=== PATIENT | female | born 1980 | race Caucasian/White ===

== ENCOUNTER 2019-03-01 15:22 | Emergency (ER) | payer MEDICAID, SELFPAY ==
[2019-03-01 15:23] VITALS: BP 130/92; PULSE 92; RESP 16; TEMP 36.7; O2SAT 100; BMI 25.5
--- NOTE | 2019-03-01 15:51 | ED.DCSUM_ITS ---
History of Present Illness Chief Complaint: Lower Extremity Injury Informant: Patient Onset: Month(s) - 1 Narrative: Presents for evaluation of pain in the right medial thigh is nontraumatic for the past month. Reports seen [place] emergency department for these symptoms along with abdominal discomfort reports had lab work and abdominal scan she states she never had an ultrasound of the leg. Currently living down in this area. Looking for a new physician. Denies chest pains or shortness of breath. Denies any recent travel, surgeries, or immobilizations. No history of PE or DVT. Tobacco history, denies any oral contraceptives or hormone therapy. No paresthesias. History of gastric ulcers. History of migraines and seizures on Topamax. Reports has tolerated Percocet in the past. Prior similar symptoms: No Past Medical History - Allergies and Home Meds Allergies/Adverse Reactions: Allergies acetaminophen [From Vicodin] Allergy (Verified 08/22/16 16:46) Hives hydrocodone [From Vicodin] Allergy (Verified 08/22/16 16:46) Hives hydromorphone [From Dilaudid] Allergy (Verified 08/22/16 16:49) Hives latex Allergy (Verified 08/22/16 16:49) Hives Primary Care Physician: Care Physician,No Primary [Primary Care Provider] - Smoking Status: Current every day smoker Review of Systems General: Denies: Chills, Fever, Sweats Eyes: Denies: Visual changes - bilaterally, Diplopia ENT: Denies: Rhinorrhea, Sore throat Cardiovascular: Denies: Chest pain, Palpitations Respiratory: Denies: Dyspnea, Cough, Dyspnea on exertion Gastrointestinal: Denies: Abdominal pain, Nausea, Vomiting, Diarrhea, Melena, Hematochezia Genitourinary: Denies: Dysuria, Hematuria, Frequency Musculoskeletal: Reports: Myalgias. Denies: Back pain, Extremity Pain Skin: Denies: Rash, Wounds Neurological: Denies: Headache, Weakness, Numbness Physical Exam Vital Signs/Narrative: Vital Signs Temp Pulse Resp BP Pulse Ox 03/01/19 15:23 98.0 F 92 16 130/92 H 100 Inital Vital Signs reviewed: Yes General: Well nourished, Well developed, No Acute Distress Head: Normocephalic, Atraumatic Eyes: Perrl, EOMI ENT: Moist mucous membranes, No rhinorrhea Neck: Supple, Nontender Cardiovascular: Regular rate, Regular rhythm, No murmurs Respiratory: No distress, CTA bilaterally, Chest nontender Abdomen: Soft, Nontender, Nondistended, Normal bowel sounds Back: Nontender, Normal Inspection Extremities: No edema, - - Right lower extremity: No swelling, there is tender palpation along the medial thigh. There is no calf tenderness. Neurovascular intact distally.. Negative for: Calf Tenderness Skin: Normal color, No rash Neurological: Alert, Oriented x3, Cranial nerves II-XII grossly intact, Normal Strength, Normal Sensation Psychological: Normal affect, Normal Mood Diagnostic/Tx/Re-eval - Medical Decision Making Patient medial thigh pain nontraumatic. She has no DVT risk factors however is pain along the femoral vein. Pulses are intact distally. There is no current ultrasound available at this time and day therefore will bring the patient back for an outpatient ultrasound in the morning. I do not feel empiric treatment is required with no risk factors. With her gastric ulcers and seizure history, she will be given 1 dose of Percocet along 4 tabs to use as needed. She wishes to see a physician in the area therefore on-call physician was given. ED Disposition - Plan for ED Patient: Disposition: Home or Assisted Living Diagnosis: Right thigh pain Prescriptions: Oxycodone HCl/Acetaminophen [Percocet 5/325] 1 tablet PO Q6H PRN PRN 1 Days #12 tablet PRN Reason: Pain Transmission Status: Sent to [facility] Referrals: Evi Park MD [STAFF PHYSICIAN] - 5-7 Days Additional Instructions: Pain in right medial thigh, return for DVT ultrasound study tomorrow.
--- NOTE | 2019-03-01 16:06 | ED.RN ---
pt left prior to receiving medication and d/c papers.
== END 2019-03-01 16:16 | disposition home or self-care (01) ==
LOC: ED 16:11
PROVIDERS: Emergency Provider Emergency Medicine
DX: M79.651 Pain in right thigh (principal); G40.909 Epilepsy, unspecified, not intractable, without status epilepticus; G43.909 Migraine, unspecified, not intractable, without status migrainosus; Z87.19 Personal history of other diseases of the digestive system; Z79.899 Other long term (current) drug therapy; F17.200 Nicotine dependence, unspecified, uncomplicated
CPT/HCPCS: 99281; 99282

== ENCOUNTER 2019-03-14 19:47 | Emergency (ER) | payer MEDICAID, SELFPAY ==
[2019-03-14 19:48] VITALS: BP 117/101; PULSE 101; RESP 18; TEMP 36.8; O2SAT 100; BMI 24.3
--- NOTE | 2019-03-14 20:14 | RAD_ITS ---
STUDY: X-RAY - PELVIS AND RIGHT HIP REASON FOR EXAM: Female, 38 years old. C/O FALLING MULTIPLE TIME ROLLER SKATING TONIGHT. C/O RIGHT SIDE ESPECIALLY RIGHT HIP PAIN. NUMBNESS IN TINGLING NOTED. TECHNIQUE: 3 views of the pelvis and hip. COMPARISON: None. FINDINGS: There is a non-specific bowel gas pattern. Normal visualized soft tissue structures. Normal bilateral iliac wings, sacroiliac joints and visualized sacrum. Normal bilateral superior and inferior pubic rami. Normal pubic symphysis. Normal bilateral ischial tuberosities. Normal visualized femoral head. Normal acetabulum. Normal hip joint. RAD/Hip Min 2 Views (Portable) IMPRESSION: Normal x-ray examination of the pelvis and hip. Electronically Signed: Get Cabrera MD at 21:02 EST , Service support ,
--- NOTE | 2019-03-14 20:28 | ED.VIS.GEN ---
History of Present Illness Chief Complaint: Fall Informant: Patient, Family Onset: Today Maximum Severity: Mild Narrative: Indicates she was rollerskating today drinking alcohol without activity and fell multiple times on her right hip presents for complaints of pain to the right hip no head back neck chest abdominal pain no numbness weakness paresthesias Past Medical History - Allergies and Home Meds Allergies/Adverse Reactions: Allergies acetaminophen [From Vicodin] Allergy (Verified 03/14/19 19:48) Hives hydrocodone [From Vicodin] Allergy (Verified 03/14/19 19:48) Hives hydromorphone [From Dilaudid] Allergy (Verified 03/14/19 19:48) Hives latex Allergy (Verified 03/14/19 19:48) Hives Primary Care Physician: Care Physician,No Primary [Primary Care Provider] - Past Medical History: - Smoking Status: Current every day smoker Review of Systems ROS: - As above General: Denies: Chills, Fever, Sweats Eyes: Denies: Visual changes - bilaterally, Diplopia ENT: Denies: Rhinorrhea, Sore throat Cardiovascular: Denies: Chest pain, Palpitations Respiratory: Denies: Dyspnea, Cough, Dyspnea on exertion Gastrointestinal: Denies: Abdominal pain, Nausea, Vomiting, Diarrhea, Melena, Hematochezia Genitourinary: Denies: Dysuria, Hematuria, Frequency Musculoskeletal: Reports: Extremity Pain, - - Planes of pain to the right hip only no back pain she was able to walk into the emergency department. Denies: Back pain Skin: Denies: Rash, Wounds Neurological: Denies: Headache, Weakness, Numbness Physical Exam Vital Signs/Narrative: Vital Signs Temp Pulse Resp BP Pulse Ox 03/14/19 19:48 98.2 F 101 H 18 117/101 H 100 General: Well nourished, Well developed, No Acute Distress Head: Normocephalic, Atraumatic Eyes: Perrl, EOMI ENT: Moist mucous membranes, No rhinorrhea Neck: Supple, Nontender Cardiovascular: Regular rate, Regular rhythm, No murmurs Respiratory: No distress, CTA bilaterally, Chest nontender Abdomen: Soft, Nontender, Nondistended, Normal bowel sounds Back: Nontender, Normal Inspection Extremities: No edema, - - Very mild pain to the right hip she has full range of motion of the hip the thigh knee tib-fib and foot are unremarkable the pelvis is stable to back is nontender the rest of her exam is unremarkable she is awake alert answering questions appropriately Skin: Normal color, No rash Neurological: Alert, Oriented x3, Cranial nerves II-XII grossly intact, Normal Strength, Normal Sensation Psychological: Normal affect, Normal Mood Diagnostic/Tx/Re-eval - Medical Decision Making sHe indicates she is stubborn she continued to drink alcohol and roller skate despite the multiple falls she does have a contusion to the left elbow that is not bothering her At this time hip x-rays obtained that shows nothing acute I explained the concept of occult injury as well as her she is not to drink alcohol she is to avoid falling ice to the hip she has multiple allergy profile she indicates she is allowed to take Vicodin I told her Vicodin is not a medication usually prescribed with alcohol abuse and for this type of injury and she should take whatever pain medication her physicians allow her to take she was instructed on potential use of walking aids such as crutch or walker or cane she will discuss that with nurses and to follow-up with the clinic in the next few days and return for change in symptoms Home stable Impression final right hip pain after fall alcohol abuse ED Disposition - Plan for ED Patient: Diagnosis: Hip injury Instructions: FALL, Mechanical, Hip Contusion Referrals: Care Physician,No Primary [Primary Care Provider] - Kaity Cates [NON-STAFF] -
[2019-03-14 21:28] VITALS: BP 104/69; PULSE 78; RESP 16; O2SAT 98
== END 2019-03-14 21:29 | disposition home or self-care (01) ==
LOC: ED 20:30
PROVIDERS: Emergency Provider Emergency Medicine
DX: S79.911A Unspecified injury of right hip, initial encounter (principal); W19.XXXA Unspecified fall, initial encounter; Y93.51 Activity, roller skating (inline) and skateboarding; Y92.9 Unspecified place or not applicable; F10.10 Alcohol abuse, uncomplicated; F17.200 Nicotine dependence, unspecified, uncomplicated
CPT/HCPCS: 73502; 99282

== ENCOUNTER 2019-03-21 14:19 | Emergency (ER) | payer MEDICAID, SELFPAY ==
[2019-03-21 14:20] VITALS: BP 125/83; PULSE 77; RESP 20; TEMP 35.9; O2SAT 100; BMI 25.6
--- NOTE | 2019-03-21 14:51 | ED.VIS.GEN ---
History of Present Illness <Maylin Farias - Last Filed: 03/21/19 15:27> Informant: Patient, Family Onset: Today Context: Sudden Onset Timing: Intermittent Quality: tonic clonic seizure Location: diffuse Current Severity: Mild Maximum Severity: Severe Worsened by: nothing Relieved by: nothing Associated Symptoms: denies Narrative: 38 year old female with a history of a seizure disorder [facility] she is apparently staying after having a seizure. She had a full body tonic-clonic seizure. She did not take her Topamax that she takes for seizures last night. She denies any injuries from the seizure. There is no tongue biting. She was postictal. She was not incontinent. She otherwise has no complaints and has been feeling well recently. Prior similar symptoms: Yes Recent Illness/Hospitalization: No <Erasto Dey - Last Filed: 03/21/19 15:28> Chief Complaint: Seizure Past Medical History <Maylin Farias - Last Filed: 03/21/19 15:27> Prior records reviewed: Yes Past Medical History: - - seziures Surgical History: - - tubal ligation Lives: Homeless Smoking Status: Current every day smoker <LeonardadeborahErasto - Last Filed: 03/21/19 15:28> - Allergies and Home Meds Allergies/Adverse Reactions: Allergies acetaminophen [From Vicodin] Allergy (Verified 03/14/19 19:48) Hives hydrocodone [From Vicodin] Allergy (Verified 03/14/19 19:48) Hives hydromorphone [From Dilaudid] Allergy (Verified 03/14/19 19:48) Hives latex Allergy (Verified 03/14/19 19:48) Hives Primary Care Physician: [facility] Doctor,Out of [NON-STAFF] - Review of Systems All systems negative except as indicated General: Denies: Chills, Fever Eyes: Denies: Visual changes - bilaterally, Blurred Vision - bilaterally, Diplopia ENT: Denies: Bilateral ear pain, Rhinorrhea Cardiovascular: Denies: Chest pain, Palpitations, Heart racing Respiratory: Denies: Dyspnea, Cough, Sputum, Dyspnea on exertion, Orthopnea Gastrointestinal: Denies: Abdominal pain, Nausea, Vomiting, Diarrhea Genitourinary: Denies: Dysuria, Hematuria, Frequency Musculoskeletal: Denies: Neck pain, Back pain, Swelling, Extremity Pain Skin: Denies: Rash, Abscess, Abrasions, Wounds Neurological: Denies: Headache, Weakness, Parasthesia, Numbness Psych: Denies: Depression, Anxiety <Erasto Dey - Last Filed: 03/21/19 15:28> Physical Exam Vital Signs/Narrative: Vital Signs Temp Pulse Resp BP Pulse Ox 03/21/19 14:20 96.7 F L 77 20 H 125/83 H 100 <Maylin Farias - Last Filed: 03/21/19 15:27> Vital Signs/Narrative: Vital Signs Temp Pulse Resp BP Pulse Ox 03/21/19 14:20 96.7 F L 77 20 H 125/83 H 100 Inital Vital Signs reviewed: Yes General: Well nourished, Well developed, No Acute Distress Head: Normocephalic, Atraumatic Eyes: Perrl, EOMI ENT: Moist mucous membranes Neck: Supple, Nontender, No lymphadenopathy Cardiovascular: Regular rate, Regular rhythm, No murmurs Respiratory: No distress, CTA bilaterally, Chest nontender Abdomen: Soft, Nontender, Nondistended, Normal bowel sounds, No masses Back: Nontender, Normal Inspection. Negative for: CVA tenderness Extremities: Nontender, No edema Skin: Normal color, No rash Neurological: Alert, Oriented x3, Cranial nerves II-XII grossly intact, Normal Strength, Normal Sensation, Normal Gait Psychological: Normal affect <Erasto Dey - Last Filed: 03/21/19 15:28> Diagnostic/Tx/Re-eval - Medical Decision Making The patient presents with seizure she was seen with Jessica agree with history and physical as above she apparently not take her meds but that subsequently she did take them after having seizure she is not been ill in any way per her and her on exam she is resting comfortably bed head neck chest unremarkable confirms history as above at this time we will provide her additional medications, she assures that she has medications at home she wants to be discharged home to make sure she has follow-up arrangements see the chart for full details <Maylin Farias - Last Filed: 03/21/19 15:27> ED Disposition <Maylin Farias - Last Filed: 02/01/20 15:27> <Erasto Dey - Last Filed: 03/21/19 15:28> - Plan for ED Patient: Disposition: Home or Assisted Living Diagnosis: Seizure, Seizure disorder Instructions: SEIZURE, Recurrent [Adult] Referrals: Evi Park MD [STAFF PHYSICIAN] - As soon as possible
[2019-03-21 15:33] VITALS: BP 103/72; PULSE 78; RESP 16; O2SAT 100
[2019-03-21] MEDS: Topiramate 50 MG Tablet PO (15:42)
== END 2019-03-21 15:43 | disposition home or self-care (01) ==
PROVIDERS: Emergency Provider Physician Assistant Medical
DX: G40.909 Epilepsy, unspecified, not intractable, without status epilepticus (principal); Z91.14 Patient's other noncompliance with medication regimen; Z59.0 Homelessness; Z79.899 Other long term (current) drug therapy; F17.200 Nicotine dependence, unspecified, uncomplicated
CPT/HCPCS: 99284

== ENCOUNTER 2019-04-03 12:51 | Emergency (ER) | payer MEDICAID, SELFPAY ==
[2019-04-03 12:52] VITALS: BP 123/66; PULSE 96; RESP 16; TEMP 36.6; O2SAT 98; BMI 24.8
--- NOTE | 2019-04-03 13:07 | RAD_ITS ---
STUDY: X-RAY - LEFT HAND, ATTENTION FOURTH FINGER REASON FOR EXAM: Female, 38 years old. PT SMASHED TIP OF RING FINGER, LACERATION, PAIN TECHNIQUE: 3 view(s) of the finger were obtained. COMPARISON: None. FINDINGS: Normal metacarpal head. Normal metacarpophalangeal joint. Normal proximal phalanx. Normal middle phalanx. Nondisplaced fracture of the tuft of the distal phalanx of the fourth digit. Overlying soft tissue laceration. Normal proximal interphalangeal joint. Normal distal interphalangeal joint. RAD/Finger(s) Min 2 Views IMPRESSION: Nondisplaced fracture of the tuft of the distal phalanx of the fourth digit with overlying soft tissue swelling and laceration. Electronically Signed: Mikael Huang, at 14:08 EST , Service support ,
--- NOTE | 2019-04-03 13:08 | ED.VIS.GEN ---
History of Present Illness Chief Complaint: Upper Extremity Injury Informant: Patient Narrative: Hannah sustained a crush injury to her left fourth digit she tells me she had some sort of fracture on x-ray at an outside ED, this happened a few weeks ago and she still has pain in that region. She has no redness, she has no fever or chills she has no swelling her pain is worse only when she straightens her finger, but she is able to do it, she is able to flex and extend and have normal range of motion, she sustained a volar abrasion which is also healing. Past Medical History - Allergies and Home Meds Allergies/Adverse Reactions: Allergies acetaminophen [From Vicodin] Allergy (Verified 04/03/19 12:59) Hives hydrocodone [From Vicodin] Allergy (Verified 04/03/19 12:59) Hives hydromorphone [From Dilaudid] Allergy (Verified 04/03/19 12:59) Hives latex Allergy (Verified 04/03/19 12:59) Hives Primary Care Physician: Care Physician,No Primary [Primary Care Provider] - Past Medical History: - - Noncontributory Surgical History: - - tubal ligation Smoking Status: Current every day smoker Review of Systems General: Denies: Fever Musculoskeletal: Reports: Extremity Pain Skin: Reports: Wounds Neurological: Denies: Weakness, Parasthesia Hematologic: Denies: Easy bruising, Easy bleeding Physical Exam Vital Signs/Narrative: Vital Signs Temp Pulse Resp BP Pulse Ox 04/03/19 12:52 97.9 F 96 16 123/66 H 98 General: Well nourished, Well developed Cardiovascular: Regular rate Extremities: - - This tenderness and a healing volar wound. There is no nailbed injury, the fourth digit does not appear swollen, she only has distal tuft tenderness. She is able to flex and extend without any difficulty she has some distal paresthesias and decreased sensation of the distal tip of the finger. Skin: Normal color, - - There is no erythema or calor or any signs of infection of the finger. Diagnostic/Tx/Re-eval Left fourth digit x-ray interpreted by me shows a nondisplaced distal phalanx fracture. - Medical Decision Making Patient's fracture is seen on x-ray, it is nondisplaced, I will treat her with analgesia, she is told to continue wearing her aluminum splint. Otherwise she will be discharged in stable condition she is a smoker I told her healing will take longer ED Disposition - Plan for ED Patient: Disposition: Home or Assisted Living Diagnosis: Finger fracture, left Instructions: FRACTURE, Finger (Closed) Prescriptions: Naproxen [Naprosyn] 500 mg PO BID PRN #20 tab Prescription Printed Referrals: Care Physician,No Primary [Primary Care Provider] - 3-5 Days
[2019-04-03] MEDS: traMADol 50 MG Tablet PO (14:36)
== END 2019-04-03 14:39 | disposition home or self-care (01) ==
PROVIDERS: Emergency Provider Emergency Medicine
DX: S62.665A Nondisplaced fracture of distal phalanx of left ring finger, initial encounter for closed fracture (principal); X58.XXXA Exposure to other specified factors, initial encounter; Y93.9 Activity, unspecified; Y92.9 Unspecified place or not applicable; F17.200 Nicotine dependence, unspecified, uncomplicated
CPT/HCPCS: 73140; 99283

== ENCOUNTER 2023-09-18 23:09 | Emergency (ER) | payer MEDICAID, SELFPAY ==
[2023-09-18 23:11] VITALS: PULSE 82; RESP 16; TEMP 36.6; O2SAT 97; BMI 25.0
--- NOTE | 2023-09-18 23:15 | ED.RN ---
Patient got upset when this RN was asking the required questions for triage and initial assessment. The patient yelled well you are not helping my pain, I need pain meds and you are not helping me. This RN explained to the patient that these questions were necessary for her care while in the ED and that the doctor needed to come see her before I could give her any medication.
--- NOTE | 2023-09-18 23:35 | EKG12_ITS ---
Test Reason : DYSRYTHMIA Blood Pressure : / mmHG Vent. Rate : 069 BPM Atrial Rate : 069 BPM P-R Int : 158 ms QRS Dur : 070 ms QT Int : 398 ms P-R-T Axes : 052 057 038 degrees QTc Int : 426 ms Normal sinus rhythm Possible Anteroseptal infarct , age undetermined Abnormal ECG Confirmed by ROBERTO BUCK, QUITA ([id number]), editor managing director VINCE STOREY ([id number]) on 09/20/2023 10:26:03 AM Referred By: Confirmed By:CHANEL MEJIA MD
--- NOTE | 2023-09-18 23:36 | EDS_ITS ---
HPI History of Present Illness Chief Complaint: Chest Pain Detail of Chief Complaint: Chest pain Informant: patient Narrative Narrative: Patient presents with chest pain that she has had ongoing for for 5 months. Patient presents via EMS. Patient states that her fianc? who is significantly older than her recently had a heart attack and stents and had strokes and she became concerned. Patient describes a sharp stabbing pain in the left side of her chest that sometimes goes into her fingertips and toes. She denies nausea or vomiting. She denies recent travel or surgery. No history of PE or DVT. No significant medical history otherwise. PFSH PFSH Home Medications ?Medication ?Instructions ?Recorded ?Last Taken ?Type naproxen 500 mg tablet 500 mg PO BID PRN #20 tabs 04/03/19 Unknown Rx oxycodone-acetaminophen 5 mg-325 1 tab PO Q8H PRN pain 3 days #10 09/19/23 Unknown Rx mg tablet (Percocet) tabs Allergy/AdvReac Type Severity Reaction Status Date / Time acetaminophen (From Vicodin) Allergy Hives Verified 09/18/23 23:10 hydrocodone (From Vicodin) Allergy Hives Verified 09/18/23 23:10 hydromorphone (From Dilaudid) Allergy Hives Verified 09/18/23 23:10 latex Allergy Hives Verified 09/18/23 23:10 Surgical History (Updated 09/18/23 @ 23:17 by Shonna Clark) Hx of knee surgery Hx of removal of cyst Hx of section Social History Smoking Status: Current every day smoker tobacco type: cigarettes ROS ROS ED Review of Systems ROS Unobtainable: other Constitutional Constitutional ED: Reports lethargy; Denies chills, fever(s), sweats or weight loss Eyes Eyes: Denies blurry vision, change in vision or diplopia ENT ENT ED: Denies rhinorrhea or sore throat Cardiovascular Cardiovascular: Reports chest pain; Denies orthopnea or racing heartbeat Respiratory/Chest Respiratory/Chest: Denies cough, dyspnea, dyspnea on exertion, orthopnea or sputum Gastrointestinal Gastrointestinal: Denies abdominal pain, diarrhea, nausea or vomiting Genitourinary Genitourinary ED: Denies dysuria, hematuria or urinary frequency Musculoskeletal Musculoskeletal: Denies arthralgias, back pain, myalgias or neck pain Integumentary Denies abscess, Abrasions or rash Neurologic Neurologic: Denies headache(s) or weakness Psychiatric Psychiatric: Denies anxiety, depression or suicidal thoughts Endocrine Endocrinology: Denies polydipsia, polyphagia or polyuria Hematologic/Lymphatic Hematologic/Lymphatic: Denies easy bleeding, easy bruising or lymphadenopathy Allergic/Immunologic Allergic/Immunologic ED: Denies mouth swelling, tongue swelling or urticaria EXAM Physical Exam Const Vital Signs: 09/18/23 23:11 09/18/23 23:15 09/18/23 23:47 Temperature 97.9 F Temperature Source Oral Pulse Rate 82 Respiratory Rate 16 Respiratory Effort Normal Non-Labored Pulse Ox 97 99 Oxygen Delivery Method Room Air Room Air Positive well nourished and well developed General Appearance ED: well developed and NAD HEENT Reports TM's clear and moist mucous membranes normocephalic and atraumatic; Negative for trauma or tenderness Tympanic Membrane ED: Yes TM's clear Eyes PERRL and EOMs intact bilaterally General Eye ED: Negative for pale conjunctiva or scleral icterus Neck no lymphadenopathy, supple and no JVD General: Negative for tenderness Chest Wall inspection of chest normal Chest Narrative: Tenderness over the left chest wall that seems to reproduce her pain. No crepitus or subcu for Alejandrina noted. Chest: Negative for tenderness Resp normal respiratory effort and clear to auscultation bilaterally Effort and Inspection: Negative for respiratory distress or pain with movement Auscultation: Negative for rhonchi, wheezes or diminished lung sounds Cardio regular rate, regular rhythm, S1 normal heart sound, S2 normal heart sound and no murmurs Peripheral Pulses: pulses 2+ throughout GI normal to inspection, nondistended, normoactive bowel sounds, soft to palpation, non-tender, non-distended and no masses Back/Spine no CVA tenderness and no thoracic nor lumbar tenderness Extremity normal to inspection General Extremety ED: Negative for edema General Extremity: Negative for edema Neuro oriented x3, CN's II-XII intact bilaterally, no sensory deficits noted and gait normal Sensorium / Orientation: awake, alert, oriented to person, oriented to place and oriented to time Motor Exam: strength 5/5 throughout and strength abnormal Psych mental status grossly normal Skin no rashes or lesions noted and no wounds Heart Score History: Slightly/Non-Suspicious ECG: Normal Age: </= 45 years Risk Factors: 1 or 2 Risk Factors Troponin: </= Normal Limit Score: 1 MDM MDM MDM Narrative Medical decision making narrative: Patient presents with chest pain sounds atypical and ongoing for 4 to 5 months. Clinically she looks well. In the differential would be chest wall pain versus PE versus pneumothorax or acute coronary syndrome which I feel is less likely. EKG obtained showed sinus rhythm with rate of 69 bpm with no acute ST segment changes. CBC with differential showed a WBC count of 8.3 with hemoglobin 12 and platelet count of 187. Chemistries unremarkable. Troponin was less than 3. D- dimer normal at 0.33. 1 view chest x-ray unremarkable. Initially she received Toradol and did not get much pain relief with that. I will give her Oxy IR. I will order a prescription for Percocet for a few days. Will refer to primary care physician on-call for no doc. I do not feel patient is having acute coronary syndrome. She has a heart score of 1. Suspect likely musculoskeletal etiology. Lab Data Attestation: I reviewed the patient's lab results. Labs: Laboratory Results - last 24 hr 09/18/23 23:43 WBC 8.3 RBC 3.66 L Hgb 12.1 Hct 35.3 L MCV 96.4 MCH 33.1 H MCHC 34.3 RDW Std Deviation 50.5 H RDW Coeff of Myriam 14.6 Plt Count 187 MPV 10.9 Immature Gran % (Auto) 0.400 Neut % (Auto) 28.0 L Lymph % (Auto) 61.4 H [place] % (Auto) 8.1 Eos % (Auto) 1.3 Baso % (Auto) 0.8 Absolute Neuts (auto) 2.3 Absolute Lymphs (auto) 5.11 H Nucleated RBC % 0 Differential Comment SCANNED D-Dimer Quant (PE/DVT) 0.33 Sodium 143 Potassium 3.6 Chloride 113 H Carbon Dioxide 25.0 Anion Gap 5 BUN 8 Creatinine 0.67 Estim Creat Clear Calc 86.87 Est GFR (MDRD) Af Amer 124 Est GFR (MDRD) Non-Af 103 BUN/Creatinine Ratio 11.9 Glucose 94 Calcium 8.2 L Troponin I High Sens < 3 L Radiography Diagnostic Testing: Clinical Impression(s) from Imaging Studies Chest X-Ray 09/18/23 23:42 IMPRESSION: No acute pulmonary finding. Electronically Signed: Papo Gordon MD at 23:53 EDT Reading Location ID and State: [facility] / [place] Tel , Service support , 1 view chest x-ray obtained interpreted by myself as no infiltrate or pneumothorax or acute disease process. Radiology in agreement. EKG Initial EKG: Attestation: I personally reviewed and interpreted this EKG as follows: Comments: Sinus rhythm with ventricular rate of 69 bpm with no acute ST segment changes Discharge Plan Triage Chief Complaint: Chest Pain ED Provider: Evelin Oscar Dx/Rx/DC Orders Clinical Impression: Chest pain Instructions: ED Chest Pain, Uncertain Cause Prescriptions: New oxycodone-acetaminophen [Percocet] 5-325 mg tablet 1 tab PO Q8H PRN (Reason: pain) 3 Days Qty: 10 0RF No Action naproxen 500 MG tablet 500 mg PO BID PRN Qty: 20 0RF Primary Care Provider: Care Physician,No Primary Referrals: Odalys Brown MD [Med Staff - [facility]] - 3-5 Days Care Physician,No Primary [Primary Care Provider] - Print Language: [place] Disposition Disposition: Home, Self Care
--- NOTE | 2023-09-18 23:42 | RAD_ITS ---
INDICATION: chest pain EXAMINATION/TECHNIQUE: X-RAY - XR Chest 1 View COMPARISON: No relevant prior comparison study available FINDINGS: LINES/DEVICES: None. LUNGS: The lungs are well expanded. No consolidation, edema or effusion. No pneumothorax. MEDIASTINUM AND CARDIOVASCULAR STRUCTURES: Cardiac silhouette not enlarged. Central airways and mediastinal contour are unremarkable. BONES AND SOFT TISSUES: No acute abnormality. RAD/Chest 1 View (Portable) IMPRESSION: No acute pulmonary finding. Electronically Signed: Papo Gordon MD at 23:53 EDT ,
[2023-09-18 23:47] VITALS: O2SAT 99
[2023-09-18 23:49] LABS: Absolute Lymphocyte Count 5.11 X10^3/uL (0.83-4.51); Absolute Neutrophil Count 2.3 X10^3/uL (2.0-7.7); Basophil# 0.07 X10^3/uL; Basophil% 0.8 % (0-1); Eosinophil# 0.11 X10^3/uL; Eosinophils% 1.3 % (0-5); Hematocrit 35.3 % (37-47); Hemoglobin 12.1 g/dL (12.0-15.0); Lymphocyte # 5.11 X10^3/ul (0.83-4.51); Lymphocyte % 61.4 % (19-41); Mean Corp Hgb Conc 34.3 g/dL (32-36); Mean Corpuscular Hgb 33.1 pg (27.0-32.0); Mean Corpuscular Volume 96.4 fL (81-99); Mean Platelet Vol. 10.9 fl (6.2-12.0); Monocyte# 0.67 X10^3/uL; Monocyte% 8.1 % (0-10); NRBC Flagged by Analyzer 0 % (0-5); Neutrophil # 2.33 X10^3/uL (2.7-7.7); POSITIVE DIFFERENTIAL YES; POSITIVE MORPHOLOGY YES; Platelet Count 187 K/mm3 (150-450); RBC Distribution Width CV 14.6 % (11.6-14.6); RBC Distribution Width SD 50.5 fl (35.1-43.9); Red Blood Count 3.66 M/mm3 (4.2-5.4); White Blood Count 8.3 K/mm3 (4.4-11.0)
[2023-09-18] MEDS: Ketorolac 30 MG/ML Syringe IV (23:51)
[2023-09-18] MEDS: LORazepam 2 MG/ML Syringe 0.5 MG IV (23:52)
[2023-09-18] MEDS: 0.9% Normal Saline (1000mL) 1,000 ML 150 ML IV (23:53)
[2023-09-19] LABS: D-Dimer Quantitative (DVT/PE) 0.33 FEU/ug/m (0.27-0.49)
[2023-09-19 00:07] LABS: Anion Gap 5 (5-15); BUN 8 mg/dL (7-18); BUN/Creat Ratio 11.9 RATIO (10-20); Calcium,Total 8.2 mg/dL (8.5-10.1); Chloride 113 mmol/L (98-107); Creatinine, Serum 0.67 mg/dL (0.55-1.02); EST Glomerular Filtration Rate 103 mL/min (>60); Est Glom Filt Rate - Afr Amer 124 mL/min (>60); Estimated Creatinine Clearance 86.87 ml/min; Glucose 94 mg/dL (74-106); Potassium 3.6 mmol/L (3.5-5.1); Sodium Level 143 mmol/L (136-145); Troponin-I HS (w/2H Reflex) < 3 pg/mL (3.0-54.0)
[2023-09-19 00:08] LABS: Differential Indicated SCAN CRITERIA MET
[2023-09-19 00:21] LABS: Differential Comment SCANNED
--- NOTE | 2023-09-19 00:59 | ED.RN ---
I went into the room to evaluate the patient's pain level and reconnect her threat monitoring analyst leads because she is a chest pain patient and the monitor is ordered. I asked the patient to sit on the bed in order for me to untangle her cords, the patient got upset and yelled at me for being rude. I reconnected her leads to her threat monitoring analyst stickers and she yelled at me for hurting her. The patient told me that she did not need the monitor and stated I don't need the damn cords and I don't want to be here because you cannot keep me here because I am 42 years old and you cannot make me stay here, I want my doctor in here right now. I left her room in order to get her ordered pain medication. I explained the situation to Brianne LÓPEZ, who reentered the room with me. When we entered the room, the patient demanded that I leave the room because I was, as the patient stated, being rude and yelling at her. When Brianne asked the patient what was happening, the patient stated, well I do not want her as my nurse because she was being rude to me. Brianne asked how I was rude to the patient and the patient could not give an answer and requested to leave. Brianne took out her IV and I filled out her dispo, grabbed her discharge paperwork, and returned the pain medication to the [facility]. The patient waited in the waiting room for meds to beds.
[2023-09-19 01:46] LABS: Reflex Troponin-HS? (from REC) Y
== END 2023-09-19 01:29 | disposition home or self-care (01) ==
PROVIDERS: Emergency Provider Emergency Medicine; Visit Provider Emergency Medicine
DX: R07.9 Chest pain, unspecified (principal); F17.210 Nicotine dependence, cigarettes, uncomplicated
CPT/HCPCS: 71045; 80048; 82077; 84484; 85025; 85379; 93005; 96361; 96374; 96375; 99284; J7030; A4216

== ENCOUNTER 2024-02-19 01:22 | Emergency (ER) | payer MEDICAID, SELFPAY ==
[2024-02-19 01:22] VITALS: BP 121/85; PULSE 74; RESP 16; TEMP 36.6; O2SAT 100; BMI 26.3
--- NOTE | 2024-02-19 02:15 | RAD_ITS ---
EXAM: XR LEFT FOOT COMPLETE, 3 OR MORE VIEWS CLINICAL INDICATION: trauma TECHNIQUE: Frontal, lateral and oblique views of the left foot. COMPARISON: No relevant prior studies available. FINDINGS: BONES/JOINTS: Unremarkable. No acute fracture. No subluxation. Normal alignment. Preservation of the joint space. No sclerotic or destructive changes observed. SOFT TISSUES: Unremarkable. No soft tissue swelling or gas. No radiopaque foreign body. RAD/Foot min 3 Views IMPRESSION: Negative left foot x-rays. Electronically Signed: Valdez Mckeon MD at 4:26 EST ,
--- NOTE | 2024-02-19 02:15 | RAD_ITS ---
EXAM: XR LEFT ANKLE COMPLETE, 3 OR MORE VIEWS CLINICAL INDICATION: trauma TECHNIQUE: Frontal, lateral and oblique views of the left ankle. COMPARISON: No relevant prior studies available. FINDINGS: BONES/JOINTS: Small ossicle adjacent to the lateral malleolus appears chronic and probably represents an os subfibulare. No acute fracture. No subluxation. Normal alignment. Preservation of the joint space. No sclerotic or destructive changes observed. SOFT TISSUES: Mild soft tissue swelling bilaterally likely due to sprain. No radiopaque foreign body. RAD/Ankle min 3 Views IMPRESSION: 1. Mild soft tissue swelling bilaterally likely due to sprain. 2. Small ossicle adjacent to the lateral malleolus appears chronic and probably represents an os subfibulare. Electronically Signed: Valdez Mckeon MD at 4:25 EST ,
--- NOTE | 2024-02-19 03:17 | EDS_ITS ---
HPI History of Present Illness Chief Complaint: Lower Extremity Injury Informant: patient and EMS Narrative Narrative: Patient is a 43-year-old female with past medical history of migraine headache as well as epilepsy. She states 1 to 2 hours ago she was taking her dogs outside when she tripped on the steps and fell injuring her left foot/ankle. She denies striking her head or any loss of consciousness. She denies any history of bleeding disorder or blood thinner use. She states that she cannot bear weight on the foot/ankle and has concerned that it may be fractured and therefore called EMS to bring her in for evaluation [facility] Medical History Liver disease Alcohol abuse Smoker Seizures Chronic bronchiolitis Epilepsy Migraine Home Medications ?Medication ?Instructions ?Recorded ?Last Taken ?Type naproxen 500 mg tablet 500 mg PO BID PRN #20 tabs 04/03/19 Unknown Rx Unobtainable 06/02/23 Unknown History oxycodone-acetaminophen 5 mg-325 1 tab PO Q8H PRN pain 3 days #10 09/19/23 Unknown Rx mg tablet (Percocet) tabs Allergy/AdvReac Type Severity Reaction Status Date / Time acetaminophen (From Vicodin) Allergy Hives Verified 02/19/24 01:23 hydrocodone (From Vicodin) Allergy Hives Verified 02/19/24 01:23 hydromorphone (From Dilaudid) Allergy Hives Verified 02/19/24 01:23 latex Allergy Hives Verified 02/19/24 01:23 Latex, Natural Rubber Allergy Rash Verified 02/19/24 01:23 Surgical History (System 09/23/23 @ 11:52 by Federica Rhodes) Hx of knee surgery Hx of removal of cyst Hx of section Social History (System 09/23/23 @ 11:52 by Federica Rhodes) Smoking Status: Current every day smoker tobacco type: cigarettes ROS ROS ED Constitutional Constitutional ED: Denies chills or fever(s) Eyes Eyes: Denies blurry vision or change in vision ENT ENT ED: Denies sore throat Cardiovascular Cardiovascular: Reports other Details: Negative syncope ; Denies chest pain Respiratory/Chest Respiratory/Chest: Denies cough or dyspnea Gastrointestinal Gastrointestinal: Denies abdominal pain, diarrhea, nausea or vomiting Musculoskeletal Musculoskeletal: Reports other Details: Positive left foot/ankle pain ; Denies back pain or neck pain Integumentary Denies Abrasions Neurologic Neurologic: Denies headache(s) or paresthesias Hematologic/Lymphatic Hematologic/Lymphatic: Denies easy bleeding or easy bruising EXAM Physical Exam Const Vital Signs: 02/19/24 01:22 Temperature 97.9 F Temperature Source Oral Pulse Rate 74 Respiratory Rate 16 Blood Pressure 121/85 H Blood Pressure Mean 97 Pulse Ox 100 Oxygen Delivery Method Room Air Positive well nourished and well developed General Appearance ED: well developed HEENT HEENT Narrative: Normocephalic atraumatic No signs of depressed or basilar skull fracture Eyes PERRL and EOMs intact bilaterally Neck supple Neck Narrative: No bony deformity or step-off of the cervical spine no midline tenderness to palpation Resp normal respiratory effort and clear to auscultation bilaterally Cardio regular rate and regular rhythm Back/Spine Back/Spine Narrative: No bony deformity or step-off of the thoracic and lumbar spine no midline tenderness to palpation Extremity Extremity Narrative: Left lower extremity is neurovascularly intact Patient has soft tissue swelling along the lateral aspect of the left ankle with faint ecchymosis. No obvious bony deformity or joint effusion. There is also pain on palpation over top the calcaneus. Active and passive range of motion is decreased secondary to pain. There does appear to be increased laxity with stressing of the left ATFL compared to the right concerning for grade 2 ankle sprain. No proximal pain on palpation of the left tibia Compartments are soft and compressible going against compartment syndrome Neuro oriented x3, CN's II-XII intact bilaterally and no sensory deficits noted Sensorium / Orientation: alert Psych mental status grossly normal Skin Skin Narrative: Mild soft tissue swelling with faint ecchymosis to the lateral aspect of the left foot/ankle as documented above MDM MDM MDM Narrative Medical decision making narrative: Patient arrived to the ER with stable vitals. She reported mechanical fall and therefore there is no need for cardiac or syncope workup. She did not strike her head have loss of conscious nor take blood thinners so there is low concern for traumatic skull fracture versus traumatic subdural or subarachnoid hemorrhage. In order to rule out ankle fracture versus foot fracture versus contusion versus sprain I did perform x-rays. X-rays revealed no acute findings. The patient was informed she would receive oxycodone for pain. However critical patient came in just as I was leaving the room and did not have time to enter the pain medication order. While I was dealing with the other patient she became upset she was not receiving her pain medication and was able to ambulate out of the ER without any assistive devices. As I was able to review her x-rays and did not note any fracture or dislocation she was going to be discharged anyway and therefore patient was discharged but did not receive crutches walking boot or pain medication as she did not want to wait around any longer in the ER History & Record Review Discussion w/independent historian: Patient Radiography Diagnostic Testing: Clinical Impression(s) from Imaging Studies Ankle X-Ray 02/19/24 02:15 IMPRESSION: 1. Mild soft tissue swelling bilaterally likely due to sprain. 2. Small ossicle adjacent to the lateral malleolus appears chronic and probably represents an os subfibulare. Electronically Signed: Valdez Mckeon MD at 4:25 EST , Foot X-Ray 02/19/24 02:15 IMPRESSION: Negative left foot x-rays. Electronically Signed: Valdez Mckeon MD at 4:26 EST , Left foot x-ray as interpreted by the emergency medicine physician reveals no acute fracture or dislocation Left ankle x-ray as interpreted by the emergency medicine this reveals mild soft tissue swelling without joint effusion fracture or dislocation Discharge Plan Triage Chief Complaint: Lower Extremity Injury ED Provider: Willian Brice Dx/Rx/DC Orders Clinical Impression: Grade 2 ankle sprain, Contusion of left heel, Accidental fall, History of epilepsy Instructions: Treating Ankle Sprains, ED Foot Contusion Prescriptions: No Action naproxen 500 MG tablet 500 mg PO BID PRN Qty: 20 0RF Unobtainable oxycodone-acetaminophen [Percocet] 5-325 mg tablet 1 tab PO Q8H PRN (Reason: pain) 3 Days Qty: 10 0RF Primary Care Provider: CARIN MORRISON Referrals: CARIN MORRISON MD [Primary Care Provider] - Print Language: Sinhala Disposition Disposition: Home, Self Care Discharge Date/Time: 02/19/24 03:43
--- NOTE | 2024-02-19 03:17 | ED.RN ---
Pt rang light, this nurse answered, unable to understand. This nurse to room to assess. Pt states I am cold and I want pain medicine. Advised pt that she has two blankets on her bed and she is not using them. This nurse explained that doctor would be asked about pain medicine. Pt states you people should be in here taking care of me not other people. Explained to pt that pts are seen and treated based on who is most critical. Pt yells at this nurse I am fucking critical I came in a fucking squad. Explained to pt that coming by squad does not determine level of severity. Pt states to nurse just get me the fucking pain medicine. This nurse to [facility] to get medication. While walking back to room, pt ambulates out of room and states she is leaving and walks out.
== END 2024-02-19 03:43 | disposition home or self-care (01) ==
PROVIDERS: Emergency Provider Emergency Medicine; PCP Internal Medicine; Visit Provider Emergency Medicine
DX: S93.402A Sprain of unspecified ligament of left ankle, initial encounter (principal); G40.909 Epilepsy, unspecified, not intractable, without status epilepticus; F17.210 Nicotine dependence, cigarettes, uncomplicated; W01.0XXA Fall on same level from slipping, tripping and stumbling without subsequent striking against object, initial encounter; Y92.008 Other place in unspecified non-institutional (private) residence as the place of occurrence of the external cause; S90.32XA Contusion of left foot, initial encounter
CPT/HCPCS: 73610; 73630; 99284

== ENCOUNTER 2024-10-13 01:53 | Emergency (ER) | payer MEDICAID, SELFPAY ==
[2024-10-13 01:54] VITALS: BP 150/94; PULSE 88; RESP 18; TEMP 36.7; O2SAT 100; BMI 28.6
--- NOTE | 2024-10-13 02:08 | ED.VIS.FEGU ---
HPI HPI - Female History of Present Illness Chief Complaint: Vag Bleeding Informant: patient Narrative Narrative: 43-year-old female presenting for vaginal bleeding. States this has been going on for about a week, it was appropriate timing for her cycle. However it has been going on for longer than usual, and she has been bleeding more than usual especially in the past 24 hours, many hours she has been going through an entire pad. She denies any syncope. No fevers or chills. She is having some right sided pelvic pain that started 4 days ago. This same pain started before this cycle and then ended when the bleeding started, which is how it has gone in the last couple cycles but now she is having the pain again and it feels like it is getting worse. Denies any other acute symptoms. She presents at 2 AM after drinking some beer earlier. States she does not have an [employer]. [facility] Medical History Liver disease Alcohol abuse Smoker Seizures Chronic bronchiolitis Epilepsy Migraine Home Medications ?Medication ?Instructions ?Recorded ?Last Taken ?Type duloxetine 30 mg capsule,delayed 30 mg PO DAILY 10/13/24 Unknown History release ibuprofen 600 mg tablet 600 mg PO Q8H PRN PRN pain #20 10/13/24 Unknown Rx TABLETS quetiapine 200 mg tablet 200 mg PO QHS 10/13/24 Unknown History topiramate 100 mg tablet 100 mg PO DAILY 10/13/24 Unknown History trazodone 100 mg tablet 100 mg PO QHS PRN PRN insomnia 10/13/24 Unknown History Allergy/AdvReac Type Severity Reaction Status Date / Time acetaminophen (From Vicodin) Allergy Hives Verified 10/13/24 01:54 hydrocodone (From Vicodin) Allergy Hives Verified 10/13/24 01:54 hydromorphone (From Dilaudid) Allergy Hives Verified 10/13/24 01:54 latex Allergy Hives Verified 10/13/24 01:54 Latex, Natural Rubber Allergy Rash Verified 10/13/24 01:54 Surgical History (Updated 10/13/24 @ 01:59 by Alicia Collins) H/O tubal ligation Hx of knee surgery Hx of removal of cyst Hx of section Social History Smoking Status: Current every day smoker tobacco type: cigarettes ROS ROS ED Constitutional Constitutional ED: Denies chills or fever(s) Eyes Eyes: Denies change in vision or diplopia ENT ENT ED: Denies rhinorrhea or sore throat Cardiovascular Cardiovascular: Denies chest pain or palpitations Respiratory/Chest Respiratory/Chest: Denies cough or dyspnea Gastrointestinal Gastrointestinal: Reports abdominal pain; Denies diarrhea, nausea or vomiting Genitourinary Genitourinary ED: Reports vaginal bleeding; Denies dysuria, hematuria, low back pain or vaginal discharge Musculoskeletal Musculoskeletal: Denies back pain or neck pain Integumentary Denies abscess or rash Neurologic Neurologic: Denies headache(s), paresthesias or weakness Psychiatric Psychiatric: Denies suicidal thoughts EXAM Physical Exam Const Vital Signs: 10/13/24 01:54 Temperature 98.1 F Temperature Source Axillary Pulse Rate 88 Respiratory Rate 18 Blood Pressure 150/94 H Blood Pressure Mean 112 Pulse Ox 100 Oxygen Delivery Method Room Air Positive well nourished and well developed General Appearance ED: well developed and NAD HEENT Reports moist mucous membranes normocephalic and atraumatic Eyes PERRL and EOMs intact bilaterally Neck full ROM and supple Resp normal respiratory effort and clear to auscultation bilaterally Cardio regular rate, regular rhythm and no murmurs Rate: Negative for tachycardic GI non-distended GI Narrative: Tender suprapubic and right pelvis. No guarding or rebound. No other areas of tenderness. Auscultation: normoactive bowel sounds Palpation: soft Speculum Exam - Vagina: vaginal bleeding; Negative for vaginal discharge Back/Spine no CVA tenderness General Back: other FROM Extremity normal to inspection General Extremety ED: Negative for edema, pulses abnormal or tenderness General Extremity: Negative for edema or pulses abnormal Neuro oriented x3, CN's II-XII intact bilaterally and no sensory deficits noted Sensorium / Orientation: awake and alert Motor Exam: strength 5/5 throughout Psych Mood & Affect: anxious Skin no rashes or lesions noted and no wounds MDM MDM MDM Narrative Medical decision making narrative: Labs were obtained as well as a serum qualitative which is negative, ruling out ectopic as cause for her pelvic pain. Her labs are very reassuring, showing hemoglobin 14.1, no leukocytosis, actually a predilection for lymphocytes on the differential for her total white blood count of 10.2. Her urine is negative except for some occult blood likely due to contamination from her vaginal bleeding. No signs of infection. Patient is doing well her vital signs are stable she is a little hypertensive but she is very anxious and wants to make sure she is okay. She was given Toradol and she feels a lot better with regards to her pain. I do not have ultrasound here right now, I could call them in for true emergencies such as rule out ectopic, but as above that is not necessary or indicated for her at this time. I am not suspicious for TOA given her focal pain and lack of leukocytosis or discharge recently. This could be an ovarian cyst, if hemorrhagic she is in no danger with her blood pressure and stable hemoglobin. I recommend close outpatient gynecologic follow-up, we can give her a prescription for some NSAID and she is comfortable with that plan at this time. Lab Data Attestation: I reviewed the patient's lab results. Labs: Laboratory Results - last 24 hr 10/13/24 10/13/24 02:04 02:12 WBC 10.2 RBC 4.48 Hgb 14.1 Hct 39.7 MCV 88.6 MCH 31.5 MCHC 35.5 RDW Std Deviation 49.6 H RDW Coeff of Myriam 15.3 H Plt Count 191 MPV 10.8 Immature Gran % (Auto) 0.300 Neut % (Auto) 38.7 L Lymph % (Auto) 52.3 H [place] % (Auto) 6.1 Eos % (Auto) 1.9 Baso % (Auto) 0.7 Absolute Neuts (auto) 4.0 Absolute Lymphs (auto) 5.35 H Nucleated RBC % 0 Differential Comment SCANNED Sodium 138 Potassium 3.5 Chloride 105 Carbon Dioxide 19.8 L Anion Gap 14 BUN 10 Creatinine 0.76 Estim Creat Clear Calc 80.77 Est GFR (MDRD) Non-Af 100 BUN/Creatinine Ratio 12.5 Glucose 99 Calcium 8.8 Serum , Qual NEGATIVE Urine Color Yellow Urine Clarity Clear Urine pH 6.5 Ur Specific [place] 1.010 Urine Protein Negative Urine Glucose (UA) Normal Urine Ketones Negative Urine Occult Blood 25 H Urine Nitrite Negative Urine Bilirubin Negative Urine Urobilinogen Normal Ur Leukocyte Esterase Negative Urine RBC 0 SEEN Urine WBC 0 SEEN Ur Squamous Epith Cells 0 SEEN Urine Bacteria 0 SEEN Urine Mucus 0 SEEN Discharge Plan Triage Chief Complaint: Vag Bleeding ED Provider: Angelito Santiago Dx/Rx/DC Orders Clinical Impression: Bleeding, uterine, dysfunctional, Acute pelvic pain, female Instructions: ED Dysfunctional Uterine Bleeding Prescriptions: New ibuprofen 600 mg tablet 600 mg PO Q8H PRN PRN (Reason: pain) Qty: 20 0RF Continued quetiapine 200 mg tablet 200 mg PO QHS trazodone 100 mg tablet 100 mg PO QHS PRN PRN (Reason: insomnia) topiramate 100 mg tablet 100 mg PO DAILY duloxetine 30 mg capsule,delayed release(DR/EC) 30 mg PO DAILY Discontinued ibuprofen 800 mg tablet 800 mg PO TID PRN PRN (Reason: pain) Primary Care Provider: Care Physician,No Primary Referrals: Eri Sun DO [Med Staff - Active Staff] - 3-5 Days if not improving Print Language: Faroese Disposition Disposition: Home, Self Care
[2024-10-13 02:19] LABS: Mucous, Urine 0 SEEN /hpf (<or=2+); Red Blood Cells-Urine 0 SEEN /hpf (0-5); Squamous Epithelial Cells - UA 0 SEEN /hpf (5-10)
--- OUTSIDE RECORDS SUMMARY | 2024-10-13 02:21 | XMS RPT_ITS | CCD ---
Author Organization [facility] Care Team Providers Care Weaving Professor Name Role Phone LAUREN MORGAN Unavailable Unavailable CRISTHIAN SMAS Unavailable Unavailable Flaquita, [facility] Primary Care Provider [phone] LE GOINS, MARC Admitting Unavailab le LE GOINS, MARC Attending Unavailab le AA NO PCP, NO PCP Primary Care Unavailable BEDDELLESTHER Admitting Unavailable BEDDELLESTHER Attending Unavailable AA NO PCP, NO PCP Primary Care Unavailable AA NO PCP, NO PCP Primary Care Unavailable BEDDELLESTHER Admitting Unavailable BEDDELLESTHER Attending Unavailable JESSICA PERALES Consulting UnavailFRANCISCO Penny Consulting Unavailable AA NO PCP, NO PCP Primary Care Unavailable BEDDELLESTHER Admitting Unavailable BEDDELLESTHER Attending Unavailable Flaquita, [facility] Primary Care Provider Unavailabl e Flaquita, [facility] Primary Care Provider FLAQUITA BUCK, [facility] Primary Care Physician Unavailable Primary Care Provider Unavailabl e FLAQUITA, [facility] Primary Care Physician Unavailab CORRIE Weber DO Attending Unavailable JAN BUCK, DR DIAZ Attending Unavailsanket MONTOYA MD, BRAD Montero Attending Unavailable NAKUL CM MD Attending Unavailable JAN BUCK, DR DIAZ Attending UnavailCORRIE Milan DO Attending Unavailable Willian Brice Attending Unavailable FLAQUITA, [facility] Primary Care Unavailable Care Physician, No Primary Primary Care Unava ilable Trinidad Oscarus Attending Unavailable Kenyon Hernandez Attending Unavailable CRISTHIAN SAMS Primary Care Unavailable Allergies Allergy Classification Reported Allergen(s) Allergy Type Date of Onset Reaction(s) Facility (6 sources) Acetaminophen / HYDROcodone Drug Allergy 9 It[place] (5 sources) HYDROmorphone Drug Allergy 7 [place] (7 sources) Latex; Translations: [Latex] Propensity to adverse reactions to drug 7 [place] (1 source) Acetaminophen / HYDROcodone Drug Allergy [facility] Repository (1 source) HYDROmorphone Drug Allergy [facility] Repository (6 sources) Acetaminophen / HYDROcodone; Translations: [acetaminophen-hy drocodone] Drug Allergy [facility] (1 source) HYDROmorphone Drug Allergy 9 Itching [facility] (1 source) Latex Drug Allergy 2 Unknown [facility] (1 source) Acetaminophen Drug Allergy 5 [facility] Repository (1 source) HYDROcodone Drug Allergy 5 [facility] (1 source) HYDROmorphone Drug Allergy 5 [facility] (1 source) Latex Drug allergy (disorder) 5 [facility] Rep[facility] (1 source) natural latex rubber Drug allergy (disorder) 5 [facility] Repository Medications Current Medications Medication Drug Class(es) Dates Sig (Normalized) Sig (Original) acetaminophen 325 mg / oxyCODONE hydrochloride 5 mg oral tablet (4 sources) Opioid Agonist Start: 06-10-2023 End: 06-12-2023 Percocet 5 mg-325 mg oral tablet Dose = 1 tab(s), Oral, q6h, PRN Pain, scale 7-10, X 2 day(s), # 6 tab(s), 0 Refill(s), Pharmacy: [facility]/pharmacy #[id number], Odontalgia, 149.9, cm, 03/30/22 19:34:00 EST, Height, 47, kg, 11/21/22 10:53:00 EDT, Dosing Weight Start Date: 06/10/23 Stop Date: 06/12/23 Status: Ordered Start: 02-14-2019 End: 02-17-2019 take 1 tablet by mouth every six hours as needed for pain oxyCODONE-acetaminophen (PERCOCET) 5-325 MG per tablet Indications: Generalized abdominal pain Take 1 tablet by mouth every 6 hours as needed for Pain for up to 3 days. 10 tablet 0 02/14/2019 02/17/2019 Active Start: 01-03-2019 End: 01-03-2019 oxyCODONE-acetaminophen (PER COCET) 5-325 MG per tablet 1 tablet Start: 01-03-2019 End: 01-06-2019 take 1 tablet by mouth every eight hours as needed for pain oxyCODONE-acetaminophen (PERCOCET) 5-325 MG per tablet Indications: Contusion of right index finger without damage to nail, initial encounter Take 1 tablet by mouth every 8 hours as needed for Pain for up to 3 days. 6 tablet 0 01/03/2019 01/06/2019 Active amoxicillin 875 mg / clavulanate 125 mg oral tablet (1 source) Penicillin-class Antibacterial Start: 06-10-2023 End: 06-17-2023 take 1 tablet by mouth every twelve hours amoxicillin-clavulanate 875 mg-125 mg oral tablet 1 tab(s), Oral, q12h, X 7 day(s), # 14 tab(s), 0 Refill(s), 06/17/23 1:48:00 AM EDT, Pharmacy: [facility]/pharmacy #[id number], 149.9, cm, 03/30/22 19:34:00 EST, Height, 47, kg, 11/21/22 10:53:00 EDT, Dosing Weight Start Date: 06/10/23 Stop Date: 06/17/23 Status: Ordered cephalexin 500 mg oral capsule (1 source) Cephalosporin Antibacterial Start: 03-30-2022 End: 04-06-2022 cephalexin 500 mg oral capsule Dose : 500 mg = 1 cap(s), Oral, QID, X 7 day(s), # 28 cap(s), 0 Refill(s), 04/06/22 20:30:00 EST, 56.8 Start Date: 03/30/22 Stop Date: 04/06/22 Status: Ordered dicyclomine hydrochloride 10 mg oral capsule (3 sources) Anticholinergic Start: 02-14-2019 End: 02-14-2020 take 2 capsules by mouth four times daily before mealtime dicyclomine (BENTYL) 10 MG capsule Take 2 capsules by mouth 4 times daily (before meals and nightly) 15 capsule 0 02/14/2019 Active famotidine 20 mg oral tablet (7 sources) Histamine-2 Receptor Antagonist Start: 10-18-2020 take 1 tablet by mouth twice daily famotidine (PEPCID) 20 MG tablet Take 1 tablet by mouth 2 times daily 60 tablet 0 10/18/2020 Active Start: 12-30-2017 take 1 tablet by simi th once daily famotidine (PEPCID) 40 mg tablet Take 1 tablet by mouth once daily. 20 tablet 0 12/30/2017 Active famotidine (PEPC ID) 20 MG tablet famotidine 20 mg tablet 0 Active Comment on above: Take 1 tablet by simi th once daily. ibuprofen 600 mg oral tablet (3 sources) Nonsteroidal Anti-inflammatory Drug Start: 06-10-2023 End: 06-17-2023 ibuprofen 600 mg oral tablet Dose : 600 mg = 1 tab(s), Oral, q6h, PRN Pain, scale 1-6, Take with food or milk., X 7 day(s), # 28 tab(s), 0 Refill(s), 06/17/23 1:49:00 AM EDT, Pharmacy: [facility]/pharmacy #[id number], 149.9, cm, 03/30/22 19:34:00 EST, Height, kg, 11/21/22 10:53:00 EDT, Dosing Weight Start Date: 06/10/23 Stop Date: 06/17/23 Status: Ordered Start: 03-24-2019 take 1 tablet by simi th every eight hours as needed for pain ibuprofen (ADVIL;MOTRIN) 800 MG tablet Take 1 tablet by mouth every 8 hours as needed for Pain or Fever 21 tablet 0 03/24/2019 Active levothyroxine sodium 0.05 mg oral tablet (5 sources) l-Thyroxine Start: 09-23-2018 levothyroxine (SYNTHROID) 50 MCG tablet Take by mouth 0 09/23/2018 Active take 1 tablet by simi th once daily before breakfast levothyroxine (SYNTHROID) 100 mcg tablet Take 100 mcg by mouth daily before breakfast. unsure of strength 0 Active Comment on above: Take 100 mcg by mout h daily before breakfast. unsure of strength oxyCODONE hydrochloride 5 mg oral tablet (1 source) Opioid Agonist Start: 4 End: 4 oxyCODONE 5 mg oral tablet ( IMMEDIATE release ) Dose : 5 mg = 1 tab(s), Oral, q6h, X 2 day(s), # 7 tab(s), 0 Refill(s), 06/26/23 8:41:00 PM EDT, Pain due to dental caries, 54 Start Date: 06/24/23 Stop Date: 06/26/23 Status: Ordered sodium chloride flush 0.9 % injection 3 mL (1 source) Start: 9 sodium chloride flush 0.9 % injection 3 mL sucralfate 100 mg/ml oral suspension (1 source) Aluminum Complex Start: 1 take 10 mL by mouth four times daily sucralfate (CARAFATE) 1 GM/10ML suspension Take 10 mLs by mouth 4 times daily 1200 mL 3 10/18/2020 Active Start: 10-18-2020 take 10 mL by mouth four times daily sucralfate (CARAFATE) 1 GM/10ML suspension Take 10 mLs by mouth 4 times daily 1200 mL 3 10/18/2020 Active sulfamethoxazole 800 mg / trimethoprim 160 mg oral tablet (1 source) Dihydrofolate Reductase Inhibitor Antibacterial, Sulfonamide Antimicrobial Start: 03-30-2022 End: 04-06-2022 take 1 tablet by mouth twice daily Bactrim DS 800 mg-160 mg oral tablet Dose = 1 tab(s), Oral, BID, X 7 day(s), # 14 tab(s), 0 Refill(s), 56.8 Start Date: 03/30/22 Stop Date: 04/06/22 Status: Ordered traZODone hydrochloride 100 mg oral tablet (6 sources) Serotonin Reuptake Inhibitor Start: 09-15-2018 take 1 tablet by mouth once daily as needed for sleep traZODone (DESYREL) 100 MG tablet Take 1 tablet by mouth nightly as needed for Sleep 10 tablet 0 09/15/2018 Active Comment on above: Take 100 mg by mouth daily at bedtime. Completed/Discontinued Medications Medication Drug Class(es) Dates Sig (Normalized) Sig (Original) acetaminophen 500 mg oral tablet (1 source) Start: 10-28-2018 End: 10-28-2018 acetaminophen (TYLENOL) tablet 1,000 mg [id number] 200 actuat albuterol 0.09 mg/actuat metered dose inhaler (6 sources) beta2-Adrenergic Agonist Start: 06-24-2017 take 2 puff(s) by inhalation every four hours as needed for wheezing albuterol HFA (PROVENTIL HFA, VENTOLIN HFA) 90 mcg/actuation inhaler Inhale 2 Puffs as instructed every 4 hours as needed for Wheezing/Shortness of Breath. 1 Inhaler 0 06/24/2017 Active albuterol sulfat e HFA (VENTOLIN HFA) 108 (90 Base) MCG/ACT inhaler Ventolin HFA 90 mcg/actuation aerosol inhaler 0 Active albuterol sulfat e HFA (VENTOLIN HFA) 108 (90 Base) MCG/ACT inhaler Ventolin HFA 90 mcg/actuation aerosol inhaler 0 Active Comment on above: Inhale 2 Puffs as in structed every 4 hours as needed for Wheezing/Shortness of Breath. aluminum & magnesium hydroxide-simethicone (MAALOX) 30 mL, lidocaine viscous hcl (XYLOCAINE) 5 mL (GI COCKTAIL) (1 source) Start: 10-18-2020 End: 10-18-2020 aluminum & magnesium hydroxide-simethicone (MAALOX) 30 mL, lidocaine viscous hcl (XYLOCAINE) 5 mL (GI COCKTAIL) bacitracin 0.5 unt/mg topical ointment (2 sources) Start: 03-24-2019 End: 03-24-2019 bacitracin zinc ointment Start: 10-28-2018 End: 10-28-2018 bacitracin zinc ointment 5 ml bupivacaine hydrochloride 5 mg/ml injection (1 source) Amide Local Anesthetic Start: 06-02-2021 End: 06-02-2021 bupivacaine (PF) 0.5 % (5 mg/mL) 8 mL injection Start: 06-02-2021 End: 06-02-2021 bupivacaine (PF) 0.5 % (5 mg /mL) 8 mL injection cetirizine hydrochloride 10 mg oral tablet (4 sources) Histamine-1 Receptor Antagonist Start: 11-21-2022 End: 12-01-2022 Zyrtec 10 mg oral tablet Dose : 10 mg = 1 tab(s), Oral, qDay, # 10 tab(s), 0 Refill(s) Start Date: 11/21/22 Stop Date: 12/01/22 Status: Ordered cyclobenzaprine hydrochloride 10 mg oral tablet (1 source) Muscle Relaxant Start: 06-07-2018 take 1 tablet by mouth every eight hours as needed cyclobenzaprine (FLEXERIL) 10 mg tablet Take 1 tablet by mouth every 8 hours as needed. 10 tablet 0 06/07/2018 Active Comment on above: Take 1 tablet by simi every 8 hours as needed. fluticasone propionate 0.05 mg/actuat metered dose nasal spray (4 sources) Corticosteroid Start: 11-21-2022 End: 11-28-2022 take 1 dose nasal route twice daily Flonase 50 mcg/inh nasal spray Dose = 1 spray(s), Nostril, each, BID, # 15.8 mL, 0 Refill(s) Start Date: 11/21/22 Stop Date: 11/28/22 Status: Ordered gabapentin 300 mg oral capsule (2 sources) Anti-epileptic Agent End: 02-14-2019 gabapentin (NEURONTIN) 300 MG capsule gabapentin 300 mg capsule 0 02/14/2019 Discontinued (LIST CLEANUP) iopamidol (ISOVUE-370) 76 % injection 75 mL (1 source) Start: 10-18-2020 End: 10-18-2020 iopamidol (ISOVUE-370) 76 % injection 75 mL 1 ml ketorolac tromethamine 30 mg/ml cartridge (3 sources) Nonsteroidal Anti-inflammatory Drug, Cyclooxygenase Inhibitor Start: 10-18-2020 End: 10-18-2020 ketorolac (TORADOL) injection 30 mg Start: 02-14-2019 End: 02-14-2019 ketorolac (TORADOL) injectio n 30 mg Start: 10-28-2018 End: 10-28-2018 ketorolac (TORADOL) injectio n 60 mg magnesium oxide 400 mg oral tablet (1 source) Start: 11-01-2016 take 1 tablet by mouth twice daily magnesium oxide (MAG-OX) 400 mg tablet Take 1 tablet by mouth twice daily. 60 tablet 2 11/01/2016 Active Comment on above: Take 1 tablet by simi th twice daily. meloxicam 15 mg oral tablet (4 sources) Nonsteroidal Anti-inflammatory Drug End: 02-14-2019 take 1 tablet by mouth once daily meloxicam (MOBIC) 15 mg tablet Take 15 mg by mouth once daily. 0 Active Comment on above: Take 15 mg by mouth once daily. methylPREDNISolone 4 mg oral tablet (1 source) Corticosteroid Start: 06-07-2018 methylPREDNISolone (MEDROL, ZOILA,) 4 mg Dose-Pack Take by mouth. As directed on package 1 Package 0 06/07/2018 Active Comment on above: Take by mouth. As di rected on package naproxen 500 mg oral tablet (1 source) Nonsteroidal Anti-inflammatory Drug Start: 06-07-2018 take 1 tablet by mouth every twelve hours as needed naproxen (NAPROSYN) 500 mg tablet Take 1 tablet by mouth twice daily as needed. TAKE WITH FOOD 15 tablet 0 06/07/2018 Active Comment on above: Take 1 tablet by simi th twice daily as needed. TAKE WITH FOOD 2 ml orphenadrine citrate 30 mg/ml injection (1 source) Muscle Relaxant Start: 10-28-2018 End: 10-28-2018 orphenadrine (NORFLEX) injection 60 mg 50 ml sodium chloride 9 mg/ml injection (2 sources) Start: 10-18-2020 End: 10-18-2020 0.9 % sodium chloride bolus Start: 02-14-2019 End: 02-14-2019 0.9 % sodium chloride bolus sprinkle 24 hr topiramate 50 mg extended release oral capsule (6 sources) topiramate XR (Q UDEXY XR) 50 mg cap(s) Take by mouth. unsure of strength 0 Active take 2 tablets by mouth once iliana ly topiramate (TOPAMAX) 25 MG tablet Take 50 mg by mouth nightly 0 Active Comment on above: Take by mouth. unsur e of strength traMADol hydrochloride 50 mg oral tablet (1 source) Opioid Agonist Start: 03-24-2019 End: 03-24-2019 traMADol (ULTRAM) tablet 50 mg 1 ml triamcinolone acetonide 40 mg/ml injection (1 source) Corticosteroid Start: 06-02-2021 End: 06-02-2021 triamcinolone acetonide 80 mg injection (KeNALog 40) Start: 06-02-2021 End: 06-02-2021 triamcinolone acetonide 80 m g injection (KeNALog 40) Problems Active Problems Problem Classification Problem Date Documented Date Episodic/Chronic Abdominal pain (2 sources) Upper abdominal pain; Translations: [Upper abdominal pain, unspecified] Episodic Alcohol-related disorders (12 sources) Alcohol withdrawal syndrome; Translations: [Alcohol abuse] Onset: 05-10-2009 09-09-2018 Chronic Allergic reactions (2 sources) Allergy status to narcotic agent status; Translations: [Latex allergy status] Onset: 03-09-2020 Episodic Anxiety disorders (1 source) Post-traumatic stress disorder, unspecified; Translations: [POST-TRAUMATIC STRESS DISORDER UNS] Onset: 03-09-2020 Chronic Chronic obstructive pulmonary disease and bronchiectasis (1 source) Chronic obstructive pulmonary disease, unspecified; Translations: [COPD UNSPECIFIED] Onset: 03-09-2020 Chronic Disorders of teeth and jaw (2 sources) Disorder of teeth AND/OR supporting structures; Translations: [Other specified disorders of teeth and supporting structures] Onset: 06-10-2023 Episodic Epilepsy; convulsions (1 source) Tonic-clonic seizure; Translations: [Other generalized epilepsy and epileptic syndromes, not intractable, without status epilepticus] Onset: 05-10-2009 05-10-2009 Chronic Epilepsy; convulsions (1 source) Unspecified convulsions; Translations: [UNSPECIFIED CONVULSIONS] Onset: 03-09-2020 Episodic Esophageal disorders (1 source) Gastro-esophageal reflux disease without esophagitis; Translations: [GERD WITHOUT ESOPHAGITIS] Onset: 03-09-2020 Chronic Fracture of upper limb (1 source) Closed fracture of distal phalanx of ring finger Episodic Headache; including migraine (1 source) Migraine, unspecified, not intractable, without status migrainosus; Translations: [MIGRAINE UNS NOT INTRACT W/O SM] Onset: 03-09-2020 Chronic Hepatitis (1 source) Chronic hepatitis C; Translations: [Chronic viral hepatitis C] 01-07-2020 Chronic Mood disorders (1 source) Bipolar disorder, unspecified; Translations: [BIPOLAR DISORDER UNSPECIFIED] Onset: 03-09-2020 Chronic Nonspecific chest pain (3 sources) Chest pain; Translations: [Chest pain, unspecified] Onset: 05-05-2023 Episodic Other aftercare (1 source) Other terminal clerk (current) drug therapy; Translations: [OTH ENERGY ASSISTANT CURRENT DRUG THERAPY] Onset: 03-09-2020 Episodic Other and unspecified benign neoplasm (1 source) Benign lipomatous neoplasm of skin and subcutaneous tissue of head, face and neck; Translations: [PIERCE LIPOMAT RENATO SKIN SUBQ HEAD NECK] Onset: 03-09-2020 Episodic Other connective tissue disease (1 source) Impingement syndrome of right shoulder region; Translations: [Impingement syndrome of right shoulder] Episodic Other connective tissue disease (1 source) Bursitis of right shoulder; Translations: [Bursitis of right shoulder] Episodic Other connective tissue disease (1 source) Tendonitis of right shoulder; Translations: [Other enthesopathies, not elsewhere classified] Episodic Other non-traumatic joint disorders (1 source) Chronic pain of right upper limb; Translations: [Pain in right shoulder] Episodic Other skin disorders (1 source) Epidermal cyst; Translations: [EPIDERMAL CYST] Onset: 03-09-2020 Episodic Other upper respiratory infections (1 source) Acute upper respiratory infection; Translations: [Acute upper respiratory infection, unspecified] Onset: 11-21-2022 Episodic Otitis media and related conditions (1 source) Eustachian tube disorder; Translations: [Unspecified Eustachian tube disorder, unspecified ear] Onset: 11-21-2022 Episodic Skin and subcutaneous tissue infections (2 sources) Cellulitis; Translations: [Cellulitis, unspecified] Onset: 08-28-2016 08-28-2016 Episodic Spondylosis; intervertebral disc disorders; other back problems (1 source) Degeneration of lumbar intervertebral disc; Translations: [Other intervertebral disc degeneration, lumbar region] Onset: 07-08-2012 07-08-2012 Chronic Sprains and strains (2 sources) Neck sprain; Translations: [Sprain of unspecified ligament of left ankle, initial encounter] Onset: 03-16-2024 Episodic Substance-related disorders (7 sources) Polysubstance abuse ; Translations: [Nicotine dependence, cigarettes, uncomplicated] Onset: 09-14-2017 09-10-2018 Chronic Thyroid disorders (1 source) Hypothyroidism, unspecified; Translations: [HYPOTHYROIDISM UNSPECIFIED] Onset: 03-09-2020 Chronic Unclassified (1 source) HEPATIC FIBROSIS UNSPECIFIED; Translations: [HEPATIC FIBROSIS UNSPECIFIED] Onset: 03-09-2020 Unclassified (1 source) Injury of left knee; Translations: [Injury of left knee, initial encounter] Unclassified (1 source) Contusion of left knee; Translations: [Contusion of left knee, initial encounter] Unclassified (1 source) Spells; Translations: [Spells] Onset: 11-22-2011 11-22-2011 Unclassified (1 source) NO SHOW Onset: 02-22-2012 02-22-2012 Past or Other Problems Problem Classification Problem Date Documented Da te Episodic/Chronic Fluid and electrolyte disorders (1 source) Disorder of electrolytes; Translations: [Other disorders of electrolyte and fluid balance, not elsewhere classified] Onset: 10-31-2016 10-31-2016 Episodic Headache; including migraine (1 source) Chronic daily headache; Translations: [Chronic daily headache] Onset: 11-22-2011 11-22-2011 Episodic Immunizations and screening for infectious disease (7 sources) Hepatitis C antibody test positive; Translations: [Contact with and (suspected) exposure to other viral communicable diseases] Onset: 09-11-2018 09-11-2018 Episodic Open wounds of extremities (1 source) Laceration of great toe; Translations: [Laceration of left great toe without foreign body present or damage to nail, initial encounter] Episodic Other connective tissue disease (1 source) Myofascial pain; Translations: [Myalgia, other site] Onset: 04-02-2012 04-02-2012 Episodic Other skin disorders (5 sources) Inflammatory dermatosis; Translations: [Follicular disorder, unspecified] Onset: 01-06-2018 01-06-2018 Episodic Pancreatic disorders (not diabetes) (1 source) Acute pancreatitis; Translations: [Acute pancreatitis without necrosis or infection, unspecified] Onset: 09-10-2017 09-10-2017 Episodic Spondylosis; intervertebral disc disorders; other back problems (1 source) Chronic low back pain; Translations: [Lumbago with sciatica, right side] Onset: 02-13-2018 02-13-2018 Episodic Superficial injury; contusion (6 sources) Contusion of finger; Translations: [Hematoma of scalp] Onset: 01-06-2018 01-06-2018 Episodic Results Test Name Value Interpretation Reference Range Facility Ankle min 3 Viewson 02-18-19 25 Ankle min [address] [facility] Imaging Services [address] [place] [address] Ankle min 3 Views MR#: [id number] Acct: [id number] Name: VERONA AVALOS Rep #: [id number] : 1980 F 43 From: Valdez Harmon PCP: CRISTHIAN SAMS MD Status: DEP ER Study: Ankle min 3 Views Date of Exam: 02/19/24 Exam# [id number] Ordering Dr: Willian Brice DO [id number] EXAM: XR LEFT ANKLE COMPLETE, 3 OR MORE VIEWS CLINICAL INDICATION: trauma TECHNIQUE: Frontal, lateral and oblique views of the left ankle. COMPARISON: No relevant prior studies available. FINDINGS: BONES/JOINTS: Small ossicle adjacent to the lateral malleolus appears chronic and probably represents an os subfibulare. No acute fracture. No subluxation. Normal alignment. Preservation of the joint space. No sclerotic or destructive changes observed. SOFT TISSUES: Mild soft tissue swelling bilaterally likely due to sprain. No radiopaque foreign body. RAD/Ankle min 3 Views IMPRESSION: 1. Mild soft tissue swelling bilaterally likely due to sprain. 2. Small ossicle adjacent to the lateral malleolus appears chronic and probably represents an os subfibulare. Electronically Signed: Valdez Mckeon MD at 4:25 EST Reading Location ID and State: [id number] [facility] Tel , Service support , CC: Willian Brice DO; CRISTHIAN SAMS MD Logistics Coordinator: Signed Normal [facility] Emergency Department Summary on 02-19-2024 Emergency Department Summary [facility] Medical Records Department [address] [place] [address] Emergency Department Summary 02/19/24 MR#: [id number] Acct: [id number] Name: VERONA AVALOS Rep #: [id number] : 1980 43 From: Willian Brice DO PCP: CRISTHIAN SAMS MD Status:DEP ER Location: ED HPI History of Present Illness Chief Complaint: Lower Extremity Injury Informant: patient and EMS Narrative Narrative: Patient is a 43-year-old female with past medical history of migraine headache as well as epilepsy. She states 1 to 2 hours ago she was taking her dogs outside when she tripped on the steps and fell injuring her left foot/ankle. She denies striking her head or any loss of consciousness. She denies any history of bleeding disorder or blood thinner use. She states that she cannot bear weight on the foot/ankle and has concerned that it may be fractured and therefore called EMS to bring her in for evaluation [facility] Medical History Liver disease Alcohol abuse Smoker Seizures Chronic bronchiolitis Epilepsy Migraine Home Medications ???Medication ???Instructions ???Recorded ???Last Taken ???Type naproxen 500 mg tablet 500 mg PO BID PRN #20 tabs 04/03/19 Unknown Rx Unobtainable 06/02/23 Unknown History oxycodone-acetaminophen 5 mg-325 1 tab PO Q8H PRN pain 3 days #10 09/19/23 Unknown Rx mg tablet (Percocet) tabs Allergy/AdvReac Type Severity Reaction Status Date / Time acetaminophen (From Vicodin) Allergy Hives Verified 02/19/24 01:23 hydrocodone (From Vicodin) Allergy Hives Verified 02/19/24 01:23 hydromorphone (From Dilaudid) Allergy Hives Verified 02/19/24 01:23 latex Allergy Hives Verified 02/19/24 01:23 Latex, Natural Rubber Allergy Rash Verified 02/19/24 01:23 Surgical History (System 09/23/23 @ 11:52 by Federica Rhodes) Hx of knee surgery Hx of removal of cyst Hx of section Social History (System 09/23/23 @ 11:52 by Federica Rhodes) Smoking Status: Current every day smoker tobacco type: cigarettes ROS ROS ED Constitutional Constitutional ED: Denies chills or fever(s) Eyes Eyes: Denies blurry vision or change in vision ENT ENT ED: Denies sore throat Cardiovascular Cardiovascular: Reports other Details: Negative syncope ; Denies chest pain Respiratory/Chest Respiratory/Chest: Denies cough or dyspnea Gastrointestinal Gastrointestinal: Denies abdominal pain, diarrhea, nausea or vomiting Musculoskeletal Musculoskeletal: Reports other Details: Positive left foot/ankle pain ; Denies back pain or neck pain Integumentary Denies Abrasions Neurologic Neurologic: Denies headache(s) or paresthesias Hematologic/Lymphatic Hematologic/Lymphatic: Denies easy bleeding or easy bruising EXAM Physical Exam Const Vital Signs: 02/19/24 01:22 Temperature 97.9 F Temperature Source Oral Pulse Rate 74 Respiratory Rate 16 Blood Pressure 121/85 H Blood Pressure Mean 97 Pulse Ox 100 Oxygen Delivery Method Room Air Positive well nourished and well developed General Appearance ED: well developed HEENT HEENT Narrative: Normocephalic atraumatic No signs of depressed or basilar skull fracture Eyes PERRL and EOMs intact bilaterally Neck supple Neck Narrative: No bony deformity or step-off of the cervical spine no midline tenderness to palpation Resp normal respiratory effort and clear to auscultation bilaterally Cardio regular rate and regular rhythm Back/Spine Back/Spine Narrative: No bony deformity or step-off of the thoracic and lumbar spine no midline tenderness to palpation Extremity Extremity Narrative: Left lower extremity is neurovascularly intact Patient has soft tissue swelling along the lateral aspect of the left ankle with faint ecchymosis. No obvious bony deformity or joint effusion. There is also pain on palpation over top the calcaneus. Active and passive range of motion is decreased secondary to pain. There does appear to be increased laxity with stressing of the left ATFL compared to the right concerning for grade 2 ankle sprain. No proximal pain on palpation of the left tibia Compartments are soft and compressible going against compartment syndrome Neuro oriented x3, CN's II-XII intact bilaterally and no sensory deficits noted Sensorium / Orientation: alert Psych mental status grossly normal Skin Skin Narrative: Mild soft tissue swelling with faint ecchymosis to the lateral aspect of the left foot/ankle as documented above MDM MDM MDM Narrative Medical decision making narrative: Patient arrived to the ER with stable vitals. She reported mechanical fall and therefore there is no need for cardiac or syncope workup. She did not strike her head have loss of conscious nor (more content not included)... Normal [facility] Foot min 3 Viewson 5 Foot min 3 Views [facility] Imaging Services [address] [place], [place] [address] Foot min 3 Views MR#: [id number] Acct: [id number] Name: VERONA AVALOS Rep #: [id number] : 1980 F 43 From: Valdez Harmon PCP: CRISTHIAN SAMS MD Status: DEP ER Study: Foot min 3 Views Date of Exam: 02/19/24 Exam# [id number] Ordering Dr: Willian Brice DO [id number] EXAM: XR LEFT FOOT COMPLETE, 3 OR MORE VIEWS CLINICAL INDICATION: trauma TECHNIQUE: Frontal, lateral and oblique views of the left foot. COMPARISON: No relevant prior studies available. FINDINGS: BONES/JOINTS: Unremarkable. No acute fracture. No subluxation. Normal alignment. Preservation of the joint space. No sclerotic or destructive changes observed. SOFT TISSUES: Unremarkable. No soft tissue swelling or gas. No radiopaque foreign body. RAD/Foot min 3 Views IMPRESSION: Negative left foot x-rays. Electronically Signed: Valdez Mckeon MD at 4:26 EST , CC: Willian Brice DO; CRISTHIAN SAMS MD Logistics Coordinator: Signed Normal [facility] Alcohol, Blood (Medical)-Ser umon 09-19-2023 SERUM ETOH 342.0 mg/dL Invalid Interpretation Code [facility] Comment on above: Result Comment: Crit ical Result(s) Called at: 00:58:17 09/19/2023 by: Verona Costa [facility]. Results read back by same. The serum:whole blood ethanol ratio is approximately 1.14 and varies slightly with hematocrit. Medical Alcohol reference interval and critical value in non-tolerant individuals; 50 - 100 Impairment 100 Intoxication 100 - 250 Severe Poisoning 250 - 400 Deep/possible fatal coma Performed By: #### L 501.9100 ####[facility] [address] [place], [address] Basic Metabolic Profile (BMP )on 09-19-2023 BUN/CRE 11.9 RATIO Normal 10-20 [facility] Comment on above: Order Comment: 1 Y Performed By: #### L 300.8000, L501.5425, L500.2500, L100.0100 #### [facility] [address] [place], [address] CA,Total 8.2 mg/dL Low 8.5-10.1 [facility] Comment on above: Order Comment: 1 Y Performed By: #### L 300.8000, L501.5425, L500.2500, L100.0100 #### [facility] [address] [place], [address] Chloride [Moles/Vol] 113 mmol/L High 98-107 [facility] Comment on above: Order Comment: 1 Y Performed By: #### L 300.8000, L501.5425, L500.2500, L100.0100 #### [facility] [address] [place], [address] CO2 [Moles/Vol] 25.0 mmol/L Normal 21.0-32.0 [facility] Comment on above: Order Comment: 1 Y Performed By: #### L 300.8000, L501.5425, L500.2500, L100.0100 #### [facility] [address] [place], [address] Creatinine [Mass/Vol] 0.67 mg/dL Normal 0.55-1.02 [facility] Comment on above: Order Comment: 1 Y Result Comment: The validity of the calculated GFR GFRAA in patients over 70 years has not been determined. Clinical correlation is essential. Performed By: #### L 300.8000, L501.5425, L500.2500, L100.0100 #### [facility] [address] [place], [address] ECRCL 86.87 ml/min Normal [facility] Comment on above: Order Comment: 1 Y Performed By: #### L 300.8000, L501.5425, L500.2500, L100.0100 #### [facility] [address] [place], [address] EST GFR - AA 124 mL/min Normal >60 [facility] Comment on above: Order Comment: 1 Y Result Comment: Afri can Sammar[place] GFR Calc Performed By: #### L 300.8000, L501.5425, L500.2500, L100.0100 #### [facility] [address] [place], [address] GAP 5 Normal 5-15 [facility] Comment on above: Order Comment: 1 Y Performed By: #### L 300.8000, L501.5425, L500.2500, L100.0100 #### [facility] [address] [place], [address] GFR/1.73 sq M.predicted among non-blacks MDRD (S/P/Bld) [Vol rate/Area] 103 mL/min/{1.73_m2} Normal >60 [facility] Comment on above: Order Comment: 1 Y Result Comment: Non- GFR Calc Performed By: #### L 300.8000, L501.5425, L500.2500, L100.0100 #### [facility] [address] [place], [address] Glucose [Mass/Vol] 94 mg/dL Normal 74-106 [facility] Comment on above: Order Comment: 1 Y Performed By: #### L 300.8000, L501.5425, L500.2500, L100.0100 #### [facility] [address] [place], [address] Potassium [Moles/Vol] 3.6 mmol/L Normal 3.5-5.1 [facility] Comment on above: Order Comment: 1 Y Result Comment: Slig ht Hemolysis, Result may be falsely increased. Performed By: #### L 300.8000, L501.5425, L500.2500, L100.0100 #### [facility] [address] [place], [address] Sodium [Moles/Vol] 143 mmol/L Normal 136-145 [facility] Comment on above: Order Comment: 1 Y Performed By: #### L 300.8000, L501.5425, L500.2500, L100.0100 #### [facility] [address] [place], [address] Urea nitrogen [Mass/Vol] 8 mg/dL Normal 7-18 [facility] Comment on above: Order Comment: 1 Y Performed By: #### L 300.8000, L501.5425, L500.2500, L100.0100 #### [facility] [address] [place], [address] CBC W/Diff, Automatedon 08-0 SMEAR COMMENT SCANNED Normal [facility] Comment on above: Performed By: #### L 300.8000, L501.5425, L500.2500, L100.0100 ####[facility] [address] [place], [address] D-Dimer Quantitative (DVT/PE )on 09-19-2023 D-DIMER QUANT 0.33 FEU/ug/m Normal 0.27-0.49 [facility] Comment on above: Result Comment: NORM AL D-Dimer level (<0.50) indicates no DVT or PE. Performed By: #### L 300.8000, L501.5425, L500.2500, L100.0100 #### [facility] [address] [place], [address] L501.5425on 09-19-2023 TROPONIN-I HS < 3 Low 3.0-54.0 [facility] Comment on above: Order Comment: 1Y Result Comment: Plea se Note: New Test Units and Gender Specific Reference Ranges. For more information see Policy Stat Procedure [place] High Sensitivity Troponin (TNIH) and attachments. Performed By: #### L 300.8000, L501.5425, L500.2500, L100.0100 ####[facility] [address] [place], [address] 12 Lead EKGon 09-18-20[address] [facility] Cardiovascular Services [address] [place] [address] 12 Lead EKG 09/19/23 0037 MR#: [id number] Acct: [id number] Name: VERONA AVALOS Rep #: [id number] : 1980 42 From: Washington Farooq MD Attending Dr: Status: DEP ER Ordering Dr: Evelin Oscar DO Date: 09/18/23 Location: ED Sex: F C Admitted: Test Reason : DYSRYTHMIA Blood Pressure : / mmHG Vent. Rate : 069 BPM Atrial Rate : 069 BPM P-R Int : 158 ms QRS Dur : 070 ms QT Int : 398 ms P-R-T Axes : 052 057 038 degrees QTc Int : 426 ms Normal sinus rhythm Possible Anteroseptal infarct , age undetermined Abnormal ECG Confirmed by ROBERTO BUCK, QUITA ([id number]), rewrite editor VINCE STOREY ([id number]) on 09/20/2023 10:26:03 AM Referred By: Confirmed By:CHANEL FAROOQ MD 09/20/23 1026 Date Washington Farooq MD CC: Dr. Evelin Oscar DO; No Primary Care Physician Signed Normal [facility] Chest 1 View (Portable)on Chest 1 View (Portable) [facility] Imaging Services [address] [place] [address] Chest 1 View (Portable) MR#: [id number] Acct: [id number] Name: VERONA AVALOS Rep #: [id number] : 1980 F 42 From: Corrie alonzo MD PCP: Care Physician,No Primary Status: [facility] ER Study: Chest 1 View (Portable) Date of Exam: 09/18/23 Exam# [id number] Ordering Dr: Evelin Oscar DO [id number] INDICATION: chest pain EXAMINATION/TECHNIQUE: X-RAY - XR Chest 1 View COMPARISON: No relevant prior comparison study available FINDINGS: LINES/DEVICES: None. LUNGS: The lungs are well expanded. No consolidation, edema or effusion. No pneumothorax. MEDIASTINUM AND CARDIOVASCULAR STRUCTURES: Cardiac silhouette not enlarged. Central airways and mediastinal contour are unremarkable. BONES AND SOFT TISSUES: No acute abnormality. RAD/Chest 1 View (Portable) IMPRESSION: No acute pulmonary finding. Electronically Signed: Corrie Gordon MD at 23:53 EDT , CC: Dr. Evelin Oscar DO; No Primary Care Physician Logistics Coordinator: Signed Normal [facility] Emergency Department Summary on 09-18-2023 Emergency Department Summary [facility] Medical Records Department [address] [place] [id number] Emergency Department Summary 09/18/23 MR#: [id number] Acct: [id number] Name: VERONA AVALOS Rep #: [id number] : 1980 42 From: Evelin Oscar DO PCP: Care Physician,No Primary Status:[facility] ER Location: ED HPI History of Present Illness Chief Complaint: Chest Pain Detail of Chief Complaint: Chest pain Informant: patient Narrative Narrative: Patient presents with chest pain that she has had ongoing for for 5 months. Patient presents via EMS. Patient states that her fianc??? who is significantly older than her recently had a heart attack and stents and had strokes and she became concerned. Patient describes a sharp stabbing pain in the left side of her chest that sometimes goes into her fingertips and toes. She denies nausea or vomiting. She denies recent travel or surgery. No history of PE or DVT. No significant medical history otherwise. PFSH PFSH Home Medications ???Medication ???Instructions ???Recorded ???Last Taken ???Type naproxen 500 mg tablet 500 mg PO BID PRN #20 tabs 04/03/19 Unknown Rx oxycodone-acetaminophen 5 mg-325 1 tab PO Q8H PRN pain 3 days #10 09/19/23 Unknown Rx mg tablet (Percocet) tabs Allergy/AdvReac Type Severity Reaction Status Date / Time acetaminophen (From Vicodin) Allergy Hives Verified 09/18/23 23:10 hydrocodone (From Vicodin) Allergy Hives Verified 09/18/23 23:10 hydromorphone (From Dilaudid) Allergy Hives Verified 09/18/23 23:10 latex Allergy Hives Verified 09/18/23 23:10 Surgical History (Updated 09/18/23 @ 23:17 by Shonna Clark) Hx of knee surgery Hx of removal of cyst Hx of section Social History Smoking Status: Current every day smoker tobacco type: cigarettes ROS ROS ED Review of Systems ROS Unobtainable: other Constitutional Constitutional ED: Reports lethargy; Denies chills, fever(s), sweats or weight loss Eyes Eyes: Denies blurry vision, change in vision or diplopia ENT ENT ED: Denies rhinorrhea or sore throat Cardiovascular Cardiovascular: Reports chest pain; Denies orthopnea or racing heartbeat Respiratory/Chest Respiratory/Chest: Denies cough, dyspnea, dyspnea on exertion, orthopnea or sputum Gastrointestinal Gastrointestinal: Denies abdominal pain, diarrhea, nausea or vomiting Genitourinary Genitourinary ED: Denies dysuria, hematuria or urinary frequency Musculoskeletal Musculoskeletal: Denies arthralgias, back pain, myalgias or neck pain Integumentary Denies abscess, Abrasions or rash Neurologic Neurologic: Denies headache(s) or weakness Psychiatric Psychiatric: Denies anxiety, depression or suicidal thoughts Endocrine Endocrinology: Denies polydipsia, polyphagia or polyuria Hematologic/Lymphatic Hematologic/Lymphatic: Denies easy bleeding, easy bruising or lymphadenopathy Allergic/Immunologic Allergic/Immunologic ED: Denies mouth swelling, tongue swelling or urticaria EXAM Physical Exam Const Vital Signs: 09/18/23 23:11 09/18/23 23:15 09/18/23 23:47 Temperature 97.9 F Temperature Source Oral Pulse Rate 82 Respiratory Rate 16 Respiratory Effort Normal Non-Labored Pulse Ox 97 99 Oxygen Delivery Method Room Air Room Air Positive well nourished and well developed General Appearance ED: well developed and NAD HEENT Reports TM's clear and moist mucous membranes normocephalic and atraumatic; Negative for trauma or tenderness Tympanic Membrane ED: Yes TM's clear Eyes PERRL and EOMs intact bilaterally General Eye ED: Negative for pale conjunctiva or scleral icterus Neck no lymphadenopathy, supple and no JVD General: Negative for tenderness Chest Wall inspection of chest normal Chest Narrative: Tenderness over the left chest wall that seems to reproduce her pain. No crepitus or subcu for Alejandrina noted. Chest: Negative for tenderness Resp normal respiratory effort and clear to auscultation bilaterally Effort and Inspection: Negative for respiratory distress or pain with movement Auscultation: Negative for rhonchi, wheezes or diminished lung sounds Cardio regular rate, regular rhythm, S1 normal heart sound, S2 normal heart sound and no murmurs Peripheral Pulses: pulses 2+ throughout GI normal to inspection, nondistended, normoactive bowel sounds, soft to palpation, non-tender, non- distended and no masses Back/Spine no CVA tenderness and no thoracic nor lumbar tenderness Extremity normal to inspection General Extremety ED: Negative for edema General Extremity: Negative for edema Neuro oriented x3, CN's II-XII intact bilaterally, no sensory deficits noted and gait normal Sensorium / Orientation: awake, alert, oriented to person, oriented to place and oriented to time Motor Exam: strength 5/5 throughout an (more content not included)... Normal [facility] 12 Lead EKGon 06-02-2023 [address] [facility] Cardiovascular Services [address] [place] [address] 12 Lead EKG 06/02/23 1910 MR#: [id number] Acct: [id number] Name: VERONA AVALOS Rep #: [id number] : 1980 42 From: Froylan Perez MD Attending Dr: Dr. Kenyon Hernandez, DO Status: DE P ER Ordering Dr: Kenyon Hernandez DO Date: 06/02/23 Location: ED Sex: F C Admitted: Test Reason : SEIZURE Blood Pressure : / mmHG Vent. Rate : 088 BPM Atrial Rate : 088 BPM P-R Int : 152 ms QRS Dur : 068 ms QT Int : 328 ms P-R-T Axes : 063 073 065 degrees QTc Int : 396 ms Normal sinus rhythm Low voltage QRS Borderline ECG Confirmed by JAVED BUCK, FROYLAN ([id number]), rewrite editor VINCE STOREY ([id number]) on 06/04/2023 8:14:55 AM Referred By: Confirmed By:FROYLAN PEREZ MD 06/04/23 0815 Date Froylan Perez MD CC: Dr. Kenyon Hernandez DO; CRISTHIAN SAMS MD Signed Normal [facility] Alcohol, Blood (Medical)-Ser umon 06-02-2023 SERUM ETOH 265.0 mg/dL Normal [facility] Comment on above: Result Comment: The serum:whole blood ethanol ratio is approximately 1.14 and varies slightly with hematocrit. Medical Alcohol reference interval and critical value in non-tolerant individuals; 50 - 100 Impairment 100 Intoxication 100 - 250 Severe Poisoning 250 - 400 Deep/possible fatal coma Performed By: #### L 501.9100 ####[facility] [address] [place], [place], [id number] Basic Metabolic Profile (BMP )on 06-02-2023 BUN/CRE 9.9 RATIO Low 10-20 [facility] Comment on above: Order Comment: 'TROP ' Serial specimen #1, #2 or #3: 1 Performed By: #### L 500.2500, L501.4020, L100.0100 ####[facility] [address] [place], [place], [id number] CA,Total 8.9 mg/dL Normal 8.5-10.1 [facility] Comment on above: Order Comment: 'TROP ' Serial specimen #1, #2 or #3: 1 Performed By: #### L 500.2500, L501.4020, L100.0100 ####[facility] [address] [place], [address] Chloride [Moles/Vol] 108 mmol/L High 98-107 [facility] Comment on above: Order Comment: 'TROP ' Serial specimen #1, #2 or #3: 1 Performed By: #### L 500.2500, L501.4020, L100.0100 ####[facility] [address] [place], [address] CO2 [Moles/Vol] 24.0 mmol/L Normal 21.0-32.0 [facility] Comment on above: Order Comment: 'TROP ' Serial specimen #1, #2 or #3: 1 Performed By: #### L 500.2500, L501.4020, L100.0100 ####[facility] [address] [place], [address] Creatinine [Mass/Vol] 0.91 mg/dL Normal 0.55-1.02 [facility] Comment on above: Order Comment: 'TROP ' Serial specimen #1, #2 or #3: 1 Result Comment: The validity of the calculated GFR GFRAA in patients over 70 years has not been determined. Clinical correlation is essential. Performed By: #### L 500.2500, L501.4020, L100.0100 ####[facility] [address] [place], [address] ECRCL 58.44 ml/min Normal [facility] Comment on above: Order Comment: 'TROP ' Serial specimen #1, #2 or #3: 1 Performed By: #### L 500.2500, L501.4020, L100.0100 ####[facility] [address] [place], [address] EST GFR - AA 87 mL/min Normal >60 [facility] Comment on above: Order Comment: 'TROP ' Serial specimen #1, #2 or #3: 1 Result Comment: Afri can [place] GFR Calc Performed By: #### L 500.2500, L501.4020, L100.0100 ####[facility] [address] [place], [address] GAP 9 Normal 5-15 [facility] Comment on above: Order Comment: 'TROP ' Serial specimen #1, #2 or #3: 1 Performed By: #### L 500.2500, L501.4020, L100.0100 ####[facility] [address] [place], [address] GFR/1.73 sq M.predicted among non-blacks MDRD (S/P/Bld) [Vol rate/Area] 72 mL/min/{1.73_m2} Normal >60 [facility] Comment on above: Order Comment: 'TROP ' Serial specimen #1, #2 or #3: 1 Result Comment: Non- GFR Calc Performed By: #### L 500.2500, L501.4020, L100.0100 ####[facility] [address] [place], [address] Glucose [Mass/Vol] 106 mg/dL Normal 74-106 [facility] Comment on above: Order Comment: 'TROP ' Serial specimen #1, #2 or #3: 1 Result Comment: Fast ing Glucose result from 100 to 125 mg/dL suggests IMPAIRED HOMEOSTASIS per A.D.A. criteria. Performed By: #### L 500.2500, L501.4020, L100.0100 ####[facility] [address] [place], [address] Potassium [Moles/Vol] 3.4 mmol/L Low 3.5-5.1 [facility] Comment on above: Order Comment: 'TROP ' Serial specimen #1, #2 or #3: 1 Performed By: #### L 500.2500, L501.4020, L100.0100 ####[facility] [address] [place], [address] Sodium [Moles/Vol] 141 mmol/L Normal 136-145 [facility] Comment on above: Order Comment: 'TROP ' Serial specimen #1, #2 or #3: 1 Performed By: #### L 500.2500, L501.4020, L100.0100 ####[facility] [address] [place], [address] Urea nitrogen [Mass/Vol] 9 mg/dL Normal 7-18 [facility] Comment on above: Order Comment: 'TROP ' Serial specimen #1, #2 or #3: 1 Performed By: #### L 500.2500, L501.4020, L100.0100 ####[facility] [address] [place], [address] Brain/Head without Contrasto n 06-02-2023 Brain/Head without Contrast [facility] Imaging Services [address] [place] [address] Brain/Head without Contrast MR#: [id number] Acct: [id number] Name: VERONA AVALOS Rep #: [id number] : 1980 F 42 From: Alex Harmon PCP: CRISTHIAN SAMS MD Status: DEP Study: Brain/Head without Contrast Date of Exam: 05/19 06/11 Exam# [id number] Ordering Dr: Kenyon Hernandez DO [id number] STUDY: CT BRAIN WITHOUT CONTRAST REASON FOR EXAM: Female, 42 years old. seizure TECHNIQUE: Transaxial CT imaging of the brain was performed without administration of intravenous contrast material. Individualized dose optimization techniques were used for this CT. COMPARISON: None FINDINGS: Normal calvarium. Normal soft tissues. Normal size ventricles and extra-axial spaces for the patient''s age. Normal white matter tracts of the cerebral hemispheres. Normal basal ganglia and thalami. Normal brainstem. Normal cerebellum. There is no intracranial hemorrhage. There are no findings of an acute ischemic infarction. Normal visualized paranasal sinuses. ASPECTS 10 CT/Brain/Head without Contrast IMPRESSION: There are no acute intracranial findings. Electronically Signed: Alex Zimmerman MD at 20:07 EDT , CC: Dr. Kenyon Hernandez, DO; CRISTHIAN SAMS MD Logistics Coordinator: Signed Normal [facility] CBC W/Diff, Automatedon 05-19 Absolute Lymph 4.51 X10 3/uL Normal 0.83-4.51 [facility] Comment on above: Performed By: #### L 500.2500, L501.4020, L100.0100 ####[facility] [address] [place], [address] Absolute Neut 3.1 X10 3/uL Normal 2.0-7.7 [facility] Comment on above: Performed By: #### L 500.2500, L501.4020, L100.0100 ####[facility] [address] [place], [address] Basophils/100 WBC (Bld) 0.6 % Normal 0-1 [facility] Comment on above: Performed By: #### L 500.2500, L501.4020, L100.0100 ####[facility] [address] [place], [address] Eosinophils/100 WBC (Bld) 1.0 % Normal 0-5 [facility] Comment on above: Performed By: #### L 500.2500, L501.4020, L100.0100 ####[facility] [address] [place], [address] Erythrocyte distribution width (RBC) [Ratio] 12.8 % Normal 11.6-14.6 [facility] Comment on above: Performed By: #### L 500.2500, L501.4020, L100.0100 ####[facility] [address] [place], [address] Hematocrit (Bld) [Volume fraction] 39.4 % Normal 37-47 [facility] Comment on above: Performed By: #### L 500.2500, L501.4020, L100.0100 ####[facility] [address] [place], [address] Hemoglobin (Bld) [Mass/Vol] 13.3 g/dL Normal 12.0-15.0 [facility] Comment on above: Performed By: #### L 500.2500, L501.4020, L100.0100 ####[facility] [address] [place], [address] IG% 0.900 Normal 0.0-0.9 [facility] Comment on above: Result Comment: IG% - Immature Granulocytes (promyelocytes, myelocytes and metamyelocytes) > 1% indicates that a LEFT SHIFT is Present. Performed By: #### L 500.2500, L501.4020, L100.0100 ####[facility] [address] [place], [address] Lymphocytes/100 WBC (Bld) 52.1 % High 19-41 [facility] Comment on above: Performed By: #### L 500.2500, L501.4020, L100.0100 ####[facility] [address] [place], [address] MCH (RBC) [Entitic mass] 33.3 pg High 27.0-32.0 [facility] Comment on above: Performed By: #### L 500.2500, L501.4020, L100.0100 ####[facility] [address] [place], [address] MCHC (RBC) [Mass/Vol] 33.8 g/dL Normal 32-36 [facility] Comment on above: Performed By: #### L 500.2500, L501.4020, L100.0100 ####[facility] [address] [place], [address] MCV (RBC) [Entitic vol] 98.7 fL Normal 81-99 [facility] Comment on above: Performed By: #### L 500.2500, L501.4020, L100.0100 ####[facility] [address] [place], [address] Monocytes/100 WBC (Bld) 9.4 % Normal 0-10 [facility] Comment on above: Performed By: #### L 500.2500, L501.4020, L100.0100 ####[facility] [address] [place], [address] Neutrophils/100 WBC (Bld) 36.0 % Low 47-70 [facility] Comment on above: Performed By: #### L 500.2500, L501.4020, L100.0100 ####[facility] [address] [place], [address] Nucleated RBC (Bld) [#/Vol] 0 10*3/uL Normal 0-5 [facility] Comment on above: Performed By: #### L 500.2500, L501.4020, L100.0100 ####[facility] [address] [place], [address] Platelet mean volume (Bld) [Entitic vol] 11.2 fL Normal 6.2-12.0 [facility] Comment on above: Performed By: #### L 500.2500, L501.4020, L100.0100 ####[facility] [address] [place], [address] Platelets (Bld) [#/Vol] 182 10*3/uL Normal 150-450 [facility] Comment on above: Performed By: #### L 500.2500, L501.4020, L100.0100 ####[facility] [address] [place], [address] RBC (Bld) [#/Vol] 3.99 10*6/uL Low 4.2-5.4 [facility] Comment on above: Performed By: #### L 500.2500, L501.4020, L100.0100 ####[facility] [address] [place], [address] RDW SD 45.7 fl High 35.1-43.9 [facility] Comment on above: Performed By: #### L 500.2500, L501.4020, L100.0100 ####[facility] [address] [place], [address] WBC (Bld) [#/Vol] 8.7 10*3/uL Normal 4.4-11.0 [facility] Comment on above: Performed By: #### L 500.2500, L501.4020, L100.0100 ####[facility] [address] [place], [address] Chest 1 View (Portable)on Chest 1 View (Portable) [facility] Imaging Services [address] [place] [address] Chest 1 View (Portable) MR#: [id number] Acct: [id number] Name: VERONA AVALOS Rep #: [id number] : 1980 F 42 From: Alex Harmon PCP: CRISTHIAN SAMS MD Status: DEP ER Study: Chest 1 View (Portable) Date of Exam: 06/02/23 Exam# [id number] Ordering Dr: Kenyon Hernandez DO [id number] EXAM: XR CHEST, 1 VIEW CLINICAL INDICATION: chest pain TECHNIQUE: Frontal view of the chest. COMPARISON: No relevant prior studies available. FINDINGS: LUNGS AND PLEURAL SPACES: Unremarkable. No consolidation or edema. No pneumothorax. No effusion. HEART: Unremarkable. Cardiac silhouette not enlarged. MEDIASTINUM: Central airways and mediastinal contour are unremarkable. BONES/JOINTS: Unremarkable. No acute fracture. SOFT TISSUES: Unremarkable. RAD/Chest 1 View (Portable) IMPRESSION: No radiographic evidence of acute cardiopulmonary disease. Electronically Signed: Alex Zimmerman MD at 19:51 EDT , CC: Dr. Kenyon Hernandez DO; CRISTHIAN SAMS MD Logistics Coordinator: Signed Normal [facility] Emergency Department Summary on 06-02-2023 Emergency Department Summary [facility] Medical Records Department [address] [place] [id number] Emergency Department Summary 06/02/23 MR#: [id number] Acct: [id number] Name: VERONA AVALOS Rep #: [id number] : 1980 42 From: Kenyon Hernandez DO PCP: CRISTHIAN SAMS MD Status:DEP ER Location: ED HPI History of Present Illness Chief Complaint: Seizure Narrative Narrative: 42-year-old female presenting with chest pain. She states that she lives in [place] but told EMS she did not want to go normal because she does not like the ER doctors there. She has had chest pain on and off for the last year and a half. She describes it as sharp and stabbing in the left upper side of her chest. She states that she had chills and a cough which is chronic. No fevers at home. She states that she was at [place] a couple of weeks ago and worked up for her chest pain and told to follow-up with cardiology however she has not made this appointment because she is waiting for insurance to email her back about whether she is covered to see cardiology or not patient denies any cardiac history. She states her last stress test was 16 years ago when she was . apparently per EMS patient had a 15-second seizure in the squad. Patient states she does not recall this. Patient states she has known epilepsy and is prescribed a antiepileptic by Dr. Sams from [place]. The patient states that she has been using this as needed when she feels like she is going to have a seizure for the last year because she does not like to take it all the time. Patient states she hit her head a couple of weeks ago on the back but has not been seen since then. Not on any blood thinners. Patient admits to drinking today. She states she had1 natty Daddy and 2 other drugs. PFSH PFSH Medical History Alcohol abuse Chronic bronchiolitis Epilepsy Liver disease Migraine Seizures Smoker Home Medications Unobtainable 06/02/23 [History Last Taken Unknown] Allergy/AdvReac Type Severity Reaction Status Date / Time acetaminophen [From Vicodin] Allergy Itching Verified 06/02/23 19:16 hydrocodone [From Vicodin] Allergy Itching Verified 06/02/23 19:16 Latex, Natural Rubber Allergy Rash Verified 06/02/23 19:16 Social History Smoking Status: Current every day smoker tobacco type: cigarettes ROS ROS ED Constitutional Constitutional ED: Denies chills, fever(s) or sweats Eyes Eyes: Denies blurry vision or change in vision ENT ENT ED: Denies ear pain or sore throat Cardiovascular Cardiovascular: Reports chest pain; Denies palpitations or racing heartbeat Respiratory/Chest Respiratory/Chest: Reports dyspnea; Denies cough or sputum Gastrointestinal Gastrointestinal: Reports nausea and vomiting; Denies abdominal pain, constipation or diarrhea Genitourinary Genitourinary ED: Denies dysuria, hematuria or urinary frequency Musculoskeletal Musculoskeletal: Denies arthralgias, myalgias or neck pain Integumentary Denies abscess, Abrasions or rash Neurologic Neurologic: Denies headache(s), paresthesias or weakness Psychiatric Psychiatric: Denies anxiety, depression, suicidal ideation or suicidal thoughts Endocrine Endocrinology: Denies polydipsia or polyuria EXAM Physical Exam Const Vital Signs: 06/02/23 19:04 06/02/23 19:21 06/02/23 19:58 Temperature 98 F Temperature Source Oral Pulse Rate 109 H 101 H Respiratory Rate 22 H 19 H Blood Pressure 119/86 H 127/87 H Blood Pressure Mean 97 100 Pulse Ox 98 98 98 Oxygen Delivery Method Room Air Room Air Room Air 06/02/23 21:11 Temperature Temperature Source Pulse Rate 90 Respiratory Rate 16 Blood Pressure 116/81 H Blood Pressure Mean 92 Pulse Ox 99 Oxygen Delivery Method Room Air Positive well nourished Constitutional Narrative: Smells of alcohol and cigarettes General Appearance ED: NAD; Negative for pallor HEENT Reports moist mucous membranes Eyes PERRL and EOMs intact bilaterally Chest Wall inspection of chest normal Resp normal respiratory effort and clear to auscultation bilaterally Auscultation: Negative for rales, rhonchi or wheezes Neuro oriented x3 and CN's II-XII intact bilaterally Sensorium / Orientation: alert Psych mental status grossly normal Attitude: agitated Mood Affect: anxious Skin no rashes or lesions noted General Skin Exam: Negative for jaundice or pallor MDM MDM MDM Narrative Medical decision making narrative: Patient presenting with chest pain. While I was interviewing her she became very anxious and was screaming and yelling. She states that her had no she feels stupid because she does not remember h er medications. After redirecting her she is able to tell me that she is on something (more content not included)... Normal [facility] L501.4020on 06-02-2023 TROPONIN-I HS < 3 Low 3.0-54.0 [facility] Comment on above: Order Comment: 'TROP ' Serial specimen #1, #2 or #3: 1 Result Comment: Plea se Note: New Test Units and Gender Specific Reference Ranges. For more information see Policy Stat Procedure [place] High Sensitivity Troponin (TNIH) and attachments. Performed By: #### L 500.2500, L501.4020, L100.0100 ####[facility] [address] [place], [place], [id number] [facility] 05-06-2023 High Sensitivity Troponin I <4 Normal 0-51 [facility] [place] Comment on above: Result Comment: High Sensitive Troponin I Reference Ranges: Female: 0-51 ng/L Male: 0-76 ng/L Testing performed on [employer]) using a homogeneous sandwich chemiluminescent immunoassay based on [employer] technology. Performed By: #### [facility] #### [address] [address] .Auto DiffOrdered By: SYSTEM SYSTEM on 05-05-2023 Basophil, Absolute 0.1 103/mcL Normal 0.0-0.2 AO Wo rkflow SS Comment on above: Performed By: #### A DIFF, PBNP, CBC, GFR, MDW, TROPHS, DIMER, BMP, ANEU #### [address] [address] Basophils/100 WBC (Bld) 1.2 % Normal 0.0-2.5 AO Workflow SS Comment on above: Performed By: #### A DIFF, PBNP, CBC, GFR, MDW, TROPHS, DIMER, BMP, ANEU #### [address] [address] Eosinophil, Absolute 0.1 103/mcL Normal 0.0-0.4 AO Workflow SS Comment on above: Performed By: #### A DIFF, PBNP, CBC, GFR, MDW, TROPHS, DIMER, BMP, ANEU #### [address] [address] Eosinophils/100 WBC (Bld) 1.0 % Normal 0.0-7.0 AO Workflow SS Comment on above: Performed By: #### A DIFF, PBNP, CBC, GFR, MDW, TROPHS, DIMER, BMP, ANEU #### [address] [address] Lymphocyte, Absolute 4.4 103/mcL High 0.8-3.9 AO Workflow SS Comment on above: Performed By: #### A DIFF, PBNP, CBC, GFR, MDW, TROPHS, DIMER, BMP, ANEU #### [address] [address] Lymphocytes/100 WBC (Bld) 48.7 % Normal 10.0-50.0 AO Workflow SS Comment on above: Performed By: #### A DIFF, PBNP, CBC, GFR, MDW, TROPHS, DIMER, BMP, ANEU #### [address] [address] Monocyte, Absolute 0.7 103/mcL Normal 0.2-1.0 AO Wo rkflow SS Comment on above: Performed By: #### A DIFF, PBNP, CBC, GFR, MDW, TROPHS, DIMER, BMP, ANEU #### [address] [address] Monocytes/100 WBC (Bld) 8.1 % Normal 1.7-13.0 AO Workflow SS Comment on above: Performed By: #### A DIFF, PBNP, CBC, GFR, MDW, TROPHS, DIMER, BMP, ANEU #### [address] [address] Neutrophils/100 WBC (Bld) 41.0 % Normal 37.0-80.0 AO Workflow SS Comment on above: Performed By: #### A DIFF, PBNP, CBC, GFR, MDW, TROPHS, DIMER, BMP, ANEU #### [address] [address] .GFRon 05-05-2023 GFR Non- 110 ml/min/1.73sqm Normal [facility] ([place] Comment on above: Result Comment: GFR Population mean for , Non- Americans Ages 20-29 = 116 mL/min/1.73 sq.m. Ages 30-39 = 107 mL/min/1.73 sq.m. Ages 40-49 = 99 mL/min/1.73 sq.m. Ages 50-59 = 93 mL/min/1.73 sq.m. Ages 60-69 = 85 mL/min/1.73 sq.m. Ages 70+ = 75 mL/min/1.73 sq.m. Chronic Kidney Disease: Less than 60 mL/min/1.73 square meters End Stage Renal Disease: Less than 15 mL/min/1.73 square meters Performed By: #### A DIFF, PBNP, CBC, GFR, MDW, TROPHS, DIMER, BMP, ANEU #### [address] [address] GFR 134 ml/min/1.73sqm Normal [facility] ([place]) Comment on above: Result Comment: GFR Population mean for , Non- Americans Ages 20-29 = 116 mL/min/1.73 sq.m. Ages 30-39 = 107 mL/min/1.73 sq.m. Ages 40-49 = 99 mL/min/1.73 sq.m. Ages 50-59 = 93 mL/min/1.73 sq.m. Ages 60-69 = 85 mL/min/1.73 sq.m. Ages 70+ = 75 mL/min/1.73 sq.m. Chronic Kidney Disease: Less than 60 mL/min/1.73 square meters End Stage Renal Disease: Less than 15 mL/min/1.73 square meters Performed By: #### A DIFF, PBNP, CBC, GFR, MDW, TROPHS, DIMER, BMP, ANEU #### [address] [address] .MDWon 05-05-2023 Monocyte Distribution Width 19.26 Normal 0.00-20.00 [facility] [place] Comment on above: Result Comment: For ED adult patients suspected of sepsis, MDW<=20.0 does not rule out sepsis or risk of sepsis Performed By: #### A DIFF, PBNP, CBC, GFR, MDW, TROPHS, DIMER, BMP, ANEU #### [address] [address] .NEUABSOrdered By: SYSTEM SY STEM on 05-05-2023 Neutrophil, Absolute 3.7 103/mcL Normal 2.9-6.2 AO Workflow SS Comment on above: Performed By: #### A DIFF, PBNP, CBC, GFR, MDW, TROPHS, DIMER, BMP, ANEU #### [place] [id number] BMPon 05-05-2023 BUN/Creatinine Ratio 18 ratio Normal 7-27 [facility] ([place]) Comment on above: Performed By: #### A DIFF, PBNP, CBC, GFR, MDW, TROPHS, DIMER, BMP, ANEU #### [place] [address] BMPOrdered By: SYSTEM SYSTEM on 05-05-2023 Calcium [Mass/Vol] 8.9 mg/dL Normal 8.4-10.2 AO ADM SS Comment on above: Performed By: #### A DIFF, PBNP, CBC, GFR, MDW, TROPHS, DIMER, BMP, ANEU #### [address] [address] Chloride [Moles/Vol] 106 mmol/L Normal 98-107 AO A DM SS Comment on above: Performed By: #### A DIFF, PBNP, CBC, GFR, MDW, TROPHS, DIMER, BMP, ANEU #### [place] [id number] CO2 [Moles/Vol] 21 mmol/L Low 22-29 AO ADM SS Comment on above: Performed By: #### A DIFF, PBNP, CBC, GFR, MDW, TROPHS, DIMER, BMP, ANEU #### [place] [id number] Creatinine [Mass/Vol] 0.60 mg/dL Normal 0.55-1.02 AO ADM SS Comment on above: Performed By: #### A DIFF, PBNP, CBC, GFR, MDW, TROPHS, DIMER, BMP, ANEU #### [place] [id number] Electrolyte Balance 13.0 mEq/L Normal 4.0-15.0 AO AD M SS Comment on above: Performed By: #### A DIFF, PBNP, CBC, GFR, MDW, TROPHS, DIMER, BMP, ANEU #### [place] [id number] Glucose [Mass/Vol] 118 mg/dL High 70-105 AO ADM SS Comment on above: Performed By: #### A DIFF, PBNP, CBC, GFR, MDW, TROPHS, DIMER, BMP, ANEU #### [address] [address] Potassium [Moles/Vol] 3.7 mmol/L Normal 3.5-5.1 AO ADM SS Comment on above: Performed By: #### A DIFF, PBNP, CBC, GFR, MDW, TROPHS, DIMER, BMP, ANEU #### [place] [id number] Sodium [Moles/Vol] 140 mmol/L Normal 136-145 AO ADM SS Comment on above: Performed By: #### A DIFF, PBNP, CBC, GFR, MDW, TROPHS, DIMER, BMP, ANEU #### [place] [id number] Urea nitrogen [Mass/Vol] 11 mg/dL Normal 7-18 AO ADM SS Comment on above: Performed By: #### A DIFF, PBNP, CBC, GFR, MDW, TROPHS, DIMER, BMP, ANEU #### [place] [id number] CBCOrdered By: SYSTEM SYSTEM on 05-05-2023 Erythrocyte distribution width (RBC) [Ratio] 15.0 % High 11.5-14.5 AO Workflow SS Comment on above: Performed By: #### A DIFF, PBNP, CBC, GFR, MDW, TROPHS, DIMER, BMP, ANEU #### [place] [address] Hematocrit (Bld) [Volume fraction] 42.3 % Normal 37.0-47.0 AO Workflow SS Comment on above: Performed By: #### A DIFF, PBNP, CBC, GFR, MDW, TROPHS, DIMER, BMP, ANEU #### [place] [id number] MCH (RBC) [Entitic mass] 35.4 pg High 27.0-31.2 AO Workflow SS Comment on above: Performed By: #### A DIFF, PBNP, CBC, GFR, MDW, TROPHS, DIMER, BMP, ANEU #### [place] [address] MCHC 34.1 G/dL Normal 33.0-37.0 AO Workflow SS Comment on above: Performed By: #### A DIFF, PBNP, CBC, GFR, MDW, TROPHS, DIMER, BMP, ANEU #### [place] [id number] MCV (RBC) [Entitic vol] 103.7 fL High 80.0-94.0 AO Workflow SS Comment on above: Performed By: #### A DIFF, PBNP, CBC, GFR, MDW, TROPHS, DIMER, BMP, ANEU #### [address] [address] Platelet mean volume (Bld) [Entitic vol] 8.5 fL Normal 7.4-10.4 AO Workflow SS Comment on above: Performed By: #### A DIFF, PBNP, CBC, GFR, MDW, TROPHS, DIMER, BMP, ANEU #### [address] [address] CBCon 05-05-2023 Hgb 14.4 G/dL Normal 12.0-16.0 [facility] ([place] Comment on above: Performed By: #### A DIFF, PBNP, CBC, GFR, MDW, TROPHS, DIMER, BMP, ANEU #### [address] [address] Platelet 211 10 3/mcL Normal 130-400 [facility] ([place] Comment on above: Performed By: #### A DIFF, PBNP, CBC, GFR, MDW, TROPHS, DIMER, BMP, ANEU #### [address] [address] RBC 4.08 10 6/mcL Low 4.20-5.40 [facility] ([place] Comment on above: Performed By: #### A DIFF, PBNP, CBC, GFR, MDW, TROPHS, DIMER, BMP, ANEU #### [address] [address] WBC 9.0 10 3/mcL Normal 4.6-10.8 [facility] ([place] Comment on above: Performed By: #### A DIFF, PBNP, CBC, GFR, MDW, TROPHS, DIMER, BMP, ANEU #### [address] [address] DIMERon 05-05-2023 D-Dimer <200 Normal 0-230 [facility] ([place] Comment on above: Result Comment: DDN: Results reported in D-DU ng/mL. Negative for D-dimer. DVT/PE is highly unlikely. Note: False negative results may be seen in patients on anticoagulant therapy. The result of the D-Dimer test should be evaluated in the context of all the clinical and laboratory data available. In those instances where the laboratory result does not agree with the clinical evaluation, additional tests should be performed accordingly. If the D-Dimer result is used to exclude DVT or PE, the recommended cutoff value is less than 230 ng/mL. The D-Dimer result should not be used alone to rule in DVT/PE, but should be used in conjunction with a clinical pretest probability (PTP)assessment model to exclude venous thromboembolism (VTE) in outpatients suspected of deep venous thrombosis (DVT) and pulmonary embolism (PE). Performed By: #### A DIFF, PBNP, CBC, GFR, MDW, TROPHS, DIMER, BMP, ANEU #### [place] [address] LABORATORYOrdered By: Tushar Mills on 05-05-2023 Fibrin D-dimer DDU (PPP) [Mass/Vol] ng/mL D-DU Normal 0 - 230 ng/mL D-DU AO [facility] SS Comment on above: Result Comment: DDN: Results reported in D-DU ng/mL. Negative for D-dimer. DVT/PE is highly unlikely. Note: False negative results may be seen in patients on anticoagulant therapy. Interpretive Data: T he result of the D-Dimer test should be evaluated in the context of all the clinical and laboratory data available. In those instances where the laboratory result does not agree with the clinical evaluation, additional tests should be performed accordingly. If the D-Dimer result is used to exclude DVT or PE, the recommended cutoff value is less than 230 ng/mL. The D-Dimer result should not be used alone to rule in DVT/PE, but should be used in conjunction with a clinical pretest probability (PTP)assessment model to exclude venous thromboembolism (VTE) in outpatients suspected of deep venous thrombosis (DVT) and pulmonary embolism (PE). LABORATORYOrdered By: SYSTEM SYSTEM on 05-05-2023 GFR/1.73 sq M.predicted among blacks MDRD (S/P/Bld) [Vol rate/Area] 134 ml/min/1.73sqm Invalid Interpretation Code AO Chemistry S Comment on above: Interpretive Data: GFR Population mean for , Non- Americans Ages 20-29 = 116 mL/min/1.73 sq.m. Ages 30-39 = 107 mL/min/1.73 sq.m. Ages 40-49 = 99 mL/min/1.73 sq.m. Ages 50-59 = 93 mL/min/1.73 sq.m. Ages 60-69 = 85 mL/min/1.73 sq.m. Ages 70+ = 75 mL/min/1.73 sq.m. Chronic Kidney Disease: Less than 60 mL/min/1.73 square meters End Stage Renal Disease: Less than 15 mL/min/1.73 square meters GFR/1.73 sq M.predicted among non-blacks MDRD (S/P/Bld) [Vol rate/Area] 110 ml/min/1.73sqm Invalid Interpretation Code AO Chemistry S Comment on above: Interpretive Data: GFR Population mean for , Non- Americans Ages 20-29 = 116 mL/min/1.73 sq.m. Ages 30-39 = 107 mL/min/1.73 sq.m. Ages 40-49 = 99 mL/min/1.73 sq.m. Ages 50-59 = 93 mL/min/1.73 sq.m. Ages 60-69 = 85 mL/min/1.73 sq.m. Ages 70+ = 75 mL/min/1.73 sq.m. Chronic Kidney Disease: Less than 60 mL/min/1.73 square meters End Stage Renal Disease: Less than 15 mL/min/1.73 square meters Hemoglobin (Bld) [Mass/Vol] 14.4 G/dL Normal 12.0 - 16.0 G/dL AO Workflow SS Monocyte distribution width Auto (Bld) [Entitic vol] 19.26 1 Normal 0.00 - 20.00 AO Workflow SS Comment on above: Result Comment: For ED adult patients suspected of sepsis, MDW<=20.0 does not rule out sepsis or risk of sepsis Natriuretic peptide.B prohormone N-Terminal [Mass/Vol] 33 pg/mL Normal 0 - 125 pg/mL AO ADM SS Comment on above: Interpretive Data: N T-proBNP results of less than 300 pg/mL effectively rules out acute congestive heart failure with 99% negative predictive value. Platelets (Bld) [#/Vol] 211 103/mcL Normal 130 - 400 10^3/mcL AO Workflow SS RBC (Bld) [#/Vol] 4.08 106/mcL Low 4.20 - 5.4 0 10^6/mcL AO Workflow SS Urea nitrogen/Creatinine [Mass ratio] 18 ratio Normal 7 - 27 ratio AO ADM SS WBC (Bld) [#/Vol] 9.0 103/mcL Normal 4.6 - 10.8 10^3/mcL AO Workflow SS Laboratory - Chemistry and C hemistry - challengeOrdered By: SYSTEM SYSTEM on 05-05-2023 Troponin I.cardiac DL <= 0.01 ng/mL [Mass/Vol] ng/L Normal 0 - 51 ng/L AO ADM SS Comment on above: Interpretive Data: H igh Sensitive Troponin I Reference Ranges: Female: 0-51 ng/L Male: 0-76 ng/L Testing performed on [employer] using a homogeneous sandwich chemiluminescent immunoassay based on [employer] technology. PBNPon 05-05-2023 Natriuretic peptide B (Bld) [Mass/Vol] 33 pg/mL Normal 0-125 [facility] ([place] Comment on above: Result Comment: NT-p roBNP results of less than 300 pg/mL effectively rules out acute congestive heart failure with 99% negative predictive value. Performed By: #### A DIFF, PBNP, CBC, GFR, MDW, TROPHS, DIMER, BMP, ANEU #### [address] [address] TROPHSon 05-05-2023 High Sensitivity Troponin I <4 Normal 0-51 [facility] ([place] Comment on above: Result Comment: High Sensitive Troponin I Reference Ranges: Female: 0-51 ng/L Male: 0-76 ng/L Testing performed on [employer] using a homogeneous sandwich chemiluminescent immunoassay based on [employer] technology. Performed By: #### [facility] #### [address] [address] XR CHEST 1 VIEWon 05-05-2023 XR CHEST 1 VIEW ORIGINAL EXAMINATION: ONE XRAY VIEW OF THE CHEST 05/05/2023 8:35 pm COMPARISON: 06/07/2021 HISTORY: ORDERING SYSTEM PROVIDED HISTORY: Reason for Exam: sob FINDINGS: There is hypoinflation with accentuation of the cardiomediastinal silhouette and increased bronchovascular markings. There is no consolidation or pleural effusion. There is no pulmonary vascular congestion. There is no pneumothorax. Osseous structures demonstrate mild dextro scoliosis. IMPRESSION: 1. There is no consolidation or effusion. Interpreted by: Manoj Portillo Preliminary Report By: Manoj Portillo Electronically signed By Manoj Portillo Dictated Date: 05/05/2023 8:43:48 PM Prelim Date: 05/05/2023 8:53:00 PM Sign Date: 05/05/2023 8:53:00 PM Ordering Provider: CORRIE ROJO [facility] ([place]) LABORATORYOrdered By: Shelley Dozier on 06-07-2021 HCG ( test) Ql Negative (06/07/21 8:54 PM) Invalid Interpretation Code AO Manual Urine SS test (u) int Not detected Invalid Interpretation Code AO Manual Urine SS Albumin BCP dye [Mass/Vol] 4.3 G/dL Invalid Interpretation Code 3.5 - 5.0 G/dL AO ADM SS Albumin/Globulin [Mass ratio] 1.1 {ratio} Invalid Interpretation Code 1.1 - 2.5 ratio AO ADM SS ALP [Catalytic activity/Vol] 58 U/L Invalid Interpretation Code 40 - 135 U/L AO ADM SS ALT With P-5'-P [Catalytic activity/Vol] 26 U/L Invalid Interpretation Code 14 - 59 U/L AO ADM SS AST With P-5'-P [Catalytic activity/Vol] 18 U/L Invalid Interpretation Code 10 - 40 U/L AO ADM SS Bilirubin [Mass/Vol] 0.2 mg/dL Invalid Interpretation Code 0.2 - 1.0 mg/dL AO ADM SS Calcium [Mass/Vol] 8.9 mg/dL Invalid Interpretation Code 8.4 - 10.2 mg/dL AO ADM SS Chloride [Moles/Vol] 105 mmol/L Invalid Interpretation Code 98 - 107 mmol/L AO ADM SS CO2 [Moles/Vol] 21 mmol/L Invalid Interpretation Code 22 - 29 mmol/L AO ADM SS Creatinine [Mass/Vol] 0.99 mg/dL Invalid Interpretation Code 0.55 - 1.02 mg/dL AO ADM SS Electrolyte Balance 15.0 mEq/L Invalid Interpretation Code 4.0 - 15.0 mEq/L AO ADM SS Globulin 3.9 G/dL Invalid Interpretation Code AO ADM SS Glucose [Mass/Vol] 110 mg/dL Invalid Interpretation Code 70 - 105 mg/dL AO ADM SS Lipase [Catalytic activity/Vol] 89 U/L Invalid Interpretation Code 73 - 393 U/L AO ADM SS Potassium [Moles/Vol] 5.1 mmol/L Invalid Interpretation Code 3.5 - 5.1 mmol/L AO ADM SS Protein [Mass/Vol] 8.2 G/dL Invalid Interpretation Code 6.4 - 8.2 G/dL AO ADM SS Sodium [Moles/Vol] 141 mmol/L Invalid Interpretation Code 136 - 145 mmol/L AO ADM SS Urea nitrogen [Mass/Vol] 12 mg/dL Invalid Interpretation Code 7 - 18 mg/dL AO ADM SS Urea nitrogen/Creatinine [Mass ratio] 12 ratio Invalid Interpretation Code 7 - 27 ratio AO ADM SS LABORATORYOrdered By: Yennifer Norman on 06-07-2021 Anisocytosis Ql (Bld) Slight (06/07/21 8:20 PM) Invalid Interpretation Code AO Auto Heme SS Band form neutrophils (Bld) [#/Vol] 4.0 10*3/uL Invalid Interpretation Code 0.0 - 5.0 % AO Auto Heme SS Basophil %, Manual 0.0 1 Invalid Interpretation Code 0.0 - 2.5 % AO Auto Heme SS Basophil, Abs Manual 0.00 103/mcL Invalid Interpretation Code 0.00 - 0.19 10^3/mcL AO Auto Heme SS Eosinophil %, Manual 0.0 1 Invalid Interpretation Code 0.0 - 7.0 % AO Auto Heme SS Eosinophil, Abs Manual 0.00 103/mcL Invalid Interpretation Code 0.00 - 0.40 10^3/mcL AO Auto Heme SS Erythrocyte distribution width (RBC) [Ratio] 14.6 % Invalid Interpretation Code 11.5 - 14.5 % AO Auto Heme SS Hematocrit (Bld) [Volume fraction] 41.6 % Invalid Interpretation Code 37.0 - 47.0 % AO Auto Heme SS Hemoglobin (Bld) [Mass/Vol] 14.2 G/dL Invalid Interpretation Code 12.0 - 16.0 G/dL AO Auto Heme SS Lymphocyte %, Manual 19.0 1 Invalid Interpretation Code 10.0 - 50.0 % AO Auto Heme SS Lymphocyte, Abs Manual 2.10 103/mcL Invalid Interpretation Code 0.77 - 3.85 10^3/mcL AO Auto Heme SS MCH (RBC) [Entitic mass] 32.5 pg Invalid Interpretation Code 27.0 - 31.2 pg AO Auto Heme SS MCHC (RBC) [Mass/Vol] 34.3 G/dL Invalid Interpretation Code 33.0 - 37.0 G/dL AO Auto Heme SS MCV (RBC) [Entitic vol] 95.0 fL Invalid Interpretation Code 80.0 - 94.0 fL AO Auto Heme SS Monocyte %, Manual 8.0 1 Invalid Interpretation Code 1.7 - 13.0 % AO Auto Heme SS Monocyte, Abs Manual 0.90 103/mcL Invalid Interpretation Code 0.15 - 1.00 10^3/mcL AO Auto Heme SS Neutrophil %, Manual 69.0 1 Invalid Interpretation Code 37.0 - 80.0 % AO Auto Heme SS Neutrophil, Abs Manual 8.20 103/mcL Invalid Interpretation Code 2.85 - 6.16 10^3/mcL AO Auto Heme SS Platelet Estimate Normal (06/07/21 8:20 PM) Invalid Interpretation Code AO Auto Heme SS Platelet mean volume (Bld) [Entitic vol] 8.7 fL Invalid Interpretation Code 7.4 - 10.4 fL AO Auto Heme SS Platelets (Bld) [#/Vol] 245 103/mcL Invalid Interpretation Code 130 - 400 10^3/mcL AO Auto Heme SS RBC (Bld) [#/Vol] 4.38 106/mcL Invalid Interpretation Code 4.20 - 5.40 10^6/mcL AO Auto Heme SS Stomatocytes LM Ql (Bld) Few (06/07/21 8:20 PM) Invalid Interpretation Code AO Auto Heme SS WBC (Bld) [#/Vol] 11.30 103/mcL Invalid Interpretation Code 4.60 - 10.80 10^3/mcL AO Auto Heme SS LABORATORYOrdered By: SYSTEM SYSTEM on 06-07-2021 GFR 76 ml/min/1.73sqm Invalid Interpretation Code AO Chemistry S GFR Non- 62 ml/min/1.73sqm Invalid Interpretation Code AO Chemistry S CNOVon 06-02-2021 CNOV Office Visit (ORMDNA ) VERONA AVALOS ([id number]) 1980 F [facility] Date Time Provider Department 06/02/21 11:45 AM CARMEN COTTON During your visit today, we recorded the following information about you: Carmen Cotton DO 06/09/2021 6:24 AM Signed Reason for Visit/Chief Complaint Verona Avalos is a 40 year old female who presents today for a new evaluation of following complaint: Patient presents with: Right Shoulder - Pain, New, Swelling History of Present Illness: PAIN EVALUATION 06/02/2021 1150 Pain Level: 8 Pain Location: Shoulder-Right Description: Shooting;Sharp;Throbbing Duration Amount of Time: ? ongoing Frequency: Continuous Intervention/Comfort measure: Reposition;Relaxation;Medic ation;Cold;Heat HPI: Verona Avalos is a 40 year old female presenting today with right shoulder pain. Patient has had pain for over a year now. Pain history is noted as above. Denies calf pain, numbness, tingling, fever, chills or other constitutional symptoms. No known inciting event, significant past med hx- see chart. Has not had injections, etc and is here for treatment options discussion. Previous Treatments: Ice: Yes Heat: Yes Brace: No NSAIDs: Yes, aleve/tylenol/ibuprofen Injections: No Surgeries: No Physical Therapy: No Review of Systems: Patient did not have, and does not currently have, any weight loss, malaise, fever, chills, headache, chest pain, chest pressure, palpitations, cough, shortness of breath, orthopnea, paroxsymal nocturnal dyspnea, nausea, vomiting, diarrhea, constipation, melena, hematochezia, urinary difficulties, prolonged bleeding, easily bruising, heat or cold intolerance, new onset joint pain or swelling, new onset extremity weakness or numbness, new onset auditory or visual disturbances, lightheadedness, dizziness, partial loss of consciousness or full loss of consciousness. Current Outpatient Medications on File Prior to Visit Medication Sig - traZODone (DESYREL) 100 mg tablet Take 100 mg by mouth daily at bedtime. - levothyroxine (SYNTHROID) 100 mcg tablet Take 100 mcg by mouth daily before breakfast. unsure of strength - topiramate XR (QUDEXY XR) 50 mg cap(s) Take by mouth. unsure of strength - famotidine (PEPCID) 40 mg tablet Take 1 tablet by mouth once daily. - albuterol HFA (PROVENTIL HFA, VENTOLIN HFA) 90 mcg/actuation inhaler Inhale 2 Puffs as instructed every 4 hours as needed for Wheezing/Shortness of Breath. - cyclobenzaprine (FLEXERIL) 10 mg tablet Take 1 tablet by mouth every 8 hours as needed. (Patient not taking: Reported on 09/24/2018 ) - naproxen (NAPROSYN) 500 mg tablet Take 1 tablet by mouth twice daily as needed. TAKE WITH FOOD (Patient not taking: Reported on 09/24/2018 ) - methylPREDNISolone (MEDROL, ZOILA,) 4 mg Dose-Pack Take by mouth. As directed on package (Patient not taking: Reported on 09/24/2018 ) - meloxicam (MOBIC) 15 mg tablet Take 15 mg by mouth once daily. - magnesium oxide (MAG-OX) 400 mg tablet Take 1 tablet by mouth twice daily. (Patient not taking: Reported on 09/24/2018 ) No current facility-administered medications on file prior to visit. ALLERGIES Allergen Reactions - Dilaudid [Hydromorp* Itching - Latex, Natural Rubb* Unknown - Vicodin [Hydrocodon* Itching Physical Exam: Vitals: [facility] 12/19/2017 Psych: Pleasant, good affect and mood General Appearance: Well appearing, alert, in no acute distress, well-hydrated, well nourished.. Skin: Skin color, texture, turgor normal, no suspicious rashes or lesions. Peripheral Pulses: Normal. Neurologic: Gait normal. Reflexes normal and symmetric. Sensation grossly intact.. Lymph Nodes: No cervical lymphadenopathy, No supraclavicular lymphadenopathy, No axillary lymphadenopathy. and No inguinal lymphadenopathy.. Respiratory: No recent pulmonary infection, hemoptysis, chronic cough, or shortness of breath at rest Rheumatologic: Joint deformities: Right shoulder pain Right Shoulder Exam Right shoulder exam is normal. Tenderness The patient is experiencing tenderness in the biceps tendon. Range of Motion Active abduction: normal Passive abduction: normal Extension: normal External rotation: normal Forward flexion: normal Internal rotation 0 degrees: normal Internal rotation 90 degrees: normal Muscle Strength Abduction: 5/5 Internal rotation: 5/5 External rotation: 5/5 Supraspinatus: 5/5 Subscapularis: 5/5 Biceps: 5/5 Tests Apprehension: negative Rao test: positive Cross arm: negative Impingement: positive Other Erythema: absent Sensation: normal Pulse: present Comments: Med,uln,rad nerves intact Left Shoulder Exam Left shoulder exam is normal. Tenderness The patient is experiencing no tenderness. Range of Motion Active abduction: normal Passive abduction: normal Extension: grace (more content not included)... Normal [facility] CBC Auto DifferentialOrdered By: Esther Rhodes on 10-18-2020 Absolute Baso # 0.1 10*3/uL 0.0 - 0.2 10*3/uL [facility] Work Phone: [phone] Absolute Neut # 3.1 10*3/uL 1.8 - 7.0 10*3/uL [facility] Work Phone: [phone] Basophils/100 WBC (Bld) 0.9 % 0.0 - 2.0 % [facility] Work Phone: [phone] Eosinophils (Bld) [#/Vol] 0.2 10*3/uL 0.0 - 0.5 10*3/uL [facility] Work Phone: [phone] Eosinophils/100 WBC (Bld) 2.2 % 1.0 - 6.0 % [facility] Work Phone: [phone] Granulocytes/100 WBC (Bld) 39.2 % Low 40.0 - 80.0 % [facility] Work Phone: [phone] Hematocrit (Bld) [Volume fraction] 39.9 % 35.0 - 47.0 % [facility] Work Phone: [phone] Hemoglobin.gastroint estinal spec 1 Ql (Stl) 13.8 g/dL 11.7 - 16.0 g/dL [facility] Work Phone: [phone] Interpretation and review of laboratory results Abnormal [facility] Work Phone: [phone] Lymphocytes (Bld) [#/Vol] 3.6 10*3/uL 1.0 - 4.3 10*3/uL [facility] Work Phone: [phone] Lymphocytes/100 WBC (Bld) 45.6 % High 20.0 - 40.0 % [facility] Work Phone: [phone] MCH (RBC) [Entitic mass] 34.0 pg 26.0 - 34.0 pg [facility] Work Phone: [phone] MCHC (RBC) [Mass/Vol] 34.7 % 32.0 - 36.0 % [facility] Work Phone: [phone] MCV (RBC) [Entitic vol] 98.1 fL High 79.0 - 98.0 fL [facility] Work Phone: [phone] Monocytes (Bld) [#/Vol] 1.0 10*3/uL High 0.0 - 0.8 10*3/uL [facility] Work Phone: [phone] Monocytes/100 WBC (Bld) 12.1 % High 2.0 - 10.0 % [facility] Work Phone: [phone] Platelet distribution width (Bld) [Ratio] 15.6 % High 11.5 - 14.5 % [facility] Work Phone: [phone] Platelet mean volume (Bld) [Entitic vol] 8.7 fL 7.4 - 10.4 fL [facility] Work Phone: [phone] Platelets (Bld) [#/Vol] 195 10*3/uL 140 - 440 10*3/uL [facility] Work Phone: [phone] RBC (Bld) [#/Vol] 4.07 10*6/uL 3.80 - 5.2 0 10*6/uL [facility] Work Phone: [phone] WBC (Bld) [#/Vol] 8.0 10*3/uL 3.6 - 10.7 10*3/uL [facility] Work Phone: [phone] Test Performed by [address] [address] [facility] Work Phone: [phone] [facility] Work Phone: [phone] Abdomen and Pelvis W cont rast IVOrdered By: Esther Rhodes on 10-18-2020 Patient Name: VERONA DRAPER Computed Tomography ACCESSION EXAM DATE/TIME PROCEDURE ORDERING PROVIDER [id number] 10/18/2020 12:[address] Abdomen/Pelvis w/ IV MD ERUM, ESTHER Montero Contrast (IV Onl CPT code 10454 Q9967 Reason For Exam (CT Abdomen/Pelvis w/ IV Contrast (IV Onl) Epigastric abdominal pain history of pancreatitis Report CT ABDOMEN AND PELVIS WITH CONTRAST CLINICAL INDICATION: Abdominal pain. TECHNIQUE: Multi-axial 3mm sections through the abdomen and pelvis following 75 mL of Isoview contrast media. No oral contrast was administered. Coronal and sagittal reconstructions were reviewed. COMPARISON: February 14, 2019. FINDINGS: Lower thorax: Normal. Stomach: Unremarkable. Liver: Normal size and contours. No focal lesion. Biliary tree: Unremarkable gallbladder by CT. No biliary dilatation. Spleen: Normal. Adrenals: Normal. Pancreas: Normal. Kidneys: Symmetric contrast enhancement without evidence of hydronephrosis. No focal renal lesion is identified. Free air or fluid: None. Mesenteric/retroperitoneal: No adenopathy or inflammation. Aorta: Normal caliber of aorta and bilateral common iliac arteries. Bowel: Normal appendix without inflammatory change in the right lower quadrant. No inflammatory change or bowel dilatation is noted. Urinary bladder: Unremarkable. Abdominal wall/soft tissues: A fat containing umbilical hernia is present. Computed Tomography Report Pelvic organs/viscera: A foreign body/material is present within the cervix. The uterus is present. Inguinal: No lymphadenopathy. Osseous structures: Unremarkable osseous structures. No suspicious osseous lesion. IMPRESSION: 1. No evidence of acute infectious or inflammatory process in the abdomen or pelvis. 2. A foreign body/material is present within the cervix Report Dictated on --- Final --- Dictating Physician: MD ARTIS JASON Signed Date and Time: 10/18/2020 1:00 pm Signed by: MD ARTIS JASON Transcribed Date and Time: 10/18/2020 1:01 [facility] Work Phone: Julio César, [facility] Incoming [facility] - 10/18/2020 1:01 PM EDT Patient Name: VERONA AVALOS Computed Tomography ACCESSION EXAM DATE/TIME PROCEDURE ORDERING PROVIDER [id number] 10/18/2020 12:[address] Abdomen/Pelvis w/ IV MD ERUM, ESTHER Montero Contrast (IV Onl CPT code 64092 Q9967 Reason For Exam (CT Abdomen/Pelvis w/ IV Contrast (IV Onl) Epigastric abdominal pain history of pancreatitis Report CT ABDOMEN AND PELVIS WITH CONTRAST CLINICAL INDICATION: Abdominal pain. TECHNIQUE: Multi-axial 3mm sections through the abdomen and pelvis following 75 mL of Isoview contrast media. No oral contrast was administered. Coronal and sagittal reconstructions were reviewed. COMPARISON: February 14, 2019. FINDINGS: Lower thorax: Normal. Stomach: Unremarkable. Liver: Normal size and contours. No focal lesion. Biliary tree: Unremarkable gallbladder by CT. No biliary dilatation. Spleen: Normal. Adrenals: Normal. Pancreas: Normal. Kidneys: Symmetric contrast enhancement without evidence of hydronephrosis. No focal renal lesion is identified. Free air or fluid: None. Mesenteric/retroperitoneal: No adenopathy or inflammation. Aorta: Normal caliber of aorta and bilateral common iliac arteries. Bowel: Normal appendix without inflammatory change in the right lower quadrant. No inflammatory change or bowel dilatation is noted. Urinary bladder: Unremarkable. Abdominal wall/soft tissues: A fat containing umbilical hernia is present. Computed Tomography Report Pelvic organs/viscera: A foreign body/material is present within the cervix. The uterus is present. Inguinal: No lymphadenopathy. Osseous structures: Unremarkable osseous structures. No suspicious osseous lesion. IMPRESSION: 1. No evidence of acute infectious or inflammatory process in the abdomen or pelvis. 2. A foreign body/material is present within the cervix Report Dictated on --- Final --- Dictating Physician: MD ARTIS JASON Signed Date and Time: 10/18/2020 1:00 pm Signed by: MD ARTIS JASON Transcribed Date and Time: 10/18/2020 1:[address] [facility] Work Phone: [facility] Work Phone: CT Abdomen/Pelvis w/ Contras ton 10-18-2020 CT Abdomen/Pelvis w/ Contrast Patient Name: VERONA AVALOS Computed Tomography ACCESSION EXAM DATE/TIME PROCEDURE ORDERING PROVIDER [id number] 10/18/2020 12:[address] Abdomen/Pelvis w/ IV MD RHODES GREGORY M Contrast (IV Onl CPT code 92609 Q9967 Reason For Exam (CT Abdomen/Pelvis w/ IV Contrast (IV Onl) Epigastric abdominal pain history of pancreatitis Report CT ABDOMEN AND PELVIS WITH CONTRAST CLINICAL INDICATION: Abdominal pain. TECHNIQUE: Multi-axial 3mm sections through the abdomen and pelvis following 75 mL of Isoview contrast media. No oral contrast was administered. Coronal and sagittal reconstructions were reviewed. COMPARISON: February 14, 2019. FINDINGS: Lower thorax: Normal. Stomach: Unremarkable. Liver: Normal size and contours. No focal lesion. Biliary tree: Unremarkable gallbladder by CT. No biliary dilatation. Spleen: Normal. Adrenals: Normal. Pancreas: Normal. Kidneys: Symmetric contrast enhancement without evidence of hydronephrosis. No focal renal lesion is identified. Free air or fluid: None. Mesenteric/retroperitoneal: No adenopathy or inflammation. Aorta: Normal caliber of aorta and bilateral common iliac arteries. Bowel: Normal appendix without inflammatory change in the right lower quadrant. No inflammatory change or bowel dilatation is noted. Urinary bladder: Unremarkable. Abdominal wall/soft tissues: A fat containing umbilical hernia is present. Computed Tomography Report Pelvic organs/viscera: A foreign body/material is present within the cervix. The uterus is present. Inguinal: No lymphadenopathy. Osseous structures: Unremarkable osseous structures. No suspicious osseous lesion. IMPRESSION: 1. No evidence of acute infectious or inflammatory process in the abdomen or pelvis. 2. A foreign body/material is present within the cervix Report Dictated on Final Dictating Physician: MD ARTIS JASON Signed Date and Time: 10/18/2020 1:00 pm Signed by: MD ARTIS JASON Transcribed Date and Time: 10/18/2020 1:01 Normal [facility] Comp Metabolic Panelon 10-18 ALP [Catalytic activity/Vol] 71 U/L Normal 38-126 [facility] Comment on above: Performed By: #### C MP3, TSH5, HEMDF, LIPA4, TROPN #### [facility] [employer] [facility] [address] [place] [address] ALT [Catalytic activity/Vol] 10 U/L Normal 0-34 [facility] Comment on above: Result Comment: The ALT test is performed by an updated assay method. Please note that the reference intervals have been changed and are now sex specific. Performed By: #### C MP3, TSH5, HEMDF, LIPA4, TROPN #### [facility] [address] [place] [address] Anion gap [Moles/Vol] 9 mmol/L Normal 3-13 [facility] Comment on above: Performed By: #### C MP3, TSH5, HEMDF, LIPA4, TROPN #### [facility] [address] [place] [address] AST [Catalytic activity/Vol] 29 U/L Normal 15-46 [facility] Comment on above: Performed By: #### C MP3, TSH5, HEMDF, LIPA4, TROPN #### [facility] [address] [place] [address] Bilirubin [Mass/Vol] 0.5 mg/dL Normal 0.2-1.3 [facility] Comment on above: Performed By: #### C MP3, TSH5, HEMDF, LIPA4, TROPN #### [facility] [address] [place] [address] Calcium [Mass/Vol] 8.9 mg/dL Normal 8.4-10.4 [facility] Comment on above: Performed By: #### C MP3, TSH5, HEMDF, LIPA4, TROPN #### [facility] [address] [place] [address] CO2 [Moles/Vol] 27 mmol/L Normal 22-30 [facility] Comment on above: Performed By: #### C MP3, TSH5, HEMDF, LIPA4, TROPN #### [facility] [address] [place] [address] Glucose [Mass/Vol] 102 mg/dL High 70-100 [facility] Comment on above: Performed By: #### C MP3, TSH5, HEMDF, LIPA4, TROPN #### [facility] [address] [place] [address] Protein [Mass/Vol] 7.7 g/dL Normal 6.3-8.2 [facility] Comment on above: Performed By: #### C MP3, TSH5, HEMDF, LIPA4, TROPN #### [facility] [address] [place] [address] Urea nitrogen [Mass/Vol] 3 mg/dL Low 7-20 [facility] Comment on above: Performed By: #### C MP3, TSH5, HEMDF, LIPA4, TROPN #### [facility] [employer] [facility] [address] [place] [address] Creatinine [Mass/Vol] 0.68 mg/dL Normal 0.52-1.25 [facility] Comment on above: Performed By: #### C MP3, TSH5, HEMDF, LIPA4, TROPN #### [facility] [employer] [facility] [address] [place] [address] eGFR OTHER > 90.0 Normal >60 [facility] Comment on above: Result Comment: KDIG O guidelines provide the following GFR categories: Stage GFR(ml/min/1.73 m2) Terms G1 >=90 Normal or high G2 60-89 Mildly decreased* G3a 45-59 Mildly to moderately decreased G3b 30-44 Moderately to severely decreased G4 15-29 Severely decreased G5 <15 Kidney failure *Relative to young adult level. In the absence of evidence of kidney damage, neither GFR category G1 nor G2 fulfill the criteria for CKD. The CKD-EPI equation is validated in individuals 18 years of age and older. Currently the best equation for estimating glomerular filtration rate (GFR) from serum creatinine in children is the Bedside Stokes equation. It is less accurate in patients with extremes of muscle mass, restriction of dietary protein, ingestion of creatine, extra-renal metabolism of creatinine, or treatment with medications that affect renal tubular creatinine secretion. Performed By: #### C MP3, TSH5, HEMDF, LIPA4, TROPN #### [facility] [employer] [facility] [address] [place] [address] GFR/1.73 sq M.predicted among blacks MDRD (S/P/Bld) [Vol rate/Area] mL/min/{1.73_m2} Normal >60 [facility] Comment on above: Performed By: #### C MP3, TSH5, HEMDF, LIPA4, TROPN #### [employer] [facility] [address] [place] [address] Albumin [Mass/Vol] 4.4 g/dL Normal 3.5-5.0 [facility] Comment on above: Performed By: #### C MP3, TSH5, HEMDF, LIPA4, TROPN #### [facility] [address] [place] [address] Potassium [Moles/Vol] 4.0 mmol/L Normal 3.5-5.1 [facility] Comment on above: Performed By: #### C MP3, TSH5, HEMDF, LIPA4, TROPN #### [facility] [address] [place] [address] Sodium [Moles/Vol] 141 mmol/L Normal 135-145 [facility] Comment on above: Performed By: #### C MP3, TSH5, HEMDF, LIPA4, TROPN #### [facility] [address] [place] [address] Chloride [Moles/Vol] 105 mmol/L Normal 98-107 [facility] Comment on above: Performed By: #### C MP3, TSH5, HEMDF, LIPA4, TROPN #### [facility] [address] [place] [address] Complete Urinalysison 2020 Appearance (U) Clear Normal Clear [facility] Comment on above: Result Comment: . Performed By: #### C UA2, HCGUR #### [facility] [address] [place] [address] Bilirubin,Urine Negative Normal Negative [facility] Comment on above: Result Comment: . Performed By: #### C UA2, HCGUR #### [facility] [address] [place] [address] Color (U) Colorless Normal Lt. Yellow [facility] Comment on above: Result Comment: . Performed By: #### C UA2, HCGUR #### [facility] [address] [place] [address] Glucose Ql (U) Normal Normal Normal (<70) [facility] Comment on above: Result Comment: . Performed By: #### C UA2, HCGUR #### [facility] [address] [place] [address] Ketone,Urine Negative Normal Negative [facility] Comment on above: Result Comment: . Performed By: #### C UA2, HCGUR #### [facility] [address] [place] [address] Leukocytes,Urine Negative Normal Negative [facility] Comment on above: Result Comment: . Performed By: #### C UA2, HCGUR #### [facility] [address] [place] [address] Nitrites,Urine Negative Normal Negative [facility] Comment on above: Result Comment: . Performed By: #### C UA2, HCGUR #### [facility] [address] [place] [address] Occult Blood,Urine Negative Normal Negative [facility] Comment on above: Result Comment: . Performed By: #### C UA2, HCGUR #### [facility] [address] [place] [address] pH,Urine 5.5 Normal 5.0-8.0 [facility] Comment on above: Result Comment: . Performed By: #### C UA2, HCGUR #### [facility] [address] [place] [address] Specific [place],Urine < 1.005 Abnormal 1.005 - 1.030 [facility] Comment on above: Result Comment: . Performed By: #### C UA2, HCGUR #### [facility] [address] [place] [address] Total Protein,Urine Negative Normal Negative [facility] Comment on above: Result Comment: . Performed By: #### C UA2, HCGUR #### [facility] [address] [place] [address] Urobilinogen,Urine Normal Normal Normal (0-1) [facility] Comment on above: Result Comment: . Performed By: #### C UA2, HCGUR #### [facility] [address] [place] [address] Comprehensive Metabolic Pane lOrdered By: Esther Rhodes on 10-18-2020 Albumin [Mass/Vol] 4.4 g/dL 3.5 - 5.0 g/dL [facility] Work Phone: ALP (Bld) [Catalytic activity/Vol] 71 U/L 38 - 126 U/L [facility] Work Phone: ALT [Catalytic activity/Vol] 10 U/L 0 - 34 U/L [facility] Work Phone: Comment on above: The ALT test is perf ormed by an updated assay method. Please note that the reference intervals have been changed and are now sex specific. Anion gap [Moles/Vol] 9 mmol/L 3 - 13 mmol/L [facility] Work Phone: AST [Catalytic activity/Vol] 29 U/L 15 - 46 U/L [facility] Work Phone: Bilirubin [Mass/Vol] 0.5 mg/dL 0.2 - 1 .3 mg/dL [facility] Work Phone: Calcium [Mass/Vol] 8.9 mg/dL 8.4 - 10. 4 mg/dL [facility] Work Phone: Chloride [Moles/Vol] 105 mmol/L 98 - 10 7 mmol/L [facility] Work Phone: CO2 [Moles/Vol] 27 mmol/L 22 - 30 mmol/L [facility] Work Phone: Creatinine [Mass/Vol] 0.68 mg/dL 0.52 - 1.25 mg/dL [facility] Work Phone: EGFR IF NonAfrican Sammarinese >90.0 >60 mL/min [facility] Work Phone: Comment on above: KDIGO guidelines pro vide the following GFR categories: Stage GFR(ml/min/1.73 m2) Terms G1 >=90 Normal or high G2 60-89 Mildly decreased* G3a 45-59 Mildly to moderately decreased G3b 30-44 Moderately to severely decreased G4 15-29 Severely decreased G5 <15 Kidney failure *Relative to young adult level. In the absence of evidence of kidney damage, neither GFR category G1 nor G2 fulfill the criteria for CKD. The CKD-EPI equation is validated in individuals 18 years of age and older. Currently the best equation for estimating glomerular filtration rate (GFR) from serum creatinine in children is the Bedside Stokes equation. It is less accurate in patients with extremes of muscle mass, restriction of dietary protein, ingestion of creatine, extra-renal metabolism of creatinine, or treatment with medications that affect renal tubular creatinine secretion. Free PSA/Total PSA [Mass fraction] 7.7 g/dL 6.3 - 8.2 g/dL [facility] Work Phone: GFR/1.73 sq M.predicted among blacks MDRD (S/P/Bld) [Vol rate/Area] mL/min/{1.73_m2} >60 mL/min [facility] Work Phone: Glucose [Mass/Vol] 102 mg/dL High 70 - 100 mg/dL [facility] Work Phone: Interpretation and review of laboratory results Abnormal [facility] Work Phone: Potassium [Moles/Vol] 4.0 mmol/L 3.5 - 5.1 mmol/L [facility] Work Phone: Sodium [Moles/Vol] 141 mmol/L 135 - 145 mmol/L [facility] Work Phone: Urea nitrogen (BldV) [Mass/Vol] 3 mg/dL Low 7 - 20 mg/dL [facility] Work Phone: ED Provider Noteon 1 ED Provider Note I independently eval uated and examined the patient. Patient seen in conjunction with nurse practitioner or physician web press operator assistant or resident physician. Appropriate PPE including n 95, gown, gloves, goggles where worn when appropriate with this patient. I directed all medical decision-making. Patient presents with epigastric discomfort. Burning. History of pancreatitis. Brought in via squad. She still drinks alcohol. On exam heart is regular. Lungs are clear. She does have epigastric discomfort. She also has thyroid problems. She has had chest pain for the past 2 weeks. Labs will be obtained. CT of the abdomen. Further evaluation will be pending studies. Further details please see midlevel note. EKG, inter myself, sinus rhythm, no acute ST elevation or ischemic findings, normal intervals, no old immediately available. Patient has a heart score of 1. Through shared decision make she is comfortable at home. No evidence of acute surgical abdominal process. Further details please see midlevel note. CT said nonspecific foreign body in the cervix patient denies having a tampon or any foreign body in her cervix and did not want that further evaluated. No signs of acute pancreatitis. Comment: Please note this report has been produced using speech recognition software and may contain errors related to that system including errors in grammar, punctuation, and spelling, as well as words and phrases that may be inappropriate. If there is any questions or concerns please feel free to contact the dictating provider for clarification. Esther Rhodes MD 10/18/20 1611 Esther Rhodes MD 10/18/20 1612 [facility] ED Provider Note Emergency Department Encounter [facility] ED Patient: Verona Avalos : 1980 Date of Evaluation: 10/18/2020 ED Provider: SANJAY Rock EDcare was supervised by Dr. Rhodes who independently examined and evaluated the patient. Please see their attestation note for further details. Chief Complaint Chief Complaint Patient presents with ? Chest Pain [place] (Location/Symptom, Timing/Onset, Context/Setting, Quality, Duration, Modifying Factors, Severity) Note limiting factors. Verona Avalos is a 39 y.o. female who presents to the emergency department complaining of burning chest pain pressure that has been going on for the last 2 weeks, slowly getting worse. Patient states that feels like that there is somebody sitting on her chest. Patient states he also feel like she has an aching pain in her upper abdomen, feels like a burning. Pain states that the pain gets worse whenever she eats food. Patient states that she is nauseous, has not vomited. Patient denies any fevers, chills, lightheadedness, dizziness, dysuria, hematuria, vaginal bleeding, diarrhea, extremity pain or extremity swelling. ROS: Review of Systems 14 systems reviewed and otherwise acutely negative except as in the [place]. Past History Past Medical History: Diagnosis Date ? Arthritis ? Bipolar 1 disorder (HCC) ? Drug abuse (HCC) ? Epilepsy (HCC) ? GERD (gastroesophageal reflux disease) ? Liver disease Hep C positive ? Pancreatitis ? PTSD (post-traumatic stress disorder) Past Surgical History: Procedure Laterality Date ? ARM SURGERY ? SECTION x2 Social History Socioeconomic History ? Marital status: Single Spouse name: None ? Number of children: None ? Years of education: None ? Highest education level: None Occupational History ? None Tobacco Use ? Smoking status: Current Every Day Smoker Packs/day: 0.50 ? Smokeless tobacco: Never Used Vaping Use ? Vaping Use: Never used Substance and Sexual Activity ? Alcohol use: Yes Alcohol/week: 4.0 standard drinks Types: 4 Cans of beer per week Comment: 4 days a week ? 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 Sexual activity: None Other Topics Concern ? None Social History Narrative ? None Social Determinants of Health Financial Resource Strain: ? Difficulty of Paying Living Expenses: Food Insecurity: ? Worried About Running Out of Food in the Last Year: ? Ran Out of Food in the Last Year: Transportation Needs: ? Lack of Transportation (Medical): ? Lack of Transportation (Non-Medical): Physical Activity: ? Days of Exercise per Week: ? Minutes of Exercise per Session: Stress: ? Feeling of Stress : Social Connections: ? Frequency of Communication with Friends and Family: ? Frequency of Social Gatherings with Friends and Family: ? Attends Hoahaoism Services: ? Active Member of Clubs or Organizations: ? Attends Club or Organization Meetings: ? Marital Status: Intimate Partner Violence: ? Fear of Current or Ex-Partner: ? Emotionally Abused: ? Physically Abused: ? Sexually Abused: Medications/Allergies Previous Medications ALBUTEROL SULFATE HFA (VENTOLIN HFA) 108 (90 BASE) MCG/ACT INHALER Ventolin HFA 90 mcg/actuation aerosol inhaler DICYCLOMINE (BENTYL) 10 MG CAPSULE Take 2 capsules by mouth 4 times daily (before meals and nightly) FAMOTIDINE (PEPCID) 20 MG TABLET famotidine 20 mg tablet IBUPROFEN (ADVIL;MOTRIN) 800 MG TABLET Take 1 tablet by mouth every 8 hours as needed for Pain or Fever LEVOTHYROXINE (SYNTHROID) 50 MCG TABLET Take by mouth TOPIRAMATE (TOPAMAX) 25 MG TABLET Take 50 mg by mouth nightly TRAZODONE (DESYREL) 100 MG TABLET Take 1 tablet by mouth nightly as needed for Sleep Allergies Allergen Reactions ? Latex ? Dilaudid [Hydromorphone Hcl] ? Vicodin [Hydrocodone-Acetaminophen] Physical Exam ED Triage Vitals [10/18/20 1049] BP Temp Temp Source Pulse Resp SpO2 Height Weight 104/75 98.5 ?F (36.9 ?C) Temporal 107 16 99 % -- 110 lb (49.9 kg) Physical Exam GENERAL: The patient appears nourished and normally developed. Vital signs as documented. EYES: Head exam is unremarkable. No scleral icterus or orbital trauma noted. HEENT: Mucous membranes moist. Nares patent without copious rhinorrhea. No enlarged lymphadenopathy. LUNGS: Lungs are clear to auscultation, without any respiratory distress. CARDIAC: Rhythm is regular. No dysrythmias or murmurs. ABDOMEN: Nontender with no obvious masses, and no peritoneal signs. EXTREMITIES: Non edematous, with no obvious deformities. SKIN: Good color, with no significant rashes. No pallor. NEURO: No obvious neurological deficits, normal sensation and strength bilaterally. SCREENINGS Heart Score for chest pain patients History: Moderately Suspicious ECG: Normal Patient Age: < 45 years Risk Factors: No risk factors known Troponin: < 1X normal limit Heart (more content not included)... Normal [facility] HCG,Urine Qualon 10-18-2020 Beta HCG ( test) Ql (U) Negative Normal Negative [facility] Comment on above: Result Comment: Everardo dick note: Very dilute urine specimens, as indicated by a low specific gravity, may not contain small business representative levels of hCG. If is still suspected, a first morning urine specimen should be collected 48 hours later and tested. is the most common reason for HCG in urine, although choriocarcinoma, hydatidiform mole, and certain nontropho- blastic malignancies also result in detectable urinary HCG levels. Sensitivity = 20mIU/mL. Performed By: #### C UA2, HCGUR #### [facility] [address] [place] [address] Hemogram w/ Autodiffon 10-18 Abs Baso Cnt 0.1 10*3/uL Normal 0.0-0.2 [facility] Comment on above: Performed By: #### C MP3, TSH5, HEMDF, LIPA4, TROPN #### [facility] [address] [place] [address] Abs Neutrophile Cnt 3.1 10*3/uL Normal 1.8-7.0 [facility] Comment on above: Performed By: #### C MP3, TSH5, HEMDF, LIPA4, TROPN #### [facility] [address] [place] [address] Basophils/100 WBC (Bld) 0.9 % Normal 0.0-2.0 [facility] Comment on above: Performed By: #### C MP3, TSH5, HEMDF, LIPA4, TROPN #### [facility] [address] [place] [address] Eosinophils (Bld) [#/Vol] 0.2 10*3/uL Normal 0.0-0.5 [facility] Comment on above: Performed By: #### C MP3, TSH5, HEMDF, LIPA4, TROPN #### [facility] [address] [place] [address] Eosinophils/100 WBC (Bld) 2.2 % Normal 1.0-6.0 [facility] Comment on above: Performed By: #### C MP3, TSH5, HEMDF, LIPA4, TROPN #### [facility] [address] [place] [address] Erythrocyte distribution width (RBC) [Ratio] 15.6 % High 11.5-14.5 [facility] Comment on above: Performed By: #### C MP3, TSH5, HEMDF, LIPA4, TROPN #### [facility] [address] [place] [address] Granulocytes/100 WBC (Bld) 39.2 % Low 40.0-80.0 [facility] Comment on above: Performed By: #### C MP3, TSH5, HEMDF, LIPA4, TROPN #### [facility] [address] [place] [address] Hematocrit (Bld) [Volume fraction] 39.9 % Normal 35.0-47.0 [facility] Comment on above: Performed By: #### C MP3, TSH5, HEMDF, LIPA4, TROPN #### [facility] [address] [place] [address] Hemoglobin (Bld) [Mass/Vol] 13.8 g/dL Normal 11.7-16.0 [facility] Comment on above: Performed By: #### C MP3, TSH5, HEMDF, LIPA4, TROPN #### [facility] [address] [place] [address] Lymphocytes (Bld) [#/Vol] 3.6 10*3/uL Normal 1.0-4.3 [facility] Comment on above: Performed By: #### C MP3, TSH5, HEMDF, LIPA4, TROPN #### [facility] [address] [place] [address] Lymphocytes/100 WBC (Bld) 45.6 % High 20.0-40.0 [facility] Comment on above: Performed By: #### C MP3, TSH5, HEMDF, LIPA4, TROPN #### [facility] [address] [place] [address] MCH (RBC) [Entitic mass] 34.0 pg Normal 26.0-34.0 [facility] Comment on above: Performed By: #### C MP3, TSH5, HEMDF, LIPA4, TROPN #### [facility] [address] [place] [address] MCHC 34.7 % Normal 32.0-36.0 [facility] Comment on above: Performed By: #### C MP3, TSH5, HEMDF, LIPA4, TROPN #### [facility] [address] [place] [address] MCV (RBC) [Entitic vol] 98.1 fL High 79.0-98.0 [facility] Comment on above: Performed By: #### C MP3, TSH5, HEMDF, LIPA4, TROPN #### [facility] [address] [place] [address] Monocytes (Bld) [#/Vol] 1.0 10*3/uL High 0.0-0.8 [facility] Comment on above: Performed By: #### C MP3, TSH5, HEMDF, LIPA4, TROPN #### [facility] [address] [place] [address] Monocytes/100 WBC (Bld) 12.1 % High 2.0-10.0 [facility] Comment on above: Performed By: #### C MP3, TSH5, HEMDF, LIPA4, TROPN #### [facility] [address] [place] [address] Platelet mean volume (Bld) [Entitic vol] 8.7 fL Normal 7.4-10.4 [facility] Comment on above: Performed By: #### C MP3, TSH5, HEMDF, LIPA4, TROPN #### [facility] [address] [place] [address] Platelets (Bld) [#/Vol] 195 10*3/uL Normal 140-440 [facility] Comment on above: Performed By: #### C MP3, TSH5, HEMDF, LIPA4, TROPN #### [facility] [address] [place] [address] RBC (Bld) [#/Vol] 4.07 10*6/uL Normal 3.80-5.20 [facility] Comment on above: Performed By: #### C MP3, TSH5, HEMDF, LIPA4, TROPN #### [facility] [address] [place] [address] WBC (Bld) [#/Vol] 8.0 10*3/uL Normal 3.6-10.7 [facility] Comment on above: Performed By: #### C MP3, TSH5, HEMDF, LIPA4, TROPN #### [facility] [address] [place] [address] Lipaseon 10-18-2020 Lipase [Catalytic activity/Vol] 57 U/L Normal 23-300 [facility] Comment on above: Performed By: #### C MP3, TSH5, HEMDF, LIPA4, TROPN #### [facility] [address] [place] [address] LipaseOrdered By: Esther burgos on 10-18-2020 Lipase [Catalytic activity/Vol] 57 U/L 23 - 300 U/L [facility] Work Phone: [phone] Panel InformationOrdered By: Esther Rhodes on 10-18-2020 Test Performed by [facility], [address] [place] [address] [facility] Work Phone: [phone] [facility] Work Phone: [phone] Test Performed by [facility], [address] [place] [address] [facility] Work Phone: [phone] [facility] Work Phone: [phone] , UrineOrdered By: Esther Rhodes on 10-18-2020 Beta HCG ( test) Ql (U) Negative Negative NA [facility] Work Phone: Comment on above: Please note: Very di lute urine specimens, as indicated by a low specific gravity, may not contain small business representative levels of hCG. If is still suspected, a first morning urine specimen should be collected 48 hours later and tested. is the most common reason for HCG in urine, although choriocarcinoma, hydatidiform mole, and certain nontropho- blastic malignancies also result in detectable urinary HCG levels. Sensitivity = 20mIU/mL. TSH without ReflexOrdered By : Esther Rhodes on 10-18-2020 TSH Qn 3.218 u[IU]/mL 0.465 - 4.680 u[IU]/mL [facility] Work Phone: Thyroid Stim. Hormoneon 09-20 Thyroid Stim. Hormone 3.218 u[IU]/mL Normal 0.465-4.680 [facility] [employer] Comment on above: Performed By: #### C MP3, TSH5, HEMDF, LIPA4, TROPN #### [facility] [employer] [facility] [address] [place] [address] TroponinOrdered By: Esther Rhodes on 10-18-2020 Troponin I.cardiac [Mass/Vol] ng/mL 0.000 - 0.034 ng/mL [facility] Work Phone: Comment on above: . Test Performed by [facility], [address] [place], [place] [address] [facility] Work Phone: [facility] Work Phone: [phone] Troponin Ion 10-18-2020 Troponin I.cardiac [Mass/Vol] ng/mL Normal 0.000-0.034 [facility] Comment on above: Result Comment: . Performed By: #### C MP3, TSH5, HEMDF, LIPA4, TROPN #### [facility] [employer] [facility] [address] [place] [address] UrinalysisOrdered By: Tremayne Rhodes on 10-18-2020 Appearance (U) Clear Clear NA [facility] Work Phone: Comment on above: . Bilirubin Urine Negative Negative mg/dL [facility] Work Phone: Comment on above: . Color (U) Colorless Lt. Yellow NA [facility] Work Phone: Comment on above: . Glucose, Ur Normal Normal (<70) mg/dL [facility] Work Phone: [phone] Comment on above: . Interpretation and review of laboratory results Abnormal [facility] Work Phone: [phone] Ketones Ql (U) Negative Negative mg/dL [facility] Work Phone: [phone] Comment on above: . LEUKOCYTES, UA Negative Negative Jayro/uL [facility] Work Phone: [phone] Comment on above: . Nitrite, Urine Negative Negative NA [facility] Work Phone: [phone] Comment on above: . Occult Blood,Urine Negative Negative mg/dL [facility] Work Phone: [phone] Comment on above: . pH (U) 5.5 [pH] [facility] Work Phone: [phone] Comment on above: . Specific [place], Urine <1.005 Abnormal [facility] Work Phone: [phone] Comment on above: . Total Protein, Urine Negative Negativ e mg/dL [facility] Work Phone: [phone] Comment on above: . Urobilinogen, Urine Normal Normal ( 0-1) mg/dL [facility] Work Phone: [phone] Comment on above: . MRI SHOULDER WO IVCON RTon 0 04-12-2020 MRI SHOULDER WO IVCON RT * * *Final Report* * * DATE OF EXAM: Apr 12 2020 8:20AM [facility] 0240 - MRI SHOULDER WO IVCON RT / PROCEDURE REASON: M45.41 * * * * Physician Interpretation * * * * EXAMINATION: MRI SHOULDER WO IVCON RT HISTORY: Severe right shoulder pain M45.41 TECHNIQUE: Routine non-contrast MRI of the shoulder. MQ: MRS_1A COMPARISON: None RESULT: TENDONS: Rotator cuff tendons: -Supraspinatus: Intact with tendinosis -Infraspinatus: Intact tendon -Subscapularis: Intact tendon -Teres Minor: Intact tendon Biceps (Long head) Tendon: Intact , with normal course MUSCLES: Rotator cuff muscles: -Supraspinatus: Preserved bulk and no fatty changes. -Infraspinatus: Preserved bulk and no fatty changes. -Subscapularis: Preserved bulk and no fatty changes. -Teres Minor: Preserved bulk and no fatty changes. Other muscles: Preserved signal and bulk in the deltoid. JOINTS: Glenohumeral Joint: -Labrum: Tear in the superior and anterior labrum -Cartilage: Normal -Joint Fluid: No effusion . No synovitis. Acromioclavicular Joint: Normal BONES AND MARROW: No evidence of fracture or suspicious bone marrow replacing process OTHER: Subdeltoid/Subacromial Bursa: Mild bursal distention Other: No other significant findings. Localizer images: No additional findings. IMPRESSION: Supraspinatus tendinosis without tear Small SLAP tear Subacromial/subdeltoid bursitis Logistics Coordinator: [facility] Transcribe Date/Time: Apr 12 2020 8:20A Dictated by : ARANZA MYERS MD This examination was interpreted and the report reviewed and electronically signed by: ARANZA MYERS MD on Apr 12 2020 8:27AM EST [id number] [facility] [place] PROGRESSon 04-12-2020 PROGRESS HNO ID: [id number] Author: Ileana Ochoa) SILVIA Vyas Service: Radiology Author Type: Physical Fitness Trainer Type: Progress Notes Filed: 04/12/2020 7:45 AM Note Text: Radiology Service Progress Note PATIENT NAME: Verona Avalos DATE OF SERVICE: April 12, 2020 TIME: 7:45 AM PATIENT IDENTITY VERIFICATION COMPLETED USING TWO (2) IDENTIFIERS: Name and Date of confirmed by patient verbally. FALL SCREENING: Has the patient had 2 falls in the last year or 1 fall with injury or currently using an Ambulatory Assistive Device (Walker, Cane, Wheelchair, Crutches, etc.)? No PATIENT GENDER DATA: Female. status: : No status: NO. PATIENT RELEVANT IMPLANT DATA REVIEWED: Not Applicable RADIOLOGY DEPARTMENT: MR; Exam(s) Completed: Upper MSK: Shoulder, right PERIPHERAL IV DATA: Not applicable SIGNED BY: SILVIA Vidal April 12, 2020 7:45 AM [facility] [place] Operative Reporton Operative Report [facility] [address] [id number] RECORD OF PROCEDURE PATIENT NAME: VERONA AVALOS DATE OF : 1980 [facility] REC #: [id number] PT LOCATION: OR PACU PT TYPE: OPS AGE: 39 SEX: F ADMISSION DATE: 02/25/2020 DATE OF SERVICE: 02/25/2020 SURGEON: Esther Cruz MD 1ST HEAD TURBINE OPERATOR: Sam Henson DO ESTIMATED BLOOD LOSS: 10 mL. COMPLICATIONS: None. INDICATIONS FOR PROCEDURE: This is a 39-year-old female who presented with a right periorbital lesion that was increasing in size and causing discomfort. It was recommended that she would benefit from excision. Risks of procedure were discussed with the patient including but not limited to postoperative bleeding, infection, wound dehiscence, poor scarring. The patient understood the risks and wished to proceed. PREPROCEDURE DIAGNOSIS: Cyst. POSTPROCEDURE DIAGNOSIS: Cyst. SPECIMEN REMOVED: Cyst. NAME OF PROCEDURE: Excision, right periorbital cyst measuring 2.9 cm in diameter with layered closure measuring 3.3 cm in length. FINDINGS: The lesion was excised in its entirety. The lesion appeared to be a sebaceous cyst. This was sent to Pathology. The incision was closed in multiple layers. At completion, the incision was clean, dry, and intact. DESCRIPTION OF PROCEDURE: Patient was brought to the operating room suite and transferred to the operating room table in the supine position. Timeout was performed, identifying the correct patient and operative plan. General anesthesia was induced with laryngeal mask airway. An elliptical excision was designed directly over the lesion following relaxed skin tension lines. Site was injected with 1% lidocaine with epinephrine. Face was prepped and draped in normal sterile fashion. Previously marked incision line was incised using a No. 15-scalpel blade. Dissection was carried through the capsule of the cyst. Dissection continued circumferentially. The lesion was delivered out of the wound and underlying attachments were transected. The specimen was fully excised and sent to Pathology. Hemostasis was obtained using Bovie electrocautery. Wound was irrigated with saline. Wound was then closed in multiple layers using 4-0 Monocryl in the deep dermal plane in an interrupted fashion followed by 4-0 plain gut suture in a running fashion. Bacitracin ointment was placed over the incision. Patient's anesthesia was reversed, and she was extubated. She was taken to recovery room in stable condition. She was given postoperative instructions and 1-week followup. Esther Cruz MD [facility]/[id number] SSI File#: [id number] CC: Esther Cruz MD [facility] Surgical Pathology Depar tmenton 02-25-2020 [facility] Surgical Pathology Department Name VERONA AVALOS Pathologist: Rosalinda Yarbrough MD, Ph.D. Date of Procedure: 02/25/2020 Date Received: 02/25/2020 Date Reported 03/08/2020 Submitting Physician: ESTHER CRUZ M.D. Location: [facility] Copy To/Referring/Attending: Pt States No PCP Other External # [id number] FINAL DIAGNOSIS EYE, RIGHT PERIORBITAL CYST, EXCISION: -- EPIDERMAL INCLUSION CYST. The gross and/or microscopic findings were reviewed in conjunction with pathology resident, Uzair Newberry MD. Electronically Signed Out By Rosalinda Yarbrough MD, Ph.D./MAC By the signature on this report, the individual or group listed as making the Final Interpretation/Diagnosis certifies that they have reviewed this case. Clinical History: right periorbital cyst Specimens Submitted As: A: RIGHT PERIORBITAL CYST Other Case Numbers [id number] Gross Description: Received in formalin, labeled with the patient's name and hospital number and right periorbital cyst, is a ruptured cyst measuring 2.0 x 1.5 x 1.3 cm. The specimen is inked blue and sectioned to reveal jama-white pasty material. A small business representative section is submitted in one cassette. GABRIELLE chen/03/01/2020 [facility] Department of Pathology [address] [place] [address] Comment on above: Performed By: #### U HCS #### [facility] Surgical Pathology Department [address] [place] [address] CORONAVIRUS 2019 BY PCRon CORONAVIRUS 2019,PCR NOT DETECTED Normal Not Detected [facility] Comment on above: Result Comment: . This assay is designed to detect the N, ORF1ab and/or S genes of SARS-CoV-2 via nucleic acid amplification. A Negative (NOT DETECTED) result does not preclude 2019-nCoV infection since the adequacy of sample collection and/or low viral burden may result in presence of viral nucleic acids below the clinical sensitivity of this test method. Negative (NOT DETECTED) result should not be used as the sole basis for treatment or other patient management decisions. Rather negative results should be combined with clinical observations, patient history, and epidemiological information to make patient management decisions. Fact sheet for providers: https://www.fda.gov/media/124253/download Fact sheet for patients: https://www.fda.gov/media/895709/download This test has received FDA Emergency Use Authorization (EUA) and has been verified by [facility] ([facility]). This test is only authorized for the duration of time that circumstances exist to justify the authorization of the emergency use of in vitro diagnostic tests for the detection of SARS-CoV-2 virus and/or diagnosis of COVID-19 infection under section 564(b)(1) of the Act, 21 U.S.C. 360bbb-3(b)(1), unless the authorization is terminated or revoked sooner. [facility] is certified under CLIA-88 as qualified to perform high complexity testing. Testing is performed in the [facility] laboratories located at [address] [place] [address]. Performed By: #### C OV19 #### [address] [place] [address] Covid 19 Resultson 1 Covid 19 Results NEGATIVE COVID-[address] Coronaviruses are common world-wide and are the cause of many common colds. SARS-COV2 is a new coronavirus that began circulating worldwide in 2019 so we are calling it COVID-19. It has been estimated that four out of five patients with COVID-19 will recover at home without the need for medical attention. Symptoms of COVID-19 include cough, fever, shortness of breath, loss of taste or smell and other flu-like symptoms including chills, sore muscles, sore throat, and headache. Severe illness is more common in older people and people with other health problems such as high blood pressure, obesity, and immune system problems. If the test is positive, you have COVID-19. You will be contacted by the ordering physicians office and instructed to remain on home isolation, in accordance with CDC guidelines. You may also be contacted by the [facility] to see if any of your close contacts may have been exposed to the virus and need to quarantine. If the test is negative, you likely do not have COVID-19 at this time, but you still may have a different illness that can spread to other people (like Influenza, or the Flu) and could still be at risk for getting COVID-19. We recommend that you stay away from other people to limit the spread of illness until your symptoms are improving and you are fever-free for 24 hours without the use of fever lowering medications such as acetaminophen or ibuprofen. No test is 100% accurate so if you are still concerned you may have COVID-19, talk to your doctor about the need to continue to stay away from others. Medicines Acetaminophen (Tylenol and others) is generally safe. Anti-inflammatory medications, such as Ibuprofen (Advil or Motrin) or Naproxen (Aleve) can also be used. Qvws-gpa-jzngtoe cough and cold medicines can be used according to the instructions on the package. Some urul-mns-znmopzq medicines also contain acetaminophen. Make sure you are not taking more than your recommended dose For those not hospitalized, there is no specific treatment available for this illness. Antibiotics do not treat Coronaviruses. Follow-Up Follow up with your doctor by scheduling a virtual visit or consider follow-up at one of our urgent care fever clinics. If you are having difficulty breathing, or are very weak and having difficulty standing, this is a medical emergency. Call 911 or have someone take you to the nearest emergency room immediately. If possible, wear a facemask. Additional guidance from the CDC for patients who tested POSITIVE for COVID-19 How to isolate: Isolate yourself in a specific room at home and limit your contact with others. Use a separate bathroom from other members of the household, when possible. Leave home only to get essential medical care. Do not go to work, school or public areas. Avoid using public transportation, ride-sharing, or taxis. Restrict contact with pets and other animals. If you must care for your pet or be around animals while you are sick, wash your hands before and after your interaction and wear a facemask. Make sure that shared spaces in the home have good airflow, such as by an air conditioner or an opened window, weather permitting. Personal Hygiene Procedures: Wear a face mask when in the same room as other people or pets. If a face mask interferes with your breathing, others should wear a mask when sharing space with you. Frequent hand-washing: wash your hands with soap and water for at least 20 seconds. If soap and water are not available, use alcohol-based hand college hire. Avoid touching your eyes, nose, and mouth with unwashed hands. Household Hygiene Procedures: Avoid sharing personal household items such as dishes, glassware, cups, eating utensils, towels or bedding with other people or pets in your home. After use, these items should be washed with soap and hot water. Disinfect all high-touch surfaces every day with antibacterial cleaning solutions such as Lysol wipes, bleach, cleansers, etc. High-touch surfaces include tabletops, doorknobs, bathroom fixtures, toilets, phones, keyboards, tablets and bedside tables. Immediately clean any surfaces that may have blood, poop or body fluids on them, using antibacterial cleaning solutions such as Lysol wipes, bleach, cleansers, etc. If clothing or bedding come into contact with blood, poop or body fluids, they should be washed immediately. Follow the directions on the laundry detergent and clothing labels but hot water is recommended when possible. Stopping home isolation precautions: If possible, consult your doctor before stopping home isolation precautions. According to the CDC, you can discontinue home isolation precautions when you have met both of these criteria: Your fever and respiratory symptoms have been gone for 24 hours without the use of any medicines like ibuprofen (Motrin) and acetaminophen (Tylenol). It has been at least 10 days since your symptoms first appeared. If you are immunosuppressed OR you were admitted to the hospital for this, you should wait until it has been 14 days since your symptoms first appeared. Guidelines for Those Living With and/or Caring For Persons with COVID-19: Read and follow all the recommendations outlined in this handout. Do not permit visitors in the home unless there is an essential need. Wear a facemask when in the same room as the patient. Wear a facemask and gloves (disposable if available) when you touch or have contact with the patient's blood, poop, or body fluids including saliva, phlegm, nasal mucus, vomit or urine. Clean or throw away facemasks and gloves after use and wash your hands with soap and water. You will need to quarantine (stay away from others) for 14 days after your last contact with your family member with COVID-19. The person with COVID-19 is considered contagious 48 hours prior to symptoms beginning (or starting with the day of the positive test if they have no symptoms) for a total of 10 days. Additional resources: [facility] COVID Hotline at 5-650-7SXXMTD ( ). COVID-19 Careline at (available 24 hours per day, seven days a week if you or a loved one is experiencing anxiety related to the coronavirus pandemic). Clinical research opportunities: is conducting research studies to develop better testing and treatments for COVID. Do you want any information on how to participate Call [phone]. Websites: hospitals.org or www.CDC.gov Follow My Health / My [facility] (for other test results): Revised 01/05/2020 Electronic Signatures: Kristi Prestonices (ADMIN) (Signature pending) Authored Last Updated: 23-Feb-2020 06:18 by Mohan PSCLydiaices (ADMIN) Normal [facility] CORONAVIRUS 2019 BY PCRon Lab Specimen Source Nasal, Nasopharyngeal Normal [facility] Comment on above: Performed By: #### C OV19 #### [facility] [address] [place] [address] COVID-19 by PCR ()on 02-21 Coronavirus 2019 PCR Not Detected Normal Not Detected [facility] Comment on above: Order Comment: Nasal swab in Saline, Margarito opharyngeal or Oropharyngeal in viral transport media or saline Performed By: #### C OVUH #### [facility] [address] [place] [address] Performing Lab Testing performed by : [facility] [id number]. [address] # [id number] [facility] Comment on above: Order Comment: Nasal swab in Saline, Margarito opharyngeal or Oropharyngeal in viral transport media or saline Performed By: #### C OVUH #### [facility] [address] [place] [address] Specimen source Nom (Unsp spec) Nasal, MANAGER BUSINESS [facility] Comment on above: Order Comment: Nasal swab in Saline, Margarito opharyngeal or Oropharyngeal in viral transport media or saline Performed By: #### C OV #### [place] [address] CORONAVIRUS 2019 BY PCRon CORONAVIRUS 2019,PCR NOT DETECTED Normal Not Detected [facility] Comment on above: Result Comment: . This assay is designed to detect the N, ORF1ab and/or S genes of SARS-CoV-2 via nucleic acid amplification. A Negative (NOT DETECTED) result does not preclude 2019-nCoV infection since the adequacy of sample collection and/or low viral burden may result in presence of viral nucleic acids below the clinical sensitivity of this test method. Negative (NOT DETECTED) result should not be used as the sole basis for treatment or other patient management decisions. Rather negative results should be combined with clinical observations, patient history, and epidemiological information to make patient management decisions. Fact sheet for providers: https://www.fda.gov/media/833196/download Fact sheet for patients: https://www.fda.gov/media/073602/download This test has received FDA Emergency Use Authorization (EUA) and has been verified by [facility] ([facility]). This test is only authorized for the duration of time that circumstances exist to justify the authorization of the emergency use of in vitro diagnostic tests for the detection of SARS-CoV-2 virus and/or diagnosis of COVID-19 infection under section 564(b)(1) of the Act, 21 U.S.C. 360bbb-3(b)(1), unless the authorization is terminated or revoked sooner. [facility] is certified under CLIA-88 as qualified to perform high complexity testing. Testing is performed in the [facility] laboratories located [place] [address] [place] [address]. Performed By: #### C OV19 #### [facility] [address] [facility] [place] [address] Covid 19 Resultson 0 Covid 19 Results NEGATIVE COVID-[address] Coronaviruses are common world-wide and are the cause of many common colds. SARS-COV2 is a new coronavirus that began circulating worldwide in 2019 so we are calling it COVID-19. It has been estimated that four out of five patients with COVID-19 will recover at home without the need for medical attention. Symptoms of COVID-19 include cough, fever, shortness of breath, loss of taste or smell and other flu-like symptoms including chills, sore muscles, sore throat, and headache. Severe illness is more common in older people and people with other health problems such as high blood pressure, obesity, and immune system problems. If the test is positive, you have COVID-19. You will be contacted by the ordering physicians office and instructed to remain on home isolation, in accordance with CDC guidelines. You may also be contacted by the [facility] to see if any of your close contacts may have been exposed to the virus and need to quarantine. If the test is negative, you likely do not have COVID-19 at this time, but you still may have a different illness that can spread to other people (like Influenza, or the Flu) and could still be at risk for getting COVID-19. We recommend that you stay away from other people to limit the spread of illness until your symptoms are improving and you are fever-free for 24 hours without the use of fever lowering medications such as acetaminophen or ibuprofen. No test is 100% accurate so if you are still concerned you may have COVID-19, talk to your doctor about the need to continue to stay away from others. Medicines Acetaminophen (Tylenol and others) is generally safe. Anti-inflammatory medications, such as Ibuprofen (Advil or Motrin) or Naproxen (Aleve) can also be used. Ilgb-pie-bzintqz cough and cold medicines can be used according to the instructions on the package. Some ajbt-ffd-ewiulkg medicines also contain acetaminophen. Make sure you are not taking more than your recommended dose For those not hospitalized, there is no specific treatment available for this illness. Antibiotics do not treat Coronaviruses. Follow-Up Follow up with your doctor by scheduling a virtual visit or consider follow-up at one of our urgent care fever clinics. If you are having difficulty breathing, or are very weak and having difficulty standing, this is a medical emergency. Call 911 or have someone take you to the nearest emergency room immediately. If possible, wear a facemask. Additional guidance from the CDC for patients who tested POSITIVE for COVID-19 How to isolate: Isolate yourself in a specific room at home and limit your contact with others. Use a separate bathroom from other members of the household, when possible. Leave home only to get essential medical care. Do not go to work, school or public areas. Avoid using public transportation, ride-sharing, or taxis. Restrict contact with pets and other animals. If you must care for your pet or be around animals while you are sick, wash your hands before and after your interaction and wear a facemask. Make sure that shared spaces in the home have good airflow, such as by an air conditioner or an opened window, weather permitting. Personal Hygiene Procedures: Wear a face mask when in the same room as other people or pets. If a face mask interferes with your breathing, others should wear a mask when sharing space with you. Frequent hand-washing: wash your hands with soap and water for at least 20 seconds. If soap and water are not available, use alcohol-based hand college hire. Avoid touching your eyes, nose, and mouth with unwashed hands. Household Hygiene Procedures: Avoid sharing personal household items such as dishes, glassware, cups, eating utensils, towels or bedding with other people or pets in your home. After use, these items should be washed with soap and hot water. Disinfect all high-touch surfaces every day with antibacterial cleaning solutions such as Lysol wipes, bleach, cleansers, etc. High-touch surfaces include tabletops, doorknobs, bathroom fixtures, toilets, phones, keyboards, tablets and bedside tables. Immediately clean any surfaces that may have blood, poop or body fluids on them, using antibacterial cleaning solutions such as Lysol wipes, bleach, cleansers, etc. If clothing or bedding come into contact with blood, poop or body fluids, they should be washed immediately. Follow the directions on the laundry detergent and clothing labels but hot water is recommended when possible. Stopping home isolation precautions: If possible, consult your doctor before stopping home isolation precautions. According to the CDC, you can discontinue home isolation precautions when you have met both of these criteria: Your fever and respiratory symptoms have been gone for 24 hours without the use of any medicines like ibuprofen (Motrin) and acetaminophen (Tylenol). It has been at least 10 days since your symptoms first appeared. If you are immunosuppressed OR you were admitted to the hospital for this, you should wait until it has been 14 days since your symptoms first appeared. Guidelines for Those Living With and/or Caring For Persons with COVID-19: Read and follow all the recommendations outlined in this handout. Do not permit visitors in the home unless there is an essential need. Wear a facemask when in the same room as the patient. Wear a facemask and gloves (disposable if available) when you touch or have contact with the patient's blood, poop, or body fluids including saliva, phlegm, nasal mucus, vomit or urine. Clean or throw away facemasks and gloves after use and wash your hands with soap and water. You will need to quarantine (stay away from others) for 14 days after your last contact with your family member with COVID-19. The person with COVID-19 is considered contagious 48 hours prior to symptoms beginning (or starting with the day of the positive test if they have no symptoms) for a total of 10 days. Additional resources: [facility] COVID Hotline at 5-982-6PTKYGG ( ). COVID-19 Careline at (available 24 hours per day, seven days a week if you or a loved one is experiencing anxiety related to the coronavirus pandemic). Clinical research opportunities: is conducting research studies to develop better testing and treatments for COVID. Do you want any information on how to participate Call [phone]. Websites: hospitals.org or www.CDC.gov Follow My Health / My [facility] (for other test results): Revised 01/05/2020 Electronic Signatures: PSCMServices PSCervices (ADMIN) (Signature pending) Authored Last Updated: 25-Jan-2020 03:40 by Mohan Preston (ADMIN) Normal [facility] CORONAVIRUS 2019 BY PCRon Lab Specimen Source Nasal, Nasopharyngeal Normal [facility] Comment on above: Performed By: #### C OV19 #### [facility] [address] [place] [address] COVID-19 by PCR ()on 01-23 Coronavirus 2019 PCR Not Detected Normal Not Detected [facility] Comment on above: Order Comment: Nasal swab in Saline, Margarito opharyngeal or Oropharyngeal in viral transport media or saline Performed By: #### C OVUH #### [place] [address] Performing Lab Testing performed by : [facility] [address] [place] [address] CLIA # [id number] [facility] Comment on above: Order Comment: Nasal swab in Saline, Margarito opharyngeal or Oropharyngeal in viral transport media or saline Performed By: #### C OVUH #### [place] [address] Specimen source Nom (Unsp spec) Nasal, MANAGER BUSINESS [facility] Comment on above: Order Comment: Nasal swab in Saline, Margarito opharyngeal or Oropharyngeal in viral transport media or saline Performed By: #### C OVUH #### [place] [address] ANES POSTPROC EVALon 020 ANES POSTPROC EVAL HNO ID: [id number] Author: Morgan Campuzano MD Service: ? Author Type: Anesthesiologist Type: Anesthesia Postprocedure Evaluation Filed: 01/07/2020 10:44 AM Note Text: POST ANESTHESIA EVALUATION NOTE : 1980 Procedure Summary Date: 01/07/20 Room / Location: ND OR / ND OR Anesthesia Start: 905 Anesthesia Stop: 3 Procedure: ARTHROSCOPY KNEE, DIAGNOSTIC (Right Knee) Diagnosis: Tear of medial meniscus of right knee, unspecified tear type, unspecified whether old or current tear, initial encounter Surgeons: Milli Weiss Responsible Provider: Morgan Campuzano MD Anesthesia Type: general ASA Status: 3 Anesthesia Type: general Last vitals Vitals Value Taken Time BP 121/75 01/07/20 1030 Temp 36.1 ?C (97 ?F) 01/07/20 1015 Pulse 74 01/07/20 1044 Resp 17 01/07/20 1030 SpO2 100 % 01/07/20 1030 Post Anesthesia Patient Status Patient Evaluation: bedside. Anticipated Disposition: phase 2 then home. Neurological Status: aware and responsive. Pulmonary Status: breathing comfortably on room air Airway Control: returned to baseline unsupported. Cardiovascular Status: stable. Pain Management: clinically adequate Postoperative Hydration: acceptable. Intraoperative Events: no significant anesthesia events Post Operative Nausea/Vomiting Status: no significant post operative nausea or vomiting Anesthetic Observations: no significant anesthetic observations Recommendation: continue current plan of care. SIGNATURE: Morgan Campuzano MD PATIENT NAME: Verona Avalos DATE: January 07, 2020 TIME: 10:44 AM CSN: [id number] [facility] ANES PRE-OPon 01-07-2020 ANES PRE-OP HNO ID: [id number] Author: Morgan Campuzano MD Service: ? Author Type: Anesthesiologist Type: Anesthesia Preprocedure Evaluation Filed: 01/07/2020 8:36 AM Note Text: ANESTHESIOLOGY DAY OF SURGERY NOTE : 1980 Procedure(s) (LRB): ARTHROSCOPY KNEE, DIAGNOSTIC (Right) Surgeon(s): Milli Weiss Estimated body mass index is 22.06 kg/m? as calculated from the following: Height as of this encounter: 155 cm (5' 1.02). Weight as of this encounter: 53 kg (116 lb 13.5 oz). Most recent hematocrit and potassium results: Hematocrit 42.6 07/24/2019 Potassium 3.6 07/24/2019 Relevant Problems -RENAL (+) Hep C w/o coma, chronic (HCC) NEURO-PSYCH (+) Grand mal seizure (HCC) I - PHYSICAL EVALUATION AIRWAY Patient intubated: No. Tracheostomy tube not present Mallampati: I. TM distance: >3 FB. Neck ROM: full ROM without neurological symptoms. Mouth opening: adequate. Short neck: no. Thick neck: no DENTAL Normal dental observations. Dental findings: teeth intact. Additional exam findings: no II - ANESTHESIA PLAN ASA Score: 3 Anesthetic Plan: general Airway type: LMA The patient is a current smoker. NPO Status: adequate Monitoring plan: standard ASA. Postoperative analgesic plan: parenteral or oral opioids. Anesthetic Risks, Benefits, Alternatives, Personnel Discussed. Consent obtained from: patient. Patient / Surrogate agrees to blood products: blood products not planned DNR status not reviewed with patient and/or family prior to surgery. Significant changes in the patient condition since the History and Physical, not otherwise documented in primary service progress note: no. Potential Anesthesia issues that may suggest increased risk of complications or contraindication to planned procedure: none. Vitals Value Taken Time BP 121/73 01/07/20814 Pulse 68 01/07/20814 Resp 16 01/07/20814 Temp 36.4 ?C (97.5 ?F) 01/07/20814 SpO2 100 % 01/07/20814 Facility-Administered Medications as of 01/07/2020 Medication Dose Route Frequency - lactated ringers infusion 50 mL/hr INTRAVENOUS CONTINUOUS Outpatient Medications as of 01/07/2020 Medication Sig - traZODone (DESYREL) 100 mg tablet Take 100 mg by mouth daily at bedtime. - levothyroxine (SYNTHROID) 100 mcg tablet Take 100 mcg by mouth daily before breakfast. unsure of strength - topiramate XR (QUDEXY XR) 50 mg cap(s) Take by mouth. unsure of strength - famotidine (PEPCID) 40 mg tablet Take 1 tablet by mouth once daily. - cyclobenzaprine (FLEXERIL) 10 mg tablet Take 1 tablet by mouth every 8 hours as needed. (Patient not taking: Reported on 09/24/2018 ) - naproxen (NAPROSYN) 500 mg tablet Take 1 tablet by mouth twice daily as needed. TAKE WITH FOOD (Patient not taking: Reported on 09/24/2018 ) - methylPREDNISolone (MEDROL, ZOILA,) 4 mg Dose-Pack Take by mouth. As directed on package (Patient not taking: Reported on 09/24/2018 ) - meloxicam (MOBIC) 15 mg tablet Take 15 mg by mouth once daily. - albuterol HFA (PROVENTIL HFA, VENTOLIN HFA) 90 mcg/actuation inhaler Inhale 2 Puffs as instructed every 4 hours as needed for Wheezing/Shortness of Breath. - magnesium oxide (MAG-OX) 400 mg tablet Take 1 tablet by mouth twice daily. (Patient not taking: Reported on 09/24/2018 ) I have interviewed and examined the patient. I have reviewed the medical record and/or the pre-anesthesia evaluation, pertinent labs, and test results. This contains updated information obtained within 48 hours of Surgery/Procedure. SIGNATURE: Morgan Campuzano MD PATIENT NAME: Verona Avalos DATE: January 07, 2020 TIME: 8:35 AM CSN: [id number] Normal [facility] HISTORY PHYSICALon 0 HISTORY PHYSICAL HNO ID: [id number] Author: Milli Weiss Service: Orthopaedic Surgery Author Type: Physician Type: HANDP Filed: 01/07/2020 8:36 AM Note Text: UPDATED HISTORY AND PHYSICAL EXAMINATION PATIENT NAME: Verona Avalos SERVICE DATE: 01/07/2020 SERVICE TIME: 8:36 AM PHYSICAL EXAM MUST BE COMPLETED ON ADMISSION The History and Physical (completed in the past 30 days) has been reviewed and the patient has been examined. The contents accurately reflect the patient's condition with the following additions or revisions since the HANDP was completed. Examination indicates no changes. This HANDP can be found in the Electronic Medical Record dated 01/07/2020 SIGNATURE: Milli Weiss MD DATE: January 07, 2020 TIME: 8:36 AM Normal [facility] OPERATIVE NOon 01-07-2020 OPERATIVE NO HNO ID: [id number] Author: Milli Weiss Service: Orthopaedic Surgery Author Type: Physician Type: Operative Report Filed: 01/11/2020 12:18 PM Note Text: [facility] - Operative Report VERONA AVALOS : 1980 AGE: 39. SEX: F PATIENT TYPE: A HOSP SVC: OROR LOCATION: [facility] ATTENDING PHYSICIAN: Milli Weiss M.D. CSN NUMBER: [id number] DATE OF SURGERY/PROCEDURE: 01/07/2020 INCISION/PROCEDURE START TIME: 9:25 AM INCISION CLOSE/PROCEDURE END TIME: 10:00 AM PREOPERATIVE DIAGNOSIS: Meniscus tear, possibly patellofemoral syndrome, right knee. POSTOPERATIVE DIAGNOSIS: Patellofemoral syndrome, right knee with numerous loose bodies. SURGEON: Milli Weiss M.D. HEAD TURBINE OPERATOR: Physician Coffee [employer] Attendant: Adeel Hoang (Pa) SURGERY/PROCEDURE: Arthroscopy, removal of numerous loose bodies and lateral retinacular release and chondroplasty of patella. ANESTHESIA: General anesthesia. DESCRIPTION OF PROCEDURE: Under satisfactory general anesthesia, the right knee was prepped with ChloraPrep and draped in the usual manner. The anterolateral and anteromedial portals were injected with 0.5% Marcaine with epinephrine. The knee itself was injected with 50 mL of saline. There was not a significant effusion in the knee. The knee was examined through the anterolateral and anteromedial portals. In lateral compartment, the meniscus looked fine. The articular cartilage looked fine, but there were numerous loose floaters of articular cartilage floating in the joint. These were suctioned out and I was careful to get every one. The ACL was intact. On the medial side, the meniscus looked fine. The articular cartilage looked fine, but again quite a few floaters and fragments of cartilage. Medial and lateral gutters on the medial side, there was an area of bare bone on the medial side of the patellofemoral joint. On the patellar side, there was very extensive loss of cartilage and over the entire medial facet and extending almost to the lateral facet. The articular cartilage of the femur, there was just a 1 bad spot of cartilage loss in the medial femoral condyle. There were numerous flaps of cartilage off the articular cartilage and around the periphery of the area of bare bone and these were trimmed up using a basket punch and a safe cutter, but there was a fairly large area of bare bone surrounded by an area of the very thinned out articular cartilage. The decision was made to go ahead with a lateral retinacular release. This was done with electrocautery and very carefully I went through synovium and then through retinaculum down to the fatty layer. This allowed the retinaculum to separate about 1 cm and really opened up the space between the patella and the femur. All bleeders were cauterized. I spent quite a long time just removing flaps of articular cartilage that had detached from the patella and this was done with the basket punch and with the safe cutter. I then thoroughly irrigated out the joint to get any remaining loose bodies and the procedure was concluded. Sterile dressings were applied to the wounds. She tolerated the procedure well and returned to the recovery room in satisfactory condition. Milli Weiss M.D. RFR:[id number] /[id number] Normal [facility] HISTORY PHYSICALon 0 HISTORY PHYSICAL HNO ID: [id number] Author: Milli Weiss Service: Orthopaedic Surgery Author Type: Physician Type: HANDP Filed: 01/07/2020 8:37 AM Note Text: [facility]- Surgical History and Physical VERONA AVALOS : 1980 AGE: 39 SEX: F ACCTNUM: [id number] [facility] SV: [facility] LOCATION: ATTENDING PHYSICIAN: MILLI WEISS M.D. DATE OF SERVICE: 01/04/2020 TIME OF SERVICE: 12:00 PM CHIEF COMPLAINT: Medial meniscus tear, right knee. HISTORY OF PRESENT ILLNESS: The patient is 39 years old. She has had problems with the right knee for a long time, more than a year, with an effusion with medial compartment pain, it is very well localized. It bothers her to twist and turn, wakes her up at night. Her exam suggests a medial meniscus tear. She is admitted now for an arthroscopy of the right knee. PAST SURGICAL HISTORY: She has had surgery on her left arm, unspecified, and she has had C sections. PAST MEDICAL HISTORY: Illnesses: Hypertension and asthma. MEDICATIONS: Topiramate, and thyroid medication. ALLERGIES: None. SOCIAL HISTORY: She smokes for 30 years. FAMILY HISTORY: Unremarkable. REVIEW OF SYSTEMS: Unremarkable. PHYSICAL EXAM: General: Well-developed and well-nourished female, alert, in no acute distress. HEENT: Normal. Neck: Supple. No nodes palpable. Lungs: Clear. Heart: Normal sinus rhythm. No murmur or gallop. Abdomen: Benign. Extremities: The right knee, there is no significant effusion. Full range of motion. No ligamentous laxity. Very positive well-localized medial joint line tenderness. LABORATORY: X-rays normal. IMPRESSION: Medial meniscus tear, right knee. PLAN: Arthroscopy, right knee. Milli F. Sanjana, M.D. Orthopedic Surgery RFR:[id number] /[id number] [facility] HOSPon 01-04-2020 HOSP Patient:Marques Avalos MRN: Height:5' 1.024(1.55 m) Weight:116 lb 13.5 oz (53 kg) Outpatient Medications as of 01/07/20: traZODone (DESYREL) 100 mg tablet levothyroxine (SYNTHROID) 100 mcg tablet topiramate XR (QUDEXY XR) 50 mg cap(s) cyclobenzaprine (FLEXERIL) 10 mg tablet naproxen (NAPROSYN) 500 mg tablet methylPREDNISolone (MEDROL, ZOILA,) 4 mg Dose-Pack famotidine (PEPCID) 40 mg tablet meloxicam (MOBIC) 15 mg tablet albuterol HFA (PROVENTIL HFA, VENTOLIN HFA) 90 mcg/actuation inhaler magnesium oxide (MAG-OX) 400 mg tablet Admission/Clinic Administered Medications as of 01/07/20: lactated ringers infusion lactated ringers infusion Problem List: Grand mal seizure (HCC) [G40.409] Alcohol abuse [F10.10] Chronic daily headache [R51.9] Spells [BRR4155] NO SHOW [041719] Myofascial muscle pain [M79.18] DDD (degenerative disc disease), lumbar [M51.36] Cellulitis [L03.90] Electrolyte abnormality [E87.8] Acute pancreatitis [K85.90] Nicotine use disorder, F17.2 [F17.200] Chronic right-sided low back pain with right-sided sciatica [M54.41, G89.29] Hep C w/o coma, chronic (HCC) [B18.2] Allergies: Dilaudid [Hydromorphone (Bulk)] Natural Rubber Latex Vicodin [Hydrocodone-Acetaminophen] Date Verified: 01/07/20 Lab Values No results within the last 30 days for the following basenames: K,HCT No progress notes entered within the past 30 days [facility] Ceruloplasminon 07-25-2019 Ceruloplasmin 18 mg/dL Normal 16-45 [facility] Comment on above: Result Comment: Perf orming Laboratory: [facility] [address] [place] [address] Performed By: #### C ERX #### [facility] [address] [place] [id number] Comprehensive Metabolic Pane louisa 07-24-2019 Albumin [Mass/Vol] 4.3 g/dL Normal 3.9-4.9 [facility] Comment on above: Performed By: #### C MP #### [facility] [address] [place], [place] [address] ALP [Catalytic activity/Vol] 46 U/L Normal 34-123 [facility] Comment on above: Performed By: #### C MP #### [facility] [address] [place], [place] [address] ALT [Catalytic activity/Vol] 14 U/L Normal 7-38 [facility] Comment on above: Performed By: #### C MP #### [facility] [address] [place] [address] Anion gap [Moles/Vol] 12 mmol/L Normal 9-18 [facility] Comment on above: Performed By: #### C MP #### [place] [address] AST [Catalytic activity/Vol] 18 U/L Normal 13-35 [facility] Comment on above: Performed By: #### C MP #### [address] [address] Bilirubin [Mass/Vol] 0.3 mg/dL Normal 0.2-1.3 [facility] Comment on above: Performed By: #### C MP #### [facility] [address] [place], [place] [address] Calcium [Mass/Vol] 8.9 mg/dL Normal 8.5-10.2 [facility] Comment on above: Performed By: #### C MP #### [place] [address] Chloride [Moles/Vol] 105 mmol/L Normal 97-105 [facility] Comment on above: Performed By: #### C MP #### [facility] [address] [place], [place] [address] CO2 Blood 22 mmol/L Normal 22-30 [facility] Comment on above: Performed By: #### C MP #### [facility] [address] [place], [place] [address] Creatinine [Mass/Vol] 0.96 mg/dL Normal 0.58-0.96 [facility] Comment on above: Performed By: #### C MP #### [facility] [address] [place], [place] [address] Glucose [Mass/Vol] 110 mg/dL High 74-99 [facility] Comment on above: Result Comment: The [place] [employer] (ADA) provides guidance for cutoff values for fasting glucose and random glucose. The ADA defines fasting as no caloric intake for at least 8 hours.Fasting plasma glucose results between 100 to 125 mg/dL indicate increased risk for diabetes (prediabetes). Fasting plasma glucose results greater than or equal to 126 mg/dL meet the criteria for diagnosis of diabetes. In the absence of unequivocal hyperglycemia, results should be confirmed by repeat testing. In a patient with classic symptoms of hyperglycemia or hyperglycemic crisis, random plasma glucose results greater than or equal to 200 mg/dL meet the criteria for diagnosis of diabetes. Reference: Standards of Medical Care in Diabetes 2016; [place] [employer]. Diabetes Care. 2016;39(Suppl 1). Performed By: #### C MP #### [facility] [address] [place], [place] [address] Potassium [Moles/Vol] 3.6 mmol/L Low 3.7-5.1 [facility] Comment on above: Performed By: #### C MP #### [facility] [address] [place], [place] [address] Protein [Mass/Vol] 6.8 g/dL Normal 6.3-8.0 [facility] Comment on above: Performed By: #### C MP #### [facility] [address] [place], [place] [address] Sodium [Moles/Vol] 139 mmol/L Normal 136-144 [facility] Comment on above: Performed By: #### C MP #### [facility] [address] [place], [place] [address] Urea nitrogen [Mass/Vol] 12 mg/dL Normal 7-21 [facility] Comment on above: Performed By: #### C MP #### [place] [address] Ferritinon 07-24-2019 Ferritin [Mass/Vol] 110.2 ng/mL Normal 14.7-205.1 [facility] Comment on above: Result Comment: Kathleen ents taking a biotin dose of up to 5 mg/day should refrain from taking biotin for 4 hours prior to sample collection. Patients taking a biotin dose of 5 to 10 mg/day should refrain from taking biotin for 8 hours prior to sample collection. Patients taking a biotin dose > 10 mg/day should consult with their physician or the laboratory prior to having a sample taken. Clinicians should consider biotin interference as a source of error, when clinically suspicious of the laboratory result. Performed By: #### F ERR2 #### [place] [address] Hemogramon 07-24-2019 Erythrocyte distribution width (RBC) [Ratio] 13.6 % Normal 11.7-14.4 [facility] Comment on above: Performed By: #### C BC1 #### [place] [address] Hematocrit (Bld) [Volume fraction] 42.6 % Normal 34.1-44.9 [facility] Comment on above: Performed By: #### C BC1 #### [place] [address] Hemoglobin (Bld) [Mass/Vol] 13.9 g/dL Normal 11.2-15.7 [facility] Comment on above: Performed By: #### C BC1 #### [place] [address] MCH (RBC) [Entitic mass] 35.0 pg High 25.6-32.2 [facility] Comment on above: Performed By: #### C BC1 #### [place] [address] MCHC (RBC) [Mass/Vol] 32.6 % Normal 31.6-34.8 [facility] Comment on above: Performed By: #### C BC1 #### [facility] [address] [place], [place] [address] MCV (RBC) [Entitic vol] 107.3 fL High 79.4-94.8 [facility] Comment on above: Performed By: #### C BC1 #### [facility] [address] [place] [address] Platelet mean volume (Bld) [Entitic vol] 10.7 fL Normal 9.4-12.3 [facility] Comment on above: Performed By: #### C BC1 #### [facility] [address] [place], [place] [address] Platelets (Bld) [#/Vol] 203 thou/cmm Normal 182-369 [facility] Comment on above: Performed By: #### C BC1 #### [place] [address] RBC (Bld) [#/Vol] 3.97 mil/cmm Normal 3.93-5.22 [facility] Comment on above: Performed By: #### C BC1 #### [place] [address] RDW SD 54.0 fl High 36.4-46.3 [facility] Comment on above: Performed By: #### C BC1 #### [place] [address] WBC (Bld) [#/Vol] 9.96 thou/cmm Normal 3.98-10.04 [facility] Comment on above: Performed By: #### C BC1 #### [facility] [address] [place] [address] Iron % Saturationon 07-24-19 20 Iron % Saturation 42 % Normal 15-57 [facility] Comment on above: Result Comment: DAVID ECTED: Previous result = 73, verified at 17:16 on 07/24/19. Performed By: ###Mariusz DAVILA #### [place] [address] Iron Serum 139 ug/dL Normal 41-186 [facility] Comment on above: Performed By: #### Ashu SCHWARTZEric #### [facility] [address] [place], [place] [address] Total Iron Binding Cap. 329 ug/dL Normal 232-386 [facility] Comment on above: Performed By: #### I EFRENS #### [facility] [address] [place], [place] [address] MDRD GFRon 07-24-2019 GFR/1.73 sq M predicted among non-blacks MDRD (S/P/Bld) [Vol rate/Area] mL/min/{1.73_m2} Normal >60mL/min/1. 73m2 [facility] Comment on above: Result Comment: If t he patient is , multiply the result by 1.210. Performed By: #### G FR #### [facility] [address] [place] [address] Protimeon 07-24-2019 INR Coag (PPP) [Relative time] 0.94 {INR} Normal 0.90-1.30 [facility] Comment on above: Result Comment: Geetha min K Antagonist (VKA) Therapeutic Range: INR 2 to 3 (Target INR of 2.5) Note: For patients treated with VKA drugs, such as warfarin, the [place] [employer] 2012 Guideline recommends a therapeutic INR range of 2 to 3 (target INR of 2.5). This recommendation includes high-risk patients with antiphospholipid syndrome with previous arterial or venous thromboembolism, current-generation mechanical or bioprosthetic aortic heart valve replacement. Note: Patients with mechanical aortic valve replacement and additional risk factors for thromboembolic events (atrial fibrillation, previous thromboembolism, LV dysfunction, hypercoagulable conditions) or an older generation mechanical AVR (i.e., ball in-Cage) or any mechanical MVR should have a INR therapeutic range of 2.5 to 3.5 target INR of 3). Juanyatt GH, et al. Chest 2012; 141:7S-47S Nirmal RA et al. [facility] 2017; 70: 252-289 Performed By: #### P T #### [facility] [address] [place] [address] PT Coag (PPP) [Time] 10.2 s Normal 9.7-13.0 [facility] Comment on above: Performed By: #### P T #### [facility] [address] [place] [id number] XR FINGER LEFT (MIN 2 VIEWS) on 03-24-2019 Patient Name: VERONA DRAPER ---Diagnostic Radiology--- Exam Date/Time 03/24/2019 12:42:51 EST Exam CR Finger(s) Min 2 Views Left Ordering Physician RASHEEDA MANCIA AMY L Accession Number [id number] Reason For Exam Crush Injury Distal Phalanx LRF Report FOURTH FINGER: Indication: Pain Views: AP, Lateral and oblique Comparison: None. Findings/impression: Three views of the fourth left finger are provided. There is soft tissue laceration along its palmar aspect without a radiopaque foreign body. On the lateral view, there is suggestion of a small avulsion fracture arising from the pulmonary surface of the distal phalanx (see arrow). Otherwise no evidence for fracture or dislocation. Report Dictated on --- Final --- Dictating Physician: MD ARTIS JASON Signed Date and Time: 03/24/2019 12:47 pm Signed by: MD ARTIS JASON Transcribed Date and Time: 03/24/2019 12:48 [facility] Work Phone: Julio César, [facility] Incoming Rad[facility] - 03/24/2019 12:49 PM EST Patient Name: VERONA AVLAOS ---Diagnostic Radiology--- Exam Date/Time 03/24/2019 12:42:51 EST Exam CR Finger(s) Min 2 Views Left Ordering Physician RASHEEDA MANCIA AMY L Accession Number [id number] Reason For Exam Crush Injury Distal Phalanx LRF Report FOURTH FINGER: Indication: Pain Views: AP, Lateral and oblique Comparison: None. Findings/impression: Three views of the fourth left finger are provided. There is soft tissue laceration along its palmar aspect without a radiopaque foreign body. On the lateral view, there is suggestion of a small avulsion fracture arising from the pulmonary surface of the distal phalanx (see arrow). Otherwise no evidence for fracture or dislocation. Report Dictated on --- Final --- Dictating Physician: MD ARTIS JASON Signed Date and Time: 03/24/2019 12:47 pm Signed by: MD ARTIS JASON Transcribed Date and Time: 03/24/2019 12:48 [facility] Work Phone: Basic Metabolic PanelOrdered By: Cole Alexis on 02-14-2019 Anion gap [Moles/Vol] 12 mmol/L [facility] Work Phone: [phone] Calcium [Mass/Vol] 9.4 mg/dL 8.4 - 10. 4 mg/dL [facility] Work Phone: [phone] Chloride [Moles/Vol] 102 mmol/L 98 - 10 7 mmol/L [facility] Work Phone: [phone] CO2 [Moles/Vol] 18 mmol/L Low 22 - 30 mmol/L [facility] Work Phone: [phone] Creatinine [Mass/Vol] 0.61 mg/dL 0.52 - 1.25 mg/dL [facility] Work Phone: [phone] EGFR IF NonAfrican [place] >60.0 >60 mL/min [facility] Work Phone: [phone] Comment on above: Source- MDRD equatio n with creatinine calibration to IDMS(NKDEP) eGFR not recommended for drug dose adjustment GFR/1.73 sq M.predicted among blacks MDRD (S/P/Bld) [Vol rate/Area] mL/min/{1.73_m2} >60 mL/min [facility] Work Phone: [phone] Glucose [Mass/Vol] 88 mg/dL 70 - 100 mg/dL [facility] Work Phone: [phone] Interpretation and review of laboratory results Abnormal [facility] Work Phone: [phone] Potassium [Moles/Vol] 3.9 mmol/L 3.5 - 5.1 mmol/L [facility] Work Phone: [phone] Sodium [Moles/Vol] 132 mmol/L Low 135 - 145 mmol/L [facility] Work Phone: [phone] Urea nitrogen [Mass/Vol] 6 mg/dL Low 7 - 20 mg/dL [facility] Work Phone: Test Performed by [facility], [address], [place], [place] [address] [facility] Work Phone: CT Abdomen Pelvis Wo Contras tOrdered By: Cole Alexis on 02-14-2019 Patient Name: VERONA DRAPER ---CT--- Exam Date/Time 02/14/2019 15:29:[address] Abdomen/Pelvis (No PO, No IV) Ordering Physician COLE WHITING Accession Number [id number] CPT4 Codes 95289 (CT Abdomen/Pelvis (No PO, No IV)) Reason For Exam dysuria, left flank pain Report Reasons for examination: Dysuria, left flank pain. Axial unenhanced scans of the abdomen and pelvis were performed without contrast, with images from the lung bases through the pubic symphysis. The right kidney is normal in size and shape. There are no mass lesions. There is no hydronephrosis. There are no renal calculi. Along the length of the right ureter, no calculi are encountered. The left kidney is normal in size and shape. There are no mass lesions. There is no hydronephrosis. There are no renal calculi. Along the length of the left ureter, no calculi are encountered. The liver, spleen, and pancreas appear normal. The gallbladder and biliary tree are normal. The bowel and mesentery are unremarkable. There is no free fluid or free air. There is no adenopathy. Scans through the pelvis demonstrate the bladder to be distended There are no masses or adenopathy. Prior bilateral tubal ligations. Normal appendix. The spine is remarkable for a degenerated disc at L5-S1. IMPRESSION: 1. There are no renal/ureteral calculi 2. Moderate urinary bladder distention with mild bilateral hydronephrosis and hydroureter 3. Degenerative disc disease at L5-S1, prior bilateral tubal ligations, normal appendix Report Dictated on --- Final --- Dictating Physician: MD BERMEO WILLIAM Signed Date and Time: 02/14/2019 3:42 pm Signed by: MD BERMEO WILLIAM Transcribed Date and Time: 02/14/2019 3:43 [facility] Work Phone: Julio César, [facility] Incoming [facility] - 02/14/2019 3:43 PM EST Patient Name: VERONA AVALOS ---CT--- Exam Date/Time 02/14/2019 15:29:[address] Abdomen/Pelvis (No PO, No IV) Ordering Physician COLE WHITING Accession Number [id number] CPT4 Codes 20605 (CT Abdomen/Pelvis (No PO, No IV)) Reason For Exam dysuria, left flank pain Report Reasons for examination: Dysuria, left flank pain. Axial unenhanced scans of the abdomen and pelvis were performed without contrast, with images from the lung bases through the pubic symphysis. The right kidney is normal in size and shape. There are no mass lesions. There is no hydronephrosis. There are no renal calculi. Along the length of the right ureter, no calculi are encountered. The left kidney is normal in size and shape. There are no mass lesions. There is no hydronephrosis. There are no renal calculi. Along the length of the left ureter, no calculi are encountered. The liver, spleen, and pancreas appear normal. The gallbladder and biliary tree are normal. The bowel and mesentery are unremarkable. There is no free fluid or free air. There is no adenopathy. Scans through the pelvis demonstrate the bladder to be distended There are no masses or adenopathy. Prior bilateral tubal ligations. Normal appendix. The spine is remarkable for a degenerated disc at L5-S1. IMPRESSION: 1. There are no renal/ureteral calculi 2. Moderate urinary bladder distention with mild bilateral hydronephrosis and hydroureter 3. Degenerative disc disease at L5-S1, prior bilateral tubal ligations, normal appendix Report Dictated on --- Final --- Dictating Physician: MD BERMEO WILLIAM Signed Date and Time: 02/14/2019 3:42 pm Signed by: MD BERMEO WILLIAM Transcribed Date and Time: 02/14/2019 3:43 [facility] Work Phone: [facility] Urine Qual PregOrdered B y: Cole Alexis on 02-14-2019 Beta HCG ( test) Ql (U) Negative Negative NA [facility] Work Phone: [phone] Comment on above: is the mos t common reason for HCG in urine, although choriocarcinoma, hydatidiform mole, and certain nontropho- blastic malignancies also result in detectable urinary HCG levels. Sensitivity = 20mIU/mL. Hemogram (CBC) w/Auto DiffOr dered By: Cole Alexis on 02-14-2019 Absolute Baso # 0.0 10*3/uL 0 - 0.2 10*3/uL [facility] Work Phone: [phone] Absolute Neut # 7.1 10*3/uL High 1.8 - 7 10*3/uL [facility] Work Phone: [phone] Basophils/100 WBC (Bld) 0.3 % 0 - 2 % [facility] Work Phone: [phone] Eosinophils (Bld) [#/Vol] 0.0 10*3/uL 0 - 0.5 10*3/uL [facility] Work Phone: [phone] Eosinophils/100 WBC (Bld) 0.4 % Low 1 - 6 % [facility] Work Phone: [phone] Erythrocyte distribution width (RBC) [Ratio] 14.0 % 11.5 - 14.5 % [facility] Work Phone: [phone] Granulocytes/100 WBC (Bld) 70.4 % 40 - 80 % [facility] Work Phone: 222 Hematocrit (Bld) [Volume fraction] 39.4 % 35 - 47 % [facility] Work Phone: 222 Hemoglobin (Bld) [Mass/Vol] 13.7 g/dL 11.7 - 16 g/dL [facility] Work Phone: [phone] Interpretation and review of laboratory results Abnormal [facility] Work Phone: 222 Lymphocytes (Bld) [#/Vol] 1.7 10*3/uL 1 - 4.3 10*3/uL [facility] Work Phone: ) [phone] Lymphocytes/100 WBC (Bld) 17.2 % Low 20 - 40 % [facility] Work Phone: [phone] 222 MCH (RBC) [Entitic mass] 36.1 pg High 26 - 34 pg [facility] Work Phone: [phone] MCHC 34.8 % 32 - 36 % [facility] Work Phone: [phone] 222 MCV (RBC) [Entitic vol] 103.7 fL High 79 - 98 fL [facility] Work Phone: 1() 222 Monocytes (Bld) [#/Vol] 1.2 10*3/uL High 0 - 0.8 10*3/uL [facility] Work Phone: 1() 222 Monocytes/100 WBC (Bld) 11.7 % High 2 - 10 % [facility] Work Phone: 1() 222 Platelet mean volume (Bld) [Entitic vol] 9.9 fL 7.4 - 10.4 fL [facility] Work Phone: 1() 222 Platelets (Bld) [#/Vol] 146 10*3/uL 140 - 440 10*3/uL [facility] Work Phone: 1() 222 RBC (Bld) [#/Vol] 3.80 10*6/uL 3.8 - 5.2 10*6/uL [facility] Work Phone: 1() 222 WBC (Bld) [#/Vol] 10.1 10*3/uL 3.6 - 10.7 10*3/uL [facility] Work Phone: [phone] No Panel InformationOrdered By: Cole Alexis on 02-14-2019 Test Performed by [facility], [address] [place] [id number] [facility] Work Phone: [phone] UrinalysisOrdered By: Cole Alexis on 02-14-2019 Appearance (U) Clear Clear NA [facility] Work Phone: [phone] Bilirubin Urine Negative Negative mg/dL [facility] Work Phone: ) 222 Color (U) Light-Yellow Lt. Yellow NA [facility] Work Phone: [phone] Glucose, Ur Normal Normal (<70) mg/dL [facility] Work Phone: [phone]) [phone] Ketones Ql (U) Negative Negative mg/dL [facility] Work Phone: LEUKOCYTES, UA Negative Negative Jayro/uL [facility] Work Phone: [phone] Nitrite, Urine Negative Negative NA [facility] Work Phone: [phone] Occult Blood,Urine Negative Negative mg/dL [facility] Work Phone: [phone] pH (U) 5.5 [pH] [facility] Work Phone: [phone] Specific [place], Urine 1.[address] [facility] Work Phone: [phone] Total Protein, Urine Negative Negativ e mg/dL [facility] Work Phone: [phone] Urobilinogen, Urine Normal Normal ( 0-1) mg/dL [facility] Work Phone: [phone] Test Performed by [facility], [address] [place] [address] [place] [address] [facility] Work Phone: CR Hand Complete 3+ Views Agusto rao 01-03-2019 CR Hand Complete 3+ Views Right Patient Name: VERONA AVALOS Diagnostic Radiology Exam Date/Time 01/03/2019 18:48:19 EST Exam CR Hand Complete 3+ Views Right Ordering Physician MD SANJUANA, KADEEM Harmon Accession Number [id number] CPT4 Codes 14506 () Reason For Exam 2nd finger hit with a hammer Report RIGHT HAND: CLINICAL INDICATION: Pain after trauma to second digit. TECHNIQUE: PA, Lat, and oblique COMPARISON: None. FINDINGS: There is no fracture or dislocation. No arthritic change is identified. No bone lesion is identified. There is no soft tissue abnormality. IMPRESSION: Normal right hand. Report Dictated on Final Dictated: 01/03/2019 6:59 pm Dictating Physician: MD FRAGA NICHOLAS Signed Date and Time: 01/03/2019 7:00 pm Signed by: MD FRAGA NICHOLAS Transcribed Date and Time: 01/03/2019 6:59 Normal [facility] XR HAND RIGHT (MIN 3 VIEWS)o n 01-03-2019 Patient Name: VERONA DRAPER ---Diagnostic Radiology--- Exam Date/Time 01/03/2019 18:48:19 EST Exam CR Hand Complete 3+ Views Right Ordering Physician MD WEI MARK D Accession Number [id number] CPT4 Codes 81997 () Reason For Exam 2nd finger hit with a hammer Report RIGHT HAND: CLINICAL INDICATION: Pain after trauma to second digit. TECHNIQUE: PA, Lat, and oblique COMPARISON: None. FINDINGS: There is no fracture or dislocation. No arthritic change is identified. No bone lesion is identified. There is no soft tissue abnormality. IMPRESSION: Normal right hand. Report Dictated on --- Final --- Dictated: 01/03/2019 6:59 pm Dictating Physician: MD FRAGA NICHOLAS Signed Date and Time: 01/03/2019 7:00 pm Signed by: MD FRAGA NICHOLAS Transcribed Date and Time: 01/03/2019 6:59 [facility], [place] Julio César, [facility] In[facility] - 01/03/2019 7:02 PM EST Patient Name: VERONA AVALOS ---Diagnostic Radiology--- Exam Date/Time 01/03/2019 18:48:19 EST Exam CR Hand Complete 3+ Views Right Ordering Physician MD SANJUANA, KADEEM Harmon Accession Number [id number] CPT4 Codes 20848 () Reason For Exam 2nd finger hit with a hammer Report RIGHT HAND: CLINICAL INDICATION: Pain after trauma to second digit. TECHNIQUE: PA, Lat, and oblique COMPARISON: None. FINDINGS: There is no fracture or dislocation. No arthritic change is identified. No bone lesion is identified. There is no soft tissue abnormality. IMPRESSION: Normal right hand. Report Dictated on --- Final --- Dictated: 01/03/2019 6:59 pm Dictating Physician: MD FARGA NICHOLAS Signed Date and Time: 01/03/2019 7:00 pm Signed by: MD FRAGA NICHOLAS Transcribed Date and Time: 01/03/2019 6:59 [facility], [place] CT CERVICAL SPINE WO CONTRAS Ton 10-28-2018 Patient Name: VERONA DRAPER ---CT--- Exam Date/Time 10/28/2018 21:56:[address] Spine Cervical w/o Contrast Ordering Physician ESTHER SOLOMON Accession Number [id number] CPT4 Codes 97937 () Reason For Exam C-SPINE TRAUMA, NEXUS/CCR POSITIVE, MECHANICALLY UNSTABLE Report CLINICAL INFORMATION: Neck pain following trauma. CT cervical spine with 3-D reconstructions: Volume acquisition CT images are obtained from the occiput to the upper thoracic spine without intrathecal contrast with axial, sagittal and coronal 2-D reconstructions. Additional 3-D survey surface shaded images of the cervical spine were concurrently generated by md on the [employer] workstation to better visualize gross skeletal anatomy. The anterior and posterior arches and lateral masses of C1 and the odontoid, body and posterior arch of C2 are intact. There is a normal relationship between the odontoid and lateral masses and anterior arch of C1. There is an irregular well-defined hypodense lesion in the left side of the C2 body with a somewhat vertical striated appearance most likely a hemangioma. There is a bifid spinous process of C2. The other vertebral bodies, pedicles and posterior elements are intact. No ossific densities are seen in the spinal canal. No evidence for perched or dislocated facet joint is seen at any level. There is intervertebral disc narrowing at C5-C6 with posterior endplate osteophytes. There is a small chronic appearing ossification or calcification anterior to the intervertebral disc. The other intervertebral discs are well maintained. There are of degenerative changes of the bilateral C5-C6 uncovertebral joints. There are no significant degenerative changes of the facet joints. Although the differentiation of densities within the cervical spine canal is inherently extremely limited on CT without intrathecal contrast, no large abnormal soft tissue densities are seen within the spinal canal. There is a widely capacious bony cervical spinal canal. The bony neural foramina are widely patent on both sides at all levels. IMPRESSION: 1. No evidence of acute bone trauma. 2. 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 3. Probable hemangioma in the left side of the body of C2. Report Dictated on --- Final --- Dictating Physician: MD NIELSEN HARLAN Signed Date and Time: 10/28/2018 10:24 pm Signed by: MD NIELSEN HARLAN Transcribed Date and Time: 10/28/2018 10:25 [facility] [place], [place] Julio César, Shielaa Incoming [facility]iology [facility] - 10/28/2018 10:26 PM EDT Patient Name: VERONA AVALOS ---CT--- Exam Date/Time 10/28/2018 21:56:[address] Spine Cervical w/o Contrast Ordering Physician ESTHER SOLOMON Accession Number [id number] CPT4 Codes 76926 () Reason For Exam C-SPINE TRAUMA, NEXUS/CCR POSITIVE, MECHANICALLY UNSTABLE Report CLINICAL INFORMATION: Neck pain following trauma. CT cervical spine with 3-D reconstructions: Volume acquisition CT images are obtained from the occiput to the upper thoracic spine without intrathecal contrast with axial, sagittal and coronal 2-D reconstructions. Additional 3-D survey surface shaded images of the cervical spine were concurrently generated by md on the [employer] workstation to better visualize gross skeletal anatomy. The anterior and posterior arches and lateral masses of C1 and the odontoid, body and posterior arch of C2 are intact. There is a normal relationship between the odontoid and lateral masses and anterior arch of C1. There is an irregular well-defined hypodense lesion in the left side of the C2 body with a somewhat vertical striated appearance most likely a hemangioma. There is a bifid spinous process of C2. The other vertebral bodies, pedicles and posterior elements are intact. No ossific densities are seen in the spinal canal. No evidence for perched or dislocated facet joint is seen at any level. There is intervertebral disc narrowing at C5-C6 with posterior endplate osteophytes. There is a small chronic appearing ossification or calcification anterior to the intervertebral disc. The other intervertebral discs are well maintained. There are of degenerative changes of the bilateral C5-C6 uncovertebral joints. There are no significant degenerative changes of the facet joints. Although the differentiation of densities within the cervical spine canal is inherently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 Cristhian [facility] Work Phone: 03-24-2019 12:08-0500 Body weight 55.79 kg Cristhian [facility] Work Phone: 03-24-2019 12:08-0500 BP Diastolic 72 mm[Hg] Cristhian [facility] Work Phone: 03-24-2019 12:08-0500 BP Systolic 164 mm[Hg] Cristhian [facility] Work Phone: 03-24-2019 12:08-0500 Height 149.9 cm Cristhian [facility] Work Phone: 03-24-2019 12:08-0500 Pulse (Heart Rate) 105 /min Cristhian [facility] Work Phone: 03-24-2019 12:08-0500 Pulse Oximetry 96 % Cristhian [facility] Work Phone: 03-24-2019 12:08-0500 Respiratory Rate 20 /min Cristhian [facility] Work Phone: 02-14-2019 16:45-0500 Diastolic blood pressure 89 mm[Hg] Valdez Lira MD Work Phone: [facility] Work Phone: 02-14-2019 16:45-0500 Heart rate 88 /min Valdez Lira MD Work Phone: [employer] Work Phone: 02-14-2019 16:45-0500 Respiratory rate 20 /min Valdez Lira MD Work Phone: [employer] Work Phone: 02-14-2019 16:45-0500 Systolic blood pressure 137 mm[Hg] Valdez Lira MD Work Phone: [employer] Work Phone: 02-14-2019 13:21-0500 Body temperature 97.7 [degF] Valdez Lira MD Work Phone: [employer] Work Phone: 02-14-2019 13:21-0500 SaO2% (BldA) [Mass fraction] 100 % Valdez Lira MD Work Phone: [employer] Work Phone: 01-03-2019 18:06-0500 BMI (Body Mass Index) 24.24 kg/m2 Kadeem Heredia [facility], [place] 01-03-2019 18:06-0500 Body Temperature 98.2 [degF] Kadeem Wei [facility], [place] 01-03-2019 18:06-0500 Body weight 54.43 [facility] [place] 01-03-2019 18:06-0500 BP Diastolic 80 mm[Hg] [facility] [place] 01-03-2019 18:06-0500 BP Systolic 111 mm[Hg] [facility] [place] 01-03-2019 18:06-0500 Height 149.9 cm Kadeem Heredia [facility] , [place] 01-03-2019 18:06-0500 Pulse (Heart Rate) 100 /min Kadeem Heredia [facility], [place] 01-03-2019 18:06-0500 Pulse Oximetry 97 % Kadeem Heredia [place], [place] 01-03-2019 18:06-0500 Respiratory Rate 16 /min Kadeem Heredia [facility], [place] 10-28-2018 21:10-0400 BMI (Body Mass Index) 26.05 kg/m2 Esther Heredia [facility], [place] 10-28-2018 21:10-0400 Body Temperature 98.91 [degF] Esther Leach [place], [place] 10-28-2018 21:10-0400 Body weight 58.51 kg Esther Leach [place], [place] 10-28-2018 21:10-0400 BP Diastolic 84 mm[Hg] Esther Leach [place], [place] 10-28-2018 21:10-0400 BP Systolic 110 mm[Hg] [place] 10-28-2018 21:10-0400 Height 149.9 cm Esther Leach [place], [place] 10-28-2018 21:10-0400 Pulse (Heart Rate) 92 /min Esther Leach [place], [place] 10-28-2018 21:10-0400 Pulse Oximetry 100 % Esther Leach [place], [place] 10-28-2018 21:10-0400 Respiratory Rate 14 /min Esther Leach [place], [place] Encounters Encounter Date Encounter Type Care Provider Facility Start: 02-19-2024 End: 02-19-2024 Emergency department patient visit Willian Yuniel Facility:[facility] Start: 09-18-2023 End: 09-19-2023 Emergency department patient visit No Primary Care Physician Facility:[facility] Start: 06-24-2023 End: 06-24-2023 Emergency department patient visit DR JOE MONTOYA MD Facility:[facility] Start: 06-24-2023 End: 06-24-2023 Emergency department patient visit DR JOE MONTOYA MD [facility] Start: 06-10-2023 End: 06-10-2023 Emergency department patient visit NAKUL CM MD Facility:[facility] Start: 06-10-2023 End: 06-10-2023 Emergency department patient visit NAKUL CM MD [facility] Start: 06-02-2023 End: 06-02-2023 Emergency department patient visit [facility] Facility:[facility] Start: 05-05-2023 End: 05-06-2023 [facility] Start: 05-05-2023 End: 05-05-2023 Emergency department patient visit [facility] Start: 11-21-2022 End: 11-21-2022 Emergency department patient visit BRAD MONTOYA MD Facility:[facility] Start: 11-21-2022 End: 11-21-2022 Emergency department patient visit BRAD MONTOYA MD [facility] Start: 03-30-2022 End: 03-30-2022 Emergency department patient visit DR ANAI PATHAK MD [facility] Start: 06-07-2021 End: 06-08-2021 Emergency department patient visit MILY FLORES DO [facility] Start: 06-02-2021 End: 06-02-2021 Patient encounter procedure Carmen Cotton DO Work Phone: Orthopaedics Comment on above: Chronic right should er pain (Primary Dx); Impingement syndrome of right shoulder; Bursitis of right shoulder; Tendinitis of right shoulder Start: 10-18-2020 End: 10-18-2020 Emergency department patient visit Esther Rhodes MD Work Phone: [facility] Comment on above: Chest pain, unspecif ied type (Primary Dx); Upper abdominal pain Start: 02-25-2020 End: 02-25-2020 Patient encounter procedure NO PCP AA NO PCP [facility] Start: 02-24-2020 Patient encounter procedure LE Montero CNP [facility] Start: 02-22-2020 End: 02-23-2020 Patient encounter procedure ESTHER CRUZ [facility] Start: 01-24-2020 End: 01-25-2020 Patient encounter procedure NO PCP AA NO PCP [facility] Start: 03-24-2019 End: 03-24-2019 Emergency department patient visit Cristhian Sams [facility] ED Comment on above: Closed nondisplaced fracture of distal phalanx of left ring finger, initial encounter (Primary Dx) Start: 02-14-2019 End: 02-14-2019 Emergency department patient visit Valdez Lira MD Work Phone: [facility] Comment on above: Generalized abdomina l pain (Primary Dx) Start: 01-03-2019 End: 01-03-2019 Emergency department patient visit Kadeem Faustino Wei Work Phone: [facility] Emergency Dept Comment on above: Contusion of right i ndex finger without damage to nail, initial encounter (Primary Dx) Start: 10-28-2018 End: 10-28-2018 Emergency department patient visit Esther Looney Hany Work Phone: [facility] ED Comment on above: Injury of left knee, initial encounter (Primary Dx); Contusion of left knee, initial encounter; Laceration of left great toe without foreign body present or damage to nail, initial encounter; Neck sprain, initial encounter; Acute alcoholic intoxication in alcoholism without complication (HCC) Start: 10-13-2016 End: 10-13-2016 Emergency department patient visit LAUREN CATHY Facility:[id number] Procedures Date Procedure Procedure Detail Performing Clinician Start: 06-02-2021 Arthrocentesis aspir &/inj major jt/bursa w/o us Carmen Cotton DO Work Phone: Start: 10-18-2020 Ecg routine ecg w/le ast 12 lds w/i&r Alicia GRACE Work Phone: Start: 10-18-2020 Urnls dip stick/tabl et rgnt auto w/o microscopy Esther Rhodes MD Work Phone: Start: 10-18-2020 Comprehensive metabo lic panel Esther Rhodes MD Work Phone: Start: 10-18-2020 Computed tomography of abdomen and pelvis with contrast Esther Rhodes MD Work Phone: Start: 03-24-2019 Radex fingr minimum 2 views Odalys Aure Mancia Work Phone: Start: 02-14-2019 Ct abdomen & pelvis w/o contrast material Cole Alexis [employer] Work Phone: Start: 02-14-2019 Urnls dip stick/tabl et rgnt auto w/o microscopy Cole Alexis [employer] Work Phone: Start: 02-14-2019 Basic metabolic pane l calcium total Cole Alexis [employer] Work Phone: Start: 01-03-2019 Radex hand minimum 3 views Kadeem Wei Work Phone: Start: 10-28-2018 Ct cervical spine w/ o contrast material Esther Leach Work Phone: Start: 11-13-2010 Adult depression scr eening assessment Carmen Cotton DO Work Phone: Plan of Treatment Date Care Activity Detail Author Start: 05-23-2025 Urine microalbumin profile DTAP,TDAP,TD (3 - Td or Tdap) [facility] Start: 10-19-2021 Influenza vaccination INFLUENZ A (Season Ended) [facility] Start: 10-19-2020 Influenza vaccination Flu vaccine (# 1) [facility] Work Phone: Start: 10-19-2018 Influenza vaccination Flu vaccine (# 1) [place] Start: 05-13-2017 HPV TESTING HPV TESTING [facility] Start: 05-13-2017 PAP TESTING PAP TESTING [facility] Start: 11-14-2011 Adult depression screening assessment DEPRESSION SCREENING [facility] Start: 1993 COVID-19 Vaccine (1) COVID-19 Vaccin e (1) [facility] Work Phone: Start: 1986 COVID-19 VACCINE (1) COVID-19 VACCIN E (1) [facility] EKG 12 Lead - Chest Pain EKG 12 Lead - Chest Pain ECG STAT 10/18/2020 12:54 PM EDT [facility] Work Phone: Immunizations Immunization Date Immunization Notes Care Provider Fa jose 05-24-2015 tetanus toxoid, redu merlyn diphtheria toxoid, and acellular pertussis vaccine, adsorbed Carmen Chicorelli DO Work Phone: [facility] 03-31-2011 tetanus toxoid, redu merlyn diphtheria toxoid, and acellular pertussis vaccine, adsorbed Carmen Chicorelli DO Work Phone: [facility] Payers Date Payer Category Payer Self-pay 2023 Unknown [id number] 2022 Unknown [id number] 2016 Unknown [employer] [facility] MEDICAID xxxxxxxxxxx 2016-Present [phone] CLAIMS DEPARTMENT [address] [place] [address] xxxxxxxxxxx [id number] 2015 Medicaid [employer] [facility] MED[facility] [id number] 2015-Present [phone] [address] [place] [address] Medicaid [id number] 1981 Unknown [id number] 1981 Unknown [id number] 1981 Unknown [id number] 1981 Unknown [id number] 1981 Unknown [id number] 1981 Unknown [id number] 1981 Unknown [id number] 1981 Unknown [id number] 1981 Unknown [id number] 1981 Unknown [id number] 1959 Medicaid [id number] Unknown [id number] Unknown [id number] Unknown [id number] Social History Date Type Detail Facility Start: 11-11-2018 End: 02-14-2019 Tobacco smoking status MNIS Current every day smoker [facility] Start: 11-11-2018 End: 06-02-2021 Cigarettes smoked current (pack per day) - Reported [place], [place] Start: 11-11-2018 End: 06-02-2021 Alcohol intake Current drinker of alcohol (finding) [place] Start: 03-26-2018 Alcohol Comment 4 days a week [place] Start: 1980 Sex Assigned At Not on file M [place], [place] Start: 10-28-2018 Alcohol intake Yes Giovanna [place] Start: 10-18-2020 Tobacco use and exposure Never used [facility] Start: 05-07-2021 End: 05-17-2021 Exposure to SARS-CoV-2 (event) Not sure [facility] Start: 1980 Sex Assigned At Female A [facility] History of tobacco use Cigarette Smoker C [facility] Start: 10-29-2017 History SDOH Alcohol Comment maybe 10 beers a week [facility] Start: 10-29-2017 Tobacco Comment 6-7 cigarettes per d ay [facility] Start: 03-30-2022 Tobacco smoking status Light t obacco smoker (finding) [facility] Medical Equipment Procedure Code Equipment Code Equipment Origin al Text Equipment Identifier Dates Lgtr 12.5in 8mm Frng Falop - [id number] Start: 01-16-2012 Functional Status Date Assessment Result Facility 06-24-2023 Functional Status Independent [facility] 06-24-2023 Functional Status Awake, Resting [facility] 06-10-2023 Functional Status ID band on, Allergy Band on, Call device within reach, Bed in low position, Wheels locked, Upper/Half-Length side-rails up, Phone within reach, Visitor at bedside, Safety level maintained [facility] 05-05-2023 Functional Status Assistive Device None A [facility] 05-05-2023 Functional Status Standard Safet y ID band on, Call device within reach, Bed in low position [facility] 03-30-2022 Functional Status Independent [facility] 03-30-2022 Functional Status Standard Safet y ID band on, Allergy Band on, Call device within reach, Bed in low position, Wheels locked, Upper/Half-Length side-rails up, personal items within reach [facility] 06-07-2021 Functional Status [facility] Mental Status Date Assessment Result Facility 06-24-2023 Mental Status Orientation Oriented x 4 [facility] 06-24-2023 Mental Status [facility] 06-10-2023 Mental Status Oriented x 4 [facility] 05-05-2023 Mental Status Orientation Oriented x 4 [facility] 11-21-2022 Mental Status Orientation Oriented x 4 [facility] 03-30-2022 Mental Status Orientation Oriented x 4 [facility] 03-30-2022 Mental Status [facility] 06-07-2021 Mental Status [facility] Clinical Notes 12-25-2010 to 06-24-2023 Carmen Cotton, DO - 06/02/2021 11:53 AM EDT Note Date & Type Note Facility 06-24-2023 Hospital Discharge instructions Patient Education 06/24/2023 20:25:33 Dental Pain Dental Pain A crack or cavity in a tooth can cause tooth pain. This is because the crack or cavity exposes the sensitive inner area of the tooth. An infection in the gum or the root of the tooth can cause pain and swelling. The pain is often made worse when you drink hot or cold beverages. It can also be worse when you bite on hard foods. Pain may spread from the tooth to your ear or the area of the jaw on the same side. Home care Follow these tips when caring for yourself at home: Don't have hot and cold foods and drinks. Your tooth may be sensitive to changes in temperature. Use toothpaste made for sensitive teeth. Yoder gently up and down instead of sideways. Brushing sideways can wear away root surfaces if they are exposed. If your tooth is chipped or cracked, or if there is a large open cavity, put oil of cloves directly on the tooth to relieve pain. You can buy oil of cloves at drugstores. Some pharmacies carry an qtez-cyg-tvpnxvx toothache kit. This contains a paste that you can put on the exposed tooth to make it less sensitive. Put a cold pack on your jaw over the sore area to help reduce pain. You may use xbnf-pqo-hqytyog medicine to ease pain, unless your doctor prescribed another medicine. If you have chronic liver or kidney disease, talk with your healthcare provider before using acetaminophen or ibuprofen. Also talk with your provider if you ve had a stomach ulcer or GI bleeding. If you have signs of an infection, you will be given an antibiotic. Take it as directed. Follow-up care Follow up with your dentist, or as advised. Your pain may go away with the treatment given today. But only a dentist can fully look at and treat the cause of your pain. This will keep the pain from coming back. Call 911 Call 911 if any of these occur: Unusual drowsiness Headache or stiff neck Weakness or fainting Difficulty swallowing or breathing When to seek medical advice Call your health care provider right away if any of these occur: Your face becomes swollen or red Pain gets worse or spreads to your neck Fever of 100.4 F (38.0 C) or higher, or as directed by your healthcare provider Pus drains from the tooth [id number] [employer]. [address] [place] [address]. All rights reserved. This information is not intended as a substitute for professional medical care. Always follow your healthcare professional's instructions. Follow Up Care 06/24/2023 19:14:35 With:Dental Referral List Address:Unknown When:2-4 days Comments:Be for sure to follow-up with a dentist, return if any worsening or concerning symptoms. [facility] 06-24-2023 Note Discharge Instructions Thank you for allowing [place] to assist you with your healthcare needs. The following is important discharge information regarding your hospital visit. Diagnosis from Today's Visit Dental pain Pain due to dental caries What to Do Next Instructions from Your Care Team No qualifying data available. Post Acute Orders No qualifying data available. You Need to Schedule the Following Appointments Follow Up with Dental Referral List When Within 2-4 days Why: Be for sure to follow-up with a dentist, return if any worsening or concerning symptoms. Allergies Latex Vicodin Medications Please ask your primary doctor or pharmacist before taking any other medication not listed, including over the counter drugs, herbal medications, vitamins and or supplements as they may interact with your home medications. What How Much When Why Instructions Last Dose New oxyCODONE (oxyCODONE 5 mg oral tablet ( IMMEDIATE release )) 1 tab(s) by mouth Every 6 hours Pain due to dental caries Duration: 2 Days Printed Prescription Unchanged cetirizine (Zyrtec 10 mg oral tablet) 1 tab(s) by mouth Once a day Duration: 10 Days Unchanged fluticasone nasal (Flonase 50 mcg/ inh nasal spray) 1 spray(s) each nostril Two (2) times a day Duration: 7 Days Please take this list to your next doctor s visit. Bring all medications you take, including over the counter medications, herbals and other supplements with you to your doctor s visit. Patients and families are reminded to discard old lists and to update any records with all medication providers or retail pharmacies. Medication Leaflets oxycodone (ox i KOE done) Oxaydo, OxyCONTIN, Roxicodone, RoxyBond, Xtampza ER What is the most important information I should know about oxycodone? MISUSE OF OPIOID MEDICINE CAN CAUSE ADDICTION, OVERDOSE, OR . Fatal side effects may occur if you also drink alcohol or use other drugs that cause drowsiness or slow breathing. Using opioid medicine during may cause life-threatening withdrawal symptoms in the . What is oxycodone? Oxycodone is an opioid pain medication used to treat moderate to severe pain. Oxycodone is usually given after other treatments did not work or were not tolerated. Extended-release oxycodone is for ocqcur-ijk-nlifx treatment of severe and chronic pain that requires longer treatment. This medicine is not for use on an as-needed basis. Oxycodone may also be used for purposes not listed in this medication guide. What should I discuss with my healthcare provider before taking oxycodone? You should not use oxycodone if you are allergic to it, or if you have severe asthma, breathing problems or a stomach or bowel obstruction (including paralytic ileus). Tell your doctor if you have ever had: other breathing problems, sleep apnea (breathing that stops during sleep); a head injury, brain tumor, high pressure inside the skull, or seizures, drug or alcohol addiction, or mental illness; if you have used an MAO inhibitor in the past 14 days, such as isocarboxazid, linezolid, methylene blue injection, phenelzine, or tranylcypromine; urination problems, problems with your gallbladder, pancreas, thyroid, or adrenal gland; or liver or kidney disease. Most forms of oxycodone are not approved for use in people under 18 years old. The extended-release tablets should not be given to a child younger than 11 years old. Tell your doctor if you also use stimulant medicine, opioid medicine, herbal products, or medicine for depression, mental illness, Parkinson's disease, migraine headaches, serious infections, or prevention of nausea and vomiting. An interaction with oxycodone could cause a serious condition called serotonin syndrome. May harm an unborn baby. Tell your doctor if you are or plan to become . If you use oxycodone during , your baby could be born with life-threatening withdrawal symptoms, and may need medical treatment for several weeks. Do not breastfeed. Oxycodone in breast milk can cause life-threatening side effects in a nursing baby. Long-term oxycodone may affect fertility in men or women. could be harder to achieve while either parent is using this medicine. How should I take oxycodone? Follow the directions on your prescription label and read all medication guides or instruction sheets. Never use oxycodone in larger amounts, or for longer than prescribed. Tell your doctor if you feel an increased urge to use more of this medicine. Never share opioid medicine with another person, especially someone with a history of drug addiction. MISUSE CAN CAUSE ADDICTION, OVERDOSE, OR . Keep the medicine where others cannot get to it. Selling or giving away this medicine is against the law. Never crush a pill or use the liquid to inhale the mixture or inject it into your vein. This could result in . Your dose needs may change if you switch to a different brand, strength, or form of this medicine. Avoid medication errors by using exactly as directed on the label, or as prescribed by your doctor. Stop taking all other jafzoq-gyg-nwfwq opioid pain medicines when you start taking extended-release oxycodone. Swallow the extended-release forms whole to avoid exposure to a potentially fatal overdose. Do not crush, chew, break, open, or dissolve. Take the extended-release capsules with food. Read and carefully follow the instructions for use on how to prepare and take this medicine if you cannot swallow extended release capsules whole or you use a feeding tube. Ask your doctor or pharmacist if you don't understand these instructions. Measure liquid medicine with the supplied measuring device (not a kitchen spoon). You may be given other medications to help prevent or treat certain side effects. You may have withdrawal symptoms if you stop using oxycodone suddenly. Ask your doctor before stopping the medicine. Store at room temperature away from moisture and heat. Keep your medicine in a place where no one can use it improperly. Do not keep leftover medicine. Just one dose can cause in someone using it accidentally or improperly. Ask your pharmacist about a drug take-back program, or flush the unused medicine down the toilet. What happens if I miss a dose? Since oxycodone is used for pain, you are not likely to miss a dose. Skip any missed dose if it is almost time for your next dose. Do not use two doses at one time. What happens if I overdose? Seek emergency medical attention or call the Poison Help line at . An overdose can be fatal, especially in a child or person using opioid medicine without a prescription. Your doctor may recommend you get naloxone (a medicine to reverse an opioid overdose) and keep it with you at all times. A person caring for you can give the naloxone if you stop breathing or don't wake up. Your caregiver must still get emergency medical help and may need to perform CPR (cardiopulmonary resuscitation) on you while waiting for help to arrive. Anyone can buy naloxone from a pharmacy or local health department. Make sure any person caring for you knows where you keep naloxone and how to use it. What should I avoid while taking oxycodone? Do not drink alcohol or any products that contain alcohol. Dangerous side effects or could occur. Avoid driving or hazardous activity until you know how this medicine will affect you. Dizziness or drowsiness can causing falls, accidents, or severe injuries. Also avoid getting up too fast from a sitting or lying position, or you may feel dizzy. What are the possible side effects of oxycodone? Get emergency medical help if you have signs of an allergic reaction: hives, difficult breathing, swelling of your face, lips, tongue, or throat. Opioid medicine can slow or stop your breathing, and may occur, especially if you drink alcohol or use other drugs that cause drowsiness or slow breathing. A person caring for you should give naloxone and/or seek emergency medical attention if you have slow breathing with long pauses, blue colored lips, or if you are hard to wake up. Call your doctor at once if you have: slow heart rate, weak pulse, fainting, slow breathing (breathing may stop); chest pain, fast or pounding heartbeats; a seizure, extreme drowsiness; or decreased adrenal gland hormones--nausea, vomiting, stomach pain, loss of appetite, feeling tired or light-headed, muscle or joint pain, skin discoloration, craving salty foods. Serious breathing problems may be more likely in older adults and in those who are debilitated or have wasting syndrome or chronic breathing disorders. Seek medical attention right away if you have symptoms of serotonin syndrome, such as: agitation, hallucinations, fever, sweating, shivering, fast heart rate, muscle stiffness, twitching, loss of coordination, nausea, vomiting, or diarrhea. Common side effects may include: sleep problems (insomnia), itching; drowsiness, headache, dizziness, tiredness; or constipation, stomach pain, nausea, vomiting. This is not a complete list of side effects and others may occur. Call your doctor for medical advice about side effects. You may report side effects to FDA at 8-117-XZO-4303. What other drugs will affect oxycodone? You may have a fatal oxycodone overdose if you start or stop using certain medicines. Tell your doctor about all your medications. Tell your doctor about all your medications especially if you use medicine to treat HIV, antibiotic, antifungal medication, or seizure medication. Many other drugs can be dangerous when used with opioid medicine. Tell your doctor if you also use: medicine for allergies, asthma, blood pressure, motion sickness, irritable bowel, or overactive bladder; other opioid medicines, a benzodiazepine sedative like Valium, Klonopin, or Xanax; sleep medicine, muscle relaxers, or other drugs that make you drowsy; or drugs that affect serotonin, such as antidepressants, stimulants, or medicine for migraines or Parkinson's disease. This list is not complete and many other drugs may affect oxycodone. This includes prescription and pyzl-nxz-sxudqxi medicines, vitamins, and herbal products. Not all possible drug interactions are listed here. Where can I get more information? Your doctor or pharmacist can provide more information about oxycodone. Remember, keep this and all other medicines out of the reach of children, never share your medicines with others, and use this medication only for the indication prescribed. Every effort has been made to ensure that the information provided by [employer]. ('[employer]') is accurate, up-to-date, and complete, but no guarantee is made to that effect. Drug information contained herein may be time sensitive. [employer] information has been compiled for use by healthcare practitioners and consumers in the [place] and therefore [employer] does not warrant that uses outside of the [place] are appropriate, unless specifically indicated otherwise. [employer]'s drug information does not endorse drugs, diagnose patients or recommend therapy. The [employer] drug information is an informational resource designed to assist licensed healthcare practitioners in caring for their patients and/or to serve consumers viewing this service as a supplement to, and not a substitute for, the expertise, skill, knowledge and judgment of healthcare practitioners. The absence of a warning for a given drug or drug combination in no way should be construed to indicate that the drug or drug combination is safe, effective or appropriate for any given patient. [employer] does not assume any responsibility for any aspect of healthcare administered with the aid of information [employer] provides. The information contained herein is not intended to cover all possible uses, directions, precautions, warnings, drug interactions, allergic reactions, or adverse effects. If you have questions about the drugs you are taking, check with your doctor, nurse or pharmacist. Copyright 5201-6764 [employer]. Version: 17.01. Revision Date: 03/12/2023. Education Materials Dental Pain A crack or cavity in a tooth can cause tooth pain. This is because the crack or cavity exposes the sensitive inner area of the tooth. An infection in the gum or the root of the tooth can cause pain and swelling. The pain is often made worse when you drink hot or cold beverages. It can also be worse when you bite on hard foods. Pain may spread from the tooth to your ear or the area of the jaw on the same side. Home care Follow these tips when caring for yourself at home: Don't have hot and cold foods and drinks. Your tooth may be sensitive to changes in temperature. Use toothpaste made for sensitive teeth. Yoder gently up and down instead of sideways. Brushing sideways can wear away root surfaces if they are exposed. If your tooth is chipped or cracked, or if there is a large open cavity, put oil of cloves directly on the tooth to relieve pain. You can buy oil of cloves at drugstores. Some pharmacies carry an edtf-xpz-lnzguvn toothache kit. This contains a paste that you can put on the exposed tooth to make it less sensitive. Put a cold pack on your jaw over the sore area to help reduce pain. You may use bmgj-rel-pegbvde medicine to ease pain, unless your doctor prescribed another medicine. If you have chronic liver or kidney disease, talk with your healthcare provider before using acetaminophen or ibuprofen. Also talk with your provider if you ve had a stomach ulcer or GI bleeding. If you have signs of an infection, you will be given an antibiotic. Take it as directed. Follow-up care Follow up with your dentist, or as advised. Your pain may go away with the treatment given today. But only a dentist can fully look at and treat the cause of your pain. This will keep the pain from coming back. Call 911 Call 911 if any of these occur: Unusual drowsiness Headache or stiff neck Weakness or fainting Difficulty swallowing or breathing When to seek medical advice Call your health care provider right away if any of these occur: Your face becomes swollen or red Pain gets worse or spreads to your neck Fever of 100.4 F (38.0 C) or higher, or as directed by your healthcare provider Pus drains from the tooth [id number] [employer]. [address] [place] [address], [place] [address]. All rights reserved. This information is not intended as a substitute for professional medical care. Always follow your healthcare professional's instructions. Additional Information VACCINATE! IT SAVES LIVES! Members of the community who have not yet received the COVID-19 vaccine and would like to receive it can visit one of [facility] vaccine clinics. There are many vaccine clinic locations within the [facility]. For locations and available times, please visit [email or web address] [email or web address] It is important to note that some COVID mobile vaccine clinics are held outdoors and may be canceled in rainy or stormy conditions. To learn more about pediatric vaccinations (ages 5-11), we invite you to visit the [facility] webpage. [email or web address] [email or web address]-Ivwlzerbhni-Freque byac-Npscq-[email or web address].html To learn more about the COVID-19 vaccine, we invite you to visit the CDC website for a list of frequently asked questions. https://www.cdc.gov/coronavirus/2 019-ncov/vaccines/faq.html [facility] [employer] Patient Portal Access Instructions: Stay connected with your healthcare team and access your personal medical information anytime with the [employer] Patient Portal. If you would like a full copy of your medical records please contact the [facility] Medical Records Department Saturday through Saturday between 8a.m. and 4:30p.m. Please follow the directions below to access the portal: 1.Access the email account you provided upon registration to the [facility].2.Look for an invitation email from [facility].3.Open the email and access the invitation link: Accept Invitation to [facility]4.Fill in the required rowe to create your account. Sign into www.Medication Review with your username and password that you created in the above steps to stay up to date. You can then view a summary of results, a summary of your visits, and the ability to download your summaries to your computer or send the information securely to a physician. Remember that your healthcare information is confidential, so carefully consider who you will allow to register on the [employer] Patient Portal for access to your information. You can also access the [employer] Patient Portal on the [employer] janie. Simply click on Health Records under Health Data and then click on the [employer] logo. HOW TO SAFELY DISPOSE OF PRESCRIPTION MEDICATIONS Please use one of the following methods to safely dispose of your unused medications. 1.Use a drug disposal kit: the drug disposal pouch allows you to safely discard your old and unused drugs. Ask your nurse to give you one when you are discharged.2.Visit a local take-back location: Many local pharmacies and police departments have programs that collect old and unwanted prescription drugs. Call your local pharmacy or go to http://bit.Attention Sciences/7X9Uh8e to find one close to you.3.Make use of household items: Use cat litter or old coffee grounds to dispose medications if other options are not available. Mix your drugs with these household products, seal them in an airtight container and throw it into the garbage. Call [facility]: [phone] to be sure your drugs can be disposed of in this way. Some medicines may require a different approach.4.Never flush your medications down the toilet. IF YOU HAVE BEEN PRESCRIBED AN OPIOIDS FOR PAIN If you have been prescribed an opioid (such as hydrocodone, oxycodone or morphine), it is critical to understand the possible side effects and risks of opioid pain medications. Even when taken as directed, opioids can have several side effects including: Tolerance, meaning you might need to take more of a medication for the same pain relief. Nausea, vomiting and/or constipation. Sleepiness, dizziness, dry mouth, confusion, depression or itching. Physical dependence, meaning you have withdrawal symptoms when a medication is stopped ? this can develop within a few days. KNOW YOUR RESPONSIBILITIES It is important to know exactly how much and how often to take the opioid pain medications you are prescribed. Never take opioids in higher amounts or more often than prescribed. Do not combine opioids with alcohol or other drugs that cause drowsiness, such as benzodiazepines, also known as benzos, including diazepam and alprazolam, muscle relaxants or sleep aids. Never sell or share prescription opioids. This is illegal. Store opioids in a secure place and out of reach of others (including children, family, friends and visitors). The last page(s) of this document has been signed and retained as a CHART COPY Signatures Patient Education Materials Dental Pain Medication Leaflets oxycodone My discharge plan and instructions have been reviewed and explained to me and I,ZABRINA, VERONA understand my current condition and have read and understand these discharge instructions. I have received a written copy of the plan/instructions. If I have questions, I am aware that I should contact my doctor. Patient/Data Support Specialist Signature: Date/Time: Relationship to Patient: ____ Witness Name/Signature: Date/Time: [facility] 06-10-2023 Hospital Discharge instructions Patient Education 06/10/2023 01:47:19 Dental Pain Dental Pain A crack or cavity in a tooth can cause tooth pain. This is because the crack or cavity exposes the sensitive inner area of the tooth. An infection in the gum or the root of the tooth can cause pain and swelling. The pain is often made worse when you drink hot or cold beverages. It can also be worse when you bite on hard foods. Pain may spread from the tooth to your ear or the area of the jaw on the same side. Home care Follow these tips when caring for yourself at home: Don't have hot and cold foods and drinks. Your tooth may be sensitive to changes in temperature. Use toothpaste made for sensitive teeth. Yoder gently up and down instead of sideways. Brushing sideways can wear away root surfaces if they are exposed. If your tooth is chipped or cracked, or if there is a large open cavity, put oil of cloves directly on the tooth to relieve pain. You can buy oil of cloves at [employer]. Some pharmacies carry an wvnw-cxo-foyjpaf toothache kit. This contains a paste that you can put on the exposed tooth to make it less sensitive. Put a cold pack on your jaw over the sore area to help reduce pain. You may use urcz-rbg-ztnwrpw medicine to ease pain, unless your doctor prescribed another medicine. If you have chronic liver or kidney disease, talk with your healthcare provider before using acetaminophen or ibuprofen. Also talk with your provider if you ve had a stomach ulcer or GI bleeding. If you have signs of an infection, you will be given an antibiotic. Take it as directed. Follow-up care Follow up with your dentist, or as advised. Your pain may go away with the treatment given today. But only a dentist can fully look at and treat the cause of your pain. This will keep the pain from coming back. Call 911 Call 911 if any of these occur: Unusual drowsiness Headache or stiff neck Weakness or fainting Difficulty swallowing or breathing When to seek medical advice Call your health care provider right away if any of these occur: Your face becomes swollen or red Pain gets worse or spreads to your neck Fever of 100.4 F (38.0 C) or higher, or as directed by your healthcare provider Pus drains from the tooth [id number] [employer]. [address] [place] [address]. All rights reserved. This information is not intended as a substitute for professional medical care. Always follow your healthcare professional's instructions. Follow Up Care 06/10/2023 01:26:51 With:Dental Referral List Address: [facility] Note Discharge Instructions Thank you for allowing [place] to assist you with your healthcare needs. The following is important discharge information regarding your hospital visit. Diagnosis from Today's Visit Odontalgia Pain in tooth x months What to Do Next Instructions from Your Care Team No qualifying data available. Post Acute Orders No qualifying data available. You Need to Schedule the Following Appointments Follow Up with Dental Referral List When Within 2-4 days Where: Allergies Vicodin Medications Please ask your primary doctor or pharmacist before taking any other medication not listed, including over the counter drugs, herbal medications, vitamins and or supplements as they may interact with your home medications. What How Much When Why Instructions Last Dose New acetaminophen-oxyCODONE (Percocet 5 mg-325 mg oral tablet) 1 tab(s) by mouth Every 6 hours as needed for Pain, scale 7-10 Odontalgia Duration: 2 Days Pickup at [facility]/pharmacy #4605 New amoxicillin-clavulanate (amoxicillin-clavulanate 875 mg-125 mg oral tablet) 1 tab(s) by mouth Every 12 hours Duration: 7 Days Pickup at [facility]/pharmacy #4605 New ibuprofen (ibuprofen 600 mg oral tablet) 1 tab(s) by mouth Every 6 hours as needed for Pain, scale 1-6 Duration: 7 Days Take with food or milk. Pickup at [facility]/pharmacy #4605 Unchanged cetirizine (Zyrtec 10 mg oral tablet) 1 tab(s) by mouth Once a day Duration: 10 Days Unchanged fluticasone nasal (Flonase 50 mcg/ inh nasal spray) 1 spray(s) each nostril Two (2) times a day Duration: 7 Days Pharmacy Information [facility]/pharmacy #[id number]: [address], [place] [id number] [phone] Please take this list to your next doctor s visit. Bring all medications you take, including over the counter medications, herbals and other supplements with you to your doctor s visit. Patients and families are reminded to discard old lists and to update any records with all medication providers or retail pharmacies. Education Materials Dental Pain A crack or cavity in a tooth can cause tooth pain. This is because the crack or cavity exposes the sensitive inner area of the tooth. An infection in the gum or the root of the tooth can cause pain and swelling. The pain is often made worse when you drink hot or cold beverages. It can also be worse when you bite on hard foods. Pain may spread from the tooth to your ear or the area of the jaw on the same side. Home care Follow these tips when caring for yourself at home: Don't have hot and cold foods and drinks. Your tooth may be sensitive to changes in temperature. Use toothpaste made for sensitive teeth. Yoder gently up and down instead of sideways. Brushing sideways can wear away root surfaces if they are exposed. If your tooth is chipped or cracked, or if there is a large open cavity, put oil of cloves directly on the tooth to relieve pain. You can buy oil of cloves at [employer]. Some pharmacies carry an qwtg-hag-tqzlcax toothache kit. This contains a paste that you can put on the exposed tooth to make it less sensitive. Put a cold pack on your jaw over the sore area to help reduce pain. You may use pzob-epq-lpwqysd medicine to ease pain, unless your doctor prescribed another medicine. If you have chronic liver or kidney disease, talk with your healthcare provider before using acetaminophen or ibuprofen. Also talk with your provider if you ve had a stomach ulcer or GI bleeding. If you have signs of an infection, you will be given an antibiotic. Take it as directed. Follow-up care Follow up with your dentist, or as advised. Your pain may go away with the treatment given today. But only a dentist can fully look at and treat the cause of your pain. This will keep the pain from coming back. Call 911 Call 911 if any of these occur: Unusual drowsiness Headache or stiff neck Weakness or fainting Difficulty swallowing or breathing When to seek medical advice Call your health care provider right away if any of these occur: Your face becomes swollen or red Pain gets worse or spreads to your neck Fever of 100.4 F (38.0 C) or higher, or as directed by your healthcare provider Pus drains from the tooth [phone] [employer] [address] [place] [address], [place] [address]. All rights reserved. This information is not intended as a substitute for professional medical care. Always follow your healthcare professional's instructions. Additional Information VACCINATE! IT SAVES LIVES! Members of the community who have not yet received the COVID-19 vaccine and would like to receive it can visit one of [facility] vaccine clinics. There are many vaccine clinic locations within the [facility]. For locations and available times, please visit [email or web address] [email or web address] It is important to note that some COVID mobile vaccine clinics are held outdoors and may be canceled in rainy or stormy conditions. To learn more about pediatric vaccinations (ages 5-11), we invite you to visit the [facility] webpage. [email or web address]://[email or web address]/pa [email or web address]-Reahbkshmoo-Freque mphd-[email or web address].html To learn more about the COVID-19 vaccine, we invite you to visit the CDC website for a list of frequently asked questions. https://www.cdc.gov/coronavirus/2 019-ncov/vaccines/faq.html [facility] [employer] Patient Portal Access Instructions: Stay connected with your healthcare team and access your personal medical information anytime with the [place] [facility] [employer] Patient Portal. If you would like a full copy of your medical records please contact the [facility] Medical Records Department Saturday through Saturday between 8a.m. and 4:30p.m. Please follow the directions below to access the portal: 1.Access the email account you provided upon registration to the hospital.2.Look for an invitation email from [facility].3.Open the email and access the invitation link: Accept Invitation to [facility] [employer]4.Fill in the required rowe to create your account. Sign into www.Medication Review with your username and password that you created in the above steps to stay up to date. You can then view a summary of results, a summary of your visits, and the ability to download your summaries to your computer or send the information securely to a physician. Remember that your healthcare information is confidential, so carefully consider who you will allow to register on the [employer] Patient Portal for access to your information. You can also access the [employer] Patient Portal on the [employer] janie. Simply click on Health Records under Health Data and then click on the [employer] logo. HOW TO SAFELY DISPOSE OF PRESCRIPTION MEDICATIONS Please use one of the following methods to safely dispose of your unused medications. 1.Use a drug disposal kit: the drug disposal pouch allows you to safely discard your old and unused drugs. Ask your nurse to give you one when you are discharged.2.Visit a local take-back location: Many local pharmacies and police departments have programs that collect old and unwanted prescription drugs. Call your local pharmacy or go to http://Naplyrics.com.Attention Sciences/6Z5Us0j to find one close to you.3.Make use of household items: Use cat litter or old coffee grounds to dispose medications if other options are not available. Mix your drugs with these household products, seal them in an airtight container and throw it into the garbage. Call [facility]: [phone] to be sure your drugs can be disposed of in this way. Some medicines may require a different approach.4.Never flush your medications down the toilet. IF YOU HAVE BEEN PRESCRIBED AN OPIOIDS FOR PAIN If you have been prescribed an opioid (such as hydrocodone, oxycodone or morphine), it is critical to understand the possible side effects and risks of opioid pain medications. Even when taken as directed, opioids can have several side effects including: Tolerance, meaning you might need to take more of a medication for the same pain relief. Nausea, vomiting and/or constipation. Sleepiness, dizziness, dry mouth, confusion, depression or itching. Physical dependence, meaning you have withdrawal symptoms when a medication is stopped ? this can develop within a few days. KNOW YOUR RESPONSIBILITIES It is important to know exactly how much and how often to take the opioid pain medications you are prescribed. Never take opioids in higher amounts or more often than prescribed. Do not combine opioids with alcohol or other drugs that cause drowsiness, such as benzodiazepines, also known as benzos, including diazepam and alprazolam, muscle relaxants or sleep aids. Never sell or share prescription opioids. This is illegal. Store opioids in a secure place and out of reach of others (including children, family, friends and visitors). The last page(s) of this document has been signed and retained as a CHART COPY Signatures Patient Education Materials Dental Pain Medication Leaflets My discharge plan and instructions have been reviewed and explained to me and I,ZABRINA VERONA understand my current condition and have read and understand these discharge instructions. I have received a written copy of the plan/instructions. If I have questions, I am aware that I should contact my doctor. Patient/Data Support Specialist Signature: Date/Time: Relationship to Patient: ____ Witness Name/Signature: Date/Time: [facility] 05-05-2023 Note Discharge Instructions Thank you for allowing [place] [facility] to assist you with your healthcare needs. The following is important discharge information regarding your hospital visit. Diagnosis from Today's Visit Chest pain Chest pain What to Do Next Instructions from Your Care Team Follow-up with your primary care provider. Follow-up with cardiovascular consultants, Dr. Mota or other movement assembler there for chest pain. Return the emergency department if you experience worsening symptoms or any other care concern. No qualifying data available. Post Acute Orders No qualifying data available. You Need to Schedule the Following Appointments Follow Up with ELIUD DEVLIN MD When Within 2-4 days Where: [address] [facility] [address] [facility] [place] [phone] Follow Up with Go to emergency room if symptoms worsen When Within 2-4 days Follow Up with CRISTHIAN SAMS When Within 2-4 days Allergies Vicodin Medications Please ask your primary doctor or pharmacist before taking any other medication not listed, including over the counter drugs, herbal medications, vitamins and or supplements as they may interact with your home medications. What How Much When Instructions Last Dose Unchanged cetirizine (Zyrtec 10 mg oral tablet) 1 tab(s) by mouth Once a day Duration: 10 Days Unchanged fluticasone nasal (Flonase 50 mcg/ inh nasal spray) 1 spray(s) each nostril Two (2) times a day Duration: 7 Days Please take this list to your next doctor s visit. Bring all medications you take, including over the counter medications, herbals and other supplements with you to your doctor s visit. Patients and families are reminded to discard old lists and to update any records with all medication providers or retail pharmacies. Education Materials Uncertain Causes of Chest Pain Chest pain can happen for a number of reasons. Sometimes the cause can't be determined. If your condition does not seem serious, and your pain does not appear to be coming from your heart, your healthcare provider may recommend watching it closely. Sometimes the signs of a serious problem take more time to appear. Many problems not related to your heart can cause chest pain. These include: Musculoskeletal. Costochondritis is an inflammation of the tissues around the ribs that can occur from trauma or overuse injuries, or a strain of the muscles of the chest wall Respiratory. Pneumonia, collapsed lung (pneumothorax), or inflammation of the lining of the chest and lungs (pleurisy) Gastrointestinal. Esophageal reflux, heartburn, ulcers, or gallbladder disease Anxiety and panic disorders Nerve compression and inflammation Rare miscellaneous problems such as aortic aneurysm (a swelling of the large artery coming out of the heart) or pulmonary embolism (a blood clot in the lungs) Home care After your visit, follow these recommendations: Rest today and avoid strenuous activity. Take any prescribed medicine as directed. Be aware of any recurrent chest pain and notice any changes Follow-up care Follow up with your healthcare provider if you do not start to feel better within 24 hours, or as advised. Call 911 Call 911 if any of these occur: A change in the type of pain: if it feels different, becomes more severe, lasts longer, or begins to spread into your shoulder, arm, neck, jaw or back Shortness of breath or increased pain with breathing Weakness, dizziness, or fainting Rapid heart beat Crushing sensation in your chest When to seek medical advice Call your healthcare provider right away if any of the following occur: Cough with dark colored sputum (phlegm) or blood Fever of 100.4 F (38 C) or higher, or as directed by your healthcare provider Swelling, pain or redness in one leg [id number] [employer]. [address] [place] [address], [place] [address]. All rights reserved. This information is not intended as a substitute for professional medical care. Always follow your healthcare professional's instructions. Additional Information VACCINATE! IT SAVES LIVES! Members of the community who have not yet received the COVID-19 vaccine and would like to receive it can visit one of [facility] vaccine clinics. There are many vaccine clinic locations within the [facility]. For locations and available times, please visit [email or web address] [email or web address] It is important to note that some COVID mobile vaccine clinics are held outdoors and may be canceled in rainy or stormy conditions. To learn more about pediatric vaccinations (ages 5-11), we invite you to visit the [facility] webpage. [email or web address]/pa [email or web address]-Ggptypecqok-[email or web address] dafl-[email or web address].html To learn more about the COVID-19 vaccine, we invite you to visit the CDC website for a list of frequently asked questions. https://www.cdc.gov/coronavirus/2 019-ncov/vaccines/faq.html [employer] Patient Portal Access Instructions: Stay connected with your healthcare team and access your personal medical information anytime with the [employer] Patient Portal. If you would like a full copy of your medical records please contact the [facility] Medical Records Department Saturday through Saturday between 8a.m. and 4:30p.m. Please follow the directions below to access the portal: 1.Access the email account you provided upon registration to the hospital.2.Look for an invitation email from [facility].3.Open the email and access the invitation link: Accept Invitation to [employer]4.Fill in the required rowe to create your account. Sign into www.Medication Review with your username and password that you created in the above steps to stay up to date. You can then view a summary of results, a summary of your visits, and the ability to download your summaries to your computer or send the information securely to a physician. Remember that your healthcare information is confidential, so carefully consider who you will allow to register on the [employer] Patient Portal for access to your information. You can also access the [employer] Patient Portal on the [employer] janie. Simply click on Health Records under Health Data and then click on the [employer] logo. HOW TO SAFELY DISPOSE OF PRESCRIPTION MEDICATIONS Please use one of the following methods to safely dispose of your unused medications. 1.Use a drug disposal kit: the drug disposal pouch allows you to safely discard your old and unused drugs. Ask your nurse to give you one when you are discharged.2.Visit a local take-back location: Many local pharmacies and police departments have programs that collect old and unwanted prescription drugs. Call your local pharmacy or go to http://Naplyrics.com.Attention Sciences/7A4Br8j to find one close to you.3.Make use of household items: Use cat litter or old coffee grounds to dispose medications if other options are not available. Mix your drugs with these household products, seal them in an airtight container and throw it into the garbage. Call [facility]: [phone] to be sure your drugs can be disposed of in this way. Some medicines may require a different approach.4.Never flush your medications down the toilet. IF YOU HAVE BEEN PRESCRIBED AN OPIOIDS FOR PAIN If you have been prescribed an opioid (such as hydrocodone, oxycodone or morphine), it is critical to understand the possible side effects and risks of opioid pain medications. Even when taken as directed, opioids can have several side effects including: Tolerance, meaning you might need to take more of a medication for the same pain relief. Nausea, vomiting and/or constipation. Sleepiness, dizziness, dry mouth, confusion, depression or itching. Physical dependence, meaning you have withdrawal symptoms when a medication is stopped ? this can develop within a few days. KNOW YOUR RESPONSIBILITIES It is important to know exactly how much and how often to take the opioid pain medications you are prescribed. Never take opioids in higher amounts or more often than prescribed. Do not combine opioids with alcohol or other drugs that cause drowsiness, such as benzodiazepines, also known as benzos, including diazepam and alprazolam, muscle relaxants or sleep aids. Never sell or share prescription opioids. This is illegal. Store opioids in a secure place and out of reach of others (including children, family, friends and visitors). The last page(s) of this document has been signed and retained as a CHART COPY Signatures Patient Education Materials Chest Pain, Uncertain Cause Medication Leaflets My discharge plan and instructions have been reviewed and explained to me and I,ZABRINA, VERONA understand my current condition and have read and understand these discharge instructions. I have received a written copy of the plan/instructions. If I have questions, I am aware that I should contact my doctor. Patient/Data Support Specialist Signature: Date/Time: Relationship to Patient: ____ Witness Name/Signature: Date/Time: [facility] 05-05-2023 Hospital Discharge instructions Patient Education 05/05/2023 20:09:41 Chest Pain, Uncertain Cause Uncertain Causes of Chest Pain Chest pain can happen for a number of reasons. Sometimes the cause can't be determined. If your condition does not seem serious, and your pain does not appear to be coming from your heart, your healthcare provider may recommend watching it closely. Sometimes the signs of a serious problem take more time to appear. Many problems not related to your heart can cause chest pain. These include: Musculoskeletal. Costochondritis is an inflammation of the tissues around the ribs that can occur from trauma or overuse injuries, or a strain of the muscles of the chest wall Respiratory. Pneumonia, collapsed lung (pneumothorax), or inflammation of the lining of the chest and lungs (pleurisy) Gastrointestinal. Esophageal reflux, heartburn, ulcers, or gallbladder disease Anxiety and panic disorders Nerve compression and inflammation Rare miscellaneous problems such as aortic aneurysm (a swelling of the large artery coming out of the heart) or pulmonary embolism (a blood clot in the lungs) Home care After your visit, follow these recommendations: Rest today and avoid strenuous activity. Take any prescribed medicine as directed. Be aware of any recurrent chest pain and notice any changes Follow-up care Follow up with your healthcare provider if you do not start to feel better within 24 hours, or as advised. Call 911 Call 911 if any of these occur: A change in the type of pain: if it feels different, becomes more severe, lasts longer, or begins to spread into your shoulder, arm, neck, jaw or back Shortness of breath or increased pain with breathing Weakness, dizziness, or fainting Rapid heart beat Crushing sensation in your chest When to seek medical advice Call your healthcare provider right away if any of the following occur: Cough with dark colored sputum (phlegm) or blood Fever of 100.4 F (38 C) or higher, or as directed by your healthcare provider Swelling, pain or redness in one leg 1159-[address] [employer] [place] [address]. All rights reserved. This information is not intended as a substitute for professional medical care. Always follow your healthcare professional's instructions. Follow Up Care 05/05/2023 19:51:27 With:ELIUD DEVLIN MD Address: [address] [place] [address] [id number] [facility] [place] [address] [phone] When:2-4 days With:Go to emergency room if symptoms worsen Address:Unknown When:2-4 days With:CRISTHIAN SAMS Address:Unknown When:2-4 days [facility] 05-05-2023 Note ORIGINAL EXAMINATION: ONE XRAY VIEW OF THE CHEST 05/05/2023 8:35 pm COMPARISON: 06/07/2021 HISTORY: ORDERING SYSTEM PROVIDED HISTORY: Reason for Exam: sob FINDINGS: There is hypoinflation with accentuation of the cardiomediastinal silhouette and increased bronchovascular markings. There is no consolidation or pleural effusion. There is no pulmonary vascular congestion. There is no pneumothorax. Osseous structures demonstrate mild dextro scoliosis. IMPRESSION: 1. There is no consolidation or effusion. Interpreted by: Manoj Portillo Preliminary Report By: Manoj Portillo Electronically signed By Manoj Portillo Dictated Date: 05/05/2023 8:43:48 PM Prelim Date: 05/05/2023 8:53:00 PM Sign Date: 05/05/2023 8:53:00 PM Ordering Provider: CORRIE ROJO [facility] 05-05-2023 Note Sinus rhythm Anteroseptal infarct, age indeterminate Electronic Signature: CORRIE ROJO DO 05/05/2023 20:08:03 [facility] 11-21-2022 Hospital Discharge instructions Patient Education 11/21/2022 11:27:23 Diagnosing Middle Ear Problems Diagnosing Middle Ear Problems The healthcare provider checks your child's eardrum with a pneumatic otoscope. To diagnose a middle ear problem takes several steps. You may be asked questions about your child s health history. Your child s eardrums will be examined. Tests may be done to check the health of the middle ear. Other tests may be done to check for hearing loss. Below is more information about the exam and tests. Physical exam A physical exam helps figure out the type of ear problem your child may have. The exam will also help identify respiratory illnesses. These can include bronchitis, pneumonia, or strep throat. They can affect middle ear health and hearing. The exam involves listening to your child s heart and lungs. The doctor will look in your child s ears, nose, and throat. Viewing the eardrum A test called pneumatic otoscopy may be done. It takes a few minutes and rarely causes discomfort. A special device (otoscope) is used to look down the ear canal. This lets the healthcare provider see the eardrum and any fluid behind it. The device can also be used to change the air pressure in the ear canal. This lets the healthcare provider see how flexible the eardrum is. Reduced eardrum flexibility is often linked with fluid buildup. Checking the middle ear Your child s eardrum and middle ear may be tested. Tympanometry and acoustic reflex testing may be done. Both use a probe to send air and sound through the outer ear. Tympanometry measures the sound passed into the middle ear. Acoustic reflex testing checks the flexibility of the eardrum and how it responds to loud sounds. Identifying hearing loss Older children may be given an audiometric test. This measures any possible hearing loss. Test results are used to identify the types of sounds that can and can t be heard. If your child is young, the healthcare provider or a hearing dog trainer may talk or play with them. The child s response helps identify hearing loss. [id number] [employer]. [address] [place] [address], [place] [address]. All rights reserved. This information is not intended as a substitute for professional medical care. Always follow your healthcare professional's instructions. 11/21/2022 11:27:20 URI, Viral, No Abx (Adult) Viral Upper Respiratory Illness (Adult) You have a viral upper respiratory illness (URI), which is another term for the common cold. This illness is contagious during the first few days. It is spread through the air by coughing and sneezing. It may also be spread by direct contact (touching the sick person and then touching your own eyes, nose, or mouth). Frequent handwashing will decrease risk of spread. Most viral illnesses go away within 7 to 10 days with rest and simple home remedies. Sometimes the illness may last for several weeks. Antibiotics will not kill a virus, and they are generally not prescribed for this condition. Home care If symptoms are severe, rest at home for the first 2 to 3 days. When you resume activity, don't let yourself get too tired. Don't smoke. If you need help stopping, talk with your healthcare provider. Avoid being exposed to cigarette smoke (yours or others ). You may use acetaminophen or ibuprofen to control pain and fever, unless another medicine was prescribed. If you have chronic liver or kidney disease, have ever had a stomach ulcer or gastrointestinal bleeding, or are taking blood-thinning medicines, talk with your healthcare provider before using these medicines. Aspirin should never be given to anyone under 18 years of age who is ill with a viral infection or fever. It may cause severe liver or brain damage. Your appetite may be poor, so a light diet is fine. Stay well hydrated by drinking 6 to 8 glasses of fluids per day (water, soft drinks, juices, tea, or soup). Extra fluids will help loosen secretions in the nose and lungs. Mesw-esw-qrqynuh cold medicines will not shorten the length of time you re sick, but they may be helpful for the following symptoms: cough, sore throat, and nasal and sinus congestion. If you take prescription medicines, ask your healthcare provider or pharmacist which aofr-lwi-bppokmm medicines are safe to use. (Note: Don't use decongestants if you have high blood pressure.) Follow-up care Follow up with your healthcare provider, or as advised. When to seek medical advice Call your healthcare provider right away if any of these occur: Cough with lots of colored sputum (mucus) Severe headache; face, neck, or ear pain Difficulty swallowing due to throat pain Fever of 100.4 F (38 C) or higher, or as directed by your healthcare provider Call 911 Call 911 if any of these occur: Chest pain, shortness of breath, wheezing, or difficulty breathing Coughing up blood Very severe pain with swallowing, especially if it goes along with a muffled voice [id number] [employer]. [address] [place] [address]. All rights reserved. This information is not intended as a substitute for professional medical care. Always follow your healthcare professional's instructions. Follow Up Care 11/21/2022 10:44:49 With:CRISTHIAN SAMS Address: When:2-4 days Comments:Make an appointment in 2 to 4 days with your physician. Return if you are worse in any way. [facility] 11-21-2022 Emergency department Discharge summary Discharge Instructions Thank you for allowing [facility] to assist you with your healthcare needs. The following is important discharge information regarding your hospital visit. Diagnosis from Today's Visit Acute URI Ear ache Eustachian tube dysfunction What to Do Next Instructions from Your Care Team No qualifying data available. Post Acute Orders No qualifying data available. You Need to Schedule the Following Appointments Follow Up with CRISTHIAN SAMS When Within 2-4 days Why: Make an appointment in 2 to 4 days with your physician. Return if you are worse in any way. Where: Allergies Vicodin Medications Please ask your primary doctor or pharmacist before taking any other medication not listed, including over the counter drugs, herbal medications, vitamins and or supplements as they may interact with your home medications. What How Much When Instructions Last Dose New cetirizine (Zyrtec 10 mg oral tablet) 1 tab(s) by mouth Once a day Duration: 10 Days Printed Prescription New fluticasone nasal (Flonase 50 mcg/ inh nasal spray) 1 spray(s) each nostril Two (2) times a day Duration: 7 Days Printed Prescription Please take this list to your next doctor s visit. Bring all medications you take, including over the counter medications, herbals and other supplements with you to your doctor s visit. Patients and families are reminded to discard old lists and to update any records with all medication providers or retail pharmacies. Education Materials Diagnosing Middle Ear Problems The healthcare provider checks your child's eardrum with a pneumatic otoscope. To diagnose a middle ear problem takes several steps. You may be asked questions about your child s health history. Your child s eardrums will be examined. Tests may be done to check the health of the middle ear. Other tests may be done to check for hearing loss. Below is more information about the exam and tests. Physical exam A physical exam helps figure out the type of ear problem your child may have. The exam will also help identify respiratory illnesses. These can include bronchitis, pneumonia, or strep throat. They can affect middle ear health and hearing. The exam involves listening to your child s heart and lungs. The doctor will look in your child s ears, nose, and throat. Viewing the eardrum A test called pneumatic otoscopy may be done. It takes a few minutes and rarely causes discomfort. A special device (otoscope) is used to look down the ear canal. This lets the healthcare provider see the eardrum and any fluid behind it. The device can also be used to change the air pressure in the ear canal. This lets the healthcare provider see how flexible the eardrum is. Reduced eardrum flexibility is often linked with fluid buildup. Checking the middle ear Your child s eardrum and middle ear may be tested. Tympanometry and acoustic reflex testing may be done. Both use a probe to send air and sound through the outer ear. Tympanometry measures the sound passed into the middle ear. Acoustic reflex testing checks the flexibility of the eardrum and how it responds to loud sounds. Identifying hearing loss Older children may be given an audiometric test. This measures any possible hearing loss. Test results are used to identify the types of sounds that can and can t be heard. If your child is young, the healthcare provider or a hearing dog trainer may talk or play with them. The child s response helps identify hearing loss. [id number] [employer]. [address] [place] [address], [place] [address]. All rights reserved. This information is not intended as a substitute for professional medical care. Always follow your healthcare professional's instructions. Viral Upper Respiratory Illness (Adult) You have a viral upper respiratory illness (URI), which is another term for the common cold. This illness is contagious during the first few days. It is spread through the air by coughing and sneezing. It may also be spread by direct contact (touching the sick person and then touching your own eyes, nose, or mouth). Frequent handwashing will decrease risk of spread. Most viral illnesses go away within 7 to 10 days with rest and simple home remedies. Sometimes the illness may last for several weeks. Antibiotics will not kill a virus, and they are generally not prescribed for this condition. Home care If symptoms are severe, rest at home for the first 2 to 3 days. When you resume activity, don't let yourself get too tired. Don't smoke. If you need help stopping, talk with your healthcare provider. Avoid being exposed to cigarette smoke (yours or others ). You may use acetaminophen or ibuprofen to control pain and fever, unless another medicine was prescribed. If you have chronic liver or kidney disease, have ever had a stomach ulcer or gastrointestinal bleeding, or are taking blood-thinning medicines, talk with your healthcare provider before using these medicines. Aspirin should never be given to anyone under 18 years of age who is ill with a viral infection or fever. It may cause severe liver or brain damage. Your appetite may be poor, so a light diet is fine. Stay well hydrated by drinking 6 to 8 glasses of fluids per day (water, soft drinks, juices, tea, or soup). Extra fluids will help loosen secretions in the nose and lungs. Zkvu-jcc-kdqatrh cold medicines will not shorten the length of time you re sick, but they may be helpful for the following symptoms: cough, sore throat, and nasal and sinus congestion. If you take prescription medicines, ask your healthcare provider or pharmacist which odgp-nsc-lsmjery medicines are safe to use. (Note: Don't use decongestants if you have high blood pressure.) Follow-up care Follow up with your healthcare provider, or as advised. When to seek medical advice Call your healthcare provider right away if any of these occur: Cough with lots of colored sputum (mucus) Severe headache; face, neck, or ear pain Difficulty swallowing due to throat pain Fever of 100.4 F (38 C) or higher, or as directed by your healthcare provider Call 911 Call 911 if any of these occur: Chest pain, shortness of breath, wheezing, or difficulty breathing Coughing up blood Very severe pain with swallowing, especially if it goes along with a muffled voice [id number] [employer]. [address] [place] [address]. All rights reserved. This information is not intended as a substitute for professional medical care. Always follow your healthcare professional's instructions. Additional Information VACCINATE! IT SAVES LIVES! Members of the community who have not yet received the COVID-19 vaccine and would like to receive it can visit one of [facility] vaccine clinics. There are many vaccine clinic locations within the [facility]. For locations and available times, please visit [email or web address] [email or web address] It is important to note that some COVID mobile vaccine clinics are held outdoors and may be canceled in rainy or stormy conditions. To learn more about pediatric vaccinations (ages 5-11), we invite you to visit the [facility] webpage. [email or web address] To learn more about the COVID-19 vaccine, we invite you to visit the CDC website for a list of frequently asked questions. https://www.cdc.gov/coronavirus/2 019-ncov/vaccines/faq.html [employer] Patient Portal Access Instructions: Stay connected with your healthcare team and access your personal medical information anytime with the [employer] Patient Portal. If you would like a full copy of your medical records please contact the [facility] Medical Records Department Saturday through Saturday between 8a.m. and 4:30p.m. Please follow the directions below to access the portal: 1.Access the email account you provided upon registration to the hospital.2.Look for an invitation email from [facility].3.Open the email and access the invitation link: Accept Invitation to [employer]4.Fill in the required rowe to create your account. Sign into www.Medication Review with your username and password that you created in the above steps to stay up to date. You can then view a summary of results, a summary of your visits, and the ability to download your summaries to your computer or send the information securely to a physician. Remember that your healthcare information is confidential, so carefully consider who you will allow to register on the [employer] Patient Portal for access to your information. You can also access the [employer] Patient Portal on the [employer] janie. Simply click on Health Records under Health Data and then click on the [employer] logo. HOW TO SAFELY DISPOSE OF PRESCRIPTION MEDICATIONS Please use one of the following methods to safely dispose of your unused medications. 1.Use a drug disposal kit: the drug disposal pouch allows you to safely discard your old and unused drugs. Ask your nurse to give you one when you are discharged.2.Visit a local take-back location: Many local pharmacies and police departments have programs that collect old and unwanted prescription drugs. Call your local pharmacy or go to http://Naplyrics.com.Attention Sciences/3C8Zt5y to find one close to you.3.Make use of household items: Use cat litter or old coffee grounds to dispose medications if other options are not available. Mix your drugs with these household products, seal them in an airtight container and throw it into the garbage. Call [facility]: [phone] to be sure your drugs can be disposed of in this way. Some medicines may require a different approach.4.Never flush your medications down the toilet. IF YOU HAVE BEEN PRESCRIBED AN OPIOIDS FOR PAIN If you have been prescribed an opioid (such as hydrocodone, oxycodone or morphine), it is critical to understand the possible side effects and risks of opioid pain medications. Even when taken as directed, opioids can have several side effects including: Tolerance, meaning you might need to take more of a medication for the same pain relief. Nausea, vomiting and/or constipation. Sleepiness, dizziness, dry mouth, confusion, depression or itching. Physical dependence, meaning you have withdrawal symptoms when a medication is stopped ? this can develop within a few days. KNOW YOUR RESPONSIBILITIES It is important to know exactly how much and how often to take the opioid pain medications you are prescribed. Never take opioids in higher amounts or more often than prescribed. Do not combine opioids with alcohol or other drugs that cause drowsiness, such as benzodiazepines, also known as benzos, including diazepam and alprazolam, muscle relaxants or sleep aids. Never sell or share prescription opioids. This is illegal. Store opioids in a secure place and out of reach of others (including children, family, friends and visitors). The last page(s) of this document has been signed and retained as a CHART COPY Signatures Patient Education Materials Diagnosing Middle Ear Problems URI, Viral, No Abx (Adult) Medication Leaflets My discharge plan and instructions have been reviewed and explained to me and I,SARAH AVALOSANDA understand my current condition and have read and understand these discharge instructions. I have received a written copy of the plan/instructions. If I have questions, I am aware that I should contact my doctor. Patient/Data Support Specialist Signature: Date/Time: Relationship to Patient: ____ Witness Name/Signature: Date/Time: [facility] 03-30-2022 Hospital Discharge instructions Patient Education 03/30/2022 20:30:59 ABSCESS, I and D Abscess [Incision & Drainage] An abscess (sometimes called a boil ) occurs when bacteria get trapped under the skin and begin to grow. Pus forms inside the abscess as the body responds to the bacteria. An abscess can occur with an insect bite, ingrown hair, blocked oil gland, pimple, cyst, or puncture wound. Treatment of your abscess has required an incision to drain the pus. If the abscess pocket was large, a gauze packing may have been inserted. This will need to be removed and possibly replaced on your next visit. Antibiotics are not required in the treatment of a simple abscess, unless the infection is spreading into the skin around the wound (known as cellulitis ). Healing of the wound will take about one to two weeks depending on the size of the abscess. Healthy tissue will grow from the bottom and sides of the opening until it seals over. Home Care: The wound may drain for the first two days. Cover the wound with a clean dry dressing. If the dressing becomes soaked with blood or pus, change it. If a gauze packing was placed inside the abscess cavity, you may be advised to remove it yourself. You may do this in the shower. Once the packing is removed, you should wash the area in the shower or bath 3 to 4 times a day, until the skin opening has closed. If you were prescribed antibiotics, take them as directed until they are all gone. You may use acetaminophen (Tylenol) or ibuprofen (Motrin, Advil) to control pain, unless another pain medicine was prescribed. [ NOTE: If you have liver disease or ever had a stomach ulcer, talk with your doctor before using these medicines.] Follow Up with your doctor as advised by our staff. If a gauze packing was inserted in your wound, it should be removed in 1-2 days. Check your wound every day for the signs of worsening infection listed below. Get Prompt Medical Attention if any of the following occur: Increasing redness or swelling Red streaks in the skin leading away from the wound Increasing local pain or swelling Continued pus draining from the wound two days after treatment Fever of 100.4 F (38 C) or higher, or as directed by your healthcare provider 2650-3064 [employer]. [address] [place] [address]. All rights reserved. This information is not intended as a substitute for professional medical care. Always follow your healthcare professional's instructions. Follow Up Care 03/30/2022 19:32:40 With:CRISTHIAN SAMS Address:Unknown When:2-4 days [facility] 03-30-2022 Emergency department Discharge summary Discharge Instructions Thank you for allowing [facility] to assist you with your healthcare needs. The following is important discharge information regarding your hospital visit. Diagnosis from Today's Visit Abscess of axilla, right Abscess - axilla What to Do Next Instructions from Your Care Team No qualifying data available. Post Acute Orders No qualifying data available. You Need to Schedule the Following Appointments Follow Up with CRISTHIAN SAMS When Within 2-4 days Allergies Vicodin Medications Please ask your primary doctor or pharmacist before taking any other medication not listed, including over the counter drugs, herbal medications, vitamins and or supplements as they may interact with your home medications. What How Much When Instructions Last Dose New cephalexin (cephalexin 500 mg oral capsule) 1 cap by mouth Four (4) times a day Duration: 7 Days Printed Prescription New sulfamethoxazole-trimethoprim (Bactrim DS 800 mg-160 mg oral tablet) 1 tab(s) by mouth Two (2) times a day Duration: 7 Days Printed Prescription Please take this list to your next doctor s visit. Bring all medications you take, including over the counter medications, herbals and other supplements with you to your doctor s visit. Patients and families are reminded to discard old lists and to update any records with all medication providers or retail pharmacies. Medication Leaflets sulfamethoxazole and trimethoprim (oral/injection) (SUL fa meth OX a zole and trye METH oh prim) Bactrim, Bactrim DS, SMZ-TMP DS, Sulfatrim Pediatric What is the most important information I should know about sulfamethoxazole and trimethoprim? Use only as directed. Tell your doctor if you use other medicines or have other medical conditions or allergies. What is sulfamethoxazole and trimethoprim? Sulfamethoxazole and trimethoprim is a combination antibiotic used to treat ear infections, urinary tract infections, bronchitis, traveler's diarrhea, shigellosis, and Pneumocystis jiroveci pneumonia. Sulfamethoxazole and trimethoprim may also be used for purposes not listed in this medication guide. What should I discuss with my healthcare provider before using sulfamethoxazole and trimethoprim? You should not use this medicine if you are allergic to sulfamethoxazole or trimethoprim, or if you have: severe liver disease; kidney disease that is not being treated or monitored; anemia (low red blood cells) caused by folic acid deficiency; a history of low blood platelets after taking trimethoprim or any sulfa drug; or if you take dofetilide. May cause defects. Do not use if you are . Tell your doctor if you become . Do not breastfeed. This medicine should not be given to a child younger than 2 months old. Tell your doctor if you have ever had: kidney or liver disease; a folate (folic acid) deficiency; asthma or severe allergies; HIV or AIDS; a thyroid disorder; malnourishment; alcoholism; an electrolyte imbalance (such as low blood sodium or high potassium); porphyria, or qrmygpo-9-oybhbajmt dehydrogenase (G6PD) deficiency; or if you use a blood thinner (such as warfarin) and you have routine 'INR' or prothrombin time tests. How should I use sulfamethoxazole and trimethoprim? Follow all directions on your prescription label and read all medication guides or instruction sheets. Use the medicine exactly as directed. Sulfamethoxazole and trimethoprim oral is taken by mouth. Shake the oral suspension (liquid). Measure a dose with the supplied measuring device (not a kitchen spoon). Sulfamethoxazole and trimethoprim injection is given in a vein. Be sure you understand how to properly mix this medicine with a liquid (diluent) and how to store the mixture. Ask your doctor or pharmacist if you don't understand how to use an injection. Prepare an injection only when you are ready to give it. Call your pharmacist if the medicine looks cloudy, has changed colors, or has particles in it. Mixed medicine must be used within 2 to 6 hours depending on the amount of diluent in the mixture. Follow your doctor's instructions. Do not refrigerate mixed medicine. Do not reuse a needle or syringe. Place them in a puncture-proof 'sharps' container and dispose of it following state or local laws. Keep out of the reach of children and pets. Drink plenty of fluids to prevent kidney stones. Antibiotic medicines can cause diarrhea. Tell your doctor if you have diarrhea that is watery or bloody. Keep using this medicine even if your symptoms quickly improve. Skipping doses could make your infection resistant to medication. Sulfamethoxazole and trimethoprim will not treat a viral infection (flu or a common cold). You may need blood and urine tests, and this medicine may be stopped based on the results. Store at room temperature away from moisture, heat, and light. Do not refrigerate. What happens if I miss a dose? Use the medicine as soon as you can, but skip the missed dose if it is almost time for your next dose. Do not use two doses at one time. What happens if I overdose? Seek emergency medical attention or call the Poison Help line at . Overdose symptoms may include loss of appetite, vomiting, fever, blood in your urine, yellowing of your skin or eyes, confusion, or loss of consciousness. What should I avoid while using sulfamethoxazole and trimethoprim? If you use the injection form of this medicine, do not eat or drink anything that contains propylene glycol (an ingredient in many processed foods, soft drinks, and medicines). Dangerous effects could occur. Sulfamethoxazole and trimethoprim could make you sunburn more easily. Avoid sunlight or tanning beds. Wear protective clothing and use sunscreen (SPF 30 or higher) when you are outdoors. What are the possible side effects of sulfamethoxazole and trimethoprim? Get emergency medical help if you have signs of an allergic reaction (hives, cough, chest pain, shortness of breath, swelling in your face or throat) or a severe skin reaction (fever, sore throat, burning eyes, skin pain, red or purple skin rash with blistering and peeling). Seek medical treatment if you have a serious drug reaction that can affect many parts of your body. Symptoms may include: skin rash, fever, swollen glands, joint pain, muscle aches, severe weakness, pale skin, unusual bruising, or yellowing of your skin or eyes. Call your doctor at once if you have: severe stomach pain, diarrhea that is watery or bloody (even if it occurs months after your last dose); any skin rash, no matter how mild; yellowing of your skin or eyes; a seizure; new or unusual joint pain; increased or decreased urination; swelling, bruising, or irritation around the IV needle; increased thirst, dry mouth, fruity breath odor; new or worsening cough, fever, trouble breathing; high blood potassium--nausea, weakness, tingly feeling, chest pain, irregular heartbeats, loss of movement; low blood sodium--headache, confusion, problems with thinking or memory, weakness, feeling unsteady; or low blood cell counts--fever, chills, mouth sores, skin sores, easy bruising, unusual bleeding, pale skin, cold hands and feet, feeling light-headed or short of breath. Common side effects may include: nausea, vomiting, loss of appetite; or skin rash. This is not a complete list of side effects and others may occur. Call your doctor for medical advice about side effects. You may report side effects to FDA at 2-462-TFU-3585. What other drugs will affect sulfamethoxazole and trimethoprim? You may need more frequent check-ups or medical tests if you also use medicine to treat depression, diabetes, seizures, or HIV. Tell your doctor about all your current medicines. Many drugs can affect sulfamethoxazole and trimethoprim, especially: amantadine, digoxin, cyclosporine, indomethacin, leucovorin, methotrexate, procainamide, pyrimethamine; an 'FELIPE inhibitor' heart or blood presure medication (benazepril, enalapril, lisinopril, quinapril, ramipril, and others); or a diuretic or 'water pill'. This list is not complete and many other drugs may affect sulfamethoxazole and trimethoprim. This includes prescription and fuau-zoz-tzxgrnr medicines, vitamins, and herbal products. Not all possible drug interactions are listed here. Where can I get more information? Your pharmacist can provide more information about sulfamethoxazole and trimethoprim. Remember, keep this and all other medicines out of the reach of children, never share your medicines with others, and use this medication only for the indication prescribed. Every effort has been made to ensure that the information provided by [employer]. [employer]') is accurate, up-to-date, and complete, but no guarantee is made to that effect. Drug information contained herein may be time sensitive. [employer] information has been compiled for use by healthcare practitioners and consumers in the [place] and therefore [employer] does not warrant that uses outside of the [place] are appropriate, unless specifically indicated otherwise. [employer]'s drug information does not endorse drugs, diagnose patients or recommend therapy. The [employer] drug information is an informational resource designed to assist licensed healthcare practitioners in caring for their patients and/or to serve consumers viewing this service as a supplement to, and not a substitute for, the expertise, skill, knowledge and judgment of healthcare practitioners. The absence of a warning for a given drug or drug combination in no way should be construed to indicate that the drug or drug combination is safe, effective or appropriate for any given patient. [employer] does not assume any responsibility for any aspect of healthcare administered with the aid of information [employer] provides. The information contained herein is not intended to cover all possible uses, directions, precautions, warnings, drug interactions, allergic reactions, or adverse effects. If you have questions about the drugs you are taking, check with your doctor, nurse or pharmacist. Copyright 1061-2011 [employer]. Version: .. Revision Date: 10/17/2020. cephalexin (sef a JOSIAH in) Keflex What is the most important information I should know about cephalexin? You should not use this medicine if you are allergic to cephalexin or to similar antibiotics, such as Ceftin, Cefzil, Omnicef, and others. Tell your doctor if you are allergic to any drugs, especially penicillins or other antibiotics. What is cephalexin? Cephalexin is a cephalosporin (SEF a low spor in) antibiotic that is used to treat bacterial infections of the lungs, ear, skin, bones, bladder, and kidneys. Cephalexin is used to treat infections in adults and children who are at least 1 year old. Cephalexin may also be used for purposes not listed in this medication guide. What should I discuss with my healthcare provider before taking cephalexin? You should not use this medicine if you are allergic to cephalexin or any other cephalosporin antibiotic (cefdinir, cefadroxil, cefoxitin, cefprozil, ceftriaxone, cefuroxime, Omnicef, and others). Tell your doctor if you have ever had: an allergy to any drug (especially penicillin); liver or kidney disease; or intestinal problems, such as colitis. The liquid form of cephalexin may contain sugar. This may affect you if you have diabetes. Tell your doctor if you are or breast-feeding. How should I take cephalexin? Follow all directions on your prescription label and read all medication guides or instruction sheets. Use the medicine exactly as directed. Do not use cephalexin to treat any condition that has not been checked by your doctor. Measure liquid medicine carefully. Use the dosing syringe provided, or use a medicine dose-measuring device (not a kitchen spoon). Use this medicine for the full prescribed length of time, even if your symptoms quickly improve. Skipping doses can increase your risk of infection that is resistant to medication. Cephalexin will not treat a viral infection such as the flu or a common cold. Do not share cephalexin with another person, even if they have the same symptoms you have. This medicine can affect the results of certain medical tests. Tell any doctor who treats you that you are using cephalexin. Store the tablets and capsules at room temperature away from moisture, heat, and light. Store the liquid medicine in the refrigerator. Throw away any unused liquid after 14 days. What happens if I miss a dose? Take the medicine as soon as you can, but skip the missed dose if it is almost time for your next dose. Do not take two doses at one time. What happens if I overdose? Seek emergency medical attention or call the Poison Help line at . Overdose symptoms may include nausea, vomiting, stomach pain, diarrhea, and blood in your urine. What should I avoid while taking cephalexin? Antibiotic medicines can cause diarrhea, which may be a sign of a new infection. If you have diarrhea that is watery or bloody, call your doctor before using anti-diarrhea medicine. What are the possible side effects of cephalexin? Get emergency medical help if you have signs of an allergic reaction (hives, difficult breathing, swelling in your face or throat) or a severe skin reaction (fever, sore throat, burning eyes, skin pain, red or purple skin rash with blistering and peeling). Call your doctor at once if you have: severe stomach pain, diarrhea that is watery or bloody (even if it occurs months after your last dose); unusual tiredness, feeling light-headed or short of breath; easy bruising, unusual bleeding, purple or red spots under your skin; a seizure; pale skin, cold hands and feet; yellowed skin, dark colored urine; fever, weakness; or pain in your side or lower back, painful urination. Common side effects may include: diarrhea; nausea, vomiting; indigestion, stomach pain; or vaginal itching or discharge. This is not a complete list of side effects and others may occur. Call your doctor for medical advice about side effects. You may report side effects to FDA at 5-463-DVY-0118. What other drugs will affect cephalexin? Tell your doctor about all your other medicines, especially: metformin; or probenecid. This list is not complete. Other drugs may affect cephalexin, including prescription and ablk-zbs-reugaeg medicines, vitamins, and herbal products. Not all possible drug interactions are listed here. Where can I get more information? Your pharmacist can provide more information about cephalexin. Remember, keep this and all other medicines out of the reach of children, never share your medicines with others, and use this medication only for the indication prescribed. Every effort has been made to ensure that the information provided by [employer]') is accurate, up-to-date, and complete, but no guarantee is made to that effect. Drug information contained herein may be time sensitive. [employer] information has been compiled for use by healthcare practitioners and consumers in the [place] and therefore [employer] does not warrant that uses outside of the [place] are appropriate, unless specifically indicated otherwise. The [employer] drug information does not endorse drugs, diagnose patients or recommend therapy. The [employer] drug information is an informational resource designed to assist licensed healthcare practitioners in caring for their patients and/or to serve consumers viewing this service as a supplement to, and not a substitute for, the expertise, skill, knowledge and judgment of healthcare practitioners. The absence of a warning for a given drug or drug combination in no way should be construed to indicate that the drug or drug combination is safe, effective or appropriate for any given patient. [employer] does not assume any responsibility for any aspect of healthcare administered with the aid of information [employer] provides. The information contained herein is not intended to cover all possible uses, directions, precautions, warnings, drug interactions, allergic reactions, or adverse effects. If you have questions about the drugs you are taking, check with your doctor, nurse or pharmacist. Copyright 6678-9991 [employer]. Version: 10.03. Revision Date: 02/22/2020. Education Materials Abscess [Incision & Drainage] An abscess (sometimes called a boil ) occurs when bacteria get trapped under the skin and begin to grow. Pus forms inside the abscess as the body responds to the bacteria. An abscess can occur with an insect bite, ingrown hair, blocked oil gland, pimple, cyst, or puncture wound. Treatment of your abscess has required an incision to drain the pus. If the abscess pocket was large, a gauze packing may have been inserted. This will need to be removed and possibly replaced on your next visit. Antibiotics are not required in the treatment of a simple abscess, unless the infection is spreading into the skin around the wound (known as cellulitis ). Healing of the wound will take about one to two weeks depending on the size of the abscess. Healthy tissue will grow from the bottom and sides of the opening until it seals over. Home Care: The wound may drain for the first two days. Cover the wound with a clean dry dressing. If the dressing becomes soaked with blood or pus, change it. If a gauze packing was placed inside the abscess cavity, you may be advised to remove it yourself. You may do this in the shower. Once the packing is removed, you should wash the area in the shower or bath 3 to 4 times a day, until the skin opening has closed. If you were prescribed antibiotics, take them as directed until they are all gone. You may use acetaminophen (Tylenol) or ibuprofen (Motrin, Advil) to control pain, unless another pain medicine was prescribed. [ NOTE: If you have liver disease or ever had a stomach ulcer, talk with your doctor before using these medicines.] Follow Up with your doctor as advised by our staff. If a gauze packing was inserted in your wound, it should be removed in 1-2 days. Check your wound every day for the signs of worsening infection listed below. Get Prompt Medical Attention if any of the following occur: Increasing redness or swelling Red streaks in the skin leading away from the wound Increasing local pain or swelling Continued pus draining from the wound two days after treatment Fever of 100.4 F (38 C) or higher, or as directed by your healthcare provider 8391-6301 [employer]. [address] [place] [address]. All rights reserved. This information is not intended as a substitute for professional medical care. Always follow your healthcare professional's instructions. Additional Information VACCINATE! IT SAVES LIVES! Members of the community who have not yet received the COVID-19 vaccine and would like to receive it can visit one of [facility] vaccine clinics. There are many vaccine clinic locations within the [facility]. For locations and available times, please visit [email or web address]. It is important to note that some COVID mobile vaccine clinics are held outdoors and may be canceled in rainy or stormy conditions. To learn more about pediatric vaccinations (ages 5-11), we invite you to visit the [facility] webpage. [email or web address] To learn more about the COVID-19 vaccine, we invite you to visit the [employer] website for a list of frequently asked questions. [email or web address] [facility] [employer] Patient Portal Access Instructions: Stay connected with your healthcare team and access your personal medical information anytime with the [employer] Patient Portal. If you would like a full copy of your medical records please contact the [facility] Medical Records Department Saturday through Saturday between 8a.m. and 4:30p.m. Please follow the directions below to access the portal: 1.Access the email account you provided upon registration to the [facility].2.Look for an invitation email from [facility].3.Open the email and access the invitation link: Accept Invitation to [facility] [employer]4.Fill in the required rowe to create your account. Sign into [email or web address] with your username and password that you created in the above steps to stay up to date. You can then view a summary of results, a summary of your visits, and the ability to download your summaries to your computer or send the information securely to a physician. Remember that your healthcare information is confidential, so carefully consider who you will allow to register on the [employer] Patient Portal for access to your information. You can also access the [employer] Patient Portal on the [employer] janie. Simply click on Health Records under Health Data and then click on the [employer] logo. HOW TO SAFELY DISPOSE OF PRESCRIPTION MEDICATIONS Please use one of the following methods to safely dispose of your unused medications. 1.Use a drug disposal kit: the drug disposal pouch allows you to safely discard your old and unused drugs. Ask your nurse to give you one when you are discharged.2.Visit a local take-back location: Many local pharmacies and police departments have programs that collect old and unwanted prescription drugs. Call your local pharmacy or go to http://bit.[employer]/0U4Na6u to find one close to you.3.Make use of household items: Use cat litter or old coffee grounds to dispose medications if other options are not available. Mix your drugs with these household products, seal them in an airtight container and throw it into the garbage. Call [facility]: [phone] to be sure your drugs can be disposed of in this way. Some medicines may require a different approach.4.Never flush your medications down the toilet. IF YOU HAVE BEEN PRESCRIBED AN OPIOIDS FOR PAIN If you have been prescribed an opioid (such as hydrocodone, oxycodone or morphine), it is critical to understand the possible side effects and risks of opioid pain medications. Even when taken as directed, opioids can have several side effects including: Tolerance, meaning you might need to take more of a medication for the same pain relief. Nausea, vomiting and/or constipation. Sleepiness, dizziness, dry mouth, confusion, depression or itching. Physical dependence, meaning you have withdrawal symptoms when a medication is stopped ? this can develop within a few days. KNOW YOUR RESPONSIBILITIES It is important to know exactly how much and how often to take the opioid pain medications you are prescribed. Never take opioids in higher amounts or more often than prescribed. Do not combine opioids with alcohol or other drugs that cause drowsiness, such as benzodiazepines, also known as benzos, including diazepam and alprazolam, muscle relaxants or sleep aids. Never sell or share prescription opioids. This is illegal. Store opioids in a secure place and out of reach of others (including children, family, friends and visitors). The last page(s) of this document has been signed and retained as a CHART COPY Signatures Patient Education Materials ABSCESS, I and D Medication Leaflets sulfamethoxazole and trimethoprim (oral/injection), cephalexin My discharge plan and instructions have been reviewed and explained to me and I,ZABRINA, VERONA understand my current condition and have read and understand these discharge instructions. I have received a written copy of the plan/instructions. If I have questions, I am aware that I should contact my doctor. Patient/Data Support Specialist Signature: Date/Time: Relationship to Patient: ____ Witness Name/Signature: Date/Time: [facility] 06-08-2021 Hospital Discharge instructions Patient Education 06/07/2021 23:25:16 Domestic Violence Domestic Violence If you are a victim of domestic violence (emotional, physical, or sexual abuse, or threat of such abuse), you may be feeling confused, frightened, sad, angry, or ashamed. You are not alone. Unfortunately, what happened to you is very common. Once it starts, domestic violence usually does not go away without help. It tends to get worse and more frequent over time. There are people who can help you! If you want to begin talking about this problem, or need a safe place to stay, or want legal advice, contact our staff for a referral. Domestic violence is a crime and as a victim you have legal rights. If the police have not yet been involved, consider calling the police for assistance. You can also obtain a court order prohibiting your partner from contacting you in any way (including in person or by phone). Contact a local domestic violence program or an family law attorney for more information. Before you leave here Decide if it is safe to return home. If you know the situation is so dangerous that your life is in danger, let our staff know so that we can call one of the local domestic violence shelters or help you arrange to stay with a friend or relative. Domestic violence shelters can help with issues related to the safety of children and pets, housing, and financial issues. When you get home Develop an exit plan or a safety plan in advance. Know exactly where you could go even in the middle of the night. Pack an overnight bag in case you have to leave home in a hurry. Either hide it yourself or give it to a friend to keep for you. This should include: oToilet articles, medicines, extra set of keys to the house and car, extra set of clothing and a special toy for each child oExtra alvarez, checks or savings account book oImportant papers, such as social security cards, certificates, green cards, passports, work authorization and any other immigration documents, medical cards, tractor sweeper driver's license, title to the car, proof of car insurance, etc. If you ever feel your safety is in danger, get out of the home, even if you did not have a chance to plan the above. Calling the police When someone has injured you or violated a restraining order, a criminal stay away-order, or an emergency protective order, then do the following: Call the police: use 911 if it is an emergency. Tell them you are in danger and you need help immediately. Let them know if you have a court order. If the police do not come quickly, call again and say, This is my second call. Take note of the time and date of your call(s) and who you spoke with. When the police arrive, tell them only what the attacker did. Describe your injuries, how you were injured, if weapons were used, or if a restraining order was violated. Ask the police to file a report and give you a reporting number. If you do not already have a restraining order, ask the officer for an emergency protective order. This is an order that may protect you until you obtain a criminal stay away order or restraining order. Always get the police officers' names and badge numbers. If you have trouble with a police lieutenant, you can complain to the officer's model making supervisor. Arrest If the attacker is arrested and taken to the police station, he will probably be released with or without bail until the hearing. This may only take a few hours. Use this time to get to a safe place. Ask that a condition of his release be that he should not come near you. No arrest If the police refuse to make an arrest, you may ask to make a private citizen's arrest. Tell the officers that you fear the attacker will return and injure you unless an arrest is made. Call the Chief Substation Operator's office or the Police Department about how to follow up with your complaint. For more information, call the National Domestic Violence Hotline at 6-156-436-NJUZ (0994) or visit their website at www.[facility].org. They will make certain you are in a safe situation before talking with you. 9259-0656 [employer]. [address] [place] [address], [place] [address]. All rights reserved. This information is not intended as a substitute for professional medical care. Always follow your healthcare professional's instructions. Follow Up Care 06/07/2021 19:53:19 With:JOE YOST MD Address: [address] [place] [address] [phone] When:2-4 days With:Call Physician Referral Address:Unknown When:2-4 days With:Call JACKSON Carpenter Pt. Refferral [phone] Address:Unknown When:2-4 days [facility] Basillivier Sierra 06-02-2021 Note HNO ID: [id number] Author: Carmen Cotton, DO Service: ? Author Type: Physician Type: Progress Notes Filed: 06/09/2021 6:24 AM Note Text: Reason for Visit/Chief Complaint Verona Avalos is a 40 year old female who presents today for a new evaluation of following complaint: Patient presents with: Right Shoulder - Pain, New, Swelling History of Present Illness: PAIN EVALUATION 06/02/2021 1150 Pain Level: 8 Pain Location: Shoulder-Right Description: Shooting;Sharp;Throbbing Duration Amount of Time: ? ongoing Frequency: Continuous Intervention/Comfort measure: Reposition;Relaxation;Medication; Cold;Heat HPI: Verona Avalos is a 40 year old female presenting today with right shoulder pain. Patient has had pain for over a year now. Pain history is noted as above. Denies calf pain, numbness, tingling, fever, chills or other constitutional symptoms. No known inciting event, significant past med hx- see chart. Has not had injections, etc and is here for treatment options discussion. Previous Treatments: Ice: Yes Heat: Yes Brace: No NSAIDs: Yes, aleve/tylenol/ibuprofen Injections: No Surgeries: No Physical Therapy: No Review of Systems: Patient did not have, and does not currently have, any weight loss, malaise, fever, chills, headache, chest pain, chest pressure, palpitations, cough, shortness of breath, orthopnea, paroxsymal nocturnal dyspnea, nausea, vomiting, diarrhea, constipation, melena, hematochezia, urinary difficulties, prolonged bleeding, easily bruising, heat or cold intolerance, new onset joint pain or swelling, new onset extremity weakness or numbness, new onset auditory or visual disturbances, lightheadedness, dizziness, partial loss of consciousness or full loss of consciousness. Current Outpatient Medications on File Prior to Visit Medication Sig - traZODone (DESYREL) 100 mg tablet Take 100 mg by mouth daily at bedtime. - levothyroxine (SYNTHROID) 100 mcg tablet Take 100 mcg by mouth daily before breakfast. unsure of strength - topiramate XR (QUDEXY XR) 50 mg cap(s) Take by mouth. unsure of strength - famotidine (PEPCID) 40 mg tablet Take 1 tablet by mouth once daily. - albuterol HFA (PROVENTIL HFA, VENTOLIN HFA) 90 mcg/actuation inhaler Inhale 2 Puffs as instructed every 4 hours as needed for Wheezing/Shortness of Breath. - cyclobenzaprine (FLEXERIL) 10 mg tablet Take 1 tablet by mouth every 8 hours as needed. (Patient not taking: Reported on 09/24/2018 ) - naproxen (NAPROSYN) 500 mg tablet Take 1 tablet by mouth twice daily as needed. TAKE WITH FOOD (Patient not taking: Reported on 09/24/2018 ) - methylPREDNISolone (MEDROL, ZOILA,) 4 mg Dose-Pack Take by mouth. As directed on package (Patient not taking: Reported on 09/24/2018 ) - meloxicam (MOBIC) 15 mg tablet Take 15 mg by mouth once daily. - magnesium oxide (MAG-OX) 400 mg tablet Take 1 tablet by mouth twice daily. (Patient not taking: Reported on 09/24/2018 ) No current facility-administered medications on file prior to visit. ALLERGIES Allergen Reactions - Dilaudid [Hydromorp* Itching - Latex, Natural Rubb* Unknown - Vicodin [Hydrocodon* Itching Physical Exam: Vitals: [facility] 12/19/2017 Psych: Pleasant, good affect and mood General Appearance: Well appearing, alert, in no acute distress, well-hydrated, well nourished.. Skin: Skin color, texture, turgor normal, no suspicious rashes or lesions. Peripheral Pulses: Normal. Neurologic: Gait normal. Reflexes normal and symmetric. Sensation grossly intact.. Lymph Nodes: No cervical lymphadenopathy, No supraclavicular lymphadenopathy, No axillary lymphadenopathy. and No inguinal lymphadenopathy.. Respiratory: No recent pulmonary infection, hemoptysis, chronic cough, or shortness of breath at rest Rheumatologic: Joint deformities: Right shoulder pain Right Shoulder Exam Right shoulder exam is normal. Tenderness The patient is experiencing tenderness in the biceps tendon. Range of Motion Active abduction: normal Passive abduction: normal Extension: normal External rotation: normal Forward flexion: normal Internal rotation 0 degrees: normal Internal rotation 90 degrees: normal Muscle Strength Abduction: 5/5 Internal rotation: 5/5 External rotation: 5/5 Supraspinatus: 5/5 Subscapularis: 5/5 Biceps: 5/5 Tests Apprehension: negative Rao test: positive Cross arm: negative Impingement: positive Other Erythema: absent Sensation: normal Pulse: present Comments: Med,uln,rad nerves intact Left Shoulder Exam Left shoulder exam is normal. Tenderness The patient is experiencing no tenderness. Range of Motion Active abduction: normal Passive abduction: normal Extension: normal External rotation: normal Forward flexion: normal Internal rotation 0 degrees: normal Internal rotation 90 degrees: normal Muscle Strength Abduction: 5/5 Internal rotation: 5/5 Ext (more content not included)... [facility] 06-02-2021 History of Present illness Narrative Associated Order(s): Large Joint Arthro/Inj: R subacromial bursa Images from the original note were not included. Reason for Visit/Chief Complaint Verona Avalos is a 40 year old female who presents today for a new evaluation of following complaint: Patient presents with: Right Shoulder - Pain, New, Swelling History of Present Illness: PAIN EVALUATION 06/02/2021 1150 Pain Level: 8 Pain Location: Shoulder-Right Description: Shooting;Sharp;Throbbing Duration Amount of Time: ongoing Frequency: Continuous Intervention/Comfort measure: Reposition;Relaxation;Medication; Cold;Heat HPI: Verona Avalos is a 40 year old female presenting today with right shoulder pain. Patient has had pain for over a year now. Pain history is noted as above. Denies calf pain, numbness, tingling, fever, chills or other constitutional symptoms. No known inciting event, significant past med hx- see chart. Has not had injections, etc and is here for treatment options discussion. Previous Treatments: Ice: Yes Heat: Yes Brace: No NSAIDs: Yes, aleve/tylenol/ibuprofen Injections: No Surgeries: No Physical Therapy: No Review of Systems: Patient did not have, and does not currently have, any weight loss, malaise, fever, chills, headache, chest pain, chest pressure, palpitations, cough, shortness of breath, orthopnea, paroxsymal nocturnal dyspnea, nausea, vomiting, diarrhea, constipation, melena, hematochezia, urinary difficulties, prolonged bleeding, easily bruising, heat or cold intolerance, new onset joint pain or swelling, new onset extremity weakness or numbness, new onset auditory or visual disturbances, lightheadedness, dizziness, partial loss of consciousness or full loss of consciousness. Current Outpatient Medications on File Prior to Visit Medication Sig traZODone (DESYREL) 100 mg tablet Take 100 mg by mouth daily at bedtime. levothyroxine (SYNTHROID) 100 mcg tablet Take 100 mcg by mouth daily before breakfast. unsure of strength topiramate XR (QUDEXY XR) 50 mg cap(s) Take by mouth. unsure of strength famotidine (PEPCID) 40 mg tablet Take 1 tablet by mouth once daily. albuterol HFA (PROVENTIL HFA, VENTOLIN HFA) 90 mcg/actuation inhaler Inhale 2 Puffs as instructed every 4 hours as needed for Wheezing/Shortness of Breath. cyclobenzaprine (FLEXERIL) 10 mg tablet Take 1 tablet by mouth every 8 hours as needed. (Patient not taking: Reported on 09/24/2018 ) naproxen (NAPROSYN) 500 mg tablet Take 1 tablet by mouth twice daily as needed. TAKE WITH FOOD (Patient not taking: Reported on 09/24/2018 ) methylPREDNISolone (MEDROL, ZOILA,) 4 mg Dose-Pack Take by mouth. As directed on package (Patient not taking: Reported on 09/24/2018 ) meloxicam (MOBIC) 15 mg tablet Take 15 mg by mouth once daily. magnesium oxide (MAG-OX) 400 mg tablet Take 1 tablet by mouth twice daily. (Patient not taking: Reported on 09/24/2018 ) No current facility-administered medications on file prior to visit. ALLERGIES Allergen Reactions Dilaudid [Hydromorp* Itching Latex, Natural Rubb* Unknown Vicodin [Hydrocodon* Itching Physical Exam: Vitals: [facility] 12/19/2017 Psych: Pleasant, good affect and mood General Appearance: Well appearing, alert, in no acute distress, well-hydrated, well nourished.. Skin: Skin color, texture, turgor normal, no suspicious rashes or lesions. Peripheral Pulses: Normal. Neurologic: Gait normal. Reflexes normal and symmetric. Sensation grossly intact.. Lymph Nodes: No cervical lymphadenopathy, No supraclavicular lymphadenopathy, No axillary lymphadenopathy. and No inguinal lymphadenopathy.. Respiratory: No recent pulmonary infection, hemoptysis, chronic cough, or shortness of breath at rest Rheumatologic: Joint deformities: Right shoulder pain Right Shoulder Exam Right shoulder exam is normal. Tenderness The patient is experiencing tenderness in the biceps tendon. Range of Motion Active abduction: normal Passive abduction: normal Extension: normal External rotation: normal Forward flexion: normal Internal rotation 0 degrees: normal Internal rotation 90 degrees: normal Muscle Strength Abduction: 5/5 Internal rotation: 5/5 External rotation: 5/5 Supraspinatus: 5/5 Subscapularis: 5/5 Biceps: 5/5 Tests Apprehension: negative Rao test: positive Cross arm: negative Impingement: positive Other Erythema: absent Sensation: normal Pulse: present Comments: Med,uln,rad nerves intact Left Shoulder Exam Left shoulder exam is normal. Tenderness The patient is experiencing no tenderness. Range of Motion Active abduction: normal Passive abduction: normal Extension: normal External rotation: normal Forward flexion: normal Internal rotation 0 degrees: normal Internal rotation 90 degrees: normal Muscle Strength Abduction: 5/5 Internal rotation: 5/5 External rotation: 5/5 Supraspinatus: 5/5 Subscapularis: 5/5 Biceps: 5/5 Tests Apprehension: negative Rao test: negative Cross arm: negative Impingement: negative Other Erythema: absent Sensation: normal Pulse: present Imaging: Last MRI Knee - Impression Only No resulted procedures found. Last MRI Shoulder - Impression Only MRI SHOULDER WO IVCON RT Collected: 04/12/2020 8:20 AM (Final result) Impression: IMPRESSION: Supraspinatus tendinosis without tear Small SLAP tear Subacromial/subdeltoid bursitis ... Complete Results Assessment and Plan: Impression: Encounter Diagnosis ICD-10-CM 1. Chronic right shoulder pain M25.511 Large Joint Arthro/Inj: R subacromial bursa G89.29 2. Impingement syndrome of right shoulder M75.41 3. Bursitis of right shoulder M75.51 4. Tendinitis of right shoulder M77.8 Plan: Prev dr weiss patient Has not done injections, etc Discussed in detail her mri findings and patient deferred PT as quite bust with home life Cont OTC nsaids as tolerated/indicated Patient given options and elected to proceed with right sa shoulder injection Discussed with patient possible options for treatment. Patient elected proceed with injection. Patient told not to submerge the injected area for 24 hours in a hot tub, or bath, injection may take 2 weeks for improvement to be noticed, follow-up in 2 -6 weeks if symptoms do not resolve. All questions answered patient agreement of plan. Apply ice Limit activities as discussed Rest Do not submerge limb in water for 24 hours Cont current meds Watch sugars/decrease carbs Call if warm/hot/red Discussed with patient that if the injection does not work after 2 to 4 weeks to come back for reevaluation. Discussed the next 3 days may feel worse before it feels better. Discussed if having continued pain to return. May get injection every 3 months Today, in detail, through a thorough evaluation, we discussed possible etiologies of pain and our plans for further diagnostic and therapeutic interventions. We discussed strategies for decreasing pain and improving strength, stability and motion. Patient's questions were answered in detailed. Patient verbalizes understanding and agrees with the treatment plan as discussed. Large Joint Arthro/Inj: R subacromial bursa Informed Consent Consent Obtained: Verbal [place] Protocol A moment to CARE was completed. SIGN IN Sign in communication not applicable due to emergent procedure. Personnel directly involved with the procedure wore the appropriate PPE. Special Equipment: N/A Patient/Surrogate Stated/Verified: Patient name, Date of , Relevant allergies and Intended procedure TIME OUT Intended patient and procedure match the source document(s). Consent documented and matches the intended procedure. Relevant labs, photos, and/or imaging studies have been reviewed. Correct side/site marked and visible. Medications required for procedure verified. No fire risk assessment and interventions applicable. No implant(s) inserted. 06/02/2021 3:32 PM The procedure site was prepped in the usual sterile fashion. Site: R subacromial bursa Medications: 80 mg triamcinolone acetonide 40 mg/mL Anesthetics: 8 mL bupivacaine (PF) 0.5 % (5 mg/mL) Outcome: Tolerated well, no immediate complications Post-injection instructions were reviewed with the patient and the patient voiced understanding of these instructions. SIGN OUT All specimen containers correctly labeled. All instruments, equipment, possible retained foreign bodies accounted for. Post-procedure follow-up management communicated and Plan of Care Visit completed when applicable documented in this encounter [facility] 12-25-2010 History of Past i llness Narrative Problem Noted Date Resolved Date Supervision of other normal 12/25/2010 05/14/2011 documented as of this encounter (statuses as of 06/09/2021) [facility] No data available for this section [facility] Evaluation note* Diagnosis Chest pain, unspecified type- Primary Upper abdominal pain Abdominal pain, other specified site documented in this encounter [facility] Work Phone: Evaluation note* Diagnosis Generalized abdominal pain- Primary Abdominal pain, generalized documented in this encounter [facility] Work Phone: Evaluation note* Diagnosis Chronic right shoulder pain- Primary Pain in joint, shoulder region Impingement syndrome of right shoulder Other affections of shoulder region, not elsewhere classified Bursitis of right shoulder Disorders of bursae and tendons in shoulder region, unspecified Tendinitis of right shoulder Disorders of bursae and tendons in shoulder region, unspecified [facility] Instructions* Alicia Ramos PA - 10/18/2020 Take the Pepcid twice a day for the next month to help reduce the acid in your stomach. Take the Carafate 4 times a day as needed for the upper abdominal pain, this will coat your stomach to help reduce the acid. Follow-up with your primary care doctor and return to the emergency department if you experience any new or worsening symptoms. * Attachments The following attachments cannot be sent through Care Everywhere. * Abdominal Pain (Nigerien) * GERD (Nigerien) * Acid-Reducing Medicines: General Info (Nigerien) documented in this [facility] Work Phone: Hospital Discharge instructions* Attachments The following attachments cannot be sent through Care Everywhere. * Abdominal Pain (Nigerien) * Oral Rehydration (Nigerien) documented in this [facility] Work Phone: Note* Chelita Terrazas RN: PERFORM Event Display: [facility] Patient Summary Authored Date: [id number] Discharge Instructions Thank you for allowing [place] to assist you with your healthcare needs. The following is importantdischarge information regarding your hospital visit. Diagnosis from Today's Visit Dental pain Pain due to dental caries What to Do Next Instructions from Your Care Team No qualifying data available. Post Acute Orders No qualifying data available. You Need to Schedule the Following Appointments Follow Up with Dental Referral List When Within 2-4 days Why: Be for sure to follow-up with a dentist, return if any worsening or concerning symptoms. Allergies Latex Vicodin Medications Please ask your primary doctor or pharmacist before taking any other medication not listed, including over the counter drugs, herbal medications, vitamins and or supplements as they may interact withyour home medications. What How Much When Why Instructions Last Dose New oxyCODONE (oxyCODONE 5 mg oral tablet ( IMMEDIATErelease )) 1 tab(s) by mouth Every 6 hours Pain due to dental caries Duration: 2 Days Printed Prescription Unchanged cetirizine (Zyrtec 10 mg oral tablet) 1 tab(s) by mouth Once a day Duration: 10 Days Unchanged fluticasone nasal (Flonase 50 mcg/ inh nasal spray) 1 spray(s) each nostril Two (2) times a day Duration: 7 Days Please take this list to your next doctor s visit. Bring all medications you take, including over the counter medications, herbals and other supplements with you to your doctor s visit. Patients and families are reminded to discard old lists and to update any records with all medication providers or retail pharmacies. Medication Leaflets oxycodone (ox i KOE done) Oxaydo, OxyCONTIN, Roxicodone, RoxyBond, Xtampza ER What is the most important information I should know about oxycodone? MISUSE OF OPIOID MEDICINE CAN CAUSE ADDICTION, OVERDOSE, OR . Fatal side effects may occur if you also drink alcohol or use other drugs that cause drowsiness or slow breathing. Using opioid medicine during may cause life-threatening withdrawal symptoms in the . What is oxycodone? Oxycodone is an opioid pain medication used to treat moderate to severe pain. Oxycodone is usually given after other treatments did not work or were not tolerated. Extended-release oxycodone is for [id number] treatment of severe and chronic pain that requires longer treatment. This medicine is not for use on an as-needed basis. Oxycodone may also be used for purposes not listed in this medication guide. What should I discuss with my healthcare provider before taking oxycodone? You should not use oxycodone if you are allergic to it, or if you have severe asthma, breathing problems or a stomach or bowel obstruction (including paralytic ileus). Tell your doctor if you have ever had: other breathing problems, sleep apnea (breathing that stops during sleep); a head injury, brain tumor, high pressure inside the skull, or seizures, drug or alcohol addiction,or mental illness; if you have used an MAO inhibitor in the past 14 days, such as isocarboxazid, linezolid, methylene blue injection, phenelzine, or tranylcypromine; urination problems, problems with your gallbladder, pancreas, thyroid, or adrenal gland; or liver or kidney disease. Most forms of oxycodone are not approved for use in people under 18 years old. The extended-releasetablets should not be given to a child younger than 11 years old. Tell your doctor if you also use stimulant medicine, opioid medicine, herbal products, or medicine for depression, mental illness, Parkinson's disease, migraine headaches, serious infections, or prevention of nausea and vomiting. An interaction with oxycodone could cause a serious condition called serotonin syndrome. May harm an unborn baby. Tell your doctor if you are or plan to become . If you use oxycodone during , your baby could be born with life-threatening withdrawal symptoms, andmay need medical treatment for several weeks. Do not breastfeed. Oxycodone in breast milk can cause life-threatening side effects in a nursing baby. Long-term oxycodone may affect fertility in men or women. could be harder to achieve while either parent is using this medicine. How should I take oxycodone? Follow the directions on your prescription label and read all medication guides or instruction sheets. Never use oxycodone in larger amounts, or for longer than prescribed. Tell your doctor if you feel an increased urge to use more of this medicine. Never share opioid medicine with another person, especially someone with a history of drug addiction. MISUSE CAN CAUSE ADDICTION, OVERDOSE, OR . Keep the medicine where others cannot get to it. Selling or giving away this medicine is against the law. Never crush a pill or use the liquid to inhale the mixture or inject it into your vein. This could result in . Your dose needs may change if you switch to a different brand, strength, or form of this medicine. Avoid medication errors by using exactly as directed on the label, or as prescribed by your doctor. Stop taking all other kxwupr-jzt-wkppa opioid pain medicines when you start taking extended-releaseoxycodone. Swallow the extended-release forms whole to avoid exposure to a potentially fatal overdose. Do not crush, chew, break, open, or dissolve. Take the extended-release capsules with food. Read and carefully follow the instructions for use onhow to prepare and take this medicine if you cannot swallow extended release capsules whole or you use a feeding tube. Ask your doctor or pharmacist if you don't understand these instructions. Measure liquid medicine with the supplied measuring device (not a kitchen spoon). You may be given other medications to help prevent or treat certain side effects. You may have withdrawal symptoms if you stop using oxycodone suddenly. Ask your doctor before stopping the medicine. Store at room temperature away from moisture and heat. Keep your medicine in a place where no one can use it improperly. Do not keep leftover medicine. Just one dose can cause in someone using it accidentally or improperly. Ask your pharmacist about a drug take-back program, or flush the unused medicine down the toilet. What happens if I miss a dose? Since oxycodone is used for pain, you are not likely to miss a dose. Skip any missed dose if it is almost time for your next dose. Do not use two doses at one time. What happens if I overdose? Seek emergency medical attention or call the Poison Help line at . An overdose can befatal, especially in a child or person using opioid medicine without a prescription. Your doctor may recommend you get naloxone (a medicine to reverse an opioid overdose) and keep it with you at all times. A person caring for you can give the naloxone if you stop breathing or don't wake up. Your caregiver must still get emergency medical help and may need to perform CPR (cardiopulmonary resuscitation) on you while waiting for help to arrive. Anyone can buy naloxone from a pharmacy or local health department. Make sure any person caring foryou knows where you keep naloxone and how to use it. What should I avoid while taking oxycodone? Do not drink alcohol or any products that contain alcohol. Dangerous side effects or could occur. Avoid driving or hazardous activity until you know how this medicine will affect you. Dizziness or drowsiness can causing falls, accidents, or severe injuries. Also avoid getting up too fast from a sitting or lying position, or you may feel dizzy. What are the possible side effects of oxycodone? Get emergency medical help if you have signs of an allergic reaction: hives, difficult breathing, swelling of your face, lips, tongue, or throat. Opioid medicine can slow or stop your breathing, and may occur, especially if you drink alcohol or use other drugs that cause drowsiness or slow breathing. A person caring for you should give naloxone and/or seek emergency medical attention if you have slow breathing with long pauses, blue colored lips, or if you are hard to wake up. Call your doctor at once if you have: slow heart rate, weak pulse, fainting, slow breathing (breathing may stop); chest pain, fast or pounding heartbeats; a seizure, extreme drowsiness; or decreased adrenal gland hormones--nausea, vomiting, stomach pain, loss of appetite, feeling tired or light-headed, muscle or joint pain, skin discoloration, craving salty foods. Serious breathing problems may be more likely in older adults and in those who are debilitated or have wasting syndrome or chronic breathing disorders. Seek medical attention right away if you have symptoms of serotonin syndrome, such as: agitation, hallucinations, fever, sweating, shivering, fast heart rate, muscle stiffness, twitching, loss of coordination, nausea, vomiting, or diarrhea. Common side effects may include: sleep problems (insomnia), itching; drowsiness, headache, dizziness, tiredness; or constipation, stomach pain, nausea, vomiting. This is not a complete list of side effects and others may occur. Call your doctor for medical advice about side effects. You may report side effects to FDA at 3-034-YDM-1223. What other drugs will affect oxycodone? You may have a fatal oxycodone overdose if you start or stop using certain medicines. Tell your doctor about all your medications. Tell your doctor about all your medications especially if you use medicine to treat HIV, antibiotic, antifungal medication, or seizure medication. Many other drugs can be dangerous when used with opioid medicine. Tell your doctor if you also use: medicine for allergies, asthma, blood pressure, motion sickness, irritable bowel, or overactive bladder; other opioid medicines, a benzodiazepine sedative like Valium, Klonopin, or Xanax; sleep medicine, muscle relaxers, or other drugs that make you drowsy; or drugs that affect serotonin, such as antidepressants, stimulants, or medicine for migraines or Parkinson's disease. This list is not complete and many other drugs may affect oxycodone. This includes prescription sclevxg-jng-fuojlej medicines, vitamins, and herbal products. Not all possible drug interactions are listed here. Where can I get more information? Your doctor or pharmacist can provide more information about oxycodone. Remember, keep this and all other medicines out of the reach of children, never share your medicines with others, and use this medication only for the indication prescribed. Every effort has been made to ensure that the information provided by [employer]. ('[employer]') is accurate, up-to-date, and complete, but no guarantee is made to that effect. Drug information contained herein may be time sensitive. [employer] information has been compiled for use by healthcare practitioners and consumers in the [place] and therefore [employer] does not warrant that uses outside of the [place] are appropriate, unless specifically indicated otherwise. The [employer] drug information does not endorse drugs, diagnose patients or recommend therapy. The [employer] drug information isan informational resource designed to assist licensed healthcare practitioners in caring for their p atients and/or to serve consumers viewing this service as a supplement to, and not a substitute for, the expertise, skill, knowledge and judgment of healthcare practitioners. The absence of a warningfor a given drug or drug combination in no way should be construed to indicate that the drug or drug combination is safe, effective or appropriate for any given patient. [employer] does not assume any responsibility for any aspect of healthcare administered with the aid of information [employer] provides. The information contained herein is not intended to cover all possible uses, directions, precautions, warnings, drug interactions, allergic reactions, or adverse effects. If you have questions about the drugs you are taking, check with your doctor, nurse or pharmacist. Copyright 2002-6927 [employer]. Version: 17.. Revision Date: 03/12/2023. Education Materials Dental Pain A crack or cavity in a tooth can cause tooth pain. This is because the crack or cavity exposes the sensitive inner area of the tooth. An infection in the gum or the root of the tooth can cause pain and swelling. The pain is often made worse when you drink hot or cold beverages. It can also be worsewhen you bite on hard foods. Pain may spread from the tooth to your ear or the area of the jaw on the same side. Home care Follow these tips when caring for yourself at home: Don't have hot and cold foods and drinks. Your tooth may be sensitive to changes in temperature. Use toothpaste made for sensitive teeth. Yoder gently up and down instead of sideways. Brushing sideways can wear away root surfaces if they are exposed. If your tooth is chipped or cracked, or if there is a large open cavity, put oil of cloves directlyon the tooth to relieve pain. You can buy oil of cloves at drugstores. Some pharmacies carry an wcum-drx-mbntcux toothache kit. This contains a paste that you can put on the exposed tooth to make it less sensitive. Put a cold pack on your jaw over the sore area to help reduce pain. You may use cbij-nui-bzegauv medicine to ease pain, unless your doctor prescribed another medicine.If you have chronic liver or kidney disease, talk with your healthcare provider before using acetaminophen or ibuprofen. Also talk with your provider if you ve had a stomach ulcer or GI bleeding. If you have signs of an infection, you will be given an antibiotic. Take it as directed. Follow-up care Follow up with your dentist, or as advised. Your pain may go away with the treatment given today. But only a dentist can fully look at and treat the cause of your pain. This will keep the pain from coming back. Call 911 Call 911 if any of these occur: Unusual drowsiness Headache or stiff neck Weakness or fainting Difficulty swallowing or breathing When to seek medical advice Call your health care provider right away if any of these occur: Your face becomes swollen or red Pain gets worse or spreads to your neck Fever of 100.4 F (38.0 C) or higher, or as directed by your healthcare provider Pus drains from the tooth [id number] [employer]. [address] [place] [address]93. All rights reserved. This information is not intended as a substitute for professional medical care. Always follow yourhealthcare professional's instructions. Additional Information VACCINATE! IT SAVES LIVES! Members of the community who have not yet received the COVID-19 vaccine and would like to receive it can visit one of [facility] vaccine clinics. There are many vaccine clinic locations within the [facility]. For locations and available times, please visit [email or web address]/. It is important to note that some COVID mobile vaccine clinics are held outdoors and may be canceled in rainy or stormy conditions. To learn more about pediatric vaccinations (ages 5-11), we invite you to visit the [facility] webpage. [email or web address]/[email or web address] [email or web address] learn more about the COVID-19 vaccine, we invite you to visit the CDC website for a list of frequently asked questions. https://www.cdc.gov/coronavirus/2019-ncov/vaccines/faq.html [facility] [employer] Patient Portal Access Instructions: Stay connected with your healthcare team and access your personal medical information anytime with the [employer] Patient Portal. If you would like a full copy of your medical records please contact the [facility] Medical Records Department Saturday through Saturday between 8a.m. and 4:30p.m. Please follow the directions below to access the portal: 1.Access the email account you provided upon registration to the [facility].2.Look for an invitation email from [facility].3.Open the email and access the invitation link: Accept Invitation to [employer]4.Fill in the required rowe to create your account. Sign into www.Medication Review with your username and password that you created in the above steps to stay up to date. You can then view a summary of results, a summary of your visits, and the ability to download your summaries to your computer or send the information securely to a physician. Remember that your healthcare information is confidential, so carefully consider who you will allow to register on the [employer] Patient Portal for access to your information. You can also access the [employer] Patient Portal on the BackTrack. Simply click on Health Records under [employer] and then click on the [employer] logo. HOW TO SAFELY DISPOSE OF PRESCRIPTION MEDICATIONS Please use one of the following methods to safely dispose of your unused medications. 1.Use a drug disposal kit: the drug disposal pouch allows you to safely discard your old and unuseddrugs. Ask your nurse to give you one when you are discharged.2.Visit a local take-back location: Many local pharmacies and police departments have programs that collect old and unwanted prescriptiondrugs. Call your local pharmacy or go to http://[email or web address] Sciences/5H2Nx1v to find one close to you.3.Make use of household items: Use cat litter or old coffee grounds to dispose medications if other options arenot available. Mix your drugs with these household products, seal them in an airtight container andthrow it into the garbage. Call [facility]: [phone] to be sure your drugs can be disposed of in this way. Some medicines may require a different approach.4.Never flush your medications down the toilet. IF YOU HAVE BEEN PRESCRIBED AN OPIOIDS FOR PAIN If you have been prescribed an opioid (such as hydrocodone, oxycodone or morphine), it is critical to understand the possible side effects and risks of opioid pain medications. Even when taken as directed, opioids can have several side effects including: Tolerance, meaning you might need to take more of a medication for the same pain relief. Nausea, vomiting and/or constipation. Sleepiness, dizziness, dry mouth, confusion, depression or itching. Physical dependence, meaning you have withdrawal symptoms when a medication is stopped ? this can develop within a few days. KNOW YOUR RESPONSIBILITIES It is important to know exactly how much and how often to take the opioid pain medications you are prescribed. Never take opioids in higher amounts or more often than prescribed. Do not combine opioids with alcohol or other drugs that cause drowsiness, such as benzodiazepines, also known as benzos,including diazepam and alprazolam, muscle relaxants or sleep aids. Never sell or share prescriptionopioids. This is illegal. Store opioids in a secure place and out of reach of others (including children, family, friends and visitors). The last page(s) of this document has been signed and retained as a CHART COPY Signatures Patient Education Materials Dental Pain Medication Leaflets oxycodone My discharge plan and instructions have been reviewed and explained to me and I,PRERNASANDRAJesicaSARAHVERONA understand my current condition and have read and understand these discharge instructions. I have received a written copy of the plan/instructions. If I have questions, I am aware that I should contact my doctor. Patient/Data Support Specialist Signature: Date/Time: Relationship to Patient: Witness Name/Signature: Date/Time: [facility] Progress note No data available for this section [facility] Summary Purpose Family History No Family History Records FoundNo Family History Records FoundNo Family History Records FoundNo Family History Records FoundNo Family History Records FoundNo Family History Records FoundNo Family History Records FoundNo Family History Records Found No data available for this section No data available for this section No data available for this section No data available for this section No Family History Records FoundNo Family History Records FoundNo Family History Records Found Advance Directives No Advanced Directives Records FoundDocuments on File Type Date Recorded Patient Data Support Specialist Expl anation Advance Directive(s) Advance Directive(s) 01/06/2020 9:01 AM Advance Directive(s) 06/07/2018 11:47 AM Advance Directive(s) 12/30/2017 3:44 PM Advance Directive(s) 10/29/2017 11:56 AM Advance Directive(s) 09/09/2017 8:55 PM Advance Directive(s) 07/05/2017 10:11 PM Advance Directive(s) 06/24/2017 6:43 PM Advance Directive(s) 11/29/2016 4:12 PM Advance Directive(s) 11/13/2016 11:24 PM Advance Directive(s) 10/31/2016 4:14 AM Advance Directive(s) 09/21/2016 9:15 PM Advance Directive(s) 08/28/2016 12:49 PM Discharge Instructions * Attachments The following attachments cannot be sent through Care Everywhere. * Contusion: Hand (Nigerien) * RICE: General Info (Nigerien) documented in this encounter* Attachments The following attachments cannot be sent through Care Everywhere. * Finger Fracture (Nigerien) documented in this encounter* Instructions* Esther Leach MD - 10/28/2018 Please quit smoking until the woundS HEAL Keep the toe dry for the next 2 days and then wash it in soapy water with the knee as well. For the patient that aches and strains and sprains take Tylenol 1000 mg plus ibuprofen 600 mg together at one time every 6 hours for severe pain. Try to get some help. Drinking and tried to refrain from drinking at this time. There are many community resources such as Alcoholics Anonymous for good health. * Attachments The following attachments cannot be sent through Care Everywhere. * Video: Alcohol: The Space It Takes Up in Your Life (Nigerien) * Video: Alcohol: Time for a Change? (Nigerien) * Cervical Strain or Sprain: Rehab Exercises (Nigerien) * Abrasions (Nigerien) documented in this encounter Assessments Diagnosis Contusion of right index finger without damage to nail, initial encounter- Primary Diagnosis Closed nondisplaced fracture of distal phalanx of left ring finger, initial encounter- Primary Diagnosis Injury of left knee, initial encounter- Primary Contusion of left knee, initial encounter Laceration of left great toe without foreign body present or damage to nail, initial encounter Neck sprain, initial encounter Acute alcoholic intoxication in alcoholism without complication (HCC) Procedure Findings Note HNO ID: [id number] Author: Amy Mohan Service: ? Author Type: Nurse Hand Tire Trimmer Type: Anesthesia Procedure Notes Filed: 01/07/2020 9:24 AM Note Text: ANESTHESIOLOGY PROCEDURE NOTE Airway General Information Procedure Start Time/Medication Administration: 01/07/2020 9:17 AM Patient location during procedure: OR Patient identity confirmed: patient and arm band Staffing CHILD AND FAMILY SERVICES WORKER: Guerline Mohan Indications and Patient Condition Preoxygenated: yes Difficult Mask: No Indications for airway management: anesthesia anesthesia circuit Method: sleep Airway Accessory: LMA Final Airway Details Final airway type: supraglottic airway Number of attempts at approach: 1 Final Supraglottic Airway: IGEL Size 3 Airway not difficult SIGNATURE: Guerline Mohan APRN.CRNA PATIENT NAME: Verona Avalos DATE: January 07, 2020 TIME: 9:23 AM CSN: [id number] Note HNO ID: [id number] Author: Amy Weiss Service: Orthopaedic Surgery Author Type: Physician Type: Brief Op Note Filed: 01/07/2020 10:10 AM Note Text: BRIEF OPERATIVE / PROCEDURE NOTE LOG ID: [id number] Surgery/Procedure Date: 01/07/2020 Incision/Procedure Start Time: 9:25 AM Incision Close/Procedure End Time: 10:00 AM Surgeon(s)/Proceduralist(s) and Coffee Shop Attendant(s): Surgeon(s) and Role: * Milli Weiss - Primary Procedure(s): Right knee arthroscopy, lateral retinacular release, chondroplasty,removal loose bodies Anesthesia: General Findings: Right knee patello/femoral syndrome, loose bodies, chondromalacia patella Estimated Blood Loss: 0 ml Specimens: None Complications: None Pre-Op/Pre-Procedure Diagnosis: Right knee patello femoral syndrome, loose bodies ,chondromalacia patella Post-Op/Post-Procedure Diagnosis: same SIGNATURE: Milli Weiss MD PATIENT NAME: Vreona Avalos DATE: January 07, 2020 TIME: 10:07 AM PAGER/CONTACT #: Medications Administered Section Inactive Administered Medications - up to 3 most recent administrations Medication Order MAR Action Action Date Dose Rate Site bupivacaine (PF) 0.5 % (5 mg/mL) 8 mL injection 8 mL, Injection - FOR ORTHO USE ONLY, ONE TIME INJECTION, 1 dose, Starting on Sat06/02/21 at 1532, Until Sat06/02/21 at 1532 Given 06/02/2021 3:32 PM EDT 8 mL triamcinolone acetonide 80 mg injection (KeNALog 40) 80 mg, Injection - FOR ORTHO USE ONLY, ONE TIME INJECTION, 1 dose, Starting on Sat06/02/21 at 1532, Until Sat06/02/21 at 1532 Given 06/02/2021 3:32 PM EDT 80 mg Additional Source Comments INFORMATION SOURCE (unrecogn ized section and content) DATE CREATED AUTHOR 08/14/2017 [facility] DATE CREATED AUTHOR AUTHOR'S ORGANIZ ATION 01/07/2019 [facility] DATE CREATED AUTHOR AUTHOR'S ORGANIZ ATION 03/09/2020 [facility] DATE CREATED AUTHOR AUTHOR'S ORGANIZ ATION 03/10/2020 [facility] DATE CREATED AUTHOR AUTHOR'S ORGANIZ ATION 03/29/2020 [facility] DATE CREATED AUTHOR AUTHOR'S ORGANIZ ATION 04/13/[address] [facility] DATE CREATED AUTHOR AUTHOR'S ORGANIZ ATION 10/21/2020 [facility] DATE CREATED AUTHOR AUTHOR'S ORGANIZ ATION 06/11/2021 [facility] DATE CREATED AUTHOR AUTHOR'S ORGANIZ ATION 07/01/2023 [facility] DATE CREATED AUTHOR AUTHOR'S ORGANIZ ATION 01/17/2024 [facility] DATE CREATED AUTHOR AUTHOR'S ORGANIZ ATION 03/17/2024 [facility] Reason for Visit (unrecogniz ed section and content) Reason Comments Finger Injury Reason Comments Knee Pain left Toe Pain left Reason Comments Chest Pain Reason Comments Abdominal Pain Dysuria Reason Comments Pain New Swelling Ordered Prescriptions (unrec ognized section and content) Prescription Sig Dispensed Refills Start Date End Da te famotidine (PEPCID) 20 MG tablet Take 1 tablet by mouth 2 times daily 60 tablet 0 10/18/2020 sucralfate (CARAFATE) 1 GM/10ML suspension Take 10 mLs by mouth 4 times daily 1200 mL 3 10/18/2020 Scheduled Active and Recently Administ ered Medications (unrecognized section and content) Medication Order 10/16/2020 10/17/2020 10/18/2020 0.9 % sodium chloride bolus (COMPLETED) 1,000 mL (20 mL/kg), IntraVENous, at 1,000 mL/hr, Administer over 1 Hours, ONCE, On Sat10/18/20 at 1110, For 1 dose 1148 (New Bag - Prov ider: Itzel Vicente RN)1346 (Stopped - Provider: Itzel Vicente RN) aluminum & magnesium hydroxide-simethicone (MAALOX) 30 mL, lidocaine viscous hcl (XYLOCAINE) 5 mL (GI COCKTAIL) (COMPLETED) Oral, ONCE, On Sat10/18/20 at 1333, For 1 dose, Take 5 mL from lidocaine viscous 2% cup and mix with 30 mL of maalox and then administer. 1349 (Given - Provid er: Itzel Vicente RN) ketorolac (TORADOL) injection 30 mg (COMPLETED) 30 mg, IntraVENous, ONCE, On Sat10/18/20 at 1315, For 1 dose, Do not administer for more than 5 days. 1324 (Given - Provid er: Itzel Vicente RN) PRN Medication Order 10/16/2020 10/17/2020 10/18/2020 iopamidol (ISOVUE-370) 76 % injection 75 mL (COMPLETED) 75 mL, IntraVENous, IMG ONCE PRN, Other, Starting on Sat10/18/20 at 1124, For 1 dose 1235 (Given - Provid er: Dara Soni) Care Team (unrecognized sect ion and content) Personnel Name: CRISTHIAN SAMS MD Address: [address] [place] [id number] Care Team Personnel Name: MARIBEL Winters Position: ED RN Member Role: ED RN Name: BRAD MONTOYA MD Position: ED Physician Member Role: ED Physician Address: Address: [address] [address] Care Team Related Persons Name: SRI VALENCIA Care Team Related Persons Name: SRI VALENCIA Care Team Related Persons Name: SRI VALENCIA Source Comments (unrecognize d section and content) In the event this informatio n is protected by the Federal Confidentiality of Alcohol and Drug Abuse Patient Records regulations: The Federal rules restrict any use of the information to criminally investigate or prosecute any alcohol or drug abuse patient.[facility] Care Team (unrecognized sect ion and content) Care Team Personnel Name: JOHN AMARAL DO Position: Resident Member Role: Resident Address: Address: [address] [place] [address]- Name: CedrickValentino RN Position: AO RN Member Role: RN Name: MD ANAI PATHAK MD Position: ED Physician Member Role: ED Physician Address: Address: AYAN MCCLAIN [facility] [address] [place] [address]- FOR RECORDS PERTAINING TO PATIENTS WHO ARE OR HAVE BEEN ENROLLED IN A CHEMICAL DEPENDENCY/SUBSTANCEABUSE PROGRAM, SOME INFORMATION MAY BE OMITTED. This clinical summary was aggregated from multiple sources. Caution should be exercised in using it in the provision of clinical care. This summary normalizes information from multiple sources, and as a consequence, information in this document may materially change the coding, format and clinical context of patient data. In addition, data may be omitted in some cases. CLINICAL DECISIONS SHOULD BE BASED ON THE PRIMARY CLINICAL RECORDS. [facility] [email or web address] [facility]. provides no warranty or guarantee of the accuracy or completeness of information in this document.
[2024-10-13] MEDS: 0.9% Normal Saline (1000mL) 1,000 ML 999 ML IV (02:22)
[2024-10-13 02:26] LABS: Hematocrit 39.7 % (37-47); Hemoglobin 14.1 g/dL (12.0-15.0); Immature Granulocytes Count 0.030 X10^3/uL (0.0-0.0); Mean Corp Hgb Conc 35.5 g/dL (32-36); Mean Corpuscular Volume 88.6 fL (81-99); Mean Platelet Vol. 10.8 fl (6.2-12.0); NRBC Flagged by Analyzer 0 % (0-5); POSITIVE DIFFERENTIAL YES; Platelet Count 191 K/mm3 (150-450); RBC Distribution Width CV 15.3 % (11.6-14.6); RBC Distribution Width SD 49.6 fl (35.1-43.9); Red Blood Count 4.48 M/mm3 (4.2-5.4); White Blood Count 10.2 K/mm3 (4.4-11.0)
[2024-10-13 02:26] LABS: Color, Urine Yellow (Yellow); Glucose, Dipstick Normal (Normal); Ketone-Dipstick Negative (Negative); Leukocyte Esterase-Dipstick Negative /ul (Negative); Nitrite-Dipstick Negative (Negative); Occult Blood-Urine 25 /ul (Negative); Protein-Dipstick Negative (Negative); Specific Gravity, Urine 1.010 (1.002-1.030); Urine Bilirubin Dipstick Negative (Negative)
[2024-10-13 02:38] LABS: Differential Indicated SCAN CRITERIA MET
[2024-10-13 02:47] LABS: Internal QC Validated? YES +Cl - CLEAR BKGD; Pregnancy, Serum, hCG Quali. NEGATIVE Negative; Record Kit Lot#, Serum Preg. 0000962302
[2024-10-13 03:03] LABS: Differential Comment SCANNED
[2024-10-13 03:21] LABS: Anion Gap 14 (5-15); BUN 10 mg/dL (4-19); BUN/Creat Ratio 12.5 RATIO (10-20); Calcium,Total 8.8 mg/dL (7.6-11.0); Carbon Dioxide 19.8 mmol/L (21.0-32.0); Chloride 105 mmol/L (98-108); Estimated Creatinine Clearance 80.77 ml/min (50-250); Glucose 99 mg/dL (70-99); Potassium 3.5 mmol/L (3.3-5.1)
[2024-10-13 03:24] VITALS: BP 99/70; PULSE 79; RESP 16; TEMP 36.7; O2SAT 100
== END 2024-10-13 03:33 | disposition home or self-care (01) ==
PROVIDERS: Emergency Provider Emergency Medicine; Visit Provider Emergency Medicine
DX: N93.8 Other specified abnormal uterine and vaginal bleeding (principal); G40.909 Epilepsy, unspecified, not intractable, without status epilepticus; R10.2 Pelvic and perineal pain; Z79.899 Other long term (current) drug therapy; Z98.51 Tubal ligation status; F17.210 Nicotine dependence, cigarettes, uncomplicated
CPT/HCPCS: 80048; 81001; 84703; 85025; 96361; 96374; 99284; A4216

== ENCOUNTER → 2024-12-31 | Outpatient (CLI) | payer MEDICAID, SELFPAY | END | disposition home or self-care (01) | PROVIDERS: Visit Provider Nurse Practitioner Family | DX: Z11.3 Encounter for screening for infections with a predominantly sexual mode of transmission (principal); Z12.4 Encounter for screening for malignant neoplasm of cervix | CPT/HCPCS: 36415; 80074; 86703; 86780; 87491; 87591; 87624; 88175; G0145 ==

== ENCOUNTER → 2024-12-31 | Outpatient (CLI) | payer MEDICAID, SELFPAY ==
[2024-12-31 17:41] LABS: HIV Nonreactive (Nonreactive); Syphilis Antibodies Nonreactive (Nonreactive)
--- OUTSIDE RECORDS SUMMARY | 2024-12-31 18:32 | XMS RPT_ITS | CCD ---
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 Role Phone LAUREN MORGAN Unavailable Unavailable CRISTHIAN MORRISON Unavailable Unavailable Flaquita, [facility] Primary Care Provider LE GOINS, MARC Admitting Unavailab le LE [...] BEDDELLESTHER Admitting Unavailable BEDDELLESTHER Attending Unavailable Flaquita, [facility] Primary Care Provider Unavailabl e Flaquita, [facility] Primary Care Provider FLAQUITA BUCK, [facility] Primary Care Physician Unavailable Primary Care Provider Unavailabl e FLAQUITA, [facility] Primary Care Physician Unavailab CORRIE Weber DO Attending Lulu MONTOYA MD, DR DIAZ Attending Germaine MONTOYA MD, BRAD Montero Attending Unavailable NAKUL CM MD Attending Lulu MONTOYA MD, DR DIAZ Attending UnavailCORRIE Milan DO Attending Unavailable Care Physician, No Primary Primary Care Provider Unavailable Jack BUCK, [facility] Emergency Provider JOS COBIAN Attending Unavailable Care Physician, No Primary Primary Care Unava ilable Angelito Santiago Attending Unavailable Willian Brice Attending Unavailable CRISTHIAN MORRISON Primary Care Unavailable Care Physician, No Primary Primary Care Unava ilable Henrry Samayoa Attending Unavailable Care Physician, No Primary Referring Unava ilable Allergies Allergy Classification Reported Allergen(s) Allergy Type Date of Onset Reaction(s) Facility (7 sources) Acetaminophen / HYDROcodone; Translations: [HYDROCODONE-ACET AMINOPHEN] Drug Allergy 9 Itching [place], [place] (5 sources) HYDROmorphone Drug Allergy 7 [place] (8 sources) Latex; Translations: [Latex] Propensity to adverse reactions to drug 7 [place], [place] (1 source) Acetaminophen / HYDROcodone Drug Allergy [facility] (1 source) HYDROmorphone Drug Allergy [facility] (6 sources) Acetaminophen / HYDROcodone; Translations: [acetaminophen-hy drocodone] Drug Allergy [facility] (2 sources) HYDROmorphone; Translations: [HYDROMORPHONE (BULK)] Drug Allergy 9 Itching [facility] (2 sources) Latex; Translations: [LATEX, NATURAL RUBBER] Drug Allergy 2 Unknown [facility] (1 source) Acetaminophen Drug Allergy 5 [facility] (1 source) HYDROcodone Drug Allergy 5 [facility] (1 source) HYDROmorphone Drug Allergy 5 [facility] (1 source) natural latex rubber Allergy to substance 5 [facility] (1 source) Acetaminophen Drug Allergy 5 [facility] (1 source) HYDROcodone Drug Allergy 5 [facility] (1 source) HYDROmorphone Drug Allergy 5 [facility] (1 source) Latex Drug allergy (disorder) 5 [facility] (1 source) natural latex rubber Drug allergy (disorder) [facility] Medications Current Medications Medication Drug Class(es) Dates Sig (Normalized) Sig (Original) amoxicillin 875 mg / clavulanate 125 mg oral tablet (1 source) Penicillin-class Antibacterial Start: 06-10-2023 End: 06-17-2023 take 1 tablet by mouth every twelve hours amoxicillin-clav ulanate 875 mg-125 mg oral tablet 1 tab(s), Oral, q12h, X 7 day(s), # 14 tab(s), 0 Refill(s), 06/17/23 1:48:00 AM EDT, Pharmacy: [facility]/pharmacy #[id number], 149.9, cm, 03/30/22 19:34:00 EST, [...] and nightly) 15 capsule 0 02/14/2019 Active DULoxetine 30 mg delayed release oral capsule (1 source) Serotonin and Norepinephrine Reuptake Inhibitor Start: 10-13-2024 take 1 capsule by mouth once daily Duloxetine 30 mg capsule,delayed release(DR/EC) Active 30 mg PO DAILY October 13, 2024 12:00am famotidine 20 mg oral tablet (7 sources) [...] once daily. ibuprofen 600 mg oral tablet (5 sources) Nonsteroidal Anti-inflammatory Drug Start: 10-13-2024 take 1 tablet by mouth every eight hours as needed for pain Ibuprofen 600 mg tablet Active 600 mg PO EVERY 8 HOURS NEEDED as needed for pain 20 0 October 13, 2024 12:00am Start: 10-13-2024 End: 10-13-2024 take 1 tablet by mouth three times daily as needed for pain Ibuprofen 800 mg tablet Discontinued 800 mg PO 3 TIMES DAILY NEEDED as needed for pain October 13, 2024 12:00am October 13, 2024 3:28am Start: 06-10-2023 End: 06-17-2023 ibuprofen 600 mg oral tablet Dose : 600 mg = 1 tab(s), Oral, q6h, PRN Pain, scale 1-6, Take with food or milk., X 7 day(s), # 28 tab(s), 0 Refill(s), 06/17/23 1:49:00 AM EDT, Pharmacy: [facility]/pharmacy #[id number], 149.9, cm, 03/30/22 19:34:00 EST, [...] oral tablet (1 source) Opioid Agonist Start: 06-24-19 End: 06-26-19 oxyCODONE 5 mg oral tablet ( IMMEDIATE release ) Dose : 5 mg = 1 tab(s), Oral, q6h, X 2 day(s), # 7 tab(s), 0 Refill(s), 06/26/23 8:41:00 PM EDT, Pain due to dental caries, 54 Start Date: 06/24/23 Stop Date: 06/26/23 Status: Ordered QUEtiapine 200 mg oral tablet (1 source) Atypical Antipsychotic Start: 10-14-19 take 1 tablet by mouth at bedtime Quetiapine 200 mg tablet Active 200 mg PO AT BEDTIME October 13, 2024 12:00am sodium chloride flush 0.9 % injection 3 mL (1 source) Start: 02-15-20 sodium chloride flush 0.9 % injection 3 mL sucralfate 100 mg/ml oral suspension (1 source) Aluminum Complex Start: 10-19-19 take 10 mL by mouth four times [...] Date: 03/30/22 Stop Date: 04/06/22 Status: Ordered topiramate 100 mg oral tablet (7 sources) Start: 10-13-2024 take 1 tablet by mouth once daily Topiramate 100 mg tablet Active 100 mg PO DAILY October 13, 2024 12:00am topiramate XR (Q UDEXY XR) 50 mg cap(s) Take by mouth. unsure of strength 0 Active take 2 tablets by mouth once iliana ly topiramate (TOPAMAX) 25 MG tablet Take 50 mg by mouth nightly 0 Active Comment on above: Take by mouth. unsur e of strength traZODone hydrochloride 100 mg oral tablet (7 sources) Serotonin Reuptake Inhibitor Start: take 1 tablet by mouth at bedtime as needed Trazodone 100 mg tablet Active 100 mg PO AT BEDTIME NEEDED as needed for insomnia October 13, 2024 12:00am Start: 09-15-2018 take 1 tablet by simi th once daily as needed for sleep traZODone (DESYREL) 100 MG tablet Take 1 tablet by mouth nightly as needed for Sleep 10 tablet 0 09/15/2018 Active Comment on above: Take 100 mg by mouth daily at bedtime. Completed/Discontinued Medications Medication Drug Class(es) Dates Sig (Normalized) Sig (Original) acetaminophen 500 mg oral tablet (1 source) Start: 10-28-2018 End: 10-28-2018 acetaminophen (TYLENOL) tablet 1,000 mg acetaminophen 325 mg / oxyCODONE hydrochloride 5 mg oral tablet (6 sources) Opioid Agonist Start: 09-19-2023 End: 10-13-2024 Oxycodone-Acetaminop hen (Percocet) 5-325 mg tablet Discontinued 1 {tbl} PO Q8H as needed for pain 10 3 0 September 19, 2023 October 13, 2024 1:55am Chest pain Chest pain, unspecified Start: 06-10-2023 End: 06-12-2023 Percocet 5 mg-325 mg oral ta blet Dose = 1 tab(s), Oral, q6h, PRN Pain, scale 7-10, X 2 day(s), # 6 tab(s), 0 Refill(s), Pharmacy: [facility]/pharmacy #[id number], Odontalgia, 149.9, cm, 03/30/22 19:34:00 EST, Height, 47, kg, 11/21/22 10:53:00 EDT, Dosing Weight Start Date: 06/10/23 Stop Date: 06/12/23 Status: Ordered Start: 03-01-2019 End: 03-02-2019 Oxycodone-Acetaminophen 1 TA BLET tablet Discontinued 1 {tbl} PO EVERY 6 HOURS NEEDED as needed for Pain 12 1 0 March 01, 2019 March 01, 2019 1:00am March 02, 2019 1:09am Pain of thigh Pain in unspecified thigh Start: 02-14-2019 End: 02-17-2019 take 1 tablet [...] days. 6 tablet 0 01/03/2019 01/06/2019 Active [id number] 200 actuat albuterol 0.09 mg/actuat metered dose [...] Comment on above: Take 1 tablet by [facility] every 8 hours as needed. fluticasone propionate [...] on package naproxen 500 mg oral tablet (2 sources) Nonsteroidal Anti-inflammatory Drug Start: 06-07-2018 End: 10-13-2024 take 1 tablet by mouth twice daily as needed Naproxen 500 MG tablet Discontinued 500 mg PO TWICE DAILY NEEDED April 03, 2019 1:00am October 13, 2024 1:55am Comment on above: Take 1 tablet by simi th twice daily as needed. TAKE WITH FOOD 2 ml orphenadrine citrate 30 mg/ml injection (1 source) Muscle Relaxant Start: 10-28-2018 End: 10-28-2018 orphenadrine (NORFLEX) injection 60 mg 50 ml sodium chloride 9 mg/ml injection (2 sources) Start: 10-18-2020 End: 10-18-2020 0.9 % sodium chloride bolus Start: 02-14-2019 End: 02-14-2019 0.9 % sodium chloride bolus traMADol hydrochloride 50 mg oral tablet (1 [...] Problem Date Documented Date Episodic/Chronic Abdominal pain (3 sources) Upper abdominal pain; Translations: [Upper abdominal [...] teeth and supporting structures] Onset: 06-10-2023 Episodic E Codes: Fall (1 source) Accidental fall ; Translations: [Unspecified fall, initial encounter] 02-27-2024 Episodic Epilepsy; convulsions (2 sources) Tonic-clonic seizure; Translations: [Other generalized epilepsy and epileptic syndromes, not intractable, without status epilepticus] Onset: 05-10-2009 05-10-2009 Chronic Epilepsy; convulsions (2 sources) Unspecified convulsions; Translations: [Seizure] Onset: 03-09-2020 03-22-2019 Episodic Esophageal disorders (1 source) Gastro-esophageal reflux disease without esophagitis; Translations: [GERD WITHOUT ESOPHAGITIS] Onset: 03-09-2020 Chronic Fracture of upper limb (2 sources) Closed fracture of distal phalanx of ring finger; Translations: [Fracture of unspecified phalanx of unspecified finger, initial encounter for closed fracture] 04-04-2019 Episodic Headache; including migraine (1 source) Migraine, [...] 05-05-2023 Episodic Other aftercare (1 source) Other snf (current) drug therapy; Translations: [OTH MANAGER OF INTERNAL CURRENT DRUG THERAPY] Onset: 03-09-2020 Episodic Other [...] [Other enthesopathies, not elsewhere classified] Episodic Other connective tissue disease (1 source) Thigh pain; Translations: [Pain in right thigh] 03-02-2019 Episodic Other female genital disorders (1 source) Abnormal uterine bleeding; Translations: [Other specified abnormal uterine and vaginal bleeding] 10-13-2024 Chronic Other female genital disorders (1 source) Other specified abnormal uterine and vaginal bleeding; Translations: [Other specified abnormal uterine and vaginal bleeding] Onset: 10-20-2024 Chronic Other nervous system disorders (1 source) H/O: epilepsy; Translations: [Personal history of other diseases of the nervous system and sense organs] 02-27-2024 Episodic Other non-traumatic joint disorders (1 source) Chronic pain of right upper limb; Translations: [Pain in right shoulder] Episodic Other skin disorders (1 source) Epidermal cyst; Translations: [EPIDERMAL CYST] Onset: 03-09-2020 Episodic Other upper respiratory infections (2 sources) Acute upper respiratory infection; Translations: [Acute upper respiratory infection, unspecified] Onset: 11-21-2022 Episodic Otitis media and related conditions (1 source) Eustachian tube disorder; Translations: [Unspecified Eustachian tube disorder, unspecified ear] Onset: 11-21-2022 Episodic Residual codes; unclassified (1 source) Procedure and treatment not carried out, unspecified reason; Translations: [Procedure not carried out] Onset: 11-09-2024 Episodic Skin and subcutaneous tissue infections (3 sources) Cellulitis; Translations: [Cellulitis, unspecified] Onset: 08-28-2016 08-28-2016 Episodic Spondylosis; intervertebral disc disorders; other back problems (1 source) Degeneration of lumbar intervertebral disc; Translations: [Other intervertebral disc degeneration, lumbar region] Onset: 07-08-2012 07-08-2012 Chronic Substance-related disorders (7 sources) Polysubstance abuse ; Translations: [Nicotine dependence, cigarettes, uncomplicated] Onset: 09-14-2017 09-10-2018 Chronic Superficial injury; contusion (7 sources) Contusion of finger; Translations: [Hematoma of scalp] Onset: 01-06-2018 01-06-2018 Episodic Thyroid disorders (1 source) Hypothyroidism, unspecified; Translations: [...] sciatica, right side] Onset: 02-13-2018 02-13-2018 Episodic Sprains and strains (3 sources) Neck sprain; Translations: [Sprain of ankle grade II] Onset: 03-16-2024 02-27-2024 Episodic Results Test Name Value Interpretation Reference Range Facility Urgent Care Visit Reporton 1 Urgent Care Visit Report [facility] [address], [address] [place] [address] OFFICE VISIT Date of Service: 12/15/24 MR#: [id number] Acct: [id number] Name: VERONA AVALOS Rep #: [id number] : 1980 Provider: SANJAY Goddard Age/Sex: 44/F Location: [facility] Status: Signed Intake Vital Signs 10/13/24 01:54 12/15/24 16:46 Height 4 ft 11 in 5 ft Weight: 140 lb 2 oz BMI 27.3 BP 120/60 Position Sitting Respiration 18 Pulse 75 Temp 98.5 F Temp Source Oral Pulse Oximetry (%) 94 Oxygen Delivery Method room air Intake Visit Reasons: SORE THROAT Accompanied by: Self Allergies acetaminophen (From Vicodin) Allergy (Verified 12/15/24 16:40) Hives hydrocodone (From Vicodin) Allergy (Verified 12/15/24 16:40) Hives hydromorphone (From Dilaudid) Allergy (Verified 12/15/24 16:40) Hives latex Allergy (Verified 12/15/24 16:40) Hives Latex, Natural Rubber Allergy (Verified 12/15/24 16:40) Rash Medications ???Medication ???Instructions ???Recorded ???Confirmed ???Type duloxetine 30 mg capsule,delayed 30 mg PO DAILY 10/13/24 12/15/24 H istory release ibuprofen 600 mg tablet 600 mg PO Q8H PRN PRN pain #20 Rx TABLETS quetiapine 200 mg tablet 200 mg PO QHS 10/13/24 12/15/24 Hi story topiramate 100 mg tablet 100 mg PO DAILY 10/13/24 12/15/24 History trazodone 100 mg tablet 100 mg PO QHS PRN PRN insomnia 10/13/24 History naltrexone microspheres 380 mg mg IM 12/15/24 12/15/24 History intramuscular suspension,extended release (Vivitrol) Nurse's Note: Patient here for sore throat that has been going on since Saturday. Patient states it hurts to swallow. [facility] Medical History Liver disease Alcohol abuse Smoker Seizures Chronic bronchiolitis Epilepsy Migraine Surgical History (Updated 10/13/24 @ 01:59 by Alicia Collins) H/O tubal ligation Hx of knee surgery Hx of removal of cyst Hx of section Social History (Updated 12/15/24 @ 16:41 by Vannesa Romero MA) Smoking Status: Current every day smoker tobacco type: cigarettes alcohol intake: never HPI HPI Details: VERONA AVALOS, is a 44 F who presents to the office today for [facility] evaluation at the [facility] for approximately 4-day history of sore throat without swollen tender cervical lymph nodes in front of neck, no cough, no fever. Painful swallowing appreciated though no difficulty swallowing/drooling. No rash. No complaints of chest pressure/shortness of breath/dyspnea on exertion. No close contacts with similar complaints. ???No xzig-[id number] products taken to assist. She admits to being a tobacco smoker. No other associated symptoms and no other alleviating/aggravating factors. ROS Const Constitutional: No other (As above) Exam Const General: cooperative, healthy appearing and no acute distress Orientation: alert, awake [facility] Head: normal to inspection Ears: hearing grossly normal bilaterally, external ears normal, TM's normal bilaterally and EAC's normal Nose: external nose normal, nares normal, septum normal and no nasal discharge Face and sinus: normal facial exam, sinuses nontender and face symmetric Mouth: oral mucosae normal, lip normal, tongue normal and oropharynx normal Throat: posterior oropharynx normal, uvula midline, abnormal tonsil bilaterally erythema; no exudates and no hypertrophy and no postnasal drainage Eyes General: appearance normal, both eyes and all related structures Neck Neck: normal visual inspection, full ROM, no meningeal signs, supple and no lymphadenopathy Neck mass: No Thyroid: thyroid normal Chest Chest palpation inspection: normal inspection of the chest Resp Effort Inspection: normal respiratory effort and able to speak in complete sentences Auscultation: Bilateral: Clear to Auscultation Cardio Palpation: normal PMI Rate: regular rate Rhythm: regular rhythm Heart Sounds: S1 normal, S2 normal Pulses: radial pulses present Skin General: no rashes or lesions noted Neuro General: patient alert, patient awake Cognition: normal cognition Speech: speech normal Psych Appearance: grossly normal Mental Status: mental status grossly normal Mood: congruent mood Affect: normal affect Speech and Movement: speech and movement normal Attitude: cooperative Diagnoses Acute pharyngitis J02.9 Assessment and Plan Assessment and Plan (1) Acute pharyngitis: Status: Acute Plan: See POC results. Stop smoking! Supportive measures as instructed today. Follow-up with PCP in 5-7 days should symptoms not improve, ED sooner should symptoms worsen or any other concerns develop. Patient states acknowledging understanding all the above. Results (more content not included)... Normal [facility] CNOVon 11-09-2024 OV Office Visit ([facility]) -- VERONA AVALOS ([id number]) 1980 F [place] Date Time Provider Department 11/09/24 10:45 AM JOS COBIAN During your visit today, we recorded the following information about you: Temperature Pulse Respiration Blood pressure 97.9 degrees 95/minute 18/minute 120/84 Weight Last Period 63.5 kg 10/23/24 Jos Cobian APRN.[facility] 11/09/2024 11:06 AM Signed Patient came in and wanted cleared to go to work. Patient says she was seen in October 13 and in the ER for bleeding and has been off work ever since. Patient has no primary care but did tell patient we are not able to do ER follow-ups or clear you if you have been off work for a month. That you need to get established with a primary care and go through the proper protocol. Patient was agreeable Allergies As of Date: 11/09/2024 Noted Allergy Reaction DILAUDID (HYDROMORPHONE (BULK)) 12/22/2008 9 - Itching LATEX, NATURAL RUBBER 03/28/2011 16 - Unknown VICODIN (HYDROCODONE-ACETAMINOPHE* 12/22/2008 9 - Itching Date Reviewed: 11/09/2024 Reviewed by: Sissy Parnell MA - Fully Assessed Reason for Visit: Abdominal issues [Other] Cmt: Had abdominal issues x 3 weeks ago, is doing better and needs a note to go back to work Primary Visit Diagnosis:Procedure not carried out [Z53.9] Prescriptions as of 11/09/2024 - QUEtiapine (SEROQUEL) 200 mg tablet Take 200 mg by mouth daily at bedtime. - DULoxetine DR (CYMBALTA) 30 mg capsule Take 1 capsule by mouth once daily. - traZODone (DESYREL) 100 mg tablet Take 100 mg by mouth daily at bedtime. - levothyroxine (SYNTHROID) 100 mcg tablet Take 100 mcg by mouth daily before breakfast. unsure of strength - topiramate XR (QUDEXY XR) 50 mg cap(s) Take by mouth. unsure of strength - cyclobenzaprine (FLEXERIL) 10 mg tablet Take 1 tablet by mouth every 8 hours as needed. - naproxen (NAPROSYN) 500 mg tablet Take 1 tablet by mouth twice daily as needed. TAKE WITH FOOD - methylPREDNISolone (MEDROL, ZOILA,) 4 mg Dose-Pack Take by mouth. As directed on package - famotidine (PEPCID) 40 mg tablet Take 1 tablet by mouth once daily. - meloxicam (MOBIC) 15 mg tablet Take 15 mg by mouth once daily. - albuterol HFA (PROVENTIL HFA, VENTOLIN HFA) 90 mcg/actuation inhaler Inhale 2 Puffs as instructed every 4 hours as needed for Wheezing/Shortness of Breath. - magnesium oxide (MAG-OX) 400 mg tablet Take 1 tablet by mouth twice daily. 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] 05/10/2009 Alcohol Abuse [F10.10] 05/10/2009 Supervision of other normal [Z34.80] 12/25/2010 05/14/2011 Chronic daily headache [R51.9] 11/22/2011 Spells [[id number]] 11/22/2011 NO SHOW [760899] 02/22/2012 Myofascial muscle pain [M79.18] 04/02/2012 DDD (degenerative disc disease), lumbar [M51.36*07/08/2012 Cellulitis [L03.90] 08/28/2016 Electrolyte abnormality [E87.8] 10/31/2016 Acute pancreatitis [K85.90] 09/10/2017 Nicotine use disorder, F17.2 [F17.200] 09/14/2017 Chronic right-sided low back pain with right-si*02/13/2018 Hep C w/o coma, chronic (HCC) [B18.2] Encounter Status:Closed by JOS COBIAN on 11/09/24 Normal [facility] Absolute lymphocyte countOrd ered By: Angelito Santiago on 10-13-2024 Lymphocytes Auto (Unsp spec) [#/Vol] 5.35 10*3/uL High 0.83-4.51 [facility] Absolute neutrophil countOrd ered By: Angelito Santiago on 10-13-2024 Neutrophils (Bld) [#/Vol] 4.0 10*3/uL 2.0-7.7 [facility] Anion gap in Serum or Plasma Ordered By: Angelito Santiago on 10-13-2024 Anion gap [Moles/Vol] 14 mmol/L 07-02 [facility] Automated lymphocyte count a s percentage of total leukocytesOrdered By: Angelito Santiago on 10-13-2024 Lymphocytes/100 WBC Auto (Unsp spec) 52.3 % High [facility] BUN/creatinine ratioOrdered By: Angelito Santiago on 10-13-2024 Urea nitrogen/Creatinine [Mass ratio] 12.5 mg/mg 12-07 [facility] Basic Metabolic Profile (BMP )on 10-13-2024 BUN/CRE 12.5 RATIO Normal 12-07 [facility] Comment on above: Performed By: #### L 500.2500, L100.0100, L700.6800 #### [facility] [address] [place], [address] Calcium [Mass/Vol] 8.8 mg/dL Normal 7.6-11.0 [facility] Comment on above: Performed By: #### L 500.2500, L100.0100, L700.6800 #### [facility] [address] [place], [address] Chloride [Moles/Vol] 105 mmol/L Normal 98-108 [facility] Comment on above: Performed By: #### L 500.2500, L100.0100, L700.6800 #### [facility] [address] [place], [address] CO2 [Moles/Vol] 19.8 mmol/L Low 21.0-32.0 [facility] Comment on above: Performed By: #### L 500.2500, L100.0100, L700.6800 #### [facility] [address] [place], [address] Creatinine [Mass/Vol] 0.76 mg/dL Normal 0.70-1.20 [facility] Comment on above: Performed By: #### L 500.2500, L100.0100, L700.6800 #### [facility] [address] [place], [address] ECRCL 80.77 ml/min Normal 50-250 [facility] Comment on above: Performed By: #### L 500.2500, L100.0100, [id number] #### [facility] [address] [place], [address] GAP 14 Normal 5-15 [facility] Comment on above: Performed By: #### L 500.2500, L100.0100, L700.6800 #### [facility] [address] [place], [address] GFR/1.73 sq M.predicted among non-blacks MDRD (S/P/Bld) [Vol rate/Area] 100 mL/min/{1.73_m2} Normal >60 [facility] Comment on above: Result Comment: mL/m in/1.73m2 CKD-EPI Creatinine Equation (2020) Performed By: #### L 500.2500, L100.0100, L700.6800 #### [facility] [address] [place], [address] Glucose [Mass/Vol] 99 mg/dL Normal 70-99 [facility] Comment on above: Performed By: #### L 500.2500, L100.0100, [id number] #### [facility] [address] [place], [address] Potassium [Moles/Vol] 3.5 mmol/L Normal 3.3-5.1 [facility] Comment on above: Performed By: #### L 500.2500, L100.0100, [id number] #### [facility] [address] [place], [address] Sodium [Moles/Vol] 138 mmol/L Normal 133-145 [facility] Comment on above: Performed By: #### L 500.2500, L100.0100, [id number] #### [facility] [address] [place], [address] Urea nitrogen [Mass/Vol] 10 mg/dL Normal 4-19 [facility] Comment on above: Performed By: #### L 500.2500, L100.0100, [id number] #### [facility] [address] [place], [address] Basophil percentageOrdered B y: Angelito Santiago on 10-13-2024 Basophils/100 WBC (Bld) 0.7 % 0-1 [facility] Bilirubin Test strip Ql (U)O rdered By: Angelito Santiago on 10-13-2024 Bilirubin Ql (U) Negative Negative [facility] Blood manual differential co mment interpretation (narrative result)Ordered By: Angelito Santiago on 10-13-2024 Manual differential comment Boogie (Bld) [Interp] SCANNED [facility] Comment on above: LYMPHOCYTOSIS PRESEN T CBC W/Diff, Automatedon 09-19 SMEAR COMMENT SCANNED Normal [facility] Comment on above: Result Comment: LYMP HOCYTOSIS PRESENT Performed By: #### L 500.2500, L100.0100, L700.6800 #### [facility] [address] [place], [address] Carbon dioxide, total [Moles /volume] in Central venous bloodOrdered By: Angelito Santiago on 10-13-2024 CO2 [Moles/Vol] 19.8 mmol/L Low 21.0-32.0 [facility] Chloride assayOrdered By: Cierra Santiago on 10-13-2024 Chloride [Moles/Vol] 105 mmol/L 98-108 [facility] Emergency Department Summary on 10-13-2024 Emergency Department Summary [facility] Medical Records Department [address] [place] [address] Emergency Department Summary 10/13/24 MR#: [id number] Acct: [id number] Name: VERONA AVALOS Rep #: [id number] : 1980 43 From: Angelito Santiago MD PCP: Care Physician,No Primary Status:REG ER Location: ED HPI HPI - Female History of Present Illness Chief Complaint: Vag Bleeding Informant: patient Narrative Narrative: 43-year-old female presenting for vaginal bleeding. States this has been going on for about a week, it was appropriate timing for her cycle. However it has been going on for longer than usual, and she has been bleeding more than usual especially in the past 24 hours, many hours she has been going through an entire pad. She denies any syncope. No fevers or chills. She is having some right sided pelvic pain that started 4 days ago. This same pain started before this cycle and then ended when the bleeding started, which is how it has gone in the last couple cycles but now she is having the pain again and it feels like it is getting worse. Denies any other acute symptoms. She presents at 2 AM after drinking some beer earlier. States she does not have an FLIGHT FOLLOWER. [facility] Medical History Liver disease Alcohol abuse Smoker Seizures Chronic bronchiolitis Epilepsy Migraine Home Medications ???Medication ???Instructions ???Recorded ???Last Taken ???Type duloxetine 30 mg capsule,delayed 30 mg PO DAILY 10/13/24 Unknown Hi story release ibuprofen 600 mg tablet 600 mg PO Q8H PRN PRN pain #20 Unknown Rx TABLETS quetiapine 200 mg tablet 200 mg PO QHS 10/13/24 Unknown His tory topiramate 100 mg tablet 100 mg PO DAILY 10/13/24 Unknown H istory trazodone 100 mg tablet 100 mg PO QHS PRN PRN insomnia Unknown History Allergy/AdvReac Type Severity Reaction Status Date / Time acetaminophen (From Vicodin) Allergy Hives Verified 10/13/24 01:54 hydrocodone (From Vicodin) Allergy Hives Verified 10/13/24 01:54 hydromorphone (From Dilaudid) Allergy Hives Verified 10/13/24 01:54 latex Allergy Hives Verified 10/13/24 01:54 Latex, Natural Rubber Allergy Rash Verified 10/13/24 01:54 Surgical History (Updated 10/13/24 @ 01:59 by Alicia Collins) H/O tubal ligation Hx of knee surgery Hx of removal of cyst Hx of section Social History Smoking Status: Current every day smoker tobacco type: cigarettes ROS ROS ED Constitutional Constitutional ED: Denies chills or fever(s) Eyes Eyes: Denies change in vision or diplopia ENT ENT ED: Denies rhinorrhea or sore throat Cardiovascular Cardiovascular: Denies chest pain or palpitations Respiratory/Chest Respiratory/Chest: Denies cough or dyspnea Gastrointestinal Gastrointestinal: Reports abdominal pain; Denies diarrhea, nausea or vomiting Genitourinary Genitourinary ED: Reports vaginal bleeding; Denies dysuria, hematuria, low back pain or vaginal discharge Musculoskeletal Musculoskeletal: Denies back pain or neck pain Integumentary Denies abscess or rash Neurologic Neurologic: Denies headache(s), paresthesias or weakness Psychiatric Psychiatric: Denies suicidal thoughts EXAM Physical Exam Const Vital Signs: 10/13/24 01:54 Temperature 98.1 F Temperature Source Axillary Pulse Rate 88 Respiratory Rate 18 Blood Pressure 150/94 H Blood Pressure Mean 112 Pulse Ox 100 Oxygen Delivery Method Room Air Positive well nourished and well developed General Appearance ED: well developed and NAD HEENT Reports moist mucous membranes normocephalic and atraumatic Eyes PERRL and EOMs intact bilaterally Neck full ROM and supple Resp normal respiratory effort and clear to auscultation bilaterally Cardio regular rate, regular rhythm and no murmurs Rate: Negative for tachycardic GI non-distended GI Narrative: Tender suprapubic and right pelvis. No guarding or rebound. No other areas of tenderness. Auscultation: normoactive bowel sounds Palpation: soft Speculum Exam - Vagina: vaginal bleeding; Negative for vaginal discharge Back/Spine no CVA tenderness General Back: other FROM Extremity normal to inspection General Extremety ED: Negative for edema, pulses abnormal or tenderness General Extremity: Negative for edema or pulses abnormal Neuro oriented x3, CN's II-XII intact bilaterally and no sensory deficits noted Sensorium / Orientation: awake and alert Motor Exam: strength 5/5 throughout Psych Mood Affect: anxious Skin no rashes or lesions noted and no wounds MDM MDM MDM Narrative Medical decision making narrative: Labs were obtained as well as a serum (more content not included)... Normal [facility] Eosinophil percentageOrdered By: Angelito Santiago on 10-13-2024 Eosinophils/100 WBC (Bld) 1.9 % 0-5 [facility] Erythrocyte distribution wid th ratioOrdered By: Angelito Santiago on 10-13-2024 Erythrocyte distribution width (RBC) [Ratio] 15.3 % High 11.6-14.6 [facility] Erythrocyte distribution wid th standard deviationOrdered By: Angelito Santiago on 10-13-2024 Erythrocyte distribution width (RBC) [Ratio] 49.6 fl High 35.1-43.9 [facility] Glomerular filtration rate ( GFR) estimation/1.73 sq m using serum, plasma, or whole bOrdered By: Angelito Santiago on 10-13-2024 GFR/1.73 sq M.predicted among non-blacks MDRD (S/P/Bld) [Vol rate/Area] 100 mL/min/{1.73_m2} >60 [facility] Comment on above: mL/min/1.73m2 CKD-EP I Creatinine Equation (2020) Hematocrit Auto (Bld) [Volum e fraction]Ordered By: Angelito Santiago on 10-13-2024 Hematocrit (Bld) [Volume fraction] 39.7 % 37-47 [facility] Hemoglobin measurementOrdere d By: Angelito Santiago on 10-13-2024 Hemoglobin (Bld) [Mass/Vol] 14.1 g/dL 12.0-15.0 [facility] Immature granulocytes/100 WB C Auto (Bld)Ordered By: Angelito Santiago on 10-13-2024 Immature granulocytes/100 WBC (Bld) 0.300 % 0.0-0.9 [facility] Comment on above: IG% - Immature Granu locytes (promyelocytes, myelocytes and metamyelocytes) > 1% indicates that a LEFT SHIFT is Present. Ketones Test strip Ql (U)Ord ered By: Angelito Santiago on 10-13-2024 Ketones Ql (U) Negative Negative [facility] MCV (mean corpuscular volume ) determinationOrdered By: Angelito Santiago on 10-13-2024 MCV (RBC) [Entitic vol] 88.6 fL 81-99 [facility] Mean corpuscular hemoglobin (MCH) determinationOrdered By: Angelito Santiago on 10-13-2024 MCH (RBC) [Entitic mass] 31.5 pg 27.0-32.0 [facility] Mean corpuscular hemoglobin concentration (MCHC) determinationOrdered By: Angelito Santiago on 10-13-2024 MCHC (RBC) [Mass/Vol] 35.5 g/dL 32-36 [facility] Mean platelet volume determi nationOrdered By: Angelito Santiago on 10-13-2024 Platelet mean volume (Bld) [Entitic vol] 10.8 fL 6.2-12.0 [facility] Microscopic analysis of urin e for red blood cells (RBC)Ordered By: Angelito Santiago on 10-13-2024 Microscopic analysis of urine for red blood cells (RBC) 0 SEEN /hpf 0-5 [facility] Monocyte percentageOrdered B y: Angelito Santiago on 10-13-2024 Monocytes/100 WBC (Bld) 6.1 % 0-10 [facility] Mucus LM Ql (Urine sed)Order ed By: Angelito Santiago on 10-13-2024 Mucus Ql (Urine sed) 0 SEEN /hpf [facility] Neutrophil percentageOrdered By: Angelito Santiago on 10-13-2024 Neutrophils/100 WBC (Bld) 38.7 % Low 47-70 [facility] Nitrite Test strip Ql (U)Ord ered By: Angelito Santiago on 10-13-2024 Nitrite Ql (U) Negative Negative [facility] Nucleated red blood cell per centageOrdered By: Angelito Santiago on 10-13-2024 Nucleated RBC/100 WBC (Bld) [Ratio] 0 % 0-5 [facility] Platelet countOrdered By: Cierra Santiago on 10-13-2024 Platelets (Bld) [#/Vol] 191 10*3/uL 150-450 [facility] Potassium measurement (mass/ volume)Ordered By: Angelito Santiago on 10-13-2024 Potassium (Unsp spec) [Mass/Vol] 3.5 mmol/L 3.3-5.1 [facility] ,Serum,hCG Quali.on 10-13-2024 HCG, SERUM QUAL Negative Normal [facility] Comment on above: Performed By: #### L 500.2500, L100.0100, L700.6800 #### [facility] [place], [address] Protein Test strip Ql (U)Ord ered By: Angelito Santiago on 10-13-2024 Protein Ql (U) Negative Negative [facility] RBC Auto (Bld) [#/Vol]Ordere d By: Angelito Santiago on 10-13-2024 RBC (Bld) [#/Vol] 4.48 10*6/uL 4.2-5.4 [facility] Serum beta-hCG test, qualita tiveOrdered By: Angelito Santiago on 10-13-2024 Beta HCG ( test) Ql Negative [facility] Serum creatinine measurement (mass/volume)Ordered By: Angelito Santiago on 10-13-2024 Creatinine [Mass/Vol] 0.76 mg/dL 0.70-1.20 [facility] Serum glucose measurement (m ass/volume)Ordered By: Angelito Santiago on 10-13-2024 Glucose [Mass/Vol] 99 mg/dL 70-99 [facility] Serum or plasma calcium aurora urement (mass/volume)Ordered By: Angelito Santiago on 10-13-2024 Calcium [Mass/Vol] 8.8 mg/dL 7.6-11.0 [facility] Serum or plasma urea nitroge n measurement (mass/volume)Ordered By: Angelito Santiago on 10-13-2024 Urea nitrogen [Mass/Vol] 10 mg/dL 4-19 [facility] Sodium levelOrdered By: Peyman Santiago on 10-13-2024 Sodium [Moles/Vol] 138 mmol/L 133-145 [facility] Squamous epithelial cells de tection in urine sediment by light microscopyOrdered By: Angelito Santiago on 10-13-2024 Epithelial cells.squamous LM Ql (Urine sed) 0 SEEN /hpf 5-10 [facility] Urinalysis, Completeon 10-13 BACTERIA 0 SEEN Normal None Seen [facility] Comment on above: Order Comment: CLEAN CATCH Performed By: #### L 400.0001 #### [facility] [address] [place], [address] EPI,SQUAMOUS 0 SEEN Normal 5-10 [facility] Comment on above: Order Comment: CLEAN CATCH Performed By: #### L 400.0001 #### [facility] [address] [place], [address] Mucus Ql (Urine sed) 0 SEEN Normal [facility] Comment on above: Order Comment: CLEAN CATCH Performed By: #### L 400.0001 #### [facility] [address] [place], [address] RBC 0 SEEN Normal 0-5 [facility] Comment on above: Order Comment: CLEAN CATCH Performed By: #### L 400.0001 #### [facility] [address] [place], [address] WBC 0 SEEN Normal 0-5 [facility] Comment on above: Order Comment: CLEAN CATCH Performed By: #### L 400.0001 #### [facility] [address] [place], [address] Urine clarityOrdered By: Solo Santiago on 10-13-2024 Clarity (U) Clear Clear [facility] Urine color determinationOrd ered By: Angelito Santiago on 10-13-2024 Color (U) Yellow Yellow [facility] Urine glucose detectionOrder ed By: Angelito Santiago on 10-13-2024 Glucose Ql (U) Normal mg/dl Normal [facility] Urine leukocyte esterase det ection by dipstickOrdered By: Angelito Santiago on 10-13-2024 Leukocyte esterase Test strip Ql (U) Negative Negative [facility] Urine pHOrdered By: Angelito Santiago on 10-13-2024 pH (U) 6.5 [pH] 5.0 - 8.0 [facility] Urine sediment bacteria coun t by microscopy (number/high power field)Ordered By: Angelito Santiago on 10-13-2024 Bacteria LM.HPF (Urine sed) [#/Area] 0 /[HPF] None Seen [facility] Urine specific gravity measu rementOrdered By: Angelito Santiago on 10-13-2024 Specific gravity (U) [Rel density] 1.010 1.002-1.030 [facility] Urine urobilinogen measureme ntOrdered By: Angelito Santiago on 10-13-2024 Urobilinogen Ql (U) Normal mg/dl Normal [facility] White blood cell (WBC) count Ordered By: [place] Jack on 10-13-2024 WBC (Bld) [#/Vol] 10.2 10*3/uL 4.4-11.0 [facility] White blood cell countOrdere d By: Angelitonanci Santiago on 10-13-2024 White blood cell count 0 SEEN /hpf 0-5 [facility] Ankle min 3 Viewson 02-18-19 25 Ank[address] [facility] [address] [place], [place] [address] Ankle min 3 Views MR#: [id number] Acct: [id number] Name: VERONA AVALOS Rep #: [id number] : 1980 F 43 From: Valdez Harmon PCP: CRISTHIAN MORRISON MD Status: [facility] ER Study: Ankle min 3 Views Date of Exam: 02/19/24 Exam# [id number] Ordering Dr: Willian Brice DO [id number] EXAM: XR LEFT ANKLE COMPLETE, 3 OR [...] Signed: Valdez Mckeon MD at 4:25 EST , CC: Willian Brice DO; CRISTHIAN MORRISON MD Printing Manager: Signed Normal [facility] Emergency Department Summary on 02-19-2024 Emergency Department Summary [facility] Medical Records Department [address] [place] [address] Emergency Department Summary 02/19/24 MR#: [id number] Acct: [id number] Name: VERONA AVALOS Rep #: [id number] : 1980 43 From: Willian Brice DO PCP: CRISTHIAN MORRISON MD Status:DEP ER Location: ED HPI History [...] EMS to bring her in for evaluation [facility] Medical History Liver disease Alcohol abuse Smoker [...] conscious nor (more content not included)... Normal [facility] Foot min 3 Viewson 5 Foot min [address] [facility] Imaging Services [address] [place], [place] [address] Foot min 3 Views MR#: [id number] Acct: [id number] Name: VERONA AVALOS Rep #: [id number] : 1980 F 43 From: Valdez Harmon PCP: CRISTHIAN MORRISON MD Status: DEP ER Study: Foot min 3 Views Date of Exam: 02/19/24 Exam# [id number] Ordering Dr: Willian Brice DO [id number] EXAM: XR LEFT FOOT COMPLETE, 3 OR [...] EST , CC: Willian Brice DO; CRISTHIAN MORRISON MD Printing Manager: Signed [facility] High Sensitivity Troponin I <4 Normal 0-51 [facility] Comment on above: Result Comment: High Sensitive Troponin I Reference Ranges: Female: 0-51 ng/L Male: 0-76 ng/L Testing performed on Gumi[employer] using a homogeneous sandwich chemiluminescent immunoassay based on [employer] technology. Performed By: #### [facility] #### [address] [address] .Auto DiffOrdered By: SYSTEM SYSTEM on 05-05-2023 Basophil, Absolute 0.1 103/mcL Normal 0.0-0.2 AO Wo rkflow SS Comment on above: Performed By: #### A DIFF, PBNP, CBC, GFR, MDW, TROPHS, DIMER, BMP, ANEU #### [address] [address] Basophils/100 WBC (Bld) 1.2 % Normal 0.0-2.5 AO Workflow SS Comment on above: Performed By: #### A DIFF, PBNP, CBC, GFR, MDW, TROPHS, DIMER, BMP, ANEU #### [address] [address] Eosinophil, Absolute 0.1 103/mcL Normal 0.0-0.4 AO Workflow SS Comment on above: Performed By: #### A DIFF, PBNP, CBC, GFR, MDW, TROPHS, DIMER, BMP, ANEU #### [address] [address] Eosinophils/100 WBC (Bld) 1.0 % Normal 0.0-7.0 AO Workflow SS Comment on above: Performed By: #### A DIFF, PBNP, CBC, GFR, MDW, TROPHS, DIMER, BMP, ANEU #### [address] [address] Lymphocyte, Absolute 4.4 103/mcL High 0.8-3.9 AO Workflow SS Comment on above: Performed By: #### A DIFF, PBNP, CBC, GFR, MDW, TROPHS, DIMER, BMP, ANEU #### [address] [address] Lymphocytes/100 WBC (Bld) 48.7 % Normal 10.0-50.0 AO Workflow SS Comment on above: Performed By: #### A DIFF, PBNP, CBC, GFR, MDW, TROPHS, DIMER, BMP, ANEU #### [address] [address] Monocyte, Absolute 0.7 103/mcL Normal 0.2-1.0 AO Wo rkflow SS Comment on above: Performed By: #### A DIFF, PBNP, CBC, GFR, MDW, TROPHS, DIMER, BMP, ANEU #### [address] [address] Monocytes/100 WBC (Bld) 8.1 % Normal 1.7-13.0 AO Workflow SS Comment on above: Performed By: #### A DIFF, PBNP, CBC, GFR, MDW, TROPHS, DIMER, BMP, ANEU #### [address] [address] Neutrophils/100 WBC (Bld) 41.0 % Normal 37.0-80.0 AO Workflow SS Comment on above: Performed By: #### A DIFF, PBNP, CBC, GFR, MDW, TROPHS, DIMER, BMP, ANEU #### [address] [address] .GFRon 05-05-2023 GFR Non- 110 ml/min/1.73sqm Normal [facility] Comment on above: Result Comment: GFR Population [...] GFR, MDW, TROPHS, DIMER, BMP, ANEU #### [address] [address] GFR 134 ml/min/1.73sqm Normal [facility] Comment on above: Result Comment: GFR Population [...] GFR, MDW, TROPHS, DIMER, BMP, ANEU #### [address] [address] .MDWon 05-05-2023 Monocyte Distribution Width 19.26 Normal 0.00-20.00 [facility] Comment on above: Result Comment: For ED adult patients suspected of sepsis, MDW<=20.0 does not rule out sepsis or risk of sepsis Performed By: #### A DIFF, PBNP, CBC, GFR, MDW, TROPHS, DIMER, BMP, ANEU #### [address] [address] .NEUABSOrdered By: SYSTEM SY STEM on 05-05-2023 Neutrophil, Absolute 3.7 103/mcL Normal 2.9-6.2 AO Workflow SS Comment on above: Performed By: #### A DIFF, PBNP, CBC, GFR, MDW, TROPHS, DIMER, BMP, ANEU #### [address] [address] BMPon 05-05-2023 BUN/Creatinine Ratio 18 ratio Normal 7-27 [facility] ([place] Comment on above: Performed By: #### A DIFF, PBNP, CBC, GFR, MDW, TROPHS, DIMER, BMP, ANEU #### [address] [address] BMPOrdered By: SYSTEM SYSTEM on 05-05-2023 Calcium [Mass/Vol] 8.9 mg/dL Normal 8.4-10.2 AO ADM SS Comment on above: Performed By: #### A DIFF, PBNP, CBC, GFR, MDW, TROPHS, DIMER, BMP, ANEU #### [place] [id number] Chloride [Moles/Vol] 106 mmol/L Normal 98-107 AO A DM SS Comment on above: Performed By: #### A DIFF, PBNP, CBC, GFR, MDW, TROPHS, DIMER, BMP, ANEU #### [place] [id number] CO2 [Moles/Vol] 21 mmol/L Low 22-29 AO ADM SS Comment on above: Performed By: #### A DIFF, PBNP, CBC, GFR, MDW, TROPHS, DIMER, BMP, ANEU #### [place] [id number] Creatinine [Mass/Vol] 0.60 mg/dL Normal 0.55-1.02 AO ADM SS Comment on above: Performed By: #### A DIFF, PBNP, CBC, GFR, MDW, TROPHS, DIMER, BMP, ANEU #### [address] [address] Electrolyte Balance 13.0 mEq/L Normal 4.0-15.0 AO AD M SS Comment on above: Performed By: #### A DIFF, PBNP, CBC, GFR, MDW, TROPHS, DIMER, BMP, ANEU #### [place] [id number] Glucose [Mass/Vol] 118 mg/dL High 70-105 AO ADM SS Comment on above: Performed By: #### A DIFF, PBNP, CBC, GFR, MDW, TROPHS, DIMER, BMP, ANEU #### [address] [address] Potassium [Moles/Vol] 3.7 mmol/L Normal 3.5-5.1 AO ADM SS Comment on above: Performed By: #### A DIFF, PBNP, CBC, GFR, MDW, TROPHS, DIMER, BMP, ANEU #### [place] [id number] Sodium [Moles/Vol] 140 mmol/L Normal 136-145 AO ADM SS Comment on above: Performed By: #### A DIFF, PBNP, CBC, GFR, MDW, TROPHS, DIMER, BMP, ANEU #### [place] [address] Urea nitrogen [Mass/Vol] 11 mg/dL Normal 7-18 AO ADM SS Comment on above: Performed By: #### A DIFF, PBNP, CBC, GFR, MDW, TROPHS, DIMER, BMP, ANEU #### [place] [id number] CBCOrdered By: SYSTEM SYSTEM on 05-05-2023 Erythrocyte distribution width (RBC) [Ratio] 15.0 % High 11.5-14.5 AO Workflow SS Comment on above: Performed By: #### A DIFF, PBNP, CBC, GFR, MDW, TROPHS, DIMER, BMP, ANEU #### [place] [id number] Hematocrit (Bld) [Volume fraction] 42.3 % Normal 37.0-47.0 AO Workflow SS Comment on above: Performed By: #### A DIFF, PBNP, CBC, GFR, MDW, TROPHS, DIMER, BMP, ANEU #### [place] [id number] MCH (RBC) [Entitic mass] 35.4 pg High 27.0-31.2 AO Workflow SS Comment on above: Performed By: #### A DIFF, PBNP, CBC, GFR, MDW, TROPHS, DIMER, BMP, ANEU #### [place] [id number] MCHC 34.1 G/dL Normal 33.0-37.0 AO Workflow SS Comment on above: Performed By: #### A DIFF, PBNP, CBC, GFR, MDW, TROPHS, DIMER, BMP, ANEU #### [address] [address] MCV (RBC) [Entitic vol] 103.7 fL High 80.0-94.0 AO Workflow SS Comment on above: Performed By: #### A DIFF, PBNP, CBC, GFR, MDW, TROPHS, DIMER, BMP, ANEU #### [address] [address] Platelet mean volume (Bld) [Entitic vol] 8.5 fL Normal 7.4-10.4 AO Workflow SS Comment on above: Performed By: #### A DIFF, PBNP, CBC, GFR, MDW, TROPHS, DIMER, BMP, ANEU #### [address] [address] CBCon 05-05-2023 Hgb 14.4 G/dL Normal 12.0-16.0 [facility] Comment on above: Performed By: #### A DIFF, PBNP, CBC, GFR, MDW, TROPHS, DIMER, BMP, ANEU #### [address] [address] Platelet 211 10 3/mcL Normal 130-400 [facility] Comment on above: Performed By: #### A DIFF, PBNP, CBC, GFR, MDW, TROPHS, DIMER, BMP, ANEU #### [address] [address] RBC 4.08 10 6/mcL Low 4.20-5.40 [facility] Comment on above: Performed By: #### A DIFF, PBNP, CBC, GFR, MDW, TROPHS, DIMER, BMP, ANEU #### [address] [address] WBC 9.0 10 3/mcL Normal 4.6-10.8 [facility] Comment on above: Performed By: #### A DIFF, PBNP, CBC, GFR, MDW, TROPHS, DIMER, BMP, ANEU #### [address] [address] DIMERon 05-05-2023 D-Dimer <200 Normal 0-230 [facility] Comment on above: Result Comment: DDN: Results [...] GFR, MDW, TROPHS, DIMER, BMP, ANEU #### [address] [address] LABORATORYOrdered By: Tushar Mills on 05-05-2023 Fibrin [...] ng/L Male: 0-76 ng/L Testing performed on Gumi[employer] using a homogeneous sandwich chemiluminescent immunoassay based on [employer] technology. PBNPon 05-05-2023 Natriuretic peptide B (Bld) [Mass/Vol] 33 pg/mL Normal 0-125 [facility] Comment on above: Result Comment: NT-p roBNP results of less than 300 pg/mL effectively rules out acute congestive heart failure with 99% negative predictive value. Performed By: #### A DIFF, PBNP, CBC, GFR, MDW, TROPHS, DIMER, BMP, ANEU #### [address] [address] [facility] High Sensitivity Troponin I <4 Normal 0-51 [facility] Comment on above: Result Comment: High Sensitive Troponin I Reference Ranges: Female: 0-51 ng/L Male: 0-76 ng/L Testing performed on Gumi[employer] using a homogeneous sandwich chemiluminescent immunoassay based on [employer] technology. Performed By: #### T ROP #### [place] [id number] XR CHEST 1 VIEWon 05-05-2023 XR CHEST [...] 8:53:00 PM Ordering Provider: CORRIE ROJO [facility] ([place]) LABORATORYOrdered By: Shelley Dozier on 06-07-2021 HCG [...] ml/min/1.73sqm Invalid Interpretation Code AO Chemistry S CBC Auto DifferentialOrdered By: Esther Rhodes on 10-18-2020 Absolute Baso # 0.1 10*3/uL 0.0 - 0.2 10*3/uL [facility] Work Phone: [phone] Absolute Neut # 3.1 10*3/uL 1.8 - 7.0 10*3/uL [facility] Work Phone: [phone] Basophils/100 WBC (Bld) 0.9 % 0.0 - 2.0 % [facility] Work Phone: [phone] Eosinophils (Bld) [#/Vol] 0.2 10*3/uL 0.0 - 0.5 10*3/uL [facility] Work Phone: [phone] Eosinophils/100 WBC (Bld) 2.2 % 1.0 - 6.0 % [facility] Work Phone: [phone] Granulocytes/100 WBC (Bld) 39.2 % Low 40.0 - 80.0 % [facility] Work Phone: [phone] Hematocrit (Bld) [Volume fraction] 39.9 % 35.0 - 47.0 % [facility] Work Phone: [phone] Hemoglobin.gastrointe stinal spec 1 Ql (Stl) 13.8 g/dL 11.7 - 16.0 g/dL [facility] Work Phone: [phone] Interpretation and review of laboratory results Abnormal [facility] Work Phone: [phone] Lymphocytes (Bld) [#/Vol] 3.6 10*3/uL 1.0 - 4.3 10*3/uL [facility] Work Phone: [phone] Lymphocytes/100 WBC (Bld) 45.6 % High 20.0 - 40.0 % [facility] Work Phone: [phone] MCH (RBC) [Entitic mass] 34.0 pg 26.0 - 34.0 pg [facility] Work Phone: [phone] MCHC (RBC) [Mass/Vol] 34.7 % 32.0 - 36.0 % [facility] Work Phone: [phone] MCV (RBC) [Entitic vol] 98.1 fL High 79.0 - 98.0 fL [facility] Work Phone: [phone] Monocytes (Bld) [#/Vol] 1.0 10*3/uL High 0.0 - 0.8 10*3/uL [employer] Work Phone: [phone] Monocytes/100 WBC (Bld) 12.1 % High 2.0 - 10.0 % [employer] Work Phone: [phone] Platelet distribution width (Bld) [Ratio] 15.6 % High 11.5 - 14.5 % [employer] Work Phone: [phone] Platelet mean volume (Bld) [Entitic vol] 8.7 fL 7.4 - 10.4 fL [employer] Work Phone: [phone] Platelets (Bld) [#/Vol] 195 10*3/uL 140 - 440 10*3/uL [employer] Work Phone: [phone] RBC (Bld) [#/Vol] 4.07 10*6/uL 3.80 - 5.2 0 10*6/uL [employer] [facility] Work Phone: [phone] WBC (Bld) [#/Vol] 8.0 10*3/uL 3.6 - 10.7 10*3/uL [employer] Work Phone: [phone] Test Performed by [address] [address] [employer] Work Phone: [phone] [employer] Work Phone: [phone] Abdomen and Pelvis W cont rast IVOrdered By: Esther Rhodes on 10-18-2020 [id number] ACCESSION EXAM DATE/TIME PROCEDURE ORDERING PROVIDER [id number] 10/18/2020 12:[address] Abdomen/Pelvis w/ IV MD ERUM, ESTHER Montero Contrast (IV Onl CPT code 19158 Q9967 Reason For Exam (CT Abdomen/Pelvis w/ [...] is identified. Free air or fluid: None. Mesenteric/retroperitoneal : No adenopathy or inflammation. Aorta: Normal caliber [...] Julio César, [facility] Incoming Radiology Results From [facility] - 10/18/2020 1:01 PM EDT [facility]: [id number] Computed Tomography ACCESSION EXAM DATE/TIME PROCEDURE ORDERING PROVIDER [id number] 10/18/2020 12:[address] Abdomen/Pelvis w/ IV MD ERUM, ESTHER Montero Contrast (IV Onl CPT code 75481 Q9967 Reason For Exam (CT Abdomen/Pelvis w/ [...] is identified. Free air or fluid: None. Mesenteric/retroperitoneal : No adenopathy or inflammation. Aorta: Normal caliber [...] and Time: 10/18/2020 1:01 [facility] Work Phone: [facility] Work Phone: CT Abdomen/Pelvis w/ Contras ton 10-18-2020 CT Abdomen/Pelvis w/ Contrast [facility]: [id number] Computed Tomography ACCESSION EXAM DATE/TIME PROCEDURE ORDERING PROVIDER [id number] 10/18/2020 12:[address] Abdomen/Pelvis w/ IV MD RHODES GREGORY M Contrast (IV Onl CPT code 68796 Q9967 Reason For Exam (CT Abdomen/Pelvis w/ [...] is identified. Free air or fluid: None. Mesenteric/retroperitoneal : No adenopathy or inflammation. Aorta: Normal caliber [...] Transcribed Date and Time: 10/18/2020 1:01 Normal [facility] Comp Metabolic Panelon 10-18 ALP [Catalytic activity/Vol] 71 U/L Normal 38-126 [facility] Comment on above: Performed By: #### C MP3, TSH5, HEMDF, LIPA4, TROPN #### [facility] [address] [place] [address] ALT [Catalytic activity/Vol] 10 U/L Normal 0-34 [facility] Comment on above: Result Comment: The ALT test is performed by an updated assay method. Please note that the reference intervals have been changed and are now sex specific. Performed By: #### C MP3, TSH5, HEMDF, LIPA4, TROPN #### [facility] [address] [place] [address] Anion gap [Moles/Vol] 9 mmol/L Normal 3-13 [facility] Comment on above: Performed By: #### C MP3, TSH5, HEMDF, LIPA4, TROPN #### [facility] [address] [place] [address] AST [Catalytic activity/Vol] 29 U/L Normal 15-46 [facility] Comment on above: Performed By: #### C MP3, TSH5, HEMDF, LIPA4, TROPN #### [facility] [address] [place] [address] Bilirubin [Mass/Vol] 0.5 mg/dL Normal 0.2-1.3 [facility] Comment on above: Performed By: #### C MP3, TSH5, HEMDF, LIPA4, TROPN #### [facility] [address] [place] [address] Calcium [Mass/Vol] 8.9 mg/dL Normal 8.4-10.4 [facility] Comment on above: Performed By: #### C MP3, TSH5, HEMDF, LIPA4, TROPN #### [facility] [address] [place] [address] CO2 [Moles/Vol] 27 mmol/L Normal 22-30 [facility] Comment on above: Performed By: #### C MP3, TSH5, HEMDF, LIPA4, TROPN #### [facility] [address] [place] [address] Glucose [Mass/Vol] 102 mg/dL High 70-100 [facility] Comment on above: Performed By: #### C MP3, TSH5, HEMDF, LIPA4, TROPN #### [facility] [address] [place] [address] Protein [Mass/Vol] 7.7 g/dL Normal 6.3-8.2 [facility] Comment on above: Performed By: #### C MP3, TSH5, HEMDF, LIPA4, TROPN #### [facility] [address] [place] [address] Urea nitrogen [Mass/Vol] 3 mg/dL Low 7-20 [facility] Comment on above: Performed By: #### C MP3, TSH5, HEMDF, LIPA4, TROPN #### [facility] [address] [place] [address] Creatinine [Mass/Vol] 0.68 mg/dL Normal 0.52-1.25 [facility] Comment on above: Performed By: #### C MP3, TSH5, HEMDF, LIPA4, TROPN #### [facility] [address] [place] [address] eGFR OTHER > 90.0 Normal >60 [facility] Comment on above: Result Comment: KDIG [...] C MP3, TSH5, HEMDF, LIPA4, TROPN #### [facility] [address] [place] [address] GFR/1.73 sq M.predicted among blacks MDRD (S/P/Bld) [Vol rate/Area] mL/min/{1.73_m2} Normal >60 [facility] Comment on above: Performed By: #### C MP3, TSH5, HEMDF, LIPA4, TROPN #### [facility] [address] [place] [address] Albumin [Mass/Vol] 4.4 g/dL Normal 3.5-5.0 [facility] Comment on above: Performed By: #### C MP3, TSH5, HEMDF, LIPA4, TROPN #### [facility] [address] [place] [address] Potassium [Moles/Vol] 4.0 mmol/L Normal 3.5-5.1 [facility] Comment on above: Performed By: #### C MP3, TSH5, HEMDF, LIPA4, TROPN #### [facility] [address] [place] [address] Sodium [Moles/Vol] 141 mmol/L Normal 135-145 [facility] Comment on above: Performed By: #### C MP3, TSH5, HEMDF, LIPA4, TROPN #### [facility] [address] [place] [address] Chloride [Moles/Vol] 105 mmol/L Normal 98-107 [facility] Comment on above: Performed By: #### C MP3, TSH5, HEMDF, LIPA4, TROPN #### [facility] [address] [place] [address] Complete Urinalysison 2020 Appearance (U) Clear Normal Clear [facility] Comment on above: Result Comment: . Performed By: #### C UA2, HCGUR #### [facility] [address] [place] [address] Bilirubin,Urine Negative Normal Negative [facility] Comment on above: Result Comment: . Performed By: #### C UA2, HCGUR #### [facility] [address] [place] [address] Color (U) Colorless Normal Lt. Yellow [facility] Comment on above: Result Comment: . Performed By: #### C UA2, HCGUR #### [facility] [address] [place] [address] Glucose Ql (U) Normal Normal Normal (<70) [facility] Comment on above: Result Comment: . Performed By: #### C UA2, HCGUR #### [facility] [address] [place] [address] Ketone,Urine Negative Normal Negative [facility] Comment on above: Result Comment: . Performed By: #### C UA2, HCGUR #### [facility] [address] [place] [address] Leukocytes,Urine Negative Normal Negative [facility] Comment on above: Result Comment: . Performed By: #### C UA2, HCGUR #### [facility] [address] [place] [address] Nitrites,Urine Negative Normal Negative [facility] Comment on above: Result Comment: . Performed By: #### C UA2, HCGUR #### [facility] [address] [place] [address] Occult Blood,Urine Negative Normal Negative [facility] Comment on above: Result Comment: . Performed By: #### C UA2, HCGUR #### [facility] [address] [place] [address] pH,Urine 5.5 Normal 5.0-8.0 [facility] Comment on above: Result Comment: . Performed By: #### C UA2, HCGUR #### [facility] [address] [place] [address] Specific [place],Urine < 1.005 Abnormal 1.005 - 1.030 [facility] Comment on above: Result Comment: . Performed By: #### C UA2, HCGUR #### [facility] [address] [place] [address] Total Protein,Urine Negative Normal Negative [facility] Comment on above: Result Comment: . Performed By: #### C UA2, HCGUR #### [facility] [address] [place] [address] Urobilinogen,Urine Normal Normal Normal (0-1) [facility] Comment on above: Result Comment: . Performed By: #### C UA2, HCGUR #### [facility] [address] [place] [address] Comprehensive Metabolic Pane lOrdered By: Esther Rhodes on 10-18-2020 Albumin [Mass/Vol] 4.4 g/dL 3.5 - 5.0 g/dL [facility] Work Phone: [phone] ALP (Bld) [Catalytic activity/Vol] 71 U/L 38 - 126 U/L [facility] Work Phone: ALT [Catalytic activity/Vol] 10 U/L 0 - 34 U/L [facility] Work Phone: Comment on above: The ALT test is perf ormed by an updated assay method. Please note that the reference intervals have been changed and are now sex specific. Anion gap [Moles/Vol] 9 mmol/L 3 - 13 mmol/L [facility] Work Phone: AST [Catalytic activity/Vol] 29 U/L 15 - 46 U/L [facility] Work Phone: Bilirubin [Mass/Vol] 0.5 mg/dL 0.2 - 1 .3 mg/dL [facility] Work Phone: [phone] Calcium [Mass/Vol] 8.9 mg/dL 8.4 - 10. 4 mg/dL [facility] Work Phone: [phone] Chloride [Moles/Vol] 105 mmol/L 98 - 10 7 mmol/L [facility] Work Phone: [phone] CO2 [Moles/Vol] 27 mmol/L 22 - 30 mmol/L [facility] Work Phone: [phone] Creatinine [Mass/Vol] 0.68 mg/dL 0.52 - 1.25 mg/dL [facility] Work Phone: [phone] EGFR IF NonAfrican British >90.0 >60 mL/min [facility] Work Phone: Comment on above: KDIGO [...] fraction] 7.7 g/dL 6.3 - 8.2 g/dL [facility] Work Phone: GFR/1.73 sq M.predicted among blacks MDRD (S/P/Bld) [Vol rate/Area] mL/min/{1.73_m2} >60 mL/min [facility] Work Phone: Glucose [Mass/Vol] 102 mg/dL High 70 - 100 mg/dL [facility] Work Phone: Interpretation and review of laboratory results Abnormal [facility] Work Phone: Potassium [Moles/Vol] 4.0 mmol/L 3.5 - 5.1 mmol/L [facility] Work Phone: Sodium [Moles/Vol] 141 mmol/L 135 - 145 mmol/L [facility] Work Phone: Urea nitrogen (BldV) [Mass/Vol] 3 mg/dL Low 7 - 20 mg/dL [facility] Work Phone: ED Provider Noteon 1 ED Provider Note I independently eval uated and examined the patient. Patient seen in conjunction with nurse practitioner or physician real estate legal assistant or resident physician. Appropriate PPE including [...] 10/18/20 1611 Esther Rhodes MD 10/18/20 1612 Normal [facility] ED Provider Note Emergency Department Encounter [facility] ED Patient: Verona Avalos : 1980 Date of Evaluation: 10/18/2020 ED Provider: SANJAY [facility] was supervised by Dr. Rhodes who independently examined and evaluated the patient. Please see their attestation note for further details. Chief Complaint Chief Complaint Patient presents with ? Chest Pain [place] (Location/Symptom, Timing/Onset, Context/Setting, Quality, Duration, Modifying Factors, [...] otherwise acutely negative except as in the [place]. Past History Past Medical History: Diagnosis Date [...] Gatherings with Friends and Family: ? Attends [employer] Services: ? Active Member of Clubs or [...] Latex ? Dilaudid [Hydromorphone Hcl] ? Vicodin [Hydrocodone-Acetaminophen ] Physical Exam ED Triage Vitals [10/18/20 1049] [...] limit Heart (more content not included)... Normal [facility] HCG,Urine Qualon 10-18-2020 Beta HCG ( test) Ql (U) Negative Normal Negative [facility] Comment on above: Result Comment: Plea se note: Very dilute urine specimens, as indicated by a low specific gravity, may not contain authorization representative levels of hCG. If is still suspected, a first morning urine specimen should be collected 48 hours later and tested. is the most common reason for HCG in urine, although choriocarcinoma, hydatidiform mole, and certain nontropho- blastic malignancies also result in detectable urinary HCG levels. Sensitivity = 20mIU/mL. Performed By: #### C UA2, HCGUR #### [facility] [address] [place] [address] Hemogram w/ Autodiffon 10-18 Abs Baso Cnt 0.1 10*3/uL Normal 0.0-0.2 [facility] Comment on above: Performed By: #### C MP3, TSH5, HEMDF, LIPA4, TROPN #### [facility] [address] [place] [address] Abs Neutrophile Cnt 3.1 10*3/uL Normal 1.8-7.0 [facility] Comment on above: Performed By: #### C MP3, TSH5, HEMDF, LIPA4, TROPN #### [facility] [address] [place] [address] Basophils/100 WBC (Bld) 0.9 % Normal 0.0-2.0 [facility] Comment on above: Performed By: #### C MP3, TSH5, HEMDF, LIPA4, TROPN #### [facility] [address] [place] [address] Eosinophils (Bld) [#/Vol] 0.2 10*3/uL Normal 0.0-0.5 [facility] Comment on above: Performed By: #### C MP3, TSH5, HEMDF, LIPA4, TROPN #### [facility] [address] [place] [address] Eosinophils/100 WBC (Bld) 2.2 % Normal 1.0-6.0 [facility] Comment on above: Performed By: #### C MP3, TSH5, HEMDF, LIPA4, TROPN #### [facility] [address] [place] [address] Erythrocyte distribution width (RBC) [Ratio] 15.6 % High 11.5-14.5 [facility] Comment on above: Performed By: #### C MP3, TSH5, HEMDF, LIPA4, TROPN #### [facility] [address] [place] [address] Granulocytes/100 WBC (Bld) 39.2 % Low 40.0-80.0 [facility] Comment on above: Performed By: #### C MP3, TSH5, HEMDF, LIPA4, TROPN #### [facility] [address] [place] [address] Hematocrit (Bld) [Volume fraction] 39.9 % Normal 35.0-47.0 [facility] Comment on above: Performed By: #### C MP3, TSH5, HEMDF, LIPA4, TROPN #### [facility] [address] [place] [address] Hemoglobin (Bld) [Mass/Vol] 13.8 g/dL Normal 11.7-16.0 [facility] Comment on above: Performed By: #### C MP3, TSH5, HEMDF, LIPA4, TROPN #### [place] [address] [place] [address] Lymphocytes (Bld) [#/Vol] 3.6 10*3/uL Normal 1.0-4.3 [facility] Comment on above: Performed By: #### C MP3, TSH5, HEMDF, LIPA4, TROPN #### [facility] [address] [place] [address] Lymphocytes/100 WBC (Bld) 45.6 % High 20.0-40.0 [facility] Comment on above: Performed By: #### C MP3, TSH5, HEMDF, LIPA4, TROPN #### [facility] [address] [place] [address] MCH (RBC) [Entitic mass] 34.0 pg Normal 26.0-34.0 [facility] Comment on above: Performed By: #### C MP3, TSH5, HEMDF, LIPA4, TROPN #### [facility] [address] [place] [address] MCHC 34.7 % Normal 32.0-36.0 [facility] Comment on above: Performed By: #### C MP3, TSH5, HEMDF, LIPA4, TROPN #### [facility] [address] [place] [address] MCV (RBC) [Entitic vol] 98.1 fL High 79.0-98.0 [facility] Comment on above: Performed By: #### C MP3, TSH5, HEMDF, LIPA4, TROPN #### [facility] [address] [place] [address] Monocytes (Bld) [#/Vol] 1.0 10*3/uL High 0.0-0.8 [facility] Comment on above: Performed By: #### C MP3, TSH5, HEMDF, LIPA4, TROPN #### [facility] [address] [place] [address] Monocytes/100 WBC (Bld) 12.1 % High 2.0-10.0 [facility] Comment on above: Performed By: #### C MP3, TSH5, HEMDF, LIPA4, TROPN #### [facility] [address] [place] [address] Platelet mean volume (Bld) [Entitic vol] 8.7 fL Normal 7.4-10.4 [facility] Comment on above: Performed By: #### C MP3, TSH5, HEMDF, LIPA4, TROPN #### [facility] [address] [place] [address] Platelets (Bld) [#/Vol] 195 10*3/uL Normal 140-440 [facility] Comment on above: Performed By: #### C MP3, TSH5, HEMDF, LIPA4, TROPN #### [facility] [address] [place] [address] RBC (Bld) [#/Vol] 4.07 10*6/uL Normal 3.80-5.20 [facility] Comment on above: Performed By: #### C MP3, TSH5, HEMDF, LIPA4, TROPN #### [facility] [address] [place] [address] WBC (Bld) [#/Vol] 8.0 10*3/uL Normal 3.6-10.7 [facility] Comment on above: Performed By: #### C MP3, TSH5, HEMDF, LIPA4, TROPN #### [facility] [address] [place] [address] Lipaseon 10-18-2020 Lipase [Catalytic activity/Vol] 57 U/L Normal 23-300 [facility] Comment on above: Performed By: #### C MP3, TSH5, HEMDF, LIPA4, TROPN #### [facility] [address] [place] [address] LipaseOrdered By: Esther burgos on 10-18-2020 Lipase [Catalytic activity/Vol] 57 U/L 23 - 300 U/L [facility] Work Phone: No Panel InformationOrdered By: Esther Rhodes on 10-18-2020 Test Performed by [facility], [address] [place] [address] [employer] Work Phone: [employer] Work Phone: [phone] Test Performed by [facility], [address] [place] [address] [employer] Work Phone: [employer] Work Phone: , UrineOrdered By: Esther Rhodes on 10-18-2020 Beta HCG ( test) Ql (U) Negative Negative NA [employer] Work Phone: Comment on above: Please note: Very di lute urine specimens, as indicated by a low specific gravity, may not contain authorization representative levels of hCG. If is still [...] Qn 3.218 u[IU]/mL 0.465 - 4.680 u[IU]/mL [employer] Work Phone: [phone] Thyroid Stim. Hormoneon 09-20 Thyroid Stim. Hormone 3.218 u[IU]/mL Normal 0.465-4.68 0 [facility] Comment on above: Performed By: #### C MP3, TSH5, HEMDF, LIPA4, TROPN #### [facility] [address] [place] [address] TroponinOrdered By: Esther Rhodes on 10-18-2020 Troponin I.cardiac [Mass/Vol] ng/mL 0.000 - 0.034 ng/mL [employer] Work Phone: [phone] Comment on above: . Test Performed by [facility], [address] [place], [place] [address] [employer] Work Phone: [phone] [facility] Work Phone: [phone] Troponin Ion 10-18-2020 Troponin I.cardiac [Mass/Vol] ng/mL Normal 0.000-0.034 [facility] Comment on above: Result Comment: . Performed By: #### C MP3, TSH5, HEMDF, LIPA4, TROPN #### [facility] [address] [place] [address] UrinalysisOrdered By: Tremayne Rhodes on 10-18-2020 Appearance (U) Clear Clear NA [facility] Work Phone: [phone] Comment on above: . Bilirubin Urine Negative Negative mg/dL [facility] Work Phone: [phone] Comment on above: . Color (U) Colorless Lt. Yellow NA [facility] Work Phone: [phone] Comment on above: . Glucose, Ur Normal Normal (<70) mg/dL [facility] Work Phone: [phone] Comment on above: . Interpretation and review of laboratory results Abnormal [facility] Work Phone: Ketones Ql (U) Negative Negative mg/dL [facility] Work Phone: [phone] Comment on above: . LEUKOCYTES, UA Negative Negative Jayro/uL [facility] Work Phone: [phone] Comment on above: . Nitrite, Urine Negative Negative NA [facility] Work Phone: [phone] Comment on above: . Occult Blood,Urine Negative Negative mg/dL [facility] Work Phone: [phone] Comment on above: . pH (U) 5.5 [pH] [facility] Work Phone: [phone] Comment on above: . Specific [place], Urine <1.005 Abnormal [facility] Work Phone: [phone] Comment on above: . Total Protein, Urine Negative Negativ e mg/dL [facility] Work Phone: [phone] Comment on above: . Urobilinogen, Urine Normal Normal ( 0-1) mg/dL [facility] Work Phone: [phone] Comment on above: . MRI SHOULDER WO IVCON RTon 0 04-12-2020 MRI SHOULDER WO IVCON RT * * *Final Report* * * DATE OF EXAM: Apr 12 2020 8:20AM [facility] 0240 - MRI SHOULDER WO IVCON RT [...] without tear Small SLAP tear Subacromial/subdeltoid bursitis Printing Manager: TAMIKO Transcribe Date/Time: Apr 12 2020 8:20A Dictated by : ARANZA MYERS MD This examination was interpreted and the report reviewed and electronically signed by: ARANZA MYERS MD on Apr 12 2020 8:27AM EST [id number] [facility] PROGRESSon 04-12-2020 PROGRESS HNO ID: [id number] Author: SILVIA Vidal (Ct) Service: Radiology Author Type: Dynamic Balancer Set Up Worker Type: Progress Notes Filed: 04/12/2020 7:45 AM [...] SILVIA Vidal April 12, 2020 7:45 AM [facility] Operative Reporton Operative Report [facility] [address] [address] [place] [id number] RECORD OF PROCEDURE PATIENT NAME: VERONA AVALOS DATE OF : 1980 MED REC #: [id number] PT LOCATION: OR PACU PT TYPE: OPS AGE: 39 SEX: F ADMISSION DATE: 02/25/2020 DATE OF SERVICE: 02/25/2020 SURGEON: Esther Cruz MD 1ST BAR ASSISTANT: Sam Henson DO ESTIMATED BLOOD LOSS: 10 [...] instructions and 1-week followup. Esther Cruz MD [id number] SSI File#: [id number] CC: Esther Cruz MD [facility] Surgical Pathology Depar tmenton 02-25-2020 [facility] Surgical Pathology Department Name VERONA AVALOS Pathologist: Rosalinda Yarbrough MD, Ph.D. Date of Procedure: 02/25/2020 Date Received: 02/25/2020 Date Reported 03/08/2020 Submitting Physician: ESTHER CRUZ M.D. Location: [facility] Copy To/Referring/Attending: Pt States No PCP Other External # [id number] FINAL DIAGNOSIS EYE, RIGHT PERIORBITAL CYST, EXCISION: [...] A: RIGHT PERIORBITAL CYST Other Case Numbers [id number] Gross Description: Received in formalin, labeled with the patient's name and hospital number and right periorbital cyst, is a ruptured cyst measuring 2.0 x 1.5 x 1.3 cm. The specimen is inked blue and sectioned to reveal jama-white pasty material. A authorization representative section is submitted in one cassette. CJN cjn/03/01/2020 [facility] Department of Pathology [address] [place] [address] Normal [facility] Comment on above: Performed By: #### [facility] #### [facility] Surgical Pathology Department [address] [place] [address] CORONAVIRUS 2019 BY PCRon CORONAVIRUS 2019,PCR NOT DETECTED Normal Not Detected [facility] Comment on above: Result Comment: . This [...] patient management decisions. Fact sheet for providers: https://www.fda.gov/media/513840/download Fact sheet for patients: https://www.fda.gov/media/477886/download This test has received FDA Emergency Use Authorization (EUA) and has been verified by [facility] ([facility]). This test is only authorized for the duration of time that circumstances exist to justify the authorization of the emergency use of in vitro diagnostic tests for the detection of SARS-CoV-2 virus and/or diagnosis of COVID-19 infection under section 564(b)(1) of the Act, 21 U.S.C. 360bbb-3(b)(1), unless the authorization is terminated or revoked sooner. [facility] is certified under CLIA-88 as qualified to perform high complexity testing. Testing is performed in the [facility] laboratories located at [address] [place] [address]. Performed By: #### C OV19 #### [address] [place] [address] Covid 19 Resultson 1 Covid 19 Results [...] You may also be contacted by the [facility] to see if any of your [...] or Naproxen (Aleve) can also be used. Okbj-yin-sbvdvxs cough and cold medicines can be used according to the instructions on the package. Some kiwi-fin-wssuirz medicines also contain acetaminophen. Make sure you [...] water are not available, use alcohol-based hand bush and vine farmer fruit crops. Avoid touching your eyes, nose, and mouth [...] a total of 10 days. Additional resources: [facility] COVID Hotline at 3-815-9UZLYRT ( ). COVID-19 Careline at (available 24 hours per day, seven days a week if you or a loved one is experiencing anxiety related to the coronavirus pandemic). Clinical research opportunities: is conducting research studies to develop better testing and treatments for COVID. Do you want any information on how to participate Call [phone]. Websites: hospitals.org or www.CDC.gov Follow My Health / My UHCare (for other test results): Revised 01/05/2020 Electronic Signatures: PSCMServices, PSCMServices (ADMIN) (Signature pending) Authored Last Updated: 23-Feb-2020 06:18 by PSCShopVisibleices, PSCMServices (ADMIN) Normal [facility] CORONAVIRUS 2019 BY PCRon Lab Specimen Source Nasal, Nasopharyngeal Normal [facility] Comment on above: Performed By: #### C OV19 #### [facility] [address] [place] [address] COVID-19 by PCR ()on 02-21 Coronavirus 2019 PCR Not Detected Normal Not Detected [facility] Comment on above: Order Comment: Nasal swab in Saline, Margarito opharyngeal or Oropharyngeal in viral transport media or saline Performed By: #### C OVUH #### [facility] [address] [place] [address] Performing Lab Testing performed by : [facility] [address] [place] [address] CLIA # [id number] [facility] Comment on above: Order Comment: Nasal swab in Saline, Margarito opharyngeal or Oropharyngeal in viral transport media or saline Performed By: #### C OV #### [facility] [address] [place], [place] [address] Specimen source Nom (Unsp spec) Nasal, HEBREW PROFESSOR Normal [facility] Comment on above: Order Comment: Nasal swab in Saline, Margarito opharyngeal or Oropharyngeal in viral transport media or saline Performed By: #### C OV #### [facility] [address] [place] [id number] CORONAVIRUS 2019 BY PCRon CORONAVIRUS 2019,PCR NOT DETECTED Normal Not Detected [facility] Comment on above: Result Comment: . This [...] patient management decisions. Fact sheet for providers: https://www.fda.gov/media/190812/download Fact sheet for patients: https://www.fda.gov/media/179766/download This test has received FDA Emergency Use Authorization (EUA) and has been verified by [facility] ([facility]). This test is only authorized for the duration of time that circumstances exist to justify the authorization of the emergency use of in vitro diagnostic tests for the detection of SARS-CoV-2 virus and/or diagnosis of COVID-19 infection under section 564(b)(1) of the Act, 21 U.S.C. 360bbb-3(b)(1), unless the authorization is terminated or revoked sooner. [facility] is certified under CLIA-88 as qualified to perform high complexity testing. Testing is performed in the [facility] laboratories located at [address] [place] [address]. Performed By: #### C OV19 #### [facility] [address] [place] [address] Covid 19 Resultson 0 Covid 19 Results [...] remain on home isolation, in accordance with [facility] guidelines. You may also be contacted by the [facility] to see if any of your [...] or Naproxen (Aleve) can also be used. Yxqd-pud-zeqcrmk cough and cold medicines can be used according to the instructions on the package. Some gkcc-eqy-eoputmm medicines also contain acetaminophen. Make sure you [...] water are not available, use alcohol-based hand bush and vine farmer fruit crops. Avoid touching your eyes, nose, and mouth [...] a total of 10 days. Additional resources: [facility] COVID Hotline at [phone] ( ). COVID-19 Careline at (available 24 hours per day, seven days a week if you or a loved one is experiencing anxiety related to the coronavirus pandemic). Clinical research opportunities: is conducting research studies to develop better testing and treatments for COVID. Do you want any information on how to participate Call [phone]. Websites: hospitals.org or www.CDC.gov Follow My Health / My UHCare (for other test results): Revised 01/05/2020 Electronic Signatures: SUYAPA PrestonMSjesusices (ADMIN) (Signature pending) Authored Last Updated: 25-Jan-2020 03:40 by Mohan PSCMSjesusices (ADMIN) Normal [facility] CORONAVIRUS 2019 BY PCRon Lab Specimen Source Nasal, Nasopharyngeal Normal [facility] Comment on above: Performed By: #### C OV19 #### [facility] [address] [place] [address] COVID-19 by PCR ()on 01-23 Coronavirus 2019 PCR Not Detected Normal Not Detected [facility] Comment on above: Order Comment: Nasal swab in Saline, Margarito opharyngeal or Oropharyngeal in viral transport media or saline Performed By: #### C OVUH #### [facility] [address] [place] [address] Performing Lab Testing performed by : [facility] [address] [place] [address] CLIA # [id number] [facility] Comment on above: Order Comment: Nasal swab in Saline, Margarito opharyngeal or Oropharyngeal in viral transport media or saline Performed By: #### C OVUH #### [facility] [address] [place] [address] Specimen source Nom (Unsp spec) Nasal, HEBREW PROFESSOR [facility] Comment on above: Order Comment: Nasal swab in Saline, Margarito opharyngeal or Oropharyngeal in viral transport media or saline Performed By: #### C OVUH #### [place] [address] ANES POSTPROC EVALon 020 ANES POSTPROC EVAL HNO ID: [id number] Author: Morgan Campuzano MD Service: ? Author Type: Anesthesiologist Type: Anesthesia Postprocedure Evaluation Filed: 01/07/2020 10:44 AM Note Text: POST ANESTHESIA EVALUATION NOTE : 1980 Procedure Summary Date: 01/07/20 Room / Location: [place] OR05 / [place] Anesthesia Start: 905 Anesthesia Stop: 1012 Procedure: ARTHROSCOPY KNEE, DIAGNOSTIC (Right Knee) Diagnosis: [...] January 07, 2020 TIME: 10:44 AM CSN: [id number] [facility] ANES PRE-OPon 01-07-2020 ANES PRE-OP HNO ID: [id number] Author: Morgan Campuzano MD Service: ? Author [...] January 07, 2020 TIME: 8:35 AM CSN: [id number] [facility] HISTORY PHYSICALon 0 HISTORY PHYSICAL HNO ID: [id number] Author: Milli Weiss Service: Orthopaedic Surgery Author [...] January 07, 2020 TIME: 8:36 AM Normal [facility] OPERATIVE NOon 01-07-2020 OPERATIVE NO HNO ID: [id number] Author: Milli Weiss Service: Orthopaedic Surgery Author Type: Physician Type: Operative Report Filed: 01/11/2020 12:18 PM Note Text: [facility] - Operative Report VERONA AVALOS : 1980 AGE: 39. SEX: F PATIENT TYPE: A [facility]: [facility] LOCATION: [facility] ATTENDING PHYSICIAN: Milli Weiss M.D. CSN NUMBER: [id number] DATE OF SURGERY/PROCEDURE: 01/07/2020 INCISION/PROCEDURE START TIME: 9:25 AM INCISION CLOSE/PROCEDURE END TIME: 10:00 AM PREOPERATIVE DIAGNOSIS: Meniscus tear, possibly patellofemoral syndrome, right knee. POSTOPERATIVE DIAGNOSIS: Patellofemoral syndrome, right knee with numerous loose bodies. SURGEON: Milli Weiss M.D. BAR ASSISTANT: Physician Software Administrator: Adeel Hoang ([place]) SURGERY/PROCEDURE: Arthroscopy, removal of [...] room in satisfactory condition. Milli Weiss M.D. CLEMENTINE:[id number] /[id number] Normal [facility] HISTORY PHYSICALon 0 HISTORY PHYSICAL HNO ID: [id number] Author: Milli Weiss Service: Orthopaedic Surgery Author Type: Physician Type: HANDP Filed: 01/07/2020 8:37 AM Note Text: [facility]- Surgical History and Physical VERONA AVALOS : 1980 AGE: 39 SEX: F ACCTNUM: [id number] [facility] LOCATION: ATTENDING PHYSICIAN: MILLI WEISS M.D. DATE [...] right knee. PLAN: Arthroscopy, right knee. Milli Weiss M.D. Orthopedic Surgery RFR:[id number] /[id number] Normal [facility] HOSPon 01-04-2020 HOSP Patient:Marques Avalos MRN: Height:5' [...] abuse [F10.10] Chronic daily headache [R51.9] Spells [ALF7775] NO SHOW [685916] Myofascial muscle pain [M79.18] DDD (degenerative disc disease), lumbar [M51.36] Cellulitis [L03.90] Electrolyte abnormality [E87.8] Acute pancreatitis [K85.90] Nicotine use disorder, F17.2 [F17.200] Chronic right-sided low back pain with right-sided sciatica [M54.41, G89.29] Hep C w/o coma, chronic (HCC) [B18.2] Allergies: Dilaudid [Hydromorphone (Bulk)] Natural Rubber Latex Vicodin [Hydrocodone-Acetaminophen ] Date Verified: 01/07/20 Lab Values No results within the last 30 days for the following basenames: K,HCT No progress notes entered within the past 30 days Normal [facility] Ceruloplasminon 07-25-2019 Ceruloplasmin 18 mg/dL Normal 16-45 [facility] Comment on above: Result Comment: Perf orming Laboratory: [facility] [address] [place] [address] Performed By: #### C ERX #### [place] [address] Comprehensive Metabolic Pane louisa 07-24-2019 Albumin [Mass/Vol] 4.3 g/dL Normal 3.9-4.9 [facility] Comment on above: Performed By: #### C MP #### [facility] [address] [place], [place] [address] ALP [Catalytic activity/Vol] 46 U/L Normal 34-123 [facility] Comment on above: Performed By: #### C MP #### [facility] [address] [place], [place] [address] ALT [Catalytic activity/Vol] 14 U/L Normal 7-38 [facility] Comment on above: Performed By: #### C MP #### [facility] [address] [place] [address] Anion gap [Moles/Vol] 12 mmol/L Normal 9-18 [facility] Comment on above: Performed By: #### C MP #### [facility] [address] [place] [address] AST [Catalytic activity/Vol] 18 U/L Normal 13-35 [facility] Comment on above: Performed By: #### C MP #### [facility] [address] [place], [place] [address] Bilirubin [Mass/Vol] 0.3 mg/dL Normal 0.2-1.3 [facility] Comment on above: Performed By: #### C MP #### [facility] [address] [place], [place] [address] Calcium [Mass/Vol] 8.9 mg/dL Normal 8.5-10.2 [facility] Comment on above: Performed By: #### C MP #### [facility] [address] [place], [place] [address] Chloride [Moles/Vol] 105 mmol/L Normal 97-105 [facility] Comment on above: Performed By: #### C MP #### [facility] [address] [place], [place] [address] CO2 Blood 22 mmol/L Normal 22-30 [facility] Comment on above: Performed By: #### C MP #### [facility] [address] [place] [address] Creatinine [Mass/Vol] 0.96 mg/dL Normal 0.58-0.96 [facility] Comment on above: Performed By: #### C MP #### [facility] [address] [place], [place] [address] Glucose [Mass/Vol] 110 mg/dL High 74-99 [facility] Comment on above: Result Comment: The British Diabetes Association (ADA) provides guidance for cutoff [...] Standards of Medical Care in Diabetes 2016; British Diabetes Association. Diabetes Care. 2016;39(Suppl 1). Performed By: #### C MP #### [facility] [address] [place], [place] [address] Potassium [Moles/Vol] 3.6 mmol/L Low 3.7-5.1 [facility] Comment on above: Performed By: #### C MP #### [facility] [address] [place], [place] [address] Protein [Mass/Vol] 6.8 g/dL Normal 6.3-8.0 [facility] Comment on above: Performed By: #### C MP #### [facility] [address] [place], [place] [address] Sodium [Moles/Vol] 139 mmol/L Normal 136-144 [facility] Comment on above: Performed By: #### C MP #### [facility] [address] [place], [place] [address] Urea nitrogen [Mass/Vol] 12 mg/dL Normal 7-21 [facility] Comment on above: Performed By: #### C MP #### [facility] [address] [place], [place] [address] Ferritinon 07-24-2019 Ferritin [Mass/Vol] 110.2 ng/mL Normal 14.7-205.1 [facility] Comment on above: Result Comment: [...] result. Performed By: #### F ERR2 #### [place] [address] Hemogramon 07-24-2019 Erythrocyte distribution width (RBC) [Ratio] 13.6 % Normal 11.7-14.4 [facility] Comment on above: Performed By: #### C BC1 #### [place] [address] Hematocrit (Bld) [Volume fraction] 42.6 % Normal 34.1-44.9 [facility] Comment on above: Performed By: #### C BC1 #### [place] [address] Hemoglobin (Bld) [Mass/Vol] 13.9 g/dL Normal 11.2-15.7 [facility] Comment on above: Performed By: #### C BC1 #### [place] [address] MCH (RBC) [Entitic mass] 35.0 pg High 25.6-32.2 [facility] Comment on above: Performed By: #### C BC1 #### [place] [address] MCHC (RBC) [Mass/Vol] 32.6 % Normal 31.6-34.8 [facility] Comment on above: Performed By: #### C BC1 #### [place] [address] MCV (RBC) [Entitic vol] 107.3 fL High 79.4-94.8 [facility] Comment on above: Performed By: #### C BC1 #### [facility] [address] [place], [place] [address] Platelet mean volume (Bld) [Entitic vol] 10.7 fL Normal 9.4-12.3 [facility] Comment on above: Performed By: #### C BC1 #### [facility] [address] [place], [place] [address] Platelets (Bld) [#/Vol] 203 thou/cmm Normal 182-369 [facility] Comment on above: Performed By: #### C BC1 #### [facility] [address] [place], [place] [address] RBC (Bld) [#/Vol] 3.97 mil/cmm Normal 3.93-5.22 [facility] Comment on above: Performed By: #### C BC1 #### [facility] [address] [place] [address] RDW SD 54.0 fl High 36.4-46.3 [facility] Comment on above: Performed By: #### C BC1 #### [facility] [address] [place], [place] [address] WBC (Bld) [#/Vol] 9.96 thou/cmm Normal 3.98-10.04 [facility] Comment on above: Performed By: #### C BC1 #### [facility] [address] [place] [address] Iron % Saturationon 07-24-19 20 Iron % Saturation 42 % Normal 15-57 [facility] Comment on above: Result Comment: DAVID ECTED: Previous result = 73, verified at 17:16 on 07/24/19. Performed By: #### I LOLA #### [facility] [address] [place], [place] [address] Iron Serum 139 ug/dL Normal 41-186 [facility] Comment on above: Performed By: #### I EFRENS #### [facility] [address] [place] [id number] Total Iron Binding Cap. 329 ug/dL Normal 232-386 [facility] Comment on above: Performed By: #### I EFRENS #### [facility] 1 [place] [address] MDRD GFRon 07-24-2019 GFR/1.73 sq M predicted among non-blacks MDRD (S/P/Bld) [Vol rate/Area] mL/min/{1.73_m2} Normal >60mL/min/1. 73m2 [facility] Comment on above: Result Comment: If t he patient is , multiply the result by 1.210. Performed By: #### G FR #### [place] [address] Protimeon 07-24-2019 INR Coag (PPP) [Relative time] 0.94 {INR} Normal 0.90-1.30 [facility] Comment on above: Result Comment: Geetha min K Antagonist (VKA) Therapeutic Range: INR 2 to 3 (Target INR of 2.5) Note: For patients treated with VKA drugs, such as warfarin, the [employer] College of Chest Physicians 2012 Guideline recommends [...] 2.5 to 3.5 target INR of 3). Robe GH, et al. Chest 2012; 141:7S-47S Nirmal RA, et al. [facility] 2017; 70: 252-289 Performed By: #### P T #### [place] [address] PT Coag (PPP) [Time] 10.2 s Normal 9.7-13.0 [facility] Comment on above: Performed By: #### P T #### [place] [address] XR FINGER LEFT (MIN 2 VIEWS) on 03-24-2019 Patient Name: VERONA DRAPER ---Diagnostic Radiology--- Exam Date/Time 03/24/2019 12:42:51 EST Exam CR Finger(s) Min 2 Views Left Ordering Physician RASHEEDA ROSALES AMY L Accession Number [id number] Reason For Exam Crush Injury Distal Phalanx [...] 03/24/2019 12:48 [facility] Work Phone: [facility], [facility] Results From [facility] - 03/24/2019 12:49 PM EST Patient Name: VERONA AVALOS ---Diagnostic Radiology--- Exam Date/Time 03/24/2019 12:42:51 EST Exam CR Finger(s) Min 2 Views Left Ordering Physician RASHEEDA ROSALES AMY L Accession Number [id number] Reason For Exam Crush Injury Distal Phalanx [...] Work Phone: Basic Metabolic PanelOrdered By: 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 on 02-14-2019 Anion gap [Moles/Vol] 12 mmol/L [facility] Work Phone: [phone] Calcium [Mass/Vol] 9.4 mg/dL 8.4 - 10. 4 mg/dL [facility] Work Phone: [phone] Chloride [Moles/Vol] 102 mmol/L 98 - 10 7 mmol/L [facility] Work Phone: [phone] CO2 [Moles/Vol] 18 mmol/L Low 22 - 30 mmol/L [facility] Work Phone: Creatinine [Mass/Vol] 0.61 mg/dL 0.52 - 1.25 mg/dL [facility] Work Phone: EGFR IF NonAfrican British >60.0 >60 mL/min [facility] Work Phone: Comment on above: Source- MDRD equatio n with creatinine calibration to IDMS(NKDEP) eGFR not recommended for drug dose adjustment GFR/1.73 sq M.predicted among blacks MDRD (S/P/Bld) [Vol rate/Area] mL/min/{1.73_m2} >60 mL/min [facility] Work Phone: Glucose [Mass/Vol] 88 mg/dL 70 - 100 mg/dL [facility] Work Phone: Interpretation and review of laboratory results Abnormal [facility] Work Phone: Potassium [Moles/Vol] 3.9 mmol/L 3.5 - 5.1 mmol/L [facility] Work Phone: Sodium [Moles/Vol] 132 mmol/L Low 135 - 145 mmol/L [facility] Work Phone: Urea nitrogen [Mass/Vol] 6 mg/dL Low 7 - 20 mg/dL [facility] Work Phone: Test Performed by [facility], [address] [place], [place] [address] [place], [place] [address] Work Phone: CT Abdomen Pelvis Wo Contras tOrdered By: 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 on 02-14-2019 Patient Name: VERONA DRAPER ---CT--- Exam Date/Time 02/14/2019 15:29:[address] Abdomen/Pelvis (No PO, No IV) Ordering Physician Bisi AmaralCOLE ENRIQUEZ Accession Number [id number] CPT4 Codes 04984 (CT Abdomen/Pelvis (No PO, No IV)) Reason [...] Julio César, [facility] Incoming Radiology Results From [facility] - 02/14/2019 3:43 PM EST Patient Name: VERONA AVALOS ---CT--- Exam Date/Time 02/14/2019 15:29:[address] Abdomen/Pelvis (No PO, No IV) Ordering Physician COLE WHITING Accession Number [id number] CPT4 Codes 58989 (CT Abdomen/Pelvis (No PO, No IV)) Reason [...] and Time: 02/14/2019 3:43 [facility] Work Phone: C Urine Qual PregOrdered B y: 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 on 02-14-2019 Beta HCG ( test) Ql (U) Negative Negative NA [facility] Work Phone: Comment on above: is the mos t common reason for HCG in urine, although choriocarcinoma, hydatidiform mole, and certain nontropho- blastic malignancies also result in detectable urinary HCG levels. Sensitivity = 20mIU/mL. Hemogram (CBC) w/Auto DiffOr dered By: 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 on 02-14-2019 Absolute Baso # 0.0 10*3/uL 0 - 0.2 10*3/uL [facility] Work Phone: [phone] Absolute Neut # 7.1 10*3/uL High 1.8 - 7 10*3/uL [facility] Work Phone: [phone] 222 Basophils/100 WBC (Bld) 0.3 % 0 - 2 % [facility] Work Phone: [phone]) 222 Eosinophils (Bld) [#/Vol] 0.0 10*3/uL 0 - 0.5 10*3/uL [facility] Work Phone: ) 222 Eosinophils/100 WBC (Bld) 0.4 % Low 1 - 6 % [facility] Work Phone: ) 222 Erythrocyte distribution width (RBC) [Ratio] 14.0 % 11.5 - 14.5 % [facility] Work Phone: 222 Granulocytes/100 WBC (Bld) 70.4 % 40 - 80 % [facility] Work Phone: ) 222 Hematocrit (Bld) [Volume fraction] 39.4 % 35 - 47 % [facility] Work Phone: 222 Hemoglobin (Bld) [Mass/Vol] 13.7 g/dL 11.7 - 16 g/dL [facility] Work Phone: [phone] Interpretation and review of laboratory results Abnormal [facility] Work Phone: [phone] Lymphocytes (Bld) [#/Vol] 1.7 10*3/uL 1 - 4.3 10*3/uL [facility] Work Phone: [phone] 222 Lymphocytes/100 WBC (Bld) 17.2 % Low 20 - 40 % [facility] Work Phone: [phone] MCH (RBC) [Entitic mass] 36.1 pg High 26 - 34 pg [facility] Work Phone: [phone] MCHC 34.8 % 32 - 36 % [facility] Work Phone: ) 222 MCV (RBC) [Entitic vol] 103.7 fL High 79 - 98 fL [facility] Work Phone: [phone] 222 Monocytes (Bld) [#/Vol] 1.2 10*3/uL High 0 - 0.8 10*3/uL [facility] Work Phone: [phone]) 222 Monocytes/100 WBC (Bld) 11.7 % High 2 - 10 % [facility] Work Phone: [phone]) 222 Platelet mean volume (Bld) [Entitic vol] 9.9 fL 7.4 - 10.4 fL [facility] Work Phone: [phone]) 222 Platelets (Bld) [#/Vol] 146 10*3/uL 140 - 440 10*3/uL [facility] Work Phone: [phone]) 222 RBC (Bld) [#/Vol] 3.80 10*6/uL 3.8 - 5.2 10*6/uL [facility] Work Phone: [phone]) 222 WBC (Bld) [#/Vol] 10.1 10*3/uL 3.6 - 10.7 10*3/uL [facility] Work Phone: [phone] No Panel InformationOrdered By: 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 on 02-14-2019 Test Performed by [facility], [address] [place] [address] [facility] Work Phone: [phone] UrinalysisOrdered By: 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 on 02-14-2019 Appearance (U) Clear Clear NA [facility] Work Phone: [phone] Bilirubin Urine Negative Negative mg/dL [facility] Work Phone: 222 Color (U) Light-Yellow Lt. Yellow NA [facility] Work Phone: [phone] Glucose, Ur Normal Normal (<70) mg/dL [facility] Work Phone: [phone] Ketones Ql (U) Negative Negative mg/dL [facility] Work Phone: [phone] LEUKOCYTES, UA Negative Negative Jayro/uL [facility] Work Phone: [phone] Nitrite, Urine Negative Negative NA [facility] Work Phone: [phone] Occult Blood,Urine Negative Negative mg/dL [facility] Work Phone: [phone] pH (U) 5.5 [pH] [facility] Work Phone: [phone] Specific [place], Urine 1.006 [facility] Work Phone: Total Protein, Urine Negative Negativ e mg/dL [facility] Work Phone: Urobilinogen, Urine Normal Normal ( 0-1) mg/dL [facility] Work Phone: Test Performed by [facility], [address] [place], [place] [address] [facility] Work Phone: [phone] CR Hand Complete 3+ Views Agusto rao 01-03-2019 CR Hand Complete 3+ Views Right Patient Name: VERONA AVALOS Diagnostic Radiology Exam Date/Time 01/03/2019 18:48:19 EST Exam CR Hand Complete 3+ Views Right Ordering Physician MD WEI MARK D Accession Number [id number] CPT4 Codes 60962 () Reason For Exam 2nd finger hit [...] Transcribed Date and Time: 01/03/2019 6:59 Normal [facility] XR HAND RIGHT (MIN 3 VIEWS)o n 01-03-2019 Patient Name: VERONA DRAPER ---Diagnostic Radiology--- Exam Date/Time 01/03/2019 18:48:19 EST Exam CR Hand Complete 3+ Views Right Ordering Physician MD WEI MARK D Accession Number [id number] CPT4 Codes 72049 () Reason For Exam 2nd finger hit [...] NICHOLAS Transcribed Date and Time: 01/03/2019 6:59 [place], [place] Julio César, [facility] Incoming Radiology Results From [facility] - 01/03/2019 7:02 PM EST Patient Name: VERONA AVALOS ---Diagnostic Radiology--- Exam Date/Time 01/03/2019 18:48:19 EST Exam CR Hand Complete 3+ Views Right Ordering Physician MD SANJUANA, KADEEM Harmon Accession Number [id number] CPT4 Codes 45672 () Reason For Exam 2nd finger hit [...] NICHOLAS Transcribed Date and Time: 01/03/2019 6:[facility]AS Ton 10-28-2018 Patient Name: VERONA DRAPER ---CT--- Exam Date/Time 10/28/2018 21:56:[address] Spine Cervical w/o Contrast Ordering Physician ESTHER SOLOMON Accession Number [id number] CPT4 Codes 42414 () Reason For Exam C-SPINE TRAUMA, NEXUS/CCR POSITIVE, MECHANICALLY UNSTABLE Report CLINICAL INFORMATION: Neck pain following trauma. CT cervical spine with 3-D reconstructions: Volume acquisition CT images are obtained from the occiput to the upper thoracic spine without intrathecal contrast with axial, sagittal and coronal 2-D reconstructions. Additional 3-D survey surface shaded images of the cervical spine were concurrently generated by in on the [employer] workstation to better visualize gross skeletal anatomy. [...] HARLAN Transcribed Date and Time: 10/28/2018 10:25 [facility] [place] Julio César, [facility] Incoming Radiology Results From [facility] - 10/28/2018 10:26 PM EDT Patient Name: VERONA AVALOS ---CT--- Exam Date/Time 10/28/2018 21:56:[address] Spine Cervical w/o Contrast Ordering Physician ESTHER SOLOMON Accession Number [id number] CPT4 Codes 77262 () Reason For Exam C-SPINE TRAUMA, NEXUS/CCR POSITIVE, MECHANICALLY UNSTABLE Report CLINICAL INFORMATION: Neck pain following trauma. CT cervical spine with 3-D reconstructions: Volume acquisition CT images are obtained from the occiput to the upper thoracic spine without intrathecal contrast with axial, sagittal and coronal 2-D reconstructions. Additional 3-D survey surface shaded images of the cervical spine were concurrently generated by me on the [employer] workstation to better visualize gross skeletal anatomy. [...] HARLAN Transcribed Date and Time: 10/28/2018 10:25 [facility], [place] Lipaseon 09-13-2018 Lipase [Catalytic activity/Vol] 115 U/L Normal 23-300 [facility] Comment on above: Performed By: #### L IPA4 #### [facility] [address] [place], [place] Acute Hepatitis Panelon 08-19 Hep B Core IgM NOT DETECTED Normal Not-Detected [facility] Comment on above: Performed By: #### H IV4, HEPAN #### [facility] [address] [place], [place] Hep C Antibody DETECTED Abnormal Not-Detected [facility] Comment on above: Result Comment: Kathleen ents with DETECTED Hepatitis C Ab results should have a new specimen submitted for supplemental testing with a Hepatitis C Quantitative RNA assay (viral load), if clinically indicated. Performed By: #### H IV4, HEPAN #### [facility] [address] [place], [place] Hep A Virus Ab,IgM NOT DETECTED Normal Not-Detected [facility] Comment on above: Performed By: #### H IV4, HEPAN #### [facility] [address] [place], [place] Hep B Surface Ag NOT DETECTED Normal Not-Detected [facility] Comment on above: Performed By: #### H IV4, HEPAN #### [place] [address] [place], [place] HIV 1,2 Ab; p24 Agon 019 HIV 1,2 Ab; p24 Ag NONREACTIVE Normal Nonreactive [facility] Comment on above: Result Comment: Resu [...] Performed By: #### H IV4, HEPAN #### [facility] [address] [place], [place] Comp Metabolic Panelon 09-09 ALT [Catalytic activity/Vol] 67 U/L Normal 13-69 [facility] Comment on above: Performed By: #### Q WAL, CMP3, ETOH4, HEMDF #### [facility] [address] [place] Calcium [Mass/Vol] 9.4 mg/dL Normal 8.4-10.4 [facility] Comment on above: Performed By: #### Q WAL, CMP3, ETOH4, HEMDF #### [place] [address] [place], [place] Glucose [Mass/Vol] 67 mg/dL Low 70-100 [facility] Comment on above: Performed By: #### Q WAL, CMP3, ETOH4, HEMDF #### [place] [address] [place], [place] Urea nitrogen [Mass/Vol] 7 mg/dL Normal 7-20 [facility] Comment on above: Performed By: #### Q WAL, CMP3, ETOH4, HEMDF #### [place] [address] [place] ALP [Catalytic activity/Vol] 41 U/L Normal 38-126 [facility] Comment on above: Performed By: #### Q WAL, CMP3, ETOH4, HEMDF #### [place] [address] [place] Anion gap [Moles/Vol] 9 Normal [facility] Comment on above: Performed By: #### Q WAL, CMP3, ETOH4, HEMDF #### [place] [address] [place] AST [Catalytic activity/Vol] 59 U/L High 15-46 [facility] Comment on above: Performed By: #### Q WAL, CMP3, ETOH4, HEMDF #### [place] [address] [place] Bilirubin [Mass/Vol] 0.6 mg/dL Normal 0.2-1.3 [facility] Comment on above: Performed By: #### Q WAL, CMP3, ETOH4, HEMDF #### [place] [address] [place] CO2 [Moles/Vol] 21 mmol/L Low 22-30 [facility] Comment on above: Performed By: #### Q WAL, CMP3, ETOH4, HEMDF #### [place] [address] [place] Creatinine [Mass/Vol] 0.73 mg/dL Normal 0.52-1.25 [facility] Comment on above: Performed By: #### Q WAL, CMP3, ETOH4, HEMDF #### [place] [address] [place] GFR/1.73 sq M predicted among blacks MDRD (S/P/Bld) [Vol rate/Area] mL/min/{1.73_m2} Normal >60 [facility] Comment on above: Performed By: #### Q WAL, CMP3, ETOH4, HEMDF #### [place] [address] [place] GFR/1.73 sq M predicted among non-blacks MDRD (S/P/Bld) [Vol rate/Area] mL/min/{1.73_m2} Normal >60 [facility] Comment on above: Result Comment: Sour ce- MDRD equation with creatinine calibration to IDMS(NKDEP) eGFR not recommended for drug dose adjustment Performed By: #### Q WAL, CMP3, ETOH4, HEMDF #### [place] [address] [place] Protein [Mass/Vol] 7.0 g/dL Normal 6.3-8.2 [facility] Comment on above: Performed By: #### Q WAL, CMP3, ETOH4, HEMDF #### [place] [address] [place] Chloride [Moles/Vol] 108 mmol/L High 98-107 [facility] Comment on above: Performed By: #### Q WAL, CMP3, ETOH4, HEMDF #### [place] [address] [place] Potassium [Moles/Vol] 3.6 mmol/L Normal 3.5-5.1 [facility] Comment on above: Performed By: #### Q WAL, CMP3, ETOH4, HEMDF #### [place] [address] [place] Sodium [Moles/Vol] 139 mmol/L Normal 135-145 [facility] Comment on above: Performed By: #### Q WAL, CMP3, ETOH4, HEMDF #### [place] [address] [place] Albumin [Mass/Vol] 3.9 g/dL Normal 3.5-5.0 [facility] Comment on above: Performed By: #### Q WAL, CMP3, ETOH4, HEMDF #### [address] Complete Urinalysison 2018 Appearance (U) Clear Normal [facility] Comment on above: Result Comment: Refe rence Range: Clear Performed By: #### D RGA4, CUA2 #### [place] [address] [place], [place] Bilirubin,Urine Negative Normal [facility] Comment on above: Result Comment: Refe rence Range: Negative Performed By: #### D RGA4, CUA2 #### [address] [place], [place] Ca Oxylate Crystals Moderate Normal [facility] Comment on above: Result Comment: Refe rence Range: Negative Performed By: #### D RGA4, CUA2 #### [place] [address] [place] Color (U) Yellow Normal [facility] Comment on above: Result Comment: Refe rence Range: Lt. Yellow Performed By: #### D RGA4, CUA2 #### [address] [place], [place] Glucose Ql (U) Normal Normal [facility] Comment on above: Result Comment: Refe rence Range: Normal (<70) Performed By: #### D RGA4, CUA2 #### [place] [address] [place] [address] Ketone,Urine Trace Normal [facility] Comment on above: Result Comment: Refe rence Range: Negative Performed By: #### D RGA4, CUA2 #### [facility] [address] [place], [place] Leukocytes,Urine 25 Jayro/uL Normal [facility] Comment on above: Result Comment: Refe rence Range: Negative Performed By: #### D RGA4, CUA2 #### [facility] [address] [place], [place] Mucous Threads Few Normal [facility] Comment on above: Result Comment: Refe rence Range: Negative Performed By: #### D RGA4, CUA2 #### [place] [address] [place] Nitrites,Urine Negative Normal [facility] Comment on above: Result Comment: Refe rence Range: Negative Performed By: #### D RGA4, CUA2 #### [place] [address] [place] Occult Blood,Urine 0.03 mg/dL Normal [facility] Comment on above: Result Comment: Refe rence Range: Negative Performed By: #### D RGA4, CUA2 #### [place] [address] [place] pH (U) 5.5 Normal 5.0-8.0 [facility] Comment on above: Performed By: #### D RGA4, CUA2 #### [place] [address] [place] Protein (U) [Mass/Vol] 30 mg/dL Normal [facility] Comment on above: Result Comment: Refe rence Range: Negative Performed By: #### D RGA4, CUA2 #### [facility] [address] [place], [place] Specific [place],Urine > 1.030 Normal 1.005-1.030 [facility] Comment on above: Performed By: #### D RGA4, CUA2 #### [place] [address] [place] Squamous Epithelial 6 - 10 Normal [facility] Comment on above: Result Comment: Refe rence Range: 3-5 Performed By: #### D RGA4, CUA2 #### [facility] [address] [place], [place] Urobilinogen,Urine 2 mg/dL Normal [facility] Comment on above: Result Comment: Refe rence Range: Normal (0-1) Performed By: #### D RGA4, CUA2 #### [facility] [address] [place] WBC LM.HPF (Urine sed) [#/Area] 3 - 5 Normal [facility] Comment on above: Result Comment: Refe rence Range: 0-5 Performed By: #### Faustino BONNER, CUA2 #### [facility] [address] [place], [place] Drugs of Abuseon 09-09-2018 Phencyclidine (PCP), Ur Negative Normal [facility] Comment on above: Result Comment: The [...] under separate order. Performed By: #### Faustino RGA4, CUA2 #### [facility] [address] [place] Opiates, Ur Negative Normal [facility] Comment on above: Performed By: #### Faustino RGA4, CUA2 #### [facility] [address] [place] Cocaine, Ur Negative Normal [facility] Comment on above: Performed By: #### Faustino RGA4, CUA2 #### [facility] [address] [place] Methadone, Ur Negative Normal [facility] Comment on above: Performed By: #### D RGA4, CUA2 #### [place] [address] [place] Amphetamines, Ur Negative Normal [facility] Comment on above: Performed By: #### D RGA4, CUA2 #### [facility] [address] [place] Barbiturates, Ur Negative Normal [facility] Comment on above: Performed By: #### D RGA4, CUA2 #### [place] [address] [place] Benzodiazepines, Ur Negative Normal [facility] Comment on above: Performed By: #### D RGA4, CUA2 #### [place] [address] [place] Oxycodone/Oxymorphine ,Ur Negative Normal [facility] Comment on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 [facility] 10-13-2024 03:24-0400 Respiratory rate 16 /min No Primary Care Physician [facility] 10-13-2024 03:24-0400 SaO2% (BldA) [Mass fraction] 100 % No Primary Care Physician [facility] 10-13-2024 03:24-0400 Systolic blood pressure 99 mm[Hg] No Primary Care Physician [facility] 10-13-2024 01:54-0400 Body height 149.86 cm No Primary Care Physician [facility] 10-13-2024 01:54-0400 Body mass index (BMI) [Ratio] 28.6 kg/m2 No Primary Care Physician [facility] 10-13-2024 01:54-0400 Body weight 64.4 kg No Primary Care Physician [facility] 06-24-2023 19:50-04[address] Blood Pressure Cuff Size DR JOE MONTOYA MD [facility] 06-24-2023 19:50-[address] JOE MONTOYA MD [facility] 06-24-2023 19:50-[address] JOE MONTOYA MD [facility] 06-24-2023 19:50-0400 Body height 149.[address] JOE MONTOYA MD [facility] 06-24-2023 19:50-0400 Body temperature 97.52 [degF] DR JOE MONTOYA MD [facility] 06-24-2023 19:50-0400 Body weight [address] JOE MONTOYA MD [facility] 06-24-2023 19:50-0400 Diastolic Blood Pressure Non-Invasive 93 mm[Hg] DR JOE MONTOYA MD [facility] 06-24-2023 19:50-0400 Heart rate 81 /min DR JOE MONTOYA MD [facility] 06-24-2023 19:50-0400 Reason For Taking VItal Signs DR JOE MONTOYA MD [facility] 06-24-2023 19:50-0400 Respiratory rate 18 /min DR JOE MONTOYA MD [facility] 06-24-2023 19:50-0400 Systolic Blood Pressure Non-Invasive 129 mm[Hg] DR JOE MONTOYA MD [facility] 06-10-2023 01:35-0400 Body temperature 96.98 [degF] NAKUL CM MD [facility] 06-10-2023 01:35-0400 Diastolic Blood Pressure Non-Invasive 90 mm[Hg] NAKUL CM MD [facility] 06-10-2023 01:35-0400 Heart rate 96 /min NAKUL CM MD [facility] 06-10-2023 01:35-0400 Respiratory rate 20 /min NAKUL CM MD [facility] 06-10-2023 01:35-0400 Systolic Blood Pressure Non-Invasive 116 mm[Hg] NAKUL CM MD [facility] 05-05-2023 22:38-0400 Diastolic Blood Pressure Non-Invasive 69 mm[Hg] CORRIE REICHFIELD DO [facility] 05-05-2023 22:38-0400 Heart rate 88 /min CORRIE REICHFIELD DO [facility] 05-05-2023 22:38-0400 Respiratory rate 18 /min CORRIE REICHFIELD DO [facility] 05-05-2023 22:38-0400 Systolic Blood Pressure Non-Invasive 103 mm[Hg] CORRIE REICHFIELD DO [facility] 05-05-2023 22:01-0400 Diastolic Blood Pressure Non-Invasive 60 mm[Hg] CORRIE REICHFIELD DO [facility] 05-05-2023 22:01-0400 Heart rate 84 /min CORRIE REICHFIELD DO [facility] 05-05-2023 22:01-0400 Respiratory rate 18 /min CORRIE REICHFIELD DO [facility] 05-05-2023 22:01-0400 Systolic Blood Pressure Non-Invasive 90 mm[Hg] CORRIE REICHFIELD DO [facility] 05-05-2023 21:19-0400 Diastolic Blood Pressure Non-Invasive 55 mm[Hg] CORRIE REICHFIELD DO [facility] 05-05-2023 21:19-0400 Heart rate 86 /min CORRIE REICHFIELD DO [facility] 05-05-2023 21:19-0400 Respiratory rate 16 /min CORRIE REICHFIELD DO [facility] 05-05-2023 21:19-0400 Systolic Blood Pressure Non-Invasive 80 mm[Hg] CORRIE REICHFIELD DO [facility] 05-05-2023 20:06-0400 Body temperature 97.88 [degF] CORRIE REICHFIELD DO [facility] 11-21-2022 10:48-0400 Body temperature 97.16 [degF] BRAD MONTOYA MD [facility] 11-21-2022 10:48-0400 Body weight 47 kg BRAD MONTOYA MD [facility] 11-21-2022 10:48-0400 Diastolic Blood Pressure Non-Invasive 97 1 BRAD MONTOYA MD [facility] 11-21-2022 10:48-0400 Heart rate 93 /min BRAD MONTOYA MD [facility] 11-21-2022 10:48-0400 Respiratory rate 16 /min BRAD MONTOYA MD [facility] 11-21-2022 10:48-0400 Systolic Blood Pressure Non-Invasive 145 1 BRAD MONTOYA MD [facility] 03-30-2022 19:34-0500 Body height 149.[address] ANAI PATHAK MD [facility] 03-30-2022 19:34-0500 Body temperature 98.24 [degF] DR ANAI PATHAK MD [facility] 03-30-2022 19:34-0500 Body weight 56.[address] ANAI PATHAK MD [facility] 03-30-2022 19:34-0500 Diastolic Blood Pressure Non-Invasive [address] ANAI PATHAK MD [facility] 03-30-2022 19:34-0500 Heart rate 89 /min DR ANAI PATHAK MD [facility] 03-30-2022 19:34-0500 Respiratory rate 16 /min DR ANAI PATHAK MD [facility] 03-30-2022 19:34-0500 Systolic Blood Pressure Non-Invasive [address] ANAI PATHAK MD [facility] 06-07-2021 22:17-0400 Heart rate 88 /min MILY FLORES DO [facility] 06-07-2021 22:17-0400 Respiratory rate 18 /min MILY DURESKA DO [facility] 06-07-2021 22:17-0400 Systolic blood pressure 129 mm[Hg] MILY DURESKA DO [facility] 06-07-2021 21:26-0400 Diastolic blood pressure 99 mm[Hg] MILY DURESKA DO [facility] 06-07-2021 21:26-0400 Heart rate 89 /min MILY DURESKA DO [facility] 06-07-2021 21:26-0400 Respiratory rate 15 /min MILY DURESKA DO [facility] 06-07-2021 21:26-0400 Systolic blood pressure 125 mm[Hg] MILY DURESKA DO [facility] 06-07-2021 19:53-0400 Diastolic blood pressure 96 mm[Hg] MILY DURESKA DO [facility] 06-07-2021 19:53-0400 Heart rate 96 /min MILY DURESKA DO [facility] 06-07-2021 19:53-0400 Respiratory rate 17 /min MILY DURESKA DO [facility] 06-07-2021 19:53-0400 Systolic blood pressure 136 mm[Hg] MILY DURESKA DO [facility] 10-18-2020 13:25-0400 Diastolic blood pressure 81 mm[Hg] Esther Rhodes MD Work Phone: [facility] Work Phone: 10-18-2020 13:25-0400 Heart rate 80 /min sEther Rhodes MD Work Phone: [facility] Work Phone: 10-18-2020 13:25-0400 Respiratory rate 16 /min Esther Rhodes MD Work Phone: [facility] Work Phone: 10-18-2020 13:25-0400 SaO2% (BldA) [Mass fraction] 98 % Esther Rhodes MD Work Phone: [facility] Work Phone: 10-18-2020 13:25-0400 Systolic blood pressure 113 mm[Hg] Esther Rhodes MD Work Phone: [facility] Work Phone: 10-18-2020 10:49-0400 Body mass index [...] 03-24-2019 12:08-0500 Body Temperature 97 [degF] Cristhian KUOA Work Phone: 03-24-2019 12:08-0500 Body weight 55.79 kg Cristhian ASH Work Phone: 03-24-2019 12:08-0500 BP Diastolic 72 mm[Hg] Cristhian ASH Work Phone: 03-24-2019 12:08-0500 BP Systolic 164 mm[Hg] Cristhian ASH Work Phone: 03-24-2019 12:08-0500 Height 149.9 cm Cristhian ASH Work Phone: 03-24-2019 12:08-0500 Pulse (Heart Rate) 105 /min Cristhian ASH Work Phone: 03-24-2019 12:08-0500 Pulse Oximetry 96 % Cristhian ASH Work Phone: 03-24-2019 12:08-0500 Respiratory Rate 20 /min Cristhian ASH Work Phone: 02-14-2019 16:45-0500 Diastolic blood pressure 89 mm[Hg] Valdez Lira MD Work Phone: [facility] Work Phone: 02-14-2019 16:45-0500 Heart rate 88 /min Valdez Lira MD Work Phone: [facility] Work Phone: 02-14-2019 16:45-0500 Respiratory rate 20 /min Valdez Lira MD Work Phone: [facility] Work Phone: 02-14-2019 16:45-0500 Systolic blood pressure 137 mm[Hg] Valdez Lira MD Work Phone: [facility] Work Phone: 02-14-2019 13:21-0500 Body temperature 97.7 [degF] Valdez Lira MD Work Phone: [facility] Work Phone: 02-14-2019 13:21-0500 SaO2% (BldA) [Mass fraction] 100 % Valdez Lira MD Work Phone: [facility] Work Phone: 01-03-2019 18:06-0500 BMI (Body Mass Index) 24.24 kg/m2 Kadeem [facility] 01-03-2019 18:06-0500 Body Temperature 98.2 [degF] [facility] [place] 01-03-2019 18:06-0500 Body weight 54.43 kg [facility] [place] 01-03-2019 18:06-0500 BP Diastolic 80 mm[Hg] [facility] [place] 01-03-2019 18:06-0500 BP Systolic 111 mm[Hg] [facility] [place] 01-03-2019 18:06-0500 Height 149.9 cm [facility] [place] 01-03-2019 18:06-0500 Pulse (Heart Rate) 100 /min [facility] [place] 01-03-2019 18:06-0500 Pulse Oximetry 97 % [facility] [place] 01-03-2019 18:06-0500 Respiratory Rate 16 /min [facility] [place] 10-28-2018 21:10-0400 BMI (Body Mass Index) 26.05 kg/m2 [facility] [place] 10-28-2018 21:10-0400 Body Temperature 98.91 [degF] Esther Leach [facility], [place] 10-28-2018 21:10-0400 Body weight 58.51 kg [facility] [place] 10-28-2018 21:10-0400 BP Diastolic 84 mm[Hg] [facility] [place] 10-28-2018 21:10-0400 BP Systolic 110 mm[Hg] [facility] [place] 10-28-2018 21:10-0400 Height 149.9 cm Esther Leach [facility] , [place] 10-28-2018 21:10-0400 Pulse (Heart Rate) 92 /min [facility] [place] 10-28-2018 21:0 Pulse Oximetry 100 % Esther [facility] [place] , ENRIQUE 10-28-2018 21:10-0400 Respiratory Rate 14 /min Esther [facility] [place], [place] Encounters Encounter Date Encounter Type Care Provider Facility Start: 12-15-2024 End: 12-15-2024 ambulatory No Primary Care Physician Facility:[facility] Start: 11-09-2024 End: 11-09-2024 ambulatory JOS ARANZA Facility:[facility] Start: 10-13-2024 End: 10-13-2024 Emergency department patient visit No Primary Care Physician -Emergency Department Work Phone: Start: 02-19-2024 End: 02-19-2024 Emergency department patient visit [facility] [facility] Start: 06-24-2023 End: 06-24-2023 Emergency department patient visit DR JOE MONTOYA MD Facility:B Start: 06-24-2023 End: 06-24-2023 Emergency department patient visit DR JOE MONTOYA MD [facility] Start: 06-10-2023 End: 06-10-2023 Emergency department patient visit NAKUL CM MD Facility:B Start: 06-10-2023 End: 06-10-2023 Emergency department patient visit NAKUL CM MD [facility] Start: 05-05-2023 End: 05-06-2023 Emergency department patient visit CORRIE ROJO Facility:B Start: 05-05-2023 End: 05-05-2023 [facility] Start: 11-21-2022 End: 11-21-2022 Emergency department patient visit BRAD MONTOYA MD Facility:B Start: 11-21-2022 End: 11-21-2022 Emergency department patient visit BRAD MONTOYA MD [facility] Start: 03-30-2022 End: 03-30-2022 Emergency department patient visit DR ANAI PATHAK MD [facility] Start: 06-07-2021 End: 06-08-2021 Emergency department patient visit MILY MARK DO [facility] Start: 06-02-2021 End: 06-02-2021 Patient encounter procedure Carmen Cerdasangeethabrando DO Work Phone: Orthopaedics Comment on above: Chronic right should er pain (Primary Dx); Impingement syndrome of right shoulder; Bursitis of right shoulder; Tendinitis of right shoulder Start: 10-18-2020 End: 10-18-2020 Emergency department patient visit Esther Rhodes MD Work Phone: [facility] ED Comment on above: Chest pain, unspecif ied type (Primary Dx); Upper abdominal pain Start: 02-25-2020 End: 02-25-2020 Patient encounter procedure NO PCP AA NO PCP [facility] Start: 02-24-2020 Patient encounter procedure LE Montero CNP [facility] Start: 02-22-2020 End: 02-23-2020 Patient encounter procedure ESTHER Montero [facility] Start: 01-24-2020 End: 01-25-2020 Patient encounter procedure NO PCP AA NO PCP [facility] Start: 03-24-2019 End: 03-24-2019 Emergency department patient visit Chesteralhaji Flaquita [facility] Comment on above: Closed nondisplaced fracture of distal phalanx of left ring finger, initial encounter (Primary Dx) Start: 02-14-2019 End: 02-14-2019 Emergency department patient visit Valdez Lira MD Work Phone: [facility] Comment on above: Generalized abdomina l pain (Primary Dx) Start: 01-03-2019 End: 01-03-2019 Emergency department patient visit Kadeem Wei Work Phone: [facility] Emergency Dept Comment on above: Contusion of right i ndex finger without damage to nail, initial encounter (Primary Dx) Start: 10-28-2018 End: 10-28-2018 Emergency department patient visit Esther Looney Hany Work Phone: [facility] ED Comment on above: Injury of left knee, initial encounter (Primary Dx); Contusion of left knee, initial encounter; Laceration of left great toe without foreign body present or damage to nail, initial encounter; Neck sprain, initial encounter; Acute alcoholic intoxication in alcoholism without complication (HCC) Start: 10-13-2016 End: 10-13-2016 Emergency department patient visit LAUREN MORGAN Facility:[id number] Procedures Date Procedure Procedure Detail Performing Clinician Start: 10-13-2024 Urnls dip stick/tabl et reagent auto microscopy No Primary Care Physician Start: 10-13-2024 Estimated creatinine clearance No Primary Care Physician Start: 06-02-2021 Arthrocentesis aspir &/inj major jt/bursa [...] 03-24-2019 Radex fingr minimum 2 views Odalys L Janas Work Phone: Start: 02-14-2019 Ct abdomen & pelvis w/o contrast material 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 Work Phone: Start: 02-14-2019 Urnls dip stick/tabl et rgnt auto w/o microscopy 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 Work Phone: Start: 02-14-2019 Basic metabolic pane l calcium total 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 Work Phone: Start: 01-03-2019 Radex hand minimum 3 views Kadeem Harmon Sanjuana Work Phone: Start: 10-28-2018 Ct cervical spine w/ o contrast material Esther Looney Hany Work Phone: Start: 11-13-2010 Adult depression scr eening assessment Carmen Cotton DO Work Phone: Plan of Treatment Date Care Activity Detail Author Start: 05-23-2025 Urine microalbumin profile DTAP,TDAP,TD (3 - Td or Tdap) [facility] Start: 10-13-2024 [facility] Start: 10-19-2021 Influenza vaccination INFLUENZA (Season Ended) [facility] Start: 10-19-2020 Influenza vaccination Flu vaccine (#1) [facility] Work Phone: Start: 10-19-2018 Influenza vaccination Flu vaccine (#1) [place] Start: 05-13-2017 HPV TESTING HPV TESTING [facility] Start: 05-13-2017 PAP TESTING PAP TESTING [facility] Start: 11-14-2011 Adult depression screening assessment DEPRESSION SCREENING [facility] Start: 1993 COVID-19 Vaccine (1) COVID-19 Vaccine (1) [employer] Work Phone: Start: 1986 COVID-19 VACCINE (1) COVID-19 VACCINE (1) [facility] EKG 12 Lead - Chest Pain EKG 12 Lead - Chest Pain ECG STAT 10/18/2020 12:54 PM EDT [facility] Work Phone: Patient Education ED Dysfunction al Uterine Bleeding [facility] Work Phone: Immunizations Immunization Date Immunization Notes Care Provider Gretta garcia 05-24-2015 tetanus toxoid, redu merlyn diphtheria toxoid, and acellular pertussis vaccine, adsorbed Carmen Cotton DO Work Phone: [facility] 03-31-2011 tetanus toxoid, redu merlyn diphtheria toxoid, and acellular pertussis vaccine, adsorbed Carmen Cotton DO Work Phone: [facility] Payers Date Payer Category Payer Self-pay 2023 Unknown [id number] 2022 Unknown [id number] 2016 Unknown [facility] MEDICAID xxxxxxxxxxx 2016-Present [phone] CLAIMS DEPARTMENT [address] [place] [address] xxxxxxxxxxx [id number] 2015 Medicaid [employer] [facility] [facility] MEDICA[facility] [id number] 2015-Present [phone] [address] [place] [address] Medicaid [id number] 1981 Unknown [id number] 1981 Unknown [id number] 1981 Unknown [id number] 1981 Unknown [id number] 1981 Unknown [id number] 1981 Unknown [id number] 1981 Unknown [id number] 1981 Unknown [id number] 1981 Unknown [id number] 1981 Unknown [id number] 1959 Medicaid [id number] Unknown [id number] Unknown [id number] Unknown [id number] Social History Date Type Detail Facility Start: 11-11-2018 End: 10-13-2024 Tobacco smoking status NHIS Current every day smoker [facility] Start: 11-11-2018 End: 06-02-2021 Cigarettes smoked current (pack per day) - Reported [place], [place] Start: 11-11-2018 End: 06-02-2021 Alcohol intake Current drinker of alcohol (finding) [place] Start: 03-26-2018 Alcohol Comment 4 days a week [place] Start: 1980 Sex Assigned At Not on file M [place] Start: 10-28-2018 Alcohol intake Yes [facility] Start: 10-18-2020 Tobacco use and exposure Never used [facility] Start: 05-07-2021 End: 05-17-2021 Exposure to SARS-CoV-2 (event) Not sure [facility] Start: 1980 Sex Assigned At Female A [facility] History of tobacco use Cigarette Smoker [facility] Start: 10-29-2017 History SDOH Alcohol Comment maybe 10 beers a week [facility] Start: 10-29-2017 Tobacco Comment 6-7 cigarettes per d ay [facility] Start: 03-30-2022 Tobacco smoking status Light t obacco smoker (finding) [facility] Start: 03-21-2019 Lives Lives [facility] Medical Equipment Procedure Code Equipment Code Equipment Origin al Text Equipment Identifier Dates Lgtr 12.5in 8mm Frng [employer] - [id number] Start: 01-16-2012 Functional Status Date Assessment Result Facility 06-24-2023 Functional Status Independent [facility] 06-24-2023 Functional Status Awake, Resting [facility] 06-10-2023 Functional Status ID band on, Allergy Band on, Call device within reach, Bed in low position, Wheels locked, Upper/Half-Length side-rails up, Phone within reach, Visitor at bedside, Safety level maintained [facility] 05-05-2023 Functional Status Assistive Device None A [facility] 05-05-2023 Functional Status Standard Safet y ID band on, Call device within reach, Bed in low position [facility] 03-30-2022 Functional Status Independent [facility] 03-30-2022 Functional Status Standard Safet y ID band on, Allergy Band on, Call device within reach, Bed in low position, Wheels locked, Upper/Half-Length side-rails up, personal items within reach [facility] 06-07-2021 Functional Status [facility] Mental Status Date Assessment Result Facility 06-24-2023 Mental Status Orientation Oriented x 4 [facility] 06-24-2023 Mental Status [facility] 06-10-2023 Mental Status Oriented x 4 [facility] 05-05-2023 Mental Status Orientation Oriented x 4 [facility] 11-21-2022 Mental Status Orientation Oriented x 4 [facility] 03-30-2022 Mental Status Orientation Oriented x 4 [facility] 03-30-2022 Mental Status [facility] 06-07-2021 Mental Status [facility] Clinical Notes 12-25-2010 to 11-09-2024 Carmen Cotton DO - 06/02/2021 11:53 AM EDT Note Date & Type Note Facility 11-09-2024 Note HNO ID: [id number] Author: JOS COBIAN APRN.PSYCHIATRIC ORDERLY Service: ? Author Type: Nurse Practitioner Type: Progress Notes Filed: 11/09/2024 11:06 Note Text: Patient came in and wanted cleared to go to work. Patient says she was seen in October 13 and in the ER for bleeding and has been off work ever since. Patient has no primary care but did tell patient we are not able to do ER follow-ups or clear you if you have been off work for a month. That you need to get established with a primary care and go through the proper protocol. Patient was agreeable [facility] 10-13-2024 Discharge summary [facility] 06-24-2023 Hospital Discharge instructions Patient Education 06/24/2023 [...] temperature. Use toothpaste made for sensitive teeth. [place] gently up and down instead of sideways. Brushing sideways can wear away root surfaces if they are exposed. If your tooth is chipped or cracked, or if there is a large open cavity, put oil of cloves directly on the tooth to relieve pain. You can buy oil of cloves at [employer]. Some pharmacies carry an bgkw-zkh-gwaelbg toothache kit. This contains a paste that you can put on the exposed tooth to make it less sensitive. Put a cold pack on your jaw over the sore area to help reduce pain. You may use mbyu-aor-okfbqcj medicine to ease pain, unless your doctor [...] healthcare provider Pus drains from the tooth 3947-5659 [employer]. [address] [place] [address]. All rights reserved. This information is not intended as a substitute for professional medical care. Always follow your healthcare professional's instructions. Follow Up Care 06/24/2023 19:14:35 With:Dental Referral List Address:Unknown When:2-4 days Comments:Be for sure to follow-up with a dentist, return if any worsening or concerning symptoms. [facility] 06-24-2023 Note Discharge Instructions Thank you for allowing [facility] to assist you with your healthcare needs. [...] were not tolerated. Extended-release oxycodone is for vpohym-vdb-pjcxn treatment of severe and chronic pain that [...] by your doctor. Stop taking all other hruqjp-bng-cfsiu opioid pain medicines when you start taking [...] may report side effects to FDA at 5-534-VLW-9823. What other drugs will affect oxycodone? You [...] may affect oxycodone. This includes prescription and fqbp-nti-bwgwtnz medicines, vitamins, and herbal products. Not all [...] to ensure that the information provided by [employer]. ('[employer]') is accurate, up-to-date, and complete, but no guarantee is made to that effect. Drug information contained herein may be time sensitive. [employer] information has been compiled for use by healthcare practitioners and consumers in the [place] and therefore [employer] does not warrant that uses outside of the [place] are appropriate, unless specifically indicated otherwise. [employer] drug information does not endorse drugs, diagnose patients or recommend therapy. [employer] drug information is an informational resource designed [...] effective or appropriate for any given patient. [facility] does not assume any responsibility for any aspect of healthcare administered with the aid of information [facility] provides. The information contained herein is not intended to cover all possible uses, directions, precautions, warnings, drug interactions, allergic reactions, or adverse effects. If you have questions about the drugs you are taking, check with your doctor, nurse or pharmacist. Copyright 5471-8038 [facility] [employer] Version: 17.. Revision Date: 03/12/2023. Education Materials [...] temperature. Use toothpaste made for sensitive teeth. [place] gently up and down instead of sideways. Brushing sideways can wear away root surfaces if they are exposed. If your tooth is chipped or cracked, or if there is a large open cavity, put oil of cloves directly on the tooth to relieve pain. You can buy oil of cloves at drugstores. Some pharmacies carry an nvwe-qlf-xxefbus toothache kit. This contains a paste that you can put on the exposed tooth to make it less sensitive. Put a cold pack on your jaw over the sore area to help reduce pain. You may use jwol-ouu-epadrwc medicine to ease pain, unless your doctor [...] healthcare provider Pus drains from the tooth 9789-0402 [employer]. [address] [place] [address]. All rights reserved. This information is not intended as a substitute for professional medical care. Always follow your healthcare professional's instructions. Additional Information VACCINATE! IT SAVES LIVES! Members of the community who have not yet received the COVID-19 vaccine and would like to receive it can visit one of [facility] vaccine clinics. There are many vaccine clinic locations within the [facility]. For locations and available times, please visit [email or web address] [email or web address] It is important to note that some COVID mobile vaccine clinics are held outdoors and may be canceled in rainy or stormy conditions. To learn more about pediatric vaccinations (ages 5-11), we invite you to visit the [facility] webpage. https://www.[facility].org/pag es/5621-Jdowg-Mxyjurrplje-Frequent eh-Zznsi-Ijjivxjvn.html To learn more about the COVID-19 vaccine, we invite you to visit the CDC website for a list of frequently asked questions. https://www.cdc.gov/coronavirus/-ncov/vaccines/faq.html [facility] Patient Portal Access Instructions: Stay connected with your healthcare team and access your personal medical information anytime with the [facility] Patient Portal. If you would like a full copy of your medical records please contact the [facility] Medical Records Department Saturday through Saturday between 8a.m. and 4:30p.m. Please follow the directions below to access the portal: 1.Access the email account you provided upon registration to the [facility].2.Look for an invitation email from [facility].3.Open the email and access the invitation link: Accept Invitation to [facility].Fill in the required rowe to create your account. Sign into [email or web address] with your username and password that you [...] you will allow to register on the [facility] Patient Portal for access to your information. You can also access the [facility] Patient Portal on the [employer]. Simply click on Health Records under Health Data and then click on the [employer] logo. HOW TO SAFELY DISPOSE OF PRESCRIPTION [...] Call your local pharmacy or go to [email or web address] Spa/6I0Az7d to find one close to you.3.Make use of household items: Use cat litter or old coffee grounds to dispose medications if other options are not available. Mix your drugs with these household products, seal them in an airtight container and throw it into the garbage. Call [facility]: [phone] to be sure your drugs can be [...] been reviewed and explained to me and I,PRERNASANDRAJesica, VERONA understand my current condition and have read and understand these discharge instructions. I have received a written copy of the plan/instructions. If I have questions, I am aware that I should contact my doctor. Patient/Bonding Supervisor Signature: Date/Time: Relationship to Patient: ___ Witness Name/Signature: Date/Time: [facility] 06-10-2023 Hospital Discharge instructions Patient Education [...] temperature. Use toothpaste made for sensitive teeth. [place] gently up and down instead of sideways. Brushing sideways can wear away root surfaces if they are exposed. If your tooth is chipped or cracked, or if there is a large open cavity, put oil of cloves directly on the tooth to relieve pain. You can buy oil of cloves at [employer]. Some pharmacies carry an vlxj-gfu-itbatfl toothache kit. This contains a paste that you can put on the exposed tooth to make it less sensitive. Put a cold pack on your jaw over the sore area to help reduce pain. You may use futn-egf-pgjpxgy medicine to ease pain, unless your doctor [...] healthcare provider Pus drains from the tooth 8814-6390 [employer]. [address] [place] [address], [place] [address]. All rights reserved. This information is not intended as a substitute for professional medical care. Always follow your healthcare professional's instructions. Follow Up Care 06/10/2023 01:26:51 With:Dental Referral List Address: When:2-4 days [facility] Note Discharge Instructions Thank you for allowing [facility] to assist you with your healthcare needs. [...] 7-10 Odontalgia Duration: 2 Days Pickup at [facility]/pharmacy #4605 New amoxicillin-clavulanate (amoxicillin-clavulanate 875 mg-125 mg oral tablet) 1 tab(s) by mouth Every 12 hours Duration: 7 Days Pickup at [facility]/pharmacy #4605 New ibuprofen (ibuprofen 600 mg oral tablet) 1 tab(s) by mouth Every 6 hours as needed for Pain, scale 1-6 Duration: 7 Days Take with food or milk. Pickup at [facility]/pharmacy #4605 Unchanged cetirizine (Zyrtec 10 mg oral tablet) 1 tab(s) by mouth Once a day Duration: 10 Days Unchanged fluticasone nasal (Flonase 50 mcg/ inh nasal spray) 1 spray(s) each nostril Two (2) times a day Duration: 7 Days Pharmacy Information [facility]/pharmacy #[id number]: [address] [place], [place] [id number] [phone] Please take this list to your next [...] temperature. Use toothpaste made for sensitive teeth. [place] gently up and down instead of sideways. Brushing sideways can wear away root surfaces if they are exposed. If your tooth is chipped or cracked, or if there is a large open cavity, put oil of cloves directly on the tooth to relieve pain. You can buy oil of cloves at drugstores. Some pharmacies carry an wony-bqe-mrhmdxm toothache kit. This contains a paste that you can put on the exposed tooth to make it less sensitive. Put a cold pack on your jaw over the sore area to help reduce pain. You may use lxpr-soa-zblefnh medicine to ease pain, unless your doctor [...] healthcare provider Pus drains from the tooth 1429-0912 [employer]. [address] [place] [address], [place] [address]. All rights reserved. This information is not intended as a substitute for professional medical care. Always follow your healthcare professional's instructions. Additional Information VACCINATE! IT SAVES LIVES! Members of the community who have not yet received the COVID-19 vaccine and would like to receive it can visit one of [facility] vaccine clinics. There are many vaccine clinic locations within the [facility]. For locations and available times, please visit [email or web address] v/. It is important to note that some COVID mobile vaccine clinics are held outdoors and may be canceled in rainy or stormy conditions. To learn more about pediatric vaccinations (ages 5-11), we invite you to visit the [facility] webpage. https://www.Shelf.coms.org/pag es/3028-Lefur-Peqfqrvruyv-Frequent hr-Pjxgy-Blehwrzhw.html To learn more about the COVID-19 vaccine, we invite you to visit the CDC website for a list of frequently asked questions. https://www.cdc.gov/coronavirus/20 19-ncov/vaccines/faq.html [facility] Patient Portal Access Instructions: Stay connected with your healthcare team and access your personal medical information anytime with the [employer] Patient Portal. If you would like a full copy of your medical records please contact the [facility] Medical Records Department Saturday through Saturday between 8a.m. and 4:30p.m. Please follow the directions below to access the portal: 1.Access the email account you provided upon registration to the hospital.2.Look for an invitation email from [facility].3.Open the email and access the invitation link: Accept Invitation to [facility]4.Fill in the required rowe to create your account. Sign into [email or web address] with your username and password that you [...] you will allow to register on the [facility] Patient Portal for access to your information. You can also access the [facility] Patient Portal on the [employer]. Simply click on Health Records under Health Data and then click on the [employer] logo. HOW TO SAFELY DISPOSE OF PRESCRIPTION [...] Call your local pharmacy or go to [email or web address]://[email or web address].[employer] Pool and Spa/5I7Ti3d to find one close to you.3.Make use of household items: Use cat litter or old coffee grounds to dispose medications if other options are not available. Mix your drugs with these household products, seal them in an airtight container and throw it into the garbage. Call [facility]: [phone] to be sure your drugs can be [...] been reviewed and explained to me and I,TOSATTO, VERONA understand my current condition and have read and understand these discharge instructions. I have received a written copy of the plan/instructions. If I have questions, I am aware that I should contact my doctor. Patient/Bonding Supervisor Signature: Date/Time: Relationship to Patient: ___ Witness Name/Signature: Date/Time: [facility] 05-05-2023 Note Discharge Instructions Thank you for allowing [facility] to assist you with your healthcare needs. The following is important discharge information regarding your hospital visit. Diagnosis from Today's Visit Chest pain Chest pain What to Do Next Instructions from Your Care Team Follow-up with your primary care provider. Follow-up with cardiovascular consultants, Dr. Mota or other tank crewmember there for chest pain. Return the emergency department if you experience worsening symptoms or any other care concern. No qualifying data available. Post Acute Orders No qualifying data available. You Need to Schedule the Following Appointments Follow Up with ELIUD DEVLIN MD When Within 2-4 days Where: [address] [facility] [address] [facility] [place] [address]- [phone] Follow Up with Go to emergency room if symptoms worsen When Within 2-4 days Follow Up with CRISTHIAN MORRISON When Within 2-4 days Allergies Vicodin Medications [...] Swelling, pain or redness in one leg 6747-1634 [employer]. [address] [place] [address], [place] [address]. All rights reserved. This information is not intended as a substitute for professional medical care. Always follow your healthcare professional's instructions. Additional Information VACCINATE! IT SAVES LIVES! Members of the community who have not yet received the COVID-19 vaccine and would like to receive it can visit one of [facility] vaccine clinics. There are many vaccine clinic locations within the [facility]. For locations and available times, please visit [email or web address] v/. It is important to note that some COVID mobile vaccine clinics are held outdoors and may be canceled in rainy or stormy conditions. To learn more about pediatric vaccinations (ages 5-11), we invite you to visit the [employer] webpage. https://www.Shelf.coms.org/pag es/6718-Lhbyw-Pthenapamri-Frequent uk-Ecskz-Hvauanemo.html To learn more about the COVID-19 vaccine, we invite you to visit the CDC website for a list of frequently asked questions. https://www.cdc.gov/coronavirus/20 19-ncov/vaccines/faq.html [employer] Patient Portal Access Instructions: Stay connected with your healthcare team and access your personal medical information anytime with the [employer] Patient Portal. If you would like a full copy of your medical records please contact the [facility] Medical Records Department Saturday through Saturday between 8a.m. and 4:30p.m. Please follow the directions below to access the portal: 1.Access the email account you provided upon registration to the hospital.2.Look for an invitation email from [facility].3.Open the email and access the invitation link: Accept Invitation to [employer]4.Fill in the required rowe to create your account. Sign into www.[email or web address] with your username and password that you [...] you will allow to register on the [employer] Patient Portal for access to your information. You can also access the [facility] Patient Portal on the [employer]. Simply click on Health Records under Health Data and then click on the [employer] logo. HOW TO SAFELY DISPOSE OF PRESCRIPTION [...] Call your local pharmacy or go to [email or web address]://[email or web address].Go Pool and Spa/[email or web address] to find one close to you.3.Make use of household items: Use cat litter or old coffee grounds to dispose medications if other options are not available. Mix your drugs with these household products, seal them in an airtight container and throw it into the garbage. Call [facility]: [phone] to be sure your drugs can be [...] been reviewed and explained to me and IZABRINA AMANDA understand my current condition and have read and understand these discharge instructions. I have received a written copy of the plan/instructions. If I have questions, I am aware that I should contact my doctor. Patient/Bonding Supervisor Signature: Date/Time: Relationship to Patient: ___ Witness Name/Signature: Date/Time: [facility] 05-05-2023 Hospital Discharge instructions Patient Education [...] Swelling, pain or redness in one leg 2843-2311 [employer]. [address] [place] [address]. All rights reserved. This information is not intended as a substitute for professional medical care. Always follow your healthcare professional's instructions. Follow Up Care 05/05/2023 19:51:27 With:ELIUD DEVLIN MD Address: [address] [place] [address] [address] [place] [address] [place] [address]- [phone] When:2-4 days With:Go to emergency room if symptoms worsen Address:Unknown When:2-4 days With:CRISTHIAN MORRISON Address:Unknown When:2-4 days [facility] 05-05-2023 Note ORIGINAL EXAMINATION: ONE XRAY [...] 05/05/2023 8:53:00 PM Ordering Provider: CORRIE ROJO [facility] 05-05-2023 Note Sinus rhythm Anteroseptal infarct, age indeterminate Electronic Signature: CORRIE ROJO DO 05/05/2023 20:08:03 [facility] 11-21-2022 Hospital Discharge instructions Patient Education 11/21/2022 [...] is young, the healthcare provider or a teacher of the hearing impaired may talk or play with them. The child s response helps identify hearing loss. 1331-0386 [employer]. [address] [place] [address], [place] [address]. All rights reserved. This information is not [...] loosen secretions in the nose and lungs. Xqkj-uhc-uwayzaf cold medicines will not shorten the length of time you re sick, but they may be helpful for the following symptoms: cough, sore throat, and nasal and sinus congestion. If you take prescription medicines, ask your healthcare provider or pharmacist which afrx-lmj-mgdrvwt medicines are safe to use. (Note: Don't [...] it goes along with a muffled voice 1712-6443 [employer]. [address] [place] [address]. All rights reserved. This information is not intended as a substitute for professional medical care. Always follow your healthcare professional's instructions. Follow Up Care 11/21/2022 10:44:49 With:CRISTHIAN MORRISON Address: When:2-4 days Comments:Make an appointment in 2 to 4 days with your physician. Return if you are worse in any way. [facility] 11-21-2022 Emergency department Discharge summary Discharge Instructions Thank you for allowing [facility] to assist you with your healthcare needs. The following is important discharge information regarding your hospital visit. Diagnosis from Today's Visit Acute URI Ear ache Eustachian tube dysfunction What to Do Next Instructions from Your Care Team No qualifying data available. Post Acute Orders No qualifying data available. You Need to Schedule the Following Appointments Follow Up with CRISTHIAN MORRSION When Within 2-4 days Why: Make an [...] is young, the healthcare provider or a teacher of the hearing impaired may talk or play with them. The child s response helps identify hearing loss. 2694-5042 [employer]. [address] [place] [address], [place] [address]. All rights reserved. This information is not [...] loosen secretions in the nose and lungs. Ggxk-awu-vputtmi cold medicines will not shorten the length of time you re sick, but they may be helpful for the following symptoms: cough, sore throat, and nasal and sinus congestion. If you take prescription medicines, ask your healthcare provider or pharmacist which ahgf-huf-znyjdkd medicines are safe to use. (Note: Don't [...] it goes along with a muffled voice 2393-3896 [employer]. [address] [place] [address], [place] [address]. All rights reserved. This information is not intended as a substitute for professional medical care. Always follow your healthcare professional's instructions. Additional Information VACCINATE! IT SAVES LIVES! Members of the community who have not yet received the COVID-19 vaccine and would like to receive it can visit one of [facility] vaccine clinics. There are many vaccine clinic locations within the [facility]. For locations and available times, please visit [email or web address] v/. It is important to note that some COVID mobile vaccine clinics are held outdoors and may be canceled in rainy or stormy conditions. To learn more about pediatric vaccinations (ages 5-11), we invite you to visit the [facility] webpage. https://www.Shelf.coms.org/pag es/9177-Kpiab-Fdvqgpvvdeu-Frequent pm-Dyxrt-Hdolejheh.html To learn more about the COVID-19 vaccine, we invite you to visit the CDC website for a list of frequently asked questions. https://www.cdc.gov/coronavirus/20 19-ncov/vaccines/faq.html [employer] Patient Portal Access Instructions: Stay connected with your healthcare team and access your personal medical information anytime with the [employer] Patient Portal. If you would like a full copy of your medical records please contact the [facility] Medical Records Department Saturday through Saturday between 8a.m. and 4:30p.m. Please follow the directions below to access the portal: 1.Access the email account you provided upon registration to the hospital.2.Look for an invitation email from [facility].3.Open the email and access the invitation link: Accept Invitation to [employer]4.Fill in the required rowe to create your account. Sign into www.[employer] with your username and password that you [...] you will allow to register on the [facility] Patient Portal for access to your information. You can also access the [facility] Patient Portal on the [employer] janie. Simply click on Health Records under Health Data and then click on the [employer] logo. HOW TO SAFELY DISPOSE OF PRESCRIPTION [...] Call your local pharmacy or go to http://[email or web address].Go Pool and Spa/1E4Vz2k to find one close to you.3.Make use of household items: Use cat litter or old coffee grounds to dispose medications if other options are not available. Mix your drugs with these household products, seal them in an airtight container and throw it into the garbage. Call [facility]: [phone] to be sure your drugs can be [...] aware that I should contact my doctor. Patient/Bonding Supervisor Signature: Date/Time: Relationship to Patient: ___ Witness Name/Signature: Date/Time: [facility] 03-30-2022 Hospital Discharge instructions Patient Education [...] or as directed by your healthcare provider 4757-2094 [employer]. [address] [place] [address]. All rights reserved. This information is not intended as a substitute for professional medical care. Always follow your healthcare professional's instructions. Follow Up Care 03/30/2022 19:32:40 With:CRISTHIAN MORRISON Address:Unknown When:2-4 days [facility] 03-30-2022 Emergency department Discharge summary Discharge Instructions Thank you for allowing [facility] to assist you with your healthcare needs. The following is important discharge information regarding your hospital visit. Diagnosis from Today's Visit Abscess of axilla, right Abscess - axilla What to Do Next Instructions from Your Care Team No qualifying data available. Post Acute Orders No qualifying data available. You Need to Schedule the Following Appointments Follow Up with CRISTHIAN MORRISON When Within 2-4 days Allergies Vicodin Medications [...] blood sodium or high potassium); porphyria, or lodygrm-7-fvubzokxj dehydrogenase (G6PD) deficiency; or if you use [...] may report side effects to FDA at 1-952-YKA-5800. What other drugs will affect sulfamethoxazole and [...] sulfamethoxazole and trimethoprim. This includes prescription and lxcx-njn-iduqsad medicines, vitamins, and herbal products. Not all [...] to ensure that the information provided by [employer]. ('[employer]') is accurate, up-to-date, and complete, but no guarantee is made to that effect. Drug information contained herein may be time sensitive. [employer]Decide information has been compiled for use by healthcare practitioners and consumers in the [place] and therefore [employer]Dec[employer] does not warrant that uses outside of the [place] are appropriate, unless specifically indicated otherwise. [employer] drug information does not endorse drugs, diagnose patients or recommend therapy. [employer] drug information is an informational resource designed [...] effective or appropriate for any given patient. [employer] does not assume any responsibility for any aspect of healthcare administered with the aid of information [employer] provides. The information contained herein is not intended to cover all possible uses, directions, precautions, warnings, drug interactions, allergic reactions, or adverse effects. If you have questions about the drugs you are taking, check with your doctor, nurse or pharmacist. Copyright 0626-5066 [employer]. Version: 12.20. Revision Date: 10/17/2020. cephalexin (sef a JOSIAH [...] may report side effects to FDA at 1-828-NPH-1318. What other drugs will affect cephalexin? Tell your doctor about all your other medicines, especially: metformin; or probenecid. This list is not complete. Other drugs may affect cephalexin, including prescription and dzui-zye-pfwjjge medicines, vitamins, and herbal products. Not all [...] to ensure that the information provided by [employer]') is accurate, up-to-date, and complete, but no guarantee is made to that effect. Drug information contained herein may be time sensitive. [employer]Dec[employer] information has been compiled for use by healthcare practitioners and consumers in the [place] and therefore [employer]Decide does not warrant that uses outside of the [place] are appropriate, unless specifically indicated otherwise. [employer] drug information does not endorse drugs, diagnose patients or recommend therapy. [employer] drug information is an informational resource designed [...] effective or appropriate for any given patient. [employer] does not assume any responsibility for any aspect of healthcare administered with the aid of information [employer] provides. The information contained herein is not intended to cover all possible uses, directions, precautions, warnings, drug interactions, allergic reactions, or adverse effects. If you have questions about the drugs you are taking, check with your doctor, nurse or pharmacist. Copyright 3204-7232 [employer]. Version: 10.03. Revision Date: 02/22/2020. Education Materials [...] or as directed by your healthcare provider 6771-4509 [employer]. [address] [place] [address]. All rights reserved. This information is not intended as a substitute for professional medical care. Always follow your healthcare professional's instructions. Additional Information VACCINATE! IT SAVES LIVES! Members of the community who have not yet received the COVID-19 vaccine and would like to receive it can visit one of [facility] vaccine clinics. There are many vaccine clinic locations within the [facility]. For locations and available times, please visit [email or web address] g. It is important to note that some COVID mobile vaccine clinics are held outdoors and may be canceled in rainy or stormy conditions. To learn more about pediatric vaccinations (ages 5-11), we invite you to visit the [facility] webpage. https://www.[facility].org/pag es/4389-Tiape-Coodoltmtrm-Frequent wc-Izkyg-Gabspoghq.html To learn more about the COVID-19 vaccine, we invite you to visit the [employer] website for a list of frequently asked questions. https://Medgenome Labs/assets/Patient o-ucj-Nuwhlldd/ktzyp-Grhsgar-Awvmq ently_Asked-Questions.pdf [facility] Patient Portal Access Instructions: Stay connected with your healthcare team and access your personal medical information anytime with the [facility] Patient Portal. If you would like a full copy of your medical records please contact the [facility] Medical Records Department Saturday through Saturday between 8a.m. and 4:30p.m. Please follow the directions below to access the portal: 1.Access the email account you provided upon registration to the [facility].2.Look for an invitation email from [facility].3.Open the email and access the invitation link: Accept Invitation to [employer]4.Fill in the required rowe to create your account. Sign into www.[email or web address] Inc[employer] with your username and password that you [...] you will allow to register on the [facility] Patient Portal for access to your information. You can also access the [employer] Patient Portal on the [employer] janie. Simply click on Health Records under Health Data and then click on the Rubén logo. HOW TO SAFELY DISPOSE OF PRESCRIPTION [...] Call your local pharmacy or go to http://Shangby.Go Pool and Spa/6R6Hc0g to find one close to you.3.Make use of household items: Use cat litter or old coffee grounds to dispose medications if other options are not available. Mix your drugs with these household products, seal them in an airtight container and throw it into the garbage. Call [facility]: [phone] to be sure your drugs can be [...] aware that I should contact my doctor. Patient/Bonding Supervisor Signature: Date/Time: Relationship to Patient: ___ Witness Name/Signature: Date/Time: [facility] 06-08-2021 Hospital Discharge instructions Patient Education [...] a local domestic violence program or an arabic translator for more information. Before you leave here [...] and any other immigration documents, medical cards, city driver's license, title to the car, proof [...] If you have trouble with a police chief deputy, you can complain to the officer's feed inspection supervisor. Arrest If the attacker is arrested [...] unless an arrest is made. Call the Directory Compiler's office or the Police Department about how to follow up with your complaint. For more information, call the National Domestic Violence Hotline at 8-990-873-AWDP (6638) or visit their website at www.Friendsurance.org. They will make certain you are in a safe situation before talking with you. 8534-8247 [employer]. [address] [place] [address]. All rights reserved. This information is not intended as a substitute for professional medical care. Always follow your healthcare professional's instructions. Follow Up Care 06/07/2021 19:53:19 With:JOE YOST MD Address: [address] [facility] [place] [address]- When:2-4 days With:Call Physician Referral Address:Unknown When:2-4 days With:Call JACKSON Carpenter Pt. Refferral [phone] Address:Unknown When:2-4 days [facility] 06-02-2021 History of Present illness Narrative Associated [...] of Time: ongoing Frequency: Continuous Intervention/Comfort measure: Reposition;Relaxation;Medication;C old;Heat HPI: Veroan Avalos is a 40 year old female [...] Unknown Vicodin [Hydrocodon* Itching Physical Exam: Vitals: LMP 12/19/2017 Psych: Pleasant, good affect and mood [...] subacromial bursa Informed Consent Consent Obtained: Verbal [place] Protocol A moment to CARE was completed. [...] completed when applicable documented in this encounter [facility] 12-25-2010 History of Past i llness Narrative Problem Noted Date Resolved Date Supervision of other normal 12/25/2010 05/14/2011 documented as of this encounter (statuses as of 06/09/2021) [facility] Note Date/Time October 13, 2024 3: 29am [facility] Medical Records Department [address] [place] [address] Emergency Department Summary 10/13/24 MR#: [id number] Acct: [id number] Name: VERONA AVALOS Rep #:[id number] : 1980 43 From: Angelito Santiago MD PCP: Care Physician,No Primary Status :REG ER Location: ED HPI HPI - Female History of Present Illness Chief Complaint: Vag Bleeding Informant: patient Narrative Narrative: 43-year-old female presenting for vaginal bleeding. States this has been going on for about a week, it was appropriate timing for her cycle. However it has been going on for longer than usual, and she has been bleeding more than usual especially in the past 24 hours, many hours she has been going through an entirepad. She denies any syncope. No fevers or chills. She is having some right sided pelvic pain that started 4 days ago. This same pain started before this cycle and then ended when the bleeding started, which is how it has gone in the last couple cycles but now she is having the pain again and it feels like it is getting worse. Denies any other acute symptoms. She presents at 2 AM after drinking some beer earlier. States she does not have an FLIGHT FOLLOWER. [facility] Medical History Liver disease Alcohol abuse Smoker Seizures Chronic bronchiolitis Epilepsy Migraine Home Medications ?Medication ?Instructions ?Recorded ?Last Taken ?Type duloxetine 30 mg capsule,delayed 30 mg PO DAILY Unknown History release ibuprofen 600 mg tablet 600 mg PO Q8H PRN PRN pain # 20 10/13/24 Unknown Rx TABLETS quetiapine 200 mg tablet 200 mg PO QHS 10/13/24 Unkno wn History topiramate 100 mg tablet 100 mg PO DAILY 10/13/24 Unk nown History trazodone 100 mg tablet 100 mg PO QHS PRN PRN insomn ia 10/13/24 Unknown History Allergy/AdvReac Type Severity Reaction Status Date / Time acetaminophen (From Vicodin) Allergy Hives Verified 10/13/24 01:54 hydrocodone (From Vicodin) Allergy Hives Verified 10/13/24 01:54 hydromorphone (From Dilaudid) Allergy Hives Verified 10/13/24 01:54 latex Allergy Hives Verified 10/13/24 01:54 Latex, Natural Rubber Allergy Rash Verified 10/13/24 01:54 Surgical History (Updated 10/13/24 @ 01:59 by Alicia Collins) H/O tubal ligation Hx of knee surgery Hx of removal of cyst Hx of section Social History Smoking Status: Current every day smoker tobacco type: cigarettes ROS ROS ED Constitutional Constitutional ED: Denies chills or fever(s) Eyes Eyes: Denies change in vision or diplopia ENT ENT ED: Denies rhinorrhea or sore throat Cardiovascular Cardiovascular: Denies chest pain or palpitations Respiratory/Chest Respiratory/Chest: Denies cough or dyspnea Gastrointestinal Gastrointestinal: Reports abdominal pain; Denies diarrhea, nausea or vomiting Genitourinary Genitourinary ED: Reports vaginal bleeding; Denies dysuria, hematuria, low back pain or vaginal discharge Musculoskeletal Musculoskeletal: Denies back pain or neck pain Integumentary Denies abscess or rash Neurologic Neurologic: Denies headache(s), paresthesias or weakness Psychiatric Psychiatric: Denies suicidal thoughts EXAM Physical Exam Const Vital Signs: 10/13/24 01:54 Temperature 98.1 F Temperature Source Axillary Pulse Rate 88 Respiratory Rate 18 Blood Pressure 150/94 H Blood Pressure Mean 112 Pulse Ox 100 Oxygen Delivery Method Room Air Positive well nourished and well developed General Appearance ED: well developed and NAD HEENT Reports moist mucous membranes normocephalic and atraumatic Eyes PERRL and EOMs intact bilaterally Neck full ROM and supple Resp normal respiratory effort and clear to auscultation bilaterally Cardio regular rate, regular rhythm and no murmurs Rate: Negative for tachycardic GI non-distended GI Narrative: Tender suprapubic and right pelvis. No guarding or rebound. No other areas of tenderness. Auscultation: normoactive bowel sounds Palpation: soft Speculum Exam - Vagina: vaginal bleeding; Negative for vaginal discharge Back/Spine no CVA tenderness General Back: other FROM Extremity normal to inspection General Extremety ED: Negative for edema, pulses abnormal or tenderness General Extremity: Negative for edema or pulses abnormal Neuro oriented x3, CN's II-XII intact bilaterally and no sensory deficits noted Sensorium / Orientation: awake and alert Motor Exam: strength 5/5 throughout Psych Mood & Affect: anxious Skin no rashes or lesions noted and no wounds MDM MDM MDM Narrative Medical decision making narrative: Labs were obtained as well as a serum qualitative which is negative, ruling out ectopic as cause for her pelvic pain. Her labs are very reassuring, showing hemoglobin 14.1, no leukocytosis, actually a predilection for lymphocytes on the differential for her total white blood count of 10.2. Her urine is negative except for some occult blood likely due to contamination from her vaginal bleeding. No signs of infection. Patient is doing well her vital signs are stable she is a little hypertensive but she is very anxious and wants to make sure she is okay. She was given Toradol and she feels a lot better with regards to her pain. I do not have ultrasound here right now, I could call them in for true emergencies such as rule out ectopic, but as above that isnot necessary or indicated for her at this time. I am not suspicious for TOA given her focal pain and lack of leukocytosis or discharge recently. This couldbe an ovarian cyst, if hemorrhagic she is in no danger with her blood pressure and stable hemoglobin. I recommend close outpatient gynecologic follow-up, we can give her a prescription for some NSAID and she is comfortable with that planat this time. Lab Data Attestation: I reviewed the patient's lab results. Labs: Laboratory Results - last 24 hr 10/13/24 10/13/24 02:04 02:12 WBC 10.2 RBC 4.48 Hgb 14.1 Hct 39.7 MCV 88.6 MCH 31.5 MCHC 35.5 RDW Std Deviation 49.6 H RDW Coeff of Myriam 15.3 H Plt Count 191 MPV 10.8 Immature Gran % (Auto) 0.300 Neut % (Auto) 38.7 L Lymph % (Auto) 52.3 H [place] % (Auto) 6.1 Eos % (Auto) 1.9 Baso % (Auto) 0.7 Absolute Neuts (auto) 4.0 Absolute Lymphs (auto) 5.35 H Nucleated RBC % 0 Differential Comment SCANNED Sodium 138 Potassium 3.5 Chloride 105 Carbon Dioxide 19.8 L Anion Gap 14 BUN 10 Creatinine 0.76 Estim Creat Clear Calc 80.77 Est GFR (MDRD) Non-Af 100 BUN/Creatinine Ratio 12.5 Glucose 99 Calcium 8.8 Serum , Qual NEGATIVE Urine Color Yellow Urine Clarity Clear Urine pH 6.5 Ur Specific [place] 1.010 Urine Protein Negative Urine Glucose (UA) Normal Urine Ketones Negative Urine Occult Blood 25 H Urine Nitrite Negative Urine Bilirubin Negative Urine Urobilinogen Normal Ur Leukocyte Esterase Negative Urine RBC 0 SEEN Urine WBC 0 SEEN Ur Squamous Epith Cells 0 SEEN Urine Bacteria 0 SEEN Urine Mucus 0 SEEN Discharge Plan Triage Chief Complaint: Vag Bleeding ED Provider: Angelito Santiago Dx/Rx/DC Orders Clinical Impression: Bleeding, uterine, dysfunctional, Acute pelvic pain, female Instructions: ED Dysfunctional Uterine Bleeding Prescriptions: New ibuprofen 600 mg tablet 600 mg PO Q8H PRN PRN (Reason: pain) Qty: 20 0RF Continued quetiapine 200 mg tablet 200 mg PO QHS trazodone 100 mg tablet 100 mg PO QHS PRN PRN (Reason: insomnia) topiramate 100 mg tablet 100 mg PO DAILY duloxetine 30 mg capsule,delayed release(DR/EC) 30 mg PO DAILY Discontinued ibuprofen 800 mg tablet 800 mg PO TID PRN PRN (Reason: pain) Primary Care Provider: Care Physician,No Primary Referrals: Eri Sun DO [Med Staff - Active Staff] - 3-5 Days if not improving Print Language: Congolese Disposition Disposition: Home, Self Care What to do if you have Problems For any increased pain, shortness of breath, bleeding, nausea or vomiting, chestpain, or any unexpected problems, contact your Primary Care Provider. Call [facility] ([phone]) or report to the closest Emergency Room. Call 911 if necessary. 10/13/24 0329 <Electronically signed by Angelito Santiago MD> Cosigner Signature (if applicable): CC: No Primary Care Physician ~ Signed [facility] Work Phone: Evaluation + Plan note No data available for this section [facility] Evaluation note* Diagnosis Chest pain, unspecified type- Primary Upper abdominal pain Abdominal pain, other specified site documented in this encounter [facility] Work Phone: Evaluation note* Diagnosis Generalized abdominal pain- Primary Abdominal pain, generalized documented in this encounter [facility] Work Phone: Evaluation note* Diagnosis Chronic right shoulder pain- Primary Pain in joint, shoulder region Impingement syndrome of right shoulder Other affections of shoulder region, not elsewhere classified Bursitis of right shoulder Disorders of bursae and tendons in shoulder region, unspecified Tendinitis of right shoulder Disorders of bursae and tendons in shoulder region, unspecified documented [facility] noteNo assessment information availableWMount Carmel [facility] Work Phone: Hospital Discharge instructions* Instructions* Alicia Ramos PA - [...] sent through Care Everywhere. * Abdominal Pain (Congolese) * GERD (Congolese) * Acid-Reducing Medicines: General Info (Congolese) documented in [facility] Work Phone: Hospital Discharge instructions* Attachments The following attachments cannot be sent through Care Everywhere. * Abdominal Pain (Congolese) * Oral Rehydration (Congolese) documented in this [facility] Work Phone: Note* Chelita Terrazas RN: PERFORM Event Display: [facility] Patient Summary Authored Date: Discharge Instructions Thank you for allowing [facility] to assist you with your healthcare needs. [...] were not tolerated. Extended-release oxycodone is for badqqr-vah-asuse treatment of severe and chronic pain that [...] by your doctor. Stop taking all other mtyfpw-vbo-fpgby opioid pain medicines when you start taking [...] may report side effects to FDA at 2-370-OYG-0823. What other drugs will affect oxycodone? You [...] drugs may affect oxycodone. This includes prescription kqnrtto-iqo-ksdcfpr medicines, vitamins, and herbal products. Not all [...] to ensure that the information provided by [employer]. ('[employer]') is accurate, up-to-date, and complete, but no guarantee is made to that effect. Drug information contained herein may be time sensitive. [employer] information has been compiled for use by healthcare practitioners and consumers in the [place] and therefore [employer] does not warrant that uses outside of the [place] are appropriate, unless specifically indicated otherwise. [employer] drug information does not endorse drugs, diagnose patients or recommend therapy. [employer] drug information isan informational resource designed to [...] effective or appropriate for any given patient. [employer] does not assume any responsibility for any aspect of healthcare administered with the aid of information [employer] provides. The information contained herein is not intended to cover all possible uses, directions, precautions, warnings, drug interactions, allergic reactions, or adverse effects. If you have questions about the drugs you are taking, check with your doctor, nurse or pharmacist. Copyright 5054-5402 [employer]. Version: 17.01. Revision Date: 03/12/2023. Education Materials [...] temperature. Use toothpaste made for sensitive teeth. [place] gently up and down instead of sideways. Brushing sideways can wear away root surfaces if they are exposed. If your tooth is chipped or cracked, or if there is a large open cavity, put oil of cloves directlyon the tooth to relieve pain. You can buy oil of cloves at drugstores. Some pharmacies carry an ivyh-gpk-hebirhg toothache kit. This contains a paste that you can put on the exposed tooth to make it less sensitive. Put a cold pack on your jaw over the sore area to help reduce pain. You may use lqpe-tww-gzyqacp medicine to ease pain, unless your doctor [...] healthcare provider Pus drains from the tooth 4930-9079 [employer]. [address] [place] [address]. All rights reserved. This information is not intended as a substitute for professional medical care. Always follow yourhealthcare professional's instructions. Additional Information VACCINATE! IT SAVES LIVES! Members of the community who have not yet received the COVID-19 vaccine and would like to receive it can visit one of [facility] vaccine clinics. There are many vaccine clinic locations within the [facility]. For locations and available times, please visit [email or web address] It is important to note that some COVID mobile vaccine clinics are held outdoors and may be canceled in rainy or stormy conditions. To learn more about pediatric vaccinations (ages 5-11), we invite you to visit the [facility] webpage. https://www.[facility].org/pages/9945-Nmtpt-Jwrfcjulaxo-Vmcynryiki-Hlaep-Ywm stions.htmlTo learn more about the COVID-19 vaccine, we invite you to visit the CDC website for a list of frequently asked questions. https://www.cdc.gov/coronavirus/2019-ncov/vaccines/faq.html [facility] Patient Portal Access Instructions: Stay connected with your healthcare team and access your personal medical information anytime with the [facility] Patient Portal. If you would like a full copy of your medical records please contact the [facility] Medical Records Department Saturday through Saturday between 8a.m. and 4:30p.m. Please follow the directions below to access the portal: 1.Access the email account you provided upon registration to the [facility].2.Look for an invitation email from [facility].3.Open the email and access the invitation link: Accept Invitation to [facility]4.Fill in the required rowe to create your account. Sign into www.[employer] with your username and password that you [...] you will allow to register on the [facility] Patient Portal for access to your information. You can also access the [facility] [employer] Patient Portal on the [employer]. Simply click on Health Records under [employer] and then click on the [employer] logo. HOW TO SAFELY DISPOSE OF PRESCRIPTION [...] Call your local pharmacy or go to http://bit.ly/7Y0Wc4r to find one close to you.3.Make use of household items: Use cat litter or old coffee grounds to dispose medications if other options arenot available. Mix your drugs with these household products, seal them in an airtight container andthrow it into the garbage. Call [facility]: [phone] to be sure your drugs can be [...] aware that I should contact my doctor. Patient/Bonding Supervisor Signature: Date/Time: Relationship to Patient: Witness Name/Signature: Date/Time: [facility] note No data available for this section [facility] Reason for referral (narrative)No reason for referral information availableWMount Carmel Health System Work Phone: Summary Purpose Family History No Family History [...] FoundDocuments on File Type Date Recorded Patient Bonding Supervisor Expl anation Advance Directive(s) Advance Directive(s) 01/06/2020 [...] 9:15 PM Advance Directive(s) 08/28/2016 12:49 PM Advance Directive Response Recorded Date/ Time Do you have a Healthcare Power of Pluck Trimmer? No October 13, 2024 1:54am Discharge Instructions * Attachments The following attachments cannot be sent through Care Everywhere. * Contusion: Hand (Congolese) * RICE: General Info (Congolese) documented in this encounter* Attachments The following attachments cannot be sent through Care Everywhere. * Finger Fracture (Congolese) documented in this encounter* Instructions* Esther Leach [...] Space It Takes Up in Your Life (Congolese) * Video: Alcohol: Time for a Change? (Congolese) * Cervical Strain or Sprain: Rehab Exercises (Congolese) * Abrasions (Congolese) documented in this encounter Assessments Diagnosis Contusion [...] Acute alcoholic intoxication in alcoholism without complication ([facility]) Procedure Findings Note HNO ID: [id number] Author: Amy Mohan Service: ? Author Type: Nurse Rn Wellness Type: Anesthesia Procedure Notes Filed: 01/07/2020 9:24 AM Note Text: ANESTHESIOLOGY PROCEDURE NOTE Airway General Information Procedure Start Time/Medication Administration: 01/07/2020 9:17 AM Patient location during procedure: OR Patient identity confirmed: patient and arm band Staffing MANAGER [place]: Guerline Mohan Indications and Patient Condition Preoxygenated: yes Difficult Mask: No Indications for airway management: anesthesia anesthesia circuit Method: sleep Airway Accessory: LMA Final Airway Details Final airway type: supraglottic airway Number of attempts at approach: 1 Final Supraglottic Airway: IGEL Size 3 Airway not difficult SIGNATURE: Guerline Mohan, DIRECT MAIL MARKETER.[place] PATIENT NAME: Verona Avalos DATE: January 07, 2020 TIME: 9:23 AM CSN: [id number] Note HNO ID: [id number] Author: Amy Weiss Service: Orthopaedic Surgery Author Type: Physician Type: Brief Op Note Filed: 01/07/2020 10:10 AM Note Text: BRIEF OPERATIVE / PROCEDURE NOTE LOG ID: [id number] Surgery/Procedure Date: 01/07/2020 Incision/Procedure Start Time: 9:25 AM Incision Close/Procedure End Time: 10:00 AM Surgeon(s)/Proceduralist(s) and Software Administrator(s): Surgeon(s) and Role: * Milli Weiss - Primary Procedure(s): Right knee arthroscopy, lateral retinacular release, chondroplasty,removal loose bodies Anesthesia: General Findings: Right knee patello/femoral syndrome, loose bodies, chondromalacia patella Estimated Blood Loss: 0 ml Specimens: None Complications: None Pre-Op/Pre-Procedure Diagnosis: Right knee patello femoral syndrome, loose bodies ,chondromalacia patella Post-Op/Post-Procedure Diagnosis: same SIGNATURE: Milli Weiss MD PATIENT NAME: Verona Avalos DATE: January 07, 2020 TIME: 10:07 [...] dose, Starting on Sat06/02/21 at 1532, Until 06/02/21 at 1532 Given 06/02/2021 3:32 PM EDT 80 mg Chief Complaint and Reason for Visit Chief Complaint Admit Date vag bleeding October 13, 2024 1: 53am Additional Source Comments INFORMATION SOURCE (unrecogn ized section and content) DATE CREATED AUTHOR 08/14/2017 [facility] DATE CREATED AUTHOR AUTHOR'S ORGANIZ ATION 01/07/2019 [facility] DATE CREATED AUTHOR AUTHOR'S ORGANIZ ATION 03/09/2020 [facility] DATE CREATED AUTHOR AUTHOR'S ORGANIZ ATION 03/10/2020 [facility] DATE CREATED AUTHOR AUTHOR'S ORGANIZ ATION 03/29/2020 [facility] DATE CREATED AUTHOR AUTHOR'S ORGANIZ ATION 04/13/2020 [facility] DATE CREATED AUTHOR AUTHOR'S ORGANIZ ATION 10/21/[address] [facility] DATE CREATED AUTHOR AUTHOR'S ORGANIZ ATION 07/01/2023 [facility] DATE CREATED AUTHOR AUTHOR'S ORGANIZ ATION 01/17/2024 [facility] DATE CREATED AUTHOR AUTHOR'S ORGANIZ ATION 11/09/2024 [facility] DATE CREATED AUTHOR AUTHOR'S ORGANIZ ATION 12/17/2024 [facility] Reason for Visit (unrecogniz ed section and [...] Care Team (unrecognized sect ion and content) Team Status: Active Member Role/Relationship Status Dates No Primary Care Physician Primary Care Provider Active Team Status: Inactive Member Role/Relationship Status Dates No Primary Care Physician Primary Care Provider Active Start: October 13, 2024 End: October 13, 2024 Dr. Angelito Santiago MD Emergency Provider Active Start: October 13, 2024 End: October 13, 2024 Source Comments (unrecognize d section and content) In the event this informatio n is protected by the Federal Confidentiality of Alcohol and Drug Abuse Patient Records regulations: The Federal rules restrict any use of the information to criminally investigate or prosecute any alcohol or drug abuse patient.[facility] Care Team (unrecognized sect ion and content) Care Team Personnel Name: JOHN AMARAL DO Position: Resident Member Role: Resident Address: Address: [address] [place] [address] ED Resident [address] Name: Valentino Philip RN Position: SEE RN Member Role: RN Name: MD ANAI PATHAK MD Position: ED Physician Member Role: ED Physician Address: Address: [facility] [address] [place] [place] [address] Goals (unrecognized section and content) Goals may be documented in a n alternate section FOR RECORDS PERTAINING TO PATIENTS WHO ARE [...] BE BASED ON THE PRIMARY CLINICAL RECORDS. [facility] [employer] [facility]. provides no warranty or guarantee of the accuracy or completeness of information in this document.
[2025-01-04 05:06] LABS: Chlamydia By Nucleic Acid AMP Negative (Negative); Gonococcus By Nucleic Acid AMP Negative (Negative)
[2025-01-04 16:09] LABS: HEPATITIS B SURFACE AG Negative (Negative); Hep C Antibodies Reactive (Non Reactive)
[2025-01-07 09:08] LABS: HPV APTIMA, High Risk Negative (Negative)
== END | disposition home or self-care (01) ==
LOC: VSLAB 13:41
PROVIDERS: Referring Provider Nurse Practitioner Family; Visit Provider Nurse Practitioner Family
DX: Z11.3 Encounter for screening for infections with a predominantly sexual mode of transmission (principal)
CPT/HCPCS: 36415; 80074; 86703; 86780

== ENCOUNTER → 2025-01-12 | Outpatient (CLI) | payer MEDICAID, SELFPAY ==
--- NOTE | 2025-01-12 13:17 | BI_ITS ---
EXAM: SCRN MAMM (CAD)W/LLUVIA BILAT DATE: 01/12/2025 CLINICAL HISTORY: F, Age 44 y/o , SCREENING TECHNIQUE: Procedure Code: [id number] Modality: MG Procedure: SCRN MAMM (CAD)W/LLUVIA BILAT COMPARISON: Prior exam(s) dated none. FINDINGS: TISSUE DENSITY: The breasts are heterogeneously dense, which may obscure small masses. Bilateral Breast Mammographic Findings: No significant masses, calcifications or other abnormalities are identified. BI/SCRN MAMM (CAD)W/LLUVIA BILAT IMPRESSION: Negative screening mammogram OVERALL FINAL ASSESSMENT BI-RADS 1: NEGATIVE. RECOMMENDATION: Routine annual follow-up in 1 Year Additional Recommendation none A letter with findings and recommendations will be mailed to the patient. Reading Location: [id number]
== END | disposition home or self-care (01) ==
LOC: OPBI 13:16
PROVIDERS: PCP Nurse Practitioner Family; Referring Provider Nurse Practitioner Family; Visit Provider Nurse Practitioner Family
DX: Z12.31 Encounter for screening mammogram for malignant neoplasm of breast (principal)
CPT/HCPCS: 77063; 77067